=== PATIENT | female | born 1945 | race Caucasian/White ===

== ENCOUNTER 2017-10-31 16:47 | Inpatient (IN) | payer OTHER, MEDICAID ==
--- NOTE | 2017-10-31 17:09 | ED Physician Chart ---
ED Chief Complaint/HPI - Patient Information Date Seen:: 10/31/17 Time Seen:: 16:50 Chief Complaint:: abdominal pain, vomiting and diarrhea History of Present Illness:: Patient developed abdominal pain 1 week ago. Patient's daughter the patient had constipation and gave her a laxative. Since then the patient's had many times vomiting and many times watery diarrhea. She's had right upper quadrant and epigastric pain. She complained of abdominal pain to her daughter a few minutes ago but denies abdominal pain at present. Patient has fecal incontinence. Allergies:: Allergies Allergy/AdvReac Type Severity Reaction Status Date / Time No Known Allergies Allergy Verified 10/31/17 16:57 Historian:: Patient, Family Member Review:: Nurse's Note Reviewed ED Review of Systems - Review of Systems General/Constitutional: No fever, No chills Skin: No skin lesions Head: No headache Eyes: No loss of vision ENT: No earache Neck: No neck pain Cardio Vascular: No chest pain, No palpitations Pulmonary: No SOB GI: Nausea, Vomiting, Diarrhea G/U: No dysuria, No frequency, No nacturia Musculoskeletal: No bone or joint pain, No back pain, No muscle pain Endocrine: No polyuria, No polydipsia Psychiatric: No prior psych history Hematopoietic: No bruising Allergic/Immuno: No urticaria Neurological: No syncope, Focal symptoms ED Past Medical History - Past Medical History Past Medical History: No significant medical hx, CVA/TIA, Other (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) Family History: Heart disease, Other (cerebrovascular accident) Social History: Non Smoker, No Alcohol Surgical History: Hysterectomy Psychiatricy History: None, Other (daughter states patient has confusion) Medication: Reviewed Family Medical History - Family Member Mother History Unknown: Yes Ethnicity: Non- Living Status: ED Physical Exam - Physical Examination General/Constitutional: Well-developed, well-nourished, Alert Head: Atraumatic Eyes: Lids, conjuctiva normal, PERRL Skin: Nl inspection, No rash, No skin lesions, No ecchymosis, Well hydrated, No lymphadenopathy ENMT: External ears, nose nl, Lips, teeth, gums nl, Oropharynx nl Neck: No nuchal rigidity Respiratory: Nl effort/Exclusion Cardio Vascular: RRR, No murmur, gallop, rubs GI: No organomegaly, No hernia, Normal BS's, No mass/bruits, No McBurney tenderness Other GI comments:: Epigastric and right upper quadrant tenderness : No CVA tenderness Extremities: Normal digits & nails Other Neuro/Psych comments:: Slight decrease in right hand grasp and right leg strength Misc: Normal back ED Labs/Radiology/EKG Results - Lab Results Results: Laboratory Results - last 24 hr 10/31/17 17:52 WBC 6.4 RBC 4.20 Hgb 12.6 Hct 38.7 L MCV 92.2 MCH 30.1 MCHC Differential 32.6 RDW 13.7 Plt Count 207 MPV 9.5 Neutrophils % 71.5 Lymphocytes % 20.0 Monocytes % 7.6 Eosinophils % 0.7 Basophils % 0.2 - Radiology Results Results: CT abdomen and pelvis showed massive distention of bowel loops including a cecum up to 10 cm. Laboratory Results - last 24 hr 10/31/17 10/31/17 10/31/17 17:52 17:52 17:52 WBC 6.4 RBC 4.20 Hgb 12.6 Hct 38.7 L MCV 92.2 MCH 30.1 MCHC Differential 32.6 RDW 13.7 Plt Count 207 MPV 9.5 Neutrophils % 71.5 Lymphocytes % 20.0 Monocytes % 7.6 Eosinophils % 0.7 Basophils % 0.2 Sodium 131 L Potassium 4.0 Chloride 101 Carbon Dioxide 23.3 Anion Gap 10.7 BUN 25 Creatinine 0.8 Est GFR ( Amer) TNP Est GFR (Non-Af Amer) TNP BUN/Creatinine Ratio 31.3 Glucose 86 Calcium 10.4 H Total Bilirubin 0.7 Direct Bilirubin 0.21 H AST 16 ALT 13 Alkaline Phosphatase 72 Total Protein 8.0 Albumin 4.2 Globulin 3.8 Albumin/Globulin Ratio 1.1 Lipase 26 ED Septic Shock - . Is Septic Shock (SBP<90, OR Lactate>4 mmol\L) present?: No ED Reassessment (Disposition) - Reassessment Reassessment Condition:: Unchanged - Diagnosis Diagnosis:: Bowel obstruction; gallstones - Patient Disposition Admitted to:: Med/Surg Spoke to:: Kaushik Anaya Admitting Medical Physician:: Kaushik Anaya Condition at Disposition:: Stable
[2017-10-31 17:58] LABS: % BASOPHILS 0.2 % (0.0-2.0); % EOSINOPHILS 0.7 % (0.0-5.0); % MONOCYTES 7.6 % (2.0-10.0); % NEUTROPHILS 71.5 % (40.0-80.0); HEMATOCRIT 38.7 % (41.0-60); HEMOGLOBIN 12.6 gm/dL (12-16); LYMPHOCYTE ABSOLUTE 1.3 Th/cmm (1.5-3.0); MEAN CELL VOLUME 92.2 fl (81-100); MEAN CORPUSCULAR HEMOGLOBIN 30.1 pg (27.0-31.0); MEAN CORPUSCULAR HGB CONC 32.6 pg (28.0-36.0); MEAN PLATELET VOLUME 9.5 fl; MONOCYTE ABSOLUTE 0.5 Th/cmm (0.3-1.0); NEUTROPHILE ABSOLUTE 4.6 Th/cmm (1.8-8.0); PLATELET COUNT 207 Th/cmm (150-400); RED CELL DISTRIBUTION WIDTH 13.7 % (11.5-20.0); WHITE BLOOD COUNT 6.4 Th/cmm (4.8-10.8)
[2017-10-31 18:13] LABS: ANION GAP 10.7 (7.0-16.0); BUN - UREA NITROGEN 25 mg/dL (7-25); CALCIUM SERUM 10.4 mg/dL (8.6-10.3); CARBON DIOXIDE 23.3 mEq/L (21.0-31.0); CHLORIDE 101 mEq/L (98-107); CREATININE - SERUM 0.8 mg/dL (0.6-1.2); GLUCOSE 86 mg/dL (70-105); LIPASE 26 U/L (11-82); SODIUM SERUM 131 mEq/L (136-145)
[2017-10-31 18:28] LABS: ALB/GLOB RATIO 1.1 (1.0-1.8); ALBUMIN 4.2 gm/dL (3.7-5.3); BILIRUBIN,DIRECT 0.21 mg/dL (0.0-0.2); BILIRUBIN,TOTAL 0.7 mg/dL (0.3-1.0)
[2017-10-31] MEDS ORDERED: Morphine Sulfate 2 mg/mL 1mL Syr IVP PRN (19:26)
[2017-10-31] MEDS ORDERED: D5-0.45NS 1,000 ML IV ONE (19:29)
[2017-11-01 00:19] VITALS: BP 108/66
--- NOTE | 2017-11-01 08:17 | Diagnostic Imaging Report ---
Exam: CT examination the abdomen pelvis. HISTORY: Abdominal pain. Total DLP equals 417 CTDI equals 8.0 Findings: Multiple contiguous thin section of the abdomen pelvis obtained from lower thorax to pubic symphysis without administration of oral intravenous contrast material, no prior studies available comparison. The study demonstrates left pleural thickening. Of the study changes in the bases appreciated. The study demonstrates normal appearance of liver parenchyma and spleen. Vascular calcifications are noted The adrenal glands intact. The kidneys demonstrate no evidence of obstructive uropathy or nephrolithiasis. The visualized pancreas is normal. The gallbladder is not seen. There is evidence for significant mass effect distention of bowel loops including the cecum up to 10 cm consistent with megacolon. Air-fluid levels are noted the small slightly represent the lateral lytic ileus. Distention small bowel loops are noted. There is no evidence for free fluid collection. There is no evidence of diverticulitis. The urinary bladder is intact. Bony structures demonstrate no evidence for lytic or blastic lesions. IMPRESSION: 1. Basilar atelectasis pleural thickening right side 2. Massively distended colon with the cecal dilatation up to 10 cm consistent with megacolon. Residual contrast is noted in the tip of the cecum. This most likely represent prior examination sequela. 3. Distended small bowel loops with fluid consistent with ileus. Clinical correlation repeat examination with intravenous and oral contrast might be helpful. 4. Small lymph nodes are noted in the retroperitoneal area.
--- NOTE | 2017-11-01 10:19 | General Progress Note ---
Subjective - Review of Systems Service Date: 11/01/17 Events since last encounter: history of constipation almost had surgery for same problem [address] scan dilated colon and SB, discussed with daughter Holland to consult Objective - Results Result Diagrams: 10/31/17 17:52 10/31/17 17:52 Recent Labs: Laboratory Last Values WBC 6.4 Th/cmm (4.8-10.8) 10/31/17 17:52 RBC 4.20 Mil/cmm (3.80-5.20) 10/31/17 17:52 Hgb 12.6 gm/dL (12-16) 10/31/17 17:52 Hct 38.7 % (41.0-60) L 10/31/17 17:52 MCV 92.2 fl (81-100) 10/31/17 17:52 MCH 30.1 pg (27.0-31.0) 10/31/17 17:52 MCHC Differential 32.6 pg (28.0-36.0) 10/31/17 17:52 RDW 13.7 % (11.5-20.0) 10/31/17 17:52 Plt Count 207 Th/cmm (150-400) 10/31/17 17:52 MPV 9.5 fl 10/31/17 17:52 Neutrophils % 71.5 % (40.0-80.0) 10/31/17 17:52 Lymphocytes % 20.0 % (20.0-50.0) 10/31/17 17:52 Monocytes % 7.6 % (2.0-10.0) 10/31/17 17:52 Eosinophils % 0.7 % (0.0-5.0) 10/31/17 17:52 Basophils % 0.2 % (0.0-2.0) 10/31/17 17:52 Sodium 131 mEq/L (136-145) L 10/31/17 17:52 Potassium 4.0 mEq/L (3.5-5.1) 10/31/17 17:52 Chloride 101 mEq/L (98-107) 10/31/17 17:52 Carbon Dioxide 23.3 mEq/L (21.0-31.0) 10/31/17 17:52 Anion Gap 10.7 (7.0-16.0) 10/31/17 17:52 BUN 25 mg/dL (7-25) 10/31/17 17:52 Creatinine 0.8 mg/dL (0.6-1.2) 10/31/17 17:52 Est GFR ( Amer) TNP 10/31/17 17:52 Est GFR (Non-Af Amer) TNP 10/31/17 17:52 BUN/Creatinine Ratio 31.3 10/31/17 17:52 Glucose 86 mg/dL (70-105) 10/31/17 17:52 Calcium 10.4 mg/dL (8.6-10.3) H 10/31/17 17:52 Total Bilirubin 0.7 mg/dL (0.3-1.0) 10/31/17 17:52 Direct Bilirubin 0.21 mg/dL (0.0-0.2) H 10/31/17 17:52 AST 16 U/L (13-39) 10/31/17 17:52 ALT 13 U/L (7-52) 10/31/17 17:52 Alkaline Phosphatase 72 U/L (34-104) 10/31/17 17:52 Total Protein 8.0 gm/dL (6.0-8.3) 10/31/17 17:52 Albumin 4.2 gm/dL (3.7-5.3) 10/31/17 17:52 Globulin 3.8 gm/dL 10/31/17 17:52 Albumin/Globulin Ratio 1.1 (1.0-1.8) 10/31/17 17:52 Lipase 26 U/L (11-82) 10/31/17 17:52 - Physical Exam Vitals and I&O: Vital Signs Temp 97.7 F 11/01/17 07:58 Pulse 82 11/01/17 07:58 Resp 17 11/01/17 07:58 BP 104/64 11/01/17 07:58 Pulse Ox 95 11/01/17 07:58 Intake & Output 10/31/17 11/01/17 11/01/17 18:59 06:59 18:59 Intake Total 0 Balance 0 Weight (lbs) 54.431 kg Intake: Oral 0 Active Medications: Current Medications Enalaprilat (Vasotec) 2.5 mg IVP Q6H PRN PRN Reason: BP MAINTENANCE (PER PROTOCOL) Stop: 12/30/17 21:17 Morphine Sulfate (Morphine) 2 mg IVP Q4HR PRN PRN Reason: Pain (Severe) Stop: 12/30/17 19:25 Ondansetron HCl (Zofran) 4 mg IV Q6HR PRN PRN Reason: Nausea / Vomiting Stop: 12/30/17 19:27 Assessment/Plan - Problem List Patient Problems: All Active Problems ABDOMINAL PAIN WITH N/V/D (Acute)
[2017-11-01] MEDS ORDERED: Fleet Enema 135 mL RC ONE (10:21)
[2017-11-01] MEDS ORDERED: Diatrizoate Meglumine/Diatri 30 mL Sol PO ONE (10:54)
[2017-11-01] MEDS ORDERED: VTE Chemical Prophylaxis Screen/Admission MC PRN (16:24)
[2017-11-01] MEDS ORDERED: Haloperidol Lactate 5 mg/mL 1mL Vial IM PRN (22:11)
--- NOTE | 2017-11-02 01:33 | History & Physical ---
ADMIT DATE: 10/31/2017 CHIEF COMPLAINT: Abdominal pain. HISTORY OF PRESENT ILLNESS: This is a 72-year-old female, who was brought to Emergency Room by family for evaluation of the abdominal pain that started for 1-week duration. The patient was evaluated in the Emergency Room and also noted to have associated vomiting and diarrhea. The patient had a CT abdomen and pelvis with history of possible bowel obstructions. The patient admitted to the hospital for further treatment. During my evaluation this morning, the patient's was awake, but appears confused. She was refusing to drink contrast material for small bowel series. PAST MEDICAL HISTORY: Hypertension, hypothyroidism, GERD, hyperlipidemia, mental health disorders. PAST SURGICAL HISTORY: No significant past surgeries reported. SOCIAL HISTORY: Lives at home. No reported alcohol, tobacco or street drug use. CURRENT MEDICATIONS: Per medication list reviewed. ALLERGIES: No known drug allergies. REVIEW OF SYSTEMS: The patient appears to be very confused. Review of system was difficult to obtain and unreliable. PHYSICAL EXAMINATION: VITAL SIGNS: Temperature 97.1, pulse 70, respirations 18, blood pressure 108/66, oxygen saturation 95% on room air. GENERAL APPEARANCE: The patient does not seem in acute distress. CARDIOVASCULAR: S1, S2 normal. LUNGS: Clear to auscultation. ABDOMEN: Soft, nontender. Hypoactive bowel sounds noted. No distention, no guarding, no rigidity. NEUROLOGIC: Awake, but confused. Moves all extremities. Grossly nonfocal exam. EXTREMITIES: No edema noted. AVAILABLE LABORATORY DATA: WBC 6.4, hemoglobin 12.6, hematocrit 38.7, platelet count 207. Sodium 131, potassium 4.0, BUN 25, creatinine 0.8, AST 16, ALT 13, lipase 26. CT abdomen and pelvis: Massively distended colon with cecal dilatation up to 10 cm consistent with megacolon, residual contraction noted distal small bowel loops with fluid consistent with ileus. ASSESSMENT: 1. Ileus. 2. Constipation. 3. Hypertension. 4. Hypothyroid. 5. Hyperlipidemia. 6. Confusions. 7. Mental disorder. PLAN: The patient was admitted to med/surg floor. The patient was kept n.p.o., IV fluid was started. IV morphine and Zofran were ordered. General Surgery and GI was consulted. General Surgery evaluated the patient. No surgical intervention was recommended. Small bowel series was ordered. We will follow up on GI's recommendations. Supportive care will be given. Psych was also consulted for underlying mental disorders. The patient's condition and plan of care discussed with the nursing staff. JOB# [id number]
--- NOTE | 2017-11-02 01:36 | Consultation ---
DATE OF CONSULTATION: 11/01/2017 INPATIENT GI CONSULTATION CONSULTING PHYSICIAN: Dr. Anaya. REASON FOR CONSULTATION: Dilated colon, constipation, nausea, vomiting. HISTORY OF PRESENT ILLNESS: The patient is a 72-year-old female with past medical history significant for previous strokes x 2, hypertension, dementia and constipation, who was admitted to the hospital with increasing amounts of abdominal pain and nausea and vomiting. The patient is accompanied by her daughter, who gives most of the history as the patient is not able to participate meaningfully in the interview today. According to the daughter, the patient has been having increasing amounts of abdominal pain over the past week. She suffers from chronic constipation issues and usually does require daily laxatives; however, she has not had a bowel movement in several days and also has been reporting nausea over the past several days as well. At the current time, the patient is asking for food and is not reporting any pain or nausea. ER evaluation did reveal a CT scan that shows very dilated colon with cecum up to 10 cm as well as dilated loops of bowel. PAST MEDICAL HISTORY: Previous strokes, hypertension, dementia. PAST SURGICAL HISTORY: Hysterectomy in the past. FAMILY HISTORY: Noncontributory. SOCIAL HISTORY: The patient lives with her daughter. There is no history of alcoholism or cigarette or illicit drug use. REVIEW OF SYSTEMS: Not possible given the patient is unable to participate in the interview. CURRENT MEDICATIONS: Include Vasotec, morphine as needed, Zofran as needed, GoLYTELY, Fleet enema. PHYSICAL EXAMINATION: VITAL SIGNS: Blood pressure is 104/64, temperature 97.7, pulse 82 beats per minute, oxygenation 95%, respiratory rate of 17. GENERAL: The patient is lying flat in bed. She is alert and oriented x 1. She is in mild amount of distress. HEAD, EARS, EYES, NOSE AND THROAT: Normocephalic, atraumatic appearing head. Pupils are equal and reactive to light. Extraocular muscles are intact with moist mucous membranes. NECK: Supple. No JVD, thyromegaly, or lymphadenopathy. CHEST: Clear to auscultation. CARDIOVASCULAR: S1 and S2 are present. Regular rate and rhythm. ABDOMEN: Distended, soft. There is some tenderness, although no guarding, no rebound. There is tympanic percussion. EXTREMITIES: There is +1 pitting edema bilaterally. Pulses not present. SKIN: No obvious jaundice or cyanosis. LABORATORY DATA AND DIAGNOSTIC STUDIES: White blood cell count 6.4, hemoglobin 12.6, platelet count 207. Sodium 131, BUN 25, creatinine 0.8. Total bilirubin 0.7, AST 16, ALT 13, alkaline phosphatase 72, lipase 26. CT abdomen and pelvis was performed, this is without contrast and shows bibasilar atelectasis, pleural thickening on the right side, ____ coiling with cecal dilation up to 10 cm consistent with megacolon, ____ contrast from the cecum, distended small bowel loops with fluid consistent with ileus. IMPRESSION: This is a 72-year-old female with history of constipation, dementia and previous stroke, who is admitted to the hospital with increasing amounts of abdominal pain, nausea and vomiting, and found to have dilated colon on CT imaging. 1. Constipation. 2. Dilated colon on CT. 3. Nausea and vomiting. DISCUSSION: It is likely that the patient's constipation has worsened and is responsible for the dilated colon as seen on CT scan. She likely has a dilated colon at baseline, although this appears to be worse than normal given her symptoms have progressed to nausea and vomiting and abdominal pain. The daughter reports she has not been having bowel movements, which is concerning; thus, we can try to help with stool evacuation via enemas as well as the oral route as tolerated by the patient. RECOMMENDATIONS: 1. We will start a very slow bowel preparation over the next 24 hours to try to evacuate some stool with GoLYTELY by mouth. 2. We will give her Fleet enema now and then tap water enemas 500 mL every 6 hours to help with stool evacuations ____. 3. There does not appear any sign of a perforation or ischemic bowel at this time given that ____. The patient is overall clinically stable; however, if this does develop, the patient will likely need surgery in order to remove the dilated colon and ____ has been consulted for this purpose. We will continue to follow this patient. Thank you for allowing us to participate in her care. Please call with any further questions. JOB# [id number]
[2017-11-02] MEDS ORDERED: Magnesium Citrate 1.75 GM/300 mL Bottle PO ONE (08:48)
--- NOTE | 2017-11-02 08:48 | GI Progress Note ---
Subjective - Review of Systems Service Date: 11/02/17 Subjective: GI NOTE Events noted. Remains confused. Drank some of her Golytely. Objective - Results Result Diagrams: 10/31/17 17:52 10/31/17 17:52 Recent Labs: Laboratory Last Values WBC 6.4 Th/cmm (4.8-10.8) 10/31/17 17:52 RBC 4.20 Mil/cmm (3.80-5.20) 10/31/17 17:52 Hgb 12.6 gm/dL (12-16) 10/31/17 17:52 Hct 38.7 % (41.0-60) L 10/31/17 17:52 MCV 92.2 fl (81-100) 10/31/17 17:52 MCH 30.1 pg (27.0-31.0) 10/31/17 17:52 MCHC Differential 32.6 pg (28.0-36.0) 10/31/17 17:52 RDW 13.7 % (11.5-20.0) 10/31/17 17:52 Plt Count 207 Th/cmm (150-400) 10/31/17 17:52 MPV 9.5 fl 10/31/17 17:52 Neutrophils % 71.5 % (40.0-80.0) 10/31/17 17:52 Lymphocytes % 20.0 % (20.0-50.0) 10/31/17 17:52 Monocytes % 7.6 % (2.0-10.0) 10/31/17 17:52 Eosinophils % 0.7 % (0.0-5.0) 10/31/17 17:52 Basophils % 0.2 % (0.0-2.0) 10/31/17 17:52 Sodium 131 mEq/L (136-145) L 10/31/17 17:52 Potassium 4.0 mEq/L (3.5-5.1) 10/31/17 17:52 Chloride 101 mEq/L (98-107) 10/31/17 17:52 Carbon Dioxide 23.3 mEq/L (21.0-31.0) 10/31/17 17:52 Anion Gap 10.7 (7.0-16.0) 10/31/17 17:52 BUN 25 mg/dL (7-25) 10/31/17 17:52 Creatinine 0.8 mg/dL (0.6-1.2) 10/31/17 17:52 Est GFR ( Amer) TNP 10/31/17 17:52 Est GFR (Non-Af Amer) TNP 10/31/17 17:52 BUN/Creatinine Ratio 31.3 10/31/17 17:52 Glucose 86 mg/dL (70-105) 10/31/17 17:52 Calcium 10.4 mg/dL (8.6-10.3) H 10/31/17 17:52 Total Bilirubin 0.7 mg/dL (0.3-1.0) 10/31/17 17:52 Direct Bilirubin 0.21 mg/dL (0.0-0.2) H 10/31/17 17:52 AST 16 U/L (13-39) 10/31/17 17:52 ALT 13 U/L (7-52) 10/31/17 17:52 Alkaline Phosphatase 72 U/L (34-104) 10/31/17 17:52 Total Protein 8.0 gm/dL (6.0-8.3) 10/31/17 17:52 Albumin 4.2 gm/dL (3.7-5.3) 10/31/17 17:52 Globulin 3.8 gm/dL 10/31/17 17:52 Albumin/Globulin Ratio 1.1 (1.0-1.8) 10/31/17 17:52 Lipase 26 U/L (11-82) 10/31/17 17:52 - Physical Exam Vitals and I&O: Vital Signs Temp 98.2 F 11/02/17 00:00 Pulse 101 11/02/17 00:00 Resp 20 11/02/17 00:00 BP 130/80 11/02/17 00:00 Pulse Ox 96 11/02/17 00:00 Intake & Output 11/01/17 11/02/17 11/02/17 18:59 06:59 18:59 Intake Total 50 Balance 50 Weight (lbs) 54.431 kg 54.431 kg Intake: Oral 50 Tube Feeding 0 Other: # Voids 3 2 # Bowel Movements 2 0 Weight Source Estimated Bedscale Active Medications: Current Medications Enalaprilat (Vasotec) 2.5 mg IVP Q6H PRN PRN Reason: BP MAINTENANCE (PER PROTOCOL) Stop: 12/30/17 21:17 Haloperidol Lactate (Haldol) 5 mg IM Q6HR PRN PRN Reason: Agitation Stop: 12/31/17 22:10 Last Admin: 11/02/17 00:37 Dose: 5 mg Heparin Sodium (Porcine) (Heparin) 5,000 units SUBQ Q12H KVNG Stop: 12/31/17 20:59 Last Admin: 11/01/17 22:48 Dose: Not Given Miscellaneous (Vte Chemical Prophylaxis Screen/ Admission) 1 ea [facility] PRN PRN PRN Reason: PROTOCOL Stop: 12/31/17 16:23 Morphine Sulfate (Morphine) 2 mg IVP Q4HR PRN PRN Reason: Pain (Severe) Stop: 12/30/17 19:25 Ondansetron HCl (Zofran) 4 mg IV Q6HR PRN PRN Reason: Nausea / Vomiting Stop: 12/30/17 19:27 General: No acute distress, Other (confused) Neck: Supple Cardiovascular: Regular rate Lungs: Clear to auscultation Abdomen: Bowel sounds, Soft, Distended (mild), no Tender Assessment/Plan - Problem List Patient Problems: All Active Problems ABDOMINAL PAIN WITH N/V/D (Acute) - Assessment Assessment: IMPRESSION: 1. Abdominal distension with possible cecal volvulus - markedly dilated cecum per CT; dilated SB loops per SB series. 2. Chronic constipation. 3. Dementia. RECS: 1. Continue bowel prep. 2. May need ex lap with volvulus repair. 3. Serial KUB checks. 4. Clear liquid diet. 5. Monitor labs.
--- NOTE | 2017-11-02 09:01 | General Progress Note ---
Subjective - Review of Systems Service Date: 11/02/17 Events since last encounter: SBO series noted - no contrast right abdomen, question of volvulus or obstruction discussed with Dr. Reyes, discussed with daughter will recommend surgery Objective - Results Result Diagrams: 10/31/17 17:52 10/31/17 17:52 Recent Labs: Laboratory Last Values WBC 6.4 Th/cmm (4.8-10.8) 10/31/17 17:52 RBC 4.20 Mil/cmm (3.80-5.20) 10/31/17 17:52 Hgb 12.6 gm/dL (12-16) 10/31/17 17:52 Hct 38.7 % (41.0-60) L 10/31/17 17:52 MCV 92.2 fl (81-100) 10/31/17 17:52 MCH 30.1 pg (27.0-31.0) 10/31/17 17:52 MCHC Differential 32.6 pg (28.0-36.0) 10/31/17 17:52 RDW 13.7 % (11.5-20.0) 10/31/17 17:52 Plt Count 207 Th/cmm (150-400) 10/31/17 17:52 MPV 9.5 fl 10/31/17 17:52 Neutrophils % 71.5 % (40.0-80.0) 10/31/17 17:52 Lymphocytes % 20.0 % (20.0-50.0) 10/31/17 17:52 Monocytes % 7.6 % (2.0-10.0) 10/31/17 17:52 Eosinophils % 0.7 % (0.0-5.0) 10/31/17 17:52 Basophils % 0.2 % (0.0-2.0) 10/31/17 17:52 Sodium 131 mEq/L (136-145) L 10/31/17 17:52 Potassium 4.0 mEq/L (3.5-5.1) 10/31/17 17:52 Chloride 101 mEq/L (98-107) 10/31/17 17:52 Carbon Dioxide 23.3 mEq/L (21.0-31.0) 10/31/17 17:52 Anion Gap 10.7 (7.0-16.0) 10/31/17 17:52 BUN 25 mg/dL (7-25) 10/31/17 17:52 Creatinine 0.8 mg/dL (0.6-1.2) 10/31/17 17:52 Est GFR ( Amer) TNP 10/31/17 17:52 Est GFR (Non-Af Amer) TNP 10/31/17 17:52 BUN/Creatinine Ratio 31.3 10/31/17 17:52 Glucose 86 mg/dL (70-105) 10/31/17 17:52 Calcium 10.4 mg/dL (8.6-10.3) H 10/31/17 17:52 Total Bilirubin 0.7 mg/dL (0.3-1.0) 10/31/17 17:52 Direct Bilirubin 0.21 mg/dL (0.0-0.2) H 10/31/17 17:52 AST 16 U/L (13-39) 10/31/17 17:52 ALT 13 U/L (7-52) 10/31/17 17:52 Alkaline Phosphatase 72 U/L (34-104) 10/31/17 17:52 Total Protein 8.0 gm/dL (6.0-8.3) 10/31/17 17:52 Albumin 4.2 gm/dL (3.7-5.3) 10/31/17 17:52 Globulin 3.8 gm/dL 10/31/17 17:52 Albumin/Globulin Ratio 1.1 (1.0-1.8) 10/31/17 17:52 Lipase 26 U/L (11-82) 10/31/17 17:52 - Physical Exam Vitals and I&O: Vital Signs Temp 97.6 F 11/02/17 08:57 Pulse 100 11/02/17 08:57 Resp 18 11/02/17 08:57 BP 144/75 11/02/17 08:57 Pulse Ox 96 11/02/17 00:00 Intake & Output 11/01/17 11/02/17 11/02/17 18:59 06:59 18:59 Intake Total 50 Balance 50 Weight (lbs) 54.431 kg 54.431 kg Intake: Oral 50 Tube Feeding 0 Other: # Voids 3 2 # Bowel Movements 2 0 Weight Source Estimated Bedscale Active Medications: Current Medications Enalaprilat (Vasotec) 2.5 mg IVP Q6H PRN PRN Reason: BP MAINTENANCE (PER PROTOCOL) Stop: 12/30/17 21:17 Haloperidol Lactate (Haldol) 5 mg IM Q6HR PRN PRN Reason: Agitation Stop: 12/31/17 22:10 Last Admin: 11/02/17 00:37 Dose: 5 mg Heparin Sodium (Porcine) (Heparin) 5,000 units SUBQ Q12H KVNG Stop: 12/31/17 20:59 Last Admin: 11/01/17 22:48 Dose: Not Given Miscellaneous (Vte Chemical Prophylaxis Screen/ Admission) 1 ea [facility] PRN PRN PRN Reason: PROTOCOL Stop: 12/31/17 16:23 Morphine Sulfate (Morphine) 2 mg IVP Q4HR PRN PRN Reason: Pain (Severe) Stop: 12/30/17 19:25 Ondansetron HCl (Zofran) 4 mg IV Q6HR PRN PRN Reason: Nausea / Vomiting Stop: 12/30/17 19:27 General: No acute distress, Other (confused) Neck: Supple Cardiovascular: Regular rate Lungs: Clear to auscultation Abdomen: Bowel sounds, Soft, Distended (mild), no Tender Assessment/Plan - Problem List Patient Problems: All Active Problems ABDOMINAL PAIN WITH N/V/D (Acute)
--- NOTE | 2017-11-02 09:42 | Diagnostic Imaging Report ---
Time: KUB of the abdomen HISTORY: Constipation. Findings: Frontal examination of the abdomen was reviewed the study compared to prior 1 of the early demonstrates residual contrast material throughout the colon. There is a discrete distention of small and large bowel loops with air consistent with ileus. Bony structures are unremarkable for degenerative osteopenia. There is no evidence of obstruction. IMPRESSION distention of the colon small bowel loops was air. This most likely corresponds to ileus. Distention of large bowel loops with residual contrast material, no evidence of obstruction.
--- NOTE | 2017-11-02 09:44 | Diagnostic Imaging Report ---
Exam: Small bowel follow-through. HISTORY: No bowel obstruction. Findings: The KUB of the abdomen reviewed. The study demonstrates slight distention of the large bowel loops with air with distention small bowel loops the lower abdomen consistent with ileus. Degenerative changes lumbar spine appreciated. There is no evidence for abnormal masses or calcifications. The study demonstrates normal progression of contrast material through the small bowel loops into the colon. There is no evidence of obstruction. Distention of the small and large bowel loops with air consistent with ileus. IMPRESSION: no evidence for small bowel obstruction, most likely paralytic ileus distended air-containing small bowel large bowel loops
[2017-11-02 09:51] LABS: ALBUMIN 3.5 gm/dL (3.7-5.3); ALKALINE PHOSPHATASE 58 U/L (34-104); ANION GAP 10.6 (7.0-16.0); BILIRUBIN,TOTAL 0.6 mg/dL (0.3-1.0); BUN - UREA NITROGEN 10 mg/dL (7-25); CALCIUM SERUM 9.1 mg/dL (8.6-10.3); CARBON DIOXIDE 24.2 mEq/L (21.0-31.0); CHLORIDE 108 mEq/L (98-107); CREATININE - SERUM 0.5 mg/dL (0.6-1.2); GLUCOSE 92 mg/dL (70-105); POTASSIUM SERUM 3.8 mEq/L (3.5-5.1); SGOT 15 U/L (13-39); SGPT/ALT 10 U/L (7-52); SODIUM SERUM 139 mEq/L (136-145)
[2017-11-02 10:04] LABS: % BASOPHILS 0.1 % (0.0-2.0); % LYMPHOCYTES 12.8 % (20.0-50.0); EOSINOPHILE ABSOLUTE 0.1 Th/cmm (0.1-0.4); HEMOGLOBIN 11.2 gm/dL (12-16); LYMPHOCYTE ABSOLUTE 0.8 Th/cmm (1.5-3.0); MONOCYTE ABSOLUTE 0.5 Th/cmm (0.3-1.0); NEUTROPHILE ABSOLUTE 5.2 Th/cmm (1.8-8.0); WHITE BLOOD COUNT 6.6 Th/cmm (4.8-10.8)
[2017-11-02 10:07] LABS: % EOSINOPHILS 0.8 % (0.0-5.0); % MONOCYTES 6.9 % (2.0-10.0); % NEUTROPHILS 79.4 % (40.0-80.0); MEAN CELL VOLUME 91.8 fl (81-100); MEAN CORPUSCULAR HEMOGLOBIN 30.2 pg (27.0-31.0); MEAN CORPUSCULAR HGB CONC 32.9 pg (28.0-36.0); MEAN PLATELET VOLUME 10.1 fl; PLATELET COUNT 207 Th/cmm (150-400); RED CELL DISTRIBUTION WIDTH 13.4 % (11.5-20.0)
[2017-11-02 11:13] LABS: INR 1.06 (0.5-1.4)
[2017-11-02] MEDS ORDERED: Propofol **SURGERY USE ONLY** 20 ML IV ONE (11:54)
[2017-11-02] MEDS ORDERED: metroNIDAZOLE 500 mg/100 mL Premix Bag IV SCH (12:37)
[2017-11-02] MEDS ORDERED: Neostigmine 10mg/10mL Vial ONE (13:03)
[2017-11-02] MEDS ORDERED: HYDROmorphone 2 mg/mL 1mL Vial ONE (13:03)
[2017-11-02 15:02] LABS: HEMATOCRIT 29.4 % (41.0-60); HEMOGLOBIN 9.8 gm/dL (12-16)
--- NOTE | 2017-11-02 15:26 | Progress Notes ---
DATE: 11/02/2017 SUBJECTIVE: The patient seen and examined on behalf of Dr. Anaya. The patient is admitted on 10/31/2017 for abdominal pain. Diagnosis of ileus and constipation was made. The patient is seen by roughing mill operator as well as the surgeon as well. The patient did have a small bowel series, which did reveal the patient had a noncontrast in the right abdomen consistent with a volvulus or obstruction and the patient in need for surgery. OBJECTIVE: VITAL SIGNS: Temperature 97.6, pulse is 100, respiratory rate 18, blood pressure 144/75. HEENT: No facial asymmetry. Poor dentition. NECK: Supple, no JVD, no lymphadenopathy. HEART: Regular. No murmur. CHEST: Lungs equal in expansion, no wheezing, no crackles. ABDOMEN: Distended with tympanic on percussion. Bowel sounds are sluggishly present. EXTREMITIES: +1 pedal edema noted. NEUROLOGIC: Alert only. AVAILABLE DIAGNOSTIC DATA: White count of 6.6, hemoglobin 11.2, platelet count of 207. BUN and creatinine is 10 and 0.5, albumin was 3.5. CLINICAL IMPRESSION: 1. Bowel obstruction versus volvulus. 2. Dementia. 3. Degenerative joint disease. 4. Hypertension. 5. Hypothyroidism. 6. Hyperlipidemia. PLAN: 1. The patient will remain n.p.o. for now. 2. Continue IV antibiotic. 3. Synthroid 50 mcg IV for now. Monitor blood pressure and use nitro paste for the hypertension. Continue proton pump inhibitor with IV form. Hold her statins. Follow up on lab and will follow gift consultant recommendations. Care plan has been reviewed and discussed with staff. JOB# [id number]
--- NOTE | 2017-11-02 17:03 | Operative Report ---
DATE OF SURGERY: 11/02/2017 PREOPERATIVE DIAGNOSES: 1. Small-bowel obstruction. 2. Question of colon volvulus. 3. Status post hysterectomy. 4. Previous cerebrovascular accident. 5. Hyperlipidemia. 6. Mental disorder. POSTOPERATIVE DIAGNOSES: 1. Small-bowel obstruction. 2. Question of colon volvulus. 3. Status post hysterectomy. 4. Previous cerebrovascular accident. 5. Hyperlipidemia. 6. Mental disorder. OPERATION DONE: Exploratory laparotomy with: 1. Subtotal colectomy with a [id number] anastomosis (ileocolic sigmoid). 2. Mobilization of the hepatic flexure. 3. Mobilization of the splenic flexure. 4. Abdominal washout with antibiotic solution. ESTIMATED BLOOD LOSS: 50 mL. OPERATIVE FINDINGS: Markedly dilated bowel with a mass in the distal sigmoid with no serosal sign of any involvement. The left side of the colon was stuck to the pelvic wall, this had to be freed. SURGEON: Dr. Butts. VOLCANOLOGIST: Dr. Guy. ANESTHESIA: General. ANESTHESIOLOGIST: Dr. Collado. DESCRIPTION OF PROCEDURE: The patient was given general anesthesia. The abdomen was prepped with ChloraPrep and draped in appropriate manner. A midline abdominal incision was made below the xiphoid to the suprapubic area to allow for exposure of the markedly dilated bowel. The abdominal cavity was explored and the whole large bowel was markedly dilated particularly the ascending colon. There was a mass in the distal sigmoid just at the level of the pelvic brim, which did not appear to be malignant on feel with no serosal involvement. The colon was then freed from its lateral attachments and the mesentery was serially transected utilizing the LigaSure. The hepatic flexure was freed and then the splenic flexure. This dissection was carried all the way down to the distal sigmoid and at the pelvic brim, the colon was transected below the mass. Cultures were taken of the colon and small bowel following its opening and a bmua-au-deri anastomosis was performed utilizing GI instrument. The staple line was reinforced with running suture of 0 silk, also suturing the serosa over this to further prevent leak. The open end of the anastomosis was closed with a stapler device as well and the whole staple line was closed with running suture of 3-0 silk as reinforcement. Irrigation and antibiotic solution was carried out. Check for hemostasis was done and this was satisfactory. A Stanislaw drain was placed in the abdominal cavity. The abdominal incision was closed with running suture of #1 PDS. Subcutaneous tissue closed with 3-0 Vicryl and the skin with subcuticular suture of 4-0 Vicryl. The patient tolerated the procedure well. [facility]# [id number] MTDD
--- NOTE | 2017-11-02 17:09 | Consultation ---
DATE OF CONSULTATION: 11/01/2017 SURGICAL CONSULTATION REFERRING PHYSICIAN: Dr. Anaya. REASON FOR CONSULTATION: Abdominal pain and vomiting. Thank you for referring this patient to me. HISTORY OF PRESENT ILLNESS: This is a 72-year-old female with 1 week duration of abdominal pain associated with nausea and vomiting. Additional information from the daughter is that she has had frequent episodes of constipation. About 5 years ago, she almost underwent surgery for this. She has had a couple of strokes, for which she is taking Plavix, which was stopped 2 days ago. Other comorbidities include hypertension, hypothyroidism, GERD, hyperlipidemia, and mental health disorder. On admission, the patient underwent CT scan of the abdomen, which showed markedly dilated colon. There is also distention of small bowel. The patient has been seen also by GI sustainable design consultant and small bowel series has been ordered, which showed findings consistent with loss of nonpassage of contrast into the large bowel with the possibility of volvulus. The patient underwent KUB on day of surgery and marked distention of the large and small bowel was again noted. Informed consent was discussed with the patient's family regarding the possible ischemia that can result from a volvulus and/or perforation in view of the longstanding lack of bowel movement. The labs are within normal limits, however. GI sustainable design consultant also agrees the patient needs exploration. Possible complication of the operation in view of unprepared bowel was discussed and family has agreed to proceed with the surgery. They do not want colostomy or ileostomy as much as possible. [facility]# [id number]
[2017-11-02] MEDS: metroNIDAZOLE 500mg/NS 100mL 500 MG in Premix Fluid 1 BAG IV SCH ×2 (17:14→22:23)
[2017-11-02] MEDS: NITROGLYCERIN OINT 2% 1 INCH PACKET TP SCH (18:54)
[2017-11-02] MEDS ORDERED: Norepinephrine 4 mg/4mL Vial IV ONE (19:31)
[2017-11-02 21:03] LABS: HEMATOCRIT 37.5 % (41.0-60); HEMOGLOBIN 12.3 gm/dL (12-16)
[2017-11-03] MEDS: NITROGLYCERIN OINT 2% 1 INCH PACKET TP SCH ×5 (00:12→18:33)
[2017-11-03 04:50] LABS: HEMOGLOBIN 10.5 gm/dL (12-16); LYMPHOCYTE ABSOLUTE 0.4 Th/cmm (1.5-3.0); MEAN CELL VOLUME 93.2 fl (81-100); MEAN CORPUSCULAR HEMOGLOBIN 30.3 pg (27.0-31.0); MEAN CORPUSCULAR HGB CONC 32.5 pg (28.0-36.0); MEAN PLATELET VOLUME 9.7 fl; MONOCYTE ABSOLUTE 0.4 Th/cmm (0.3-1.0); NEUTROPHILE ABSOLUTE 10.7 Th/cmm (1.8-8.0); PLATELET COUNT 166 Th/cmm (150-400); RED BLOOD COUNT 3.48 Mil/cmm (3.80-5.20)
[2017-11-03 04:56] LABS: % LYMPHOCYTES 3.3 % (20.0-50.0); % MONOCYTES 3.2 % (2.0-10.0); % NEUTROPHILS 93.3 % (40.0-80.0); HEMATOCRIT 32.4 % (41.0-60); WHITE BLOOD COUNT 11.5 Th/cmm (4.8-10.8)
[2017-11-03 04:57] LABS: % EOSINOPHILS 0.2 % (0.0-5.0)
[2017-11-03 04:59] LABS: ALB/GLOB RATIO 1.1 (1.0-1.8); ALBUMIN 2.6 gm/dL (3.7-5.3); ALKALINE PHOSPHATASE 37 U/L (34-104); ANION GAP 9.4 (7.0-16.0); BILIRUBIN,TOTAL 0.7 mg/dL (0.3-1.0); BUN - UREA NITROGEN 7 mg/dL (7-25); CALCIUM SERUM 7.1 mg/dL (8.6-10.3); CARBON DIOXIDE 20.7 mEq/L (21.0-31.0); CHLORIDE 113 mEq/L (98-107); CREATININE - SERUM 0.5 mg/dL (0.6-1.2); POTASSIUM SERUM 3.1 mEq/L (3.5-5.1); SGOT 12 U/L (13-39); SGPT/ALT 8 U/L (7-52); SODIUM SERUM 140 mEq/L (136-145)
[2017-11-03 05:10] LABS: GLUCOSE 171 mg/dL (70-105)
[2017-11-03] MEDS: D5-0.9%NS 1,000 ML IV SCH ×2 (06:01→18:31)
[2017-11-03] MEDS: metroNIDAZOLE 500mg/NS 100mL 500 MG in Premix Fluid 1 BAG IV SCH ×3 (06:02→22:41)
--- NOTE | 2017-11-03 08:13 | GI Progress Note ---
Subjective - Review of Systems Service Date: 11/03/17 Subjective: GI NOTE Events noted. Seen in ICU. Objective - Results Result Diagrams: 11/03/17 04:00 11/03/17 04:00 Recent Labs: Laboratory Last Values WBC 11.5 Th/cmm (4.8-10.8) H D 11/03/17 04:00 RBC 3.48 Mil/cmm (3.80-5.20) L 11/03/17 04:00 Hgb 10.5 gm/dL (12-16) L 11/03/17 04:00 Hct 32.4 % (41.0-60) L D 11/03/17 04:00 MCV 93.2 fl (81-100) 11/03/17 04:00 MCH 30.3 pg (27.0-31.0) 11/03/17 04:00 MCHC Differential 32.5 pg (28.0-36.0) 11/03/17 04:00 RDW 14.0 % (11.5-20.0) 11/03/17 04:00 Plt Count 166 Th/cmm (150-400) 11/03/17 04:00 MPV 9.7 fl 11/03/17 04:00 Neutrophils % 93.3 % (40.0-80.0) H 11/03/17 04:00 Lymphocytes % 3.3 % (20.0-50.0) L 11/03/17 04:00 Monocytes % 3.2 % (2.0-10.0) 11/03/17 04:00 Eosinophils % 0.2 % (0.0-5.0) 11/03/17 04:00 Basophils % 0.0 % (0.0-2.0) 11/03/17 04:00 PT 11.0 SECONDS (9.5-11.5) 11/02/17 11:03 INR 1.06 (0.5-1.4) 11/02/17 11:03 Sodium 140 mEq/L (136-145) 11/03/17 04:00 Potassium 3.1 mEq/L (3.5-5.1) L 11/03/17 04:00 Chloride 113 mEq/L (98-107) H 11/03/17 04:00 Carbon Dioxide 20.7 mEq/L (21.0-31.0) L 11/03/17 04:00 Anion Gap 9.4 (7.0-16.0) 11/03/17 04:00 BUN 7 mg/dL (7-25) 11/03/17 04:00 Creatinine 0.5 mg/dL (0.6-1.2) L 11/03/17 04:00 Est GFR ( Amer) TNP 11/03/17 04:00 Est GFR (Non-Af Amer) TNP 11/03/17 04:00 BUN/Creatinine Ratio 14.0 11/03/17 04:00 Glucose 171 mg/dL (70-105) H D 11/03/17 04:00 Calcium 7.1 mg/dL (8.6-10.3) L 11/03/17 04:00 Total Bilirubin 0.7 mg/dL (0.3-1.0) 11/03/17 04:00 Direct Bilirubin 0.21 mg/dL (0.0-0.2) H 10/31/17 17:52 AST 12 U/L (13-39) L 11/03/17 04:00 ALT 8 U/L (7-52) 11/03/17 04:00 Alkaline Phosphatase 37 U/L (34-104) 11/03/17 04:00 Total Protein 5.0 gm/dL (6.0-8.3) L 11/03/17 04:00 Albumin 2.6 gm/dL (3.7-5.3) L 11/03/17 04:00 Globulin 2.4 gm/dL 11/03/17 04:00 Albumin/Globulin Ratio 1.1 (1.0-1.8) 11/03/17 04:00 Lipase 26 U/L (11-82) 10/31/17 17:52 Blood Type O POSITIVE 11/02/17 12:36 Antibody Screen NEGATIVE 11/02/17 12:36 Crossmatch See Detail 11/02/17 12:36 - Physical Exam Vitals and I&O: Vital Signs Temp 98.8 F 11/03/17 06:00 Pulse 94 11/03/17 06:00 Resp 19 11/03/17 06:00 BP 133/70 11/03/17 06:00 Pulse Ox 98 11/03/17 06:00 Intake & Output 11/02/17 11/03/17 11/03/17 18:59 06:59 18:59 Intake Total 150 150 100 Output Total 300 665 Balance -150 -515 100 Weight (lbs) 54.431 kg 54.613 kg Intake: Intake, IV Amount 150 150 100 Piperacillin Sodium/ 50 50 Tazobact 3.375 gm In Dextrose 5% 50 ml @ 100 mls/hr IV Q8H [facility] Rx#: [id number] metroNIDAZOLE 500mg/NS 100 100 100 100mL 500 mg In Premix Fluid 1 bag @ 100 mls/hr IV Q8H [facility] Rx#:[id number] Oral 0 Output: Drainage 190 Abdomen 190 Urine 250 475 Stool 0 Other 50 Other: # Bowel Movements 0 Weight Source Bedscale Bedscale Active Medications: Current Medications Enalaprilat (Vasotec) 2.5 mg IVP Q6H PRN PRN Reason: BP MAINTENANCE (PER PROTOCOL) Stop: 12/30/17 21:17 Haloperidol Lactate (Haldol) 5 mg IM Q6HR PRN PRN Reason: Agitation Stop: 12/31/17 22:10 Last Admin: 11/02/17 00:37 Dose: 5 mg Heparin Sodium (Porcine) (Heparin) 5,000 units SUBQ Q12H [facility] Stop: 12/31/17 20:59 Last Admin: 11/02/17 21:22 Dose: Not Given Piperacillin Sod/Tazobactam (Sod 3.375 gm/ Dextrose) 50 mls @ 100 mls/hr IV Q8H [facility] Stop: 01/01/18 14:44 Last Admin: 11/03/17 07:12 Dose: 100 mls/hr Metronidazole 500 mg/ (Miscellaneous) 100 mls @ 100 mls/hr IV Q8H [facility] Stop: 01/01/18 14:44 Last Infusion: 11/03/17 07:31 Dose: Infused Dextrose/Sodium Chloride (D5-0.9%Ns) 1,000 mls @ 100 mls/hr IV .Q10H [facility] Stop: 01/01/18 16:59 Last Admin: 11/03/17 06:01 Dose: 100 mls/hr Norepinephrine Bitartrate 4 mg (/ Dextrose) 254 mls @ 19.05 mls/hr IV TITR PRN ; Protocol; 5 MCG/MIN PRN Reason: BP MAINTENANCE (PER PROTOCOL) Stop: 01/01/18 19:27 Levothyroxine Sodium (Synthroid) 0.05 mg IVP DAILY [facility] Stop: 01/02/18 08:59 Miscellaneous (Vte Chemical Prophylaxis Screen/ Admission) 1 ea MC PRN PRN PRN Reason: PROTOCOL Stop: 12/31/17 16:23 Morphine Sulfate (Morphine) 2 mg IVP Q4HR PRN PRN Reason: Pain (Severe) Stop: 12/30/17 19:25 Morphine Sulfate (Morphine) 2 mg IVP Q4HR PRN PRN Reason: Abdominal Pain Stop: 01/01/18 14:39 Nitroglycerin (Nitro-Bid) 1 inch TP Q6HR [facility] Stop: 01/01/18 17:59 Last Admin: 11/03/17 05:58 Dose: Not Given Ondansetron HCl (Zofran) 4 mg IV Q6HR PRN PRN Reason: Nausea / Vomiting Stop: 12/30/17 19:27 Pantoprazole Sodium (Protonix) 40 mg IVP DAILY [facility] Stop: 01/02/18 08:59 General: No acute distress, Other (lethargic) Neck: Supple Cardiovascular: Regular rate Lungs: Clear to auscultation Abdomen: Soft, Drain (RLQ), Other (mildline dressing), no Bowel sounds, no Tender, no Distended Assessment/Plan - Problem List Patient Problems: All Active Problems ABDOMINAL PAIN WITH N/V/D (Acute) - Assessment Assessment: IMPRESSION: 1. 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 s/p ex lap 11/02 with sigmoid mass noted, s/p subtotal colectomy with primary anastomosis. 2. Chronic constipation. 3. Dementia. RECS: 1. Post op care. 2. Follow-up path results. 3. May need peripheral nutrition. 4. Monitor labs.
[2017-11-03] MEDS ORDERED: KCL 20mEq/100mL Premix 20 MEQ/100 ML PIGGYBACK IV ONE (09:11)
--- NOTE | 2017-11-03 09:41 | General Progress Note ---
Subjective - Review of Systems Service Date: 11/03/17 Events since last encounter: labs ok VS ok minimal sero-sanguinous drainage urine output good out of ICU Objective - Results Result Diagrams: 11/03/17 04:00 11/03/17 04:00 Recent Labs: Laboratory Last Values WBC 11.5 Th/cmm (4.8-10.8) H D 11/03/17 04:00 RBC 3.48 Mil/cmm (3.80-5.20) L 11/03/17 04:00 Hgb 10.5 gm/dL (12-16) L 11/03/17 04:00 Hct 32.4 % (41.0-60) L D 11/03/17 04:00 MCV 93.2 fl (81-100) 11/03/17 04:00 MCH 30.3 pg (27.0-31.0) 11/03/17 04:00 MCHC Differential 32.5 pg (28.0-36.0) 11/03/17 04:00 RDW 14.0 % (11.5-20.0) 11/03/17 04:00 Plt Count 166 Th/cmm (150-400) 11/03/17 04:00 MPV 9.7 fl 11/03/17 04:00 Neutrophils % 93.3 % (40.0-80.0) H 11/03/17 04:00 Lymphocytes % 3.3 % (20.0-50.0) L 11/03/17 04:00 Monocytes % 3.2 % (2.0-10.0) 11/03/17 04:00 Eosinophils % 0.2 % (0.0-5.0) 11/03/17 04:00 Basophils % 0.0 % (0.0-2.0) 11/03/17 04:00 PT 11.0 SECONDS (9.5-11.5) 11/02/17 11:03 INR 1.06 (0.5-1.4) 11/02/17 11:03 Sodium 140 mEq/L (136-145) 11/03/17 04:00 Potassium 3.1 mEq/L (3.5-5.1) L 11/03/17 04:00 Chloride 113 mEq/L (98-107) H 11/03/17 04:00 Carbon Dioxide 20.7 mEq/L (21.0-31.0) L 11/03/17 04:00 Anion Gap 9.4 (7.0-16.0) 11/03/17 04:00 BUN 7 mg/dL (7-25) 11/03/17 04:00 Creatinine 0.5 mg/dL (0.6-1.2) L 11/03/17 04:00 Est GFR ( Amer) TNP 11/03/17 04:00 Est GFR (Non-Af Amer) TNP 11/03/17 04:00 BUN/Creatinine Ratio 14.0 11/03/17 04:00 Glucose 171 mg/dL (70-105) H D 11/03/17 04:00 Calcium 7.1 mg/dL (8.6-10.3) L 11/03/17 04:00 Total Bilirubin 0.7 mg/dL (0.3-1.0) 11/03/17 04:00 Direct Bilirubin 0.21 mg/dL (0.0-0.2) H 10/31/17 17:52 AST 12 U/L (13-39) L 11/03/17 04:00 ALT 8 U/L (7-52) 11/03/17 04:00 Alkaline Phosphatase 37 U/L (34-104) 11/03/17 04:00 Total Protein 5.0 gm/dL (6.0-8.3) L 11/03/17 04:00 Albumin 2.6 gm/dL (3.7-5.3) L 11/03/17 04:00 Globulin 2.4 gm/dL 11/03/17 04:00 Albumin/Globulin Ratio 1.1 (1.0-1.8) 11/03/17 04:00 Lipase 26 U/L (11-82) 10/31/17 17:52 Blood Type O POSITIVE 11/02/17 12:36 Antibody Screen NEGATIVE 11/02/17 12:36 Crossmatch See Detail 11/02/17 12:36 - Physical Exam Vitals and I&O: Vital Signs Temp 97 F 11/03/17 08:00 Pulse 91 11/03/17 08:00 Resp 22 11/03/17 08:00 BP 127/67 11/03/17 08:00 Pulse Ox 96 11/03/17 08:00 Intake & Output 11/02/17 11/03/17 11/03/17 18:59 06:59 18:59 Intake Total 150 150 150 Output Total 300 665 Balance -150 -515 150 Weight (lbs) 54.431 kg 54.613 kg Intake: Intake, IV Amount 150 150 150 Piperacillin Sodium/ 50 50 50 Tazobact 3.375 gm In Dextrose 5% 50 ml @ 100 mls/hr IV Q8H [facility] Rx#: [id number] metroNIDAZOLE 500mg/NS 100 100 100 100mL 500 mg In Premix Fluid 1 bag @ 100 mls/hr IV Q8H [facility] Rx#:[id number] Oral 0 Output: Drainage 190 Abdomen 190 Urine 250 475 Stool 0 Other 50 Other: # Bowel Movements 0 Weight Source Bedscale Bedscale Active Medications: Current Medications Enalaprilat (Vasotec) 2.5 mg IVP Q6H PRN PRN Reason: BP MAINTENANCE (PER PROTOCOL) Stop: 12/30/17 21:17 Haloperidol Lactate (Haldol) 5 mg IM Q6HR PRN PRN Reason: Agitation Stop: 12/31/17 22:10 Last Admin: 11/02/17 00:37 Dose: 5 mg Heparin Sodium (Porcine) (Heparin) 5,000 units SUBQ Q12H [facility] Stop: 12/31/17 20:59 Last Admin: 11/02/17 21:22 Dose: Not Given Piperacillin Sod/Tazobactam (Sod 3.375 gm/ Dextrose) 50 mls @ 100 mls/hr IV Q8H [facility] Stop: 01/01/18 14:44 Last Infusion: 11/03/17 07:45 Dose: Infused Metronidazole 500 mg/ (Miscellaneous) 100 mls @ 100 mls/hr IV Q8H [facility] Stop: 01/01/18 14:44 Last Infusion: 11/03/17 07:31 Dose: Infused Dextrose/Sodium Chloride (D5-0.9%Ns) 1,000 mls @ 100 mls/hr IV .Q10H [facility] Stop: 01/01/18 16:59 Last Admin: 11/03/17 06:01 Dose: 100 mls/hr Norepinephrine Bitartrate 4 mg (/ Dextrose) 254 mls @ 19.05 mls/hr IV TITR PRN ; Protocol; 5 MCG/MIN PRN Reason: BP MAINTENANCE (PER PROTOCOL) Stop: 01/01/18 19:27 Potassium Chloride (Potassium Chloride) 20 meq in 100 mls @ 50 mls/hr IV X1 ONE Stop: 11/03/17 11:10 Levothyroxine Sodium (Synthroid) 0.05 mg IVP DAILY [facility] Stop: 01/02/18 08:59 Last Admin: 11/03/17 09:33 Dose: 0.05 mg Miscellaneous (Vte Chemical Prophylaxis Screen/ Admission) 1 ea MC PRN PRN PRN Reason: PROTOCOL Stop: 12/31/17 16:23 Morphine Sulfate (Morphine) 2 mg IVP Q4HR PRN PRN Reason: Pain (Severe) Stop: 12/30/17 19:25 Morphine Sulfate (Morphine) 2 mg IVP Q4HR PRN PRN Reason: Abdominal Pain Stop: 01/01/18 14:39 Nitroglycerin (Nitro-Bid) 1 inch TP Q6HR [facility] Stop: 01/01/18 17:59 Last Admin: 11/03/17 05:58 Dose: Not Given Ondansetron HCl (Zofran) 4 mg IV Q6HR PRN PRN Reason: Nausea / Vomiting Stop: 12/30/17 19:27 Pantoprazole Sodium (Protonix) 40 mg IVP DAILY [facility] Stop: 01/02/18 08:59 Last Admin: 11/03/17 09:33 Dose: 40 mg General: No acute distress, Other (lethargic) Neck: Supple Cardiovascular: Regular rate Lungs: Clear to auscultation Abdomen: Soft, Drain (RLQ), Other (mildline dressing), no Bowel sounds, no Tender, no Distended Assessment/Plan - Problem List Patient Problems: All Active Problems ABDOMINAL PAIN WITH N/V/D (Acute)
[2017-11-03 10:24] LABS: URINE MICROSCOPIC INDICATED? YES; URINE SOURCE MIDSTREAM
[2017-11-03 10:27] LABS: URINE BILIRUBIN NEGATIVE (NEGATIVE); URINE BLOOD TRACE (NEGATIVE); URINE GLUCOSE (UA) NEGATIVE (NEGATIVE); URINE KETONE NEGATIVE (NEGATIVE); URINE LEUKOCYTE ESTERASE NEGATIVE (NEGATIVE); URINE NITRATE NEGATIVE (NEGATIVE); URINE PH 5.5 (4.6 - 8.0); URINE PROTEIN TRACE mg/dL (NEGATIVE); URINE UROBILINOGEN 0.2 E.U./dL (0.2 - 1.0)
[2017-11-03 10:30] LABS: URINE CLARITY HAZY (CLEAR); URINE COLOR YELLOW
[2017-11-03 10:35] LABS: URINE BACTERIA 1+ /hpf (NONE SEEN); URINE COARSE GRANULAR CAST 0-2 /lpf (NONE SEEN); URINE EPITHELIAL CELLS MODERATE /lpf (FEW)
--- NOTE | 2017-11-03 13:38 | Progress Notes ---
DATE: PATIENT'S IDENTIFICATION: A 72-year-old female patient seen and examined on behalf of Dr. Anaya on 11/03/2017. The patient is in ICU. The patient was transferred to ICU due to low blood pressure, but the patient's blood pressure remained stable at this time. The patient did have exploratory laparotomy with subtotal colectomy with right [id number] anastomosis with mobilization of the hepatic and splenic flexure. The patient currently feels better. The patient remained hemodynamically stable. The patient's family at bedside. The patient is thirsty. Denies any chest pain, shortness of breath, or palpitation. PHYSICAL EXAMINATION: VITAL SIGNS: Temperature 97.6, pulse is 97, respiratory rate is 18, and blood pressure 131/61. HEENT: No facial asymmetry. NECK: Supple, no JVD. HEART: Regular. CHEST: Lung equal in expansion. Decreased breath sounds noted. ABDOMEN: Soft. Intact dressing noted. Bowel sounds are absent. EXTREMITIES: No edema. AVAILABLE DIAGNOSTIC DATA: Sodium 140, potassium 3.1, chloride 113, CO2 20.7, BUN and creatinine are 7 and 0.5. White count of 11.5, hemoglobin 10.5, and platelet count of 166. Albumin 2.6. CLINICAL IMPRESSION: 1. Acute small bowel obstruction, status post exploratory laparotomy with subtotal colectomy with [id number]-ha-aepv anastomosis. 2. Postop ileus. 3. Hypotension postop, resolved. 4. Hypertension. 5. Hyperlipidemia. 6. Hypothyroidism. 7. DJD. 8. Decline in self-care mobility. PLAN: 1. Transfer this patient to telemetry unit. 2. Monitor blood pressure. 3. IV fluid. 4. Symptoms management. 5. Deep venous thrombosis prophylaxis. 6. IV Synthroid. 7. IV antibiotic. 8. Followup lab. 9. Postop followup as per Dr. Butts. 10. Dr. Anaya to follow this patient tomorrow. JOB# [id number]
[2017-11-03] MEDS: Enoxaparin 40 mg/0.4 mL 0.4mL Syr SUBQ SCH (21:53)
[2017-11-04] MEDS: NITROGLYCERIN OINT 2% 1 INCH PACKET TP SCH ×4 (00:20→18:53)
[2017-11-04 05:43] LABS: % BASOPHILS 0.2 % (0.0-2.0); % EOSINOPHILS 0.2 % (0.0-5.0); % LYMPHOCYTES 6.4 % (20.0-50.0); % MONOCYTES 3.3 % (2.0-10.0); % NEUTROPHILS 89.9 % (40.0-80.0); HEMATOCRIT 26.3 % (41.0-60); HEMOGLOBIN 8.8 gm/dL (12-16); LYMPHOCYTE ABSOLUTE 0.8 Th/cmm (1.5-3.0); MEAN CELL VOLUME 92.8 fl (81-100); MEAN CORPUSCULAR HGB CONC 33.4 pg (28.0-36.0); MEAN PLATELET VOLUME 10.2 fl; MONOCYTE ABSOLUTE 0.4 Th/cmm (0.3-1.0); NEUTROPHILE ABSOLUTE 10.9 Th/cmm (1.8-8.0); PLATELET COUNT 153 Th/cmm (150-400); RED BLOOD COUNT 2.84 Mil/cmm (3.80-5.20); RED CELL DISTRIBUTION WIDTH 13.7 % (11.5-20.0)
[2017-11-04 05:48] LABS: ALB/GLOB RATIO 0.9 (1.0-1.8); ALBUMIN 2.4 gm/dL (3.7-5.3); ALKALINE PHOSPHATASE 44 U/L (34-104); ANION GAP 6.7 (7.0-16.0); BILIRUBIN,TOTAL 0.5 mg/dL (0.3-1.0); BUN - UREA NITROGEN 6 mg/dL (7-25); CALCIUM SERUM 7.7 mg/dL (8.6-10.3); CARBON DIOXIDE 22.8 mEq/L (21.0-31.0); CHLORIDE 113 mEq/L (98-107); CREATININE - SERUM 0.5 mg/dL (0.6-1.2); GLUCOSE 126 mg/dL (70-105); SGOT 11 U/L (13-39); SGPT/ALT 7 U/L (7-52); SODIUM SERUM 140 mEq/L (136-145)
[2017-11-04] MEDS: metroNIDAZOLE 500mg/NS 100mL 500 MG in Premix Fluid 1 BAG IV SCH ×3 (05:52→23:58)
[2017-11-04 06:00] LABS: WHITE BLOOD COUNT 12.1 Th/cmm (4.8-10.8)
[2017-11-04] MEDS: Morphine Sulfate 4 mg/mL 1mL Syr IVP PRN ×3 (06:00→15:17)
[2017-11-04 06:01] LABS: POTASSIUM SERUM 2.5 mEq/L (3.5-5.1)
--- NOTE | 2017-11-04 07:32 | General Progress Note ---
Subjective - Review of Systems Events since last encounter: 11/04/17 labs low K, K rider added may have limited liquids po dressings changed, incision clean Objective - Results Result Diagrams: 11/04/17 05:00 11/04/17 05:00 Recent Labs: Laboratory Last Values WBC 12.1 Th/cmm (4.8-10.8) H 11/04/17 05:00 RBC 2.84 Mil/cmm (3.80-5.20) L 11/04/17 05:00 Hgb 8.8 gm/dL (12-16) L 11/04/17 05:00 Hct 26.3 % (41.0-60) L 11/04/17 05:00 MCV 92.8 fl (81-100) 11/04/17 05:00 MCH 31.0 pg (27.0-31.0) 11/04/17 05:00 MCHC Differential 33.4 pg (28.0-36.0) 11/04/17 05:00 RDW 13.7 % (11.5-20.0) 11/04/17 05:00 Plt Count 153 Th/cmm (150-400) 11/04/17 05:00 MPV 10.2 fl 11/04/17 05:00 Neutrophils % 89.9 % (40.0-80.0) H 11/04/17 05:00 Lymphocytes % 6.4 % (20.0-50.0) L 11/04/17 05:00 Monocytes % 3.3 % (2.0-10.0) 11/04/17 05:00 Eosinophils % 0.2 % (0.0-5.0) 11/04/17 05:00 Basophils % 0.2 % (0.0-2.0) 11/04/17 05:00 PT 11.0 SECONDS (9.5-11.5) 11/02/17 11:03 INR 1.06 (0.5-1.4) 11/02/17 11:03 Sodium 140 mEq/L (136-145) 11/04/17 05:00 Potassium 2.5 mEq/L (3.5-5.1) L* 11/04/17 05:00 Chloride 113 mEq/L (98-107) H 11/04/17 05:00 Carbon Dioxide 22.8 mEq/L (21.0-31.0) 11/04/17 05:00 Anion Gap 6.7 (7.0-16.0) L 11/04/17 05:00 BUN 6 mg/dL (7-25) L 11/04/17 05:00 Creatinine 0.5 mg/dL (0.6-1.2) L 11/04/17 05:00 Est GFR ( Amer) TNP 11/04/17 05:00 Est GFR (Non-Af Amer) TNP 11/04/17 05:00 BUN/Creatinine Ratio 12.0 11/04/17 05:00 Glucose 126 mg/dL (70-105) H 11/04/17 05:00 Calcium 7.7 mg/dL (8.6-10.3) L 11/04/17 05:00 Total Bilirubin 0.5 mg/dL (0.3-1.0) 11/04/17 05:00 Direct Bilirubin 0.21 mg/dL (0.0-0.2) H 10/31/17 17:52 AST 11 U/L (13-39) L 11/04/17 05:00 ALT 7 U/L (7-52) 11/04/17 05:00 Alkaline Phosphatase 44 U/L (34-104) 11/04/17 05:00 Total Protein 5.0 gm/dL (6.0-8.3) L 11/04/17 05:00 Albumin 2.4 gm/dL (3.7-5.3) L 11/04/17 05:00 Globulin 2.6 gm/dL 11/04/17 05:00 Albumin/Globulin Ratio 0.9 (1.0-1.8) L 11/04/17 05:00 Lipase 26 U/L (11-82) 10/31/17 17:52 Urine Source MIDSTREAM 10/31/17 10:10 Urine Color YELLOW 10/31/17 10:10 Urine Clarity HAZY (CLEAR) 10/31/17 10:10 Urine pH 5.5 (4.6 - 8.0) 10/31/17 10:10 Ur Specific [place] 1.025 (1.005-1.030) 10/31/17 10:10 Urine Protein TRACE mg/dL (NEGATIVE) 10/31/17 10:10 Urine Glucose (UA) NEGATIVE mg/dL (NEGATIVE) 10/31/17 10:10 Urine Ketones NEGATIVE mg/dL (NEGATIVE) 10/31/17 10:10 Urine Blood TRACE (NEGATIVE) 10/31/17 10:10 Urine Nitrate NEGATIVE (NEGATIVE) 10/31/17 10:10 Urine Bilirubin NEGATIVE (NEGATIVE) 10/31/17 10:10 Urine Urobilinogen 0.2 E.U./dL (0.2 - 1.0) 10/31/17 10:10 Ur Leukocyte Esterase NEGATIVE (NEGATIVE) 10/31/17 10:10 Urine RBC 5-10 /hpf (0-5) H 10/31/17 10:10 Urine WBC 2-5 /hpf (0-5) 10/31/17 10:10 Ur Epithelial Cells MODERATE /lpf (FEW) 10/31/17 10:10 Urine Bacteria 1+ /hpf (NONE SEEN) H 10/31/17 10:10 Coarse Granular Casts 0-2 /lpf (NONE SEEN) H 10/31/17 10:10 Urine Mucus FEW /lpf (FEW) 10/31/17 10:10 Blood Type O POSITIVE 11/02/17 12:36 Antibody Screen NEGATIVE 11/02/17 12:36 Crossmatch See Detail 11/02/17 12:36 - Physical Exam Vitals and I&O: Vital Signs Temp 97.9 F 11/04/17 00:00 Pulse 94 11/04/17 05:48 Resp 18 11/04/17 00:00 BP 119/79 11/04/17 05:48 Pulse Ox 95 11/04/17 00:00 Intake & Output 11/03/17 11/04/17 11/04/17 18:59 06:59 18:59 Intake Total 1150 573.333 Output Total 900 Balance 250 573.333 Weight (lbs) 54.431 kg Intake: Intake, IV Amount 1150 573.333 D5-0.9%Ns 1,000 ml @ 100 1000 173.333 mls/hr IV .Q10H [facility] Rx#: [id number] Piperacillin Sodium/ 50 100 Tazobact 3.375 gm In Dextrose 5% 50 ml @ 100 mls/hr IV Q8H [facility] Rx#: [id number] metroNIDAZOLE 500mg/NS 100 300 100mL 500 mg In Premix Fluid 1 bag @ 100 mls/hr IV Q8H [facility] Rx#:[id number] Output: Drainage 200 Abdomen 200 Urine 700 Other: Weight Source Bedscale Active Medications: Current Medications Enalaprilat (Vasotec) 2.5 mg IVP Q6H PRN PRN Reason: BP MAINTENANCE (PER PROTOCOL) Stop: 12/30/17 21:17 Enoxaparin Sodium (Lovenox) 40 mg SUBQ Q12HR [facility] Stop: 01/02/18 20:59 Last Admin: 11/03/17 21:53 Dose: 40 mg Haloperidol Lactate (Haldol) 5 mg IM Q6HR PRN PRN Reason: Agitation Stop: 12/31/17 22:10 Last Admin: 11/02/17 00:37 Dose: 5 mg Piperacillin Sod/Tazobactam (Sod 3.375 gm/ Dextrose) 50 mls @ 100 mls/hr IV Q8H [facility] Stop: 01/01/18 14:44 Last Admin: 11/04/17 07:07 Dose: 100 mls/hr Metronidazole 500 mg/ (Miscellaneous) 100 mls @ 100 mls/hr IV Q8H [facility] Stop: 01/01/18 14:44 Last Infusion: 11/04/17 06:52 Dose: Infused Dextrose/Sodium Chloride (D5-0.9%Ns) 1,000 mls @ 100 mls/hr IV .Q10H [facility] Stop: 01/01/18 16:59 Last Infusion: 11/03/17 20:15 Dose: 100 mls/hr Norepinephrine Bitartrate 4 mg (/ Dextrose) 254 mls @ 19.05 mls/hr IV TITR PRN ; Protocol; 5 MCG/MIN PRN Reason: BP MAINTENANCE (PER PROTOCOL) Stop: 01/01/18 19:27 Levothyroxine Sodium (Synthroid) 0.05 mg IVP DAILY [facility] Stop: 01/02/18 08:59 Last Admin: 11/03/17 09:33 Dose: 0.05 mg Miscellaneous (Vte Chemical Prophylaxis Screen/ Admission) 1 ea [facility] PRN PRN PRN Reason: PROTOCOL Stop: 12/31/17 16:23 Morphine Sulfate (Morphine) 2 mg IVP Q4HR PRN PRN Reason: Pain (Severe) Stop: 12/30/17 19:25 Morphine Sulfate (Morphine) 2 mg IVP Q4HR PRN PRN Reason: Abdominal Pain Stop: 01/01/18 14:39 Last Admin: 11/04/17 06:00 Dose: 2 mg Nitroglycerin (Nitro-Bid) 1 inch TP Q6HR [facility] Stop: 01/01/18 17:59 Last Admin: 11/04/17 05:48 Dose: Not Given Ondansetron HCl (Zofran) 4 mg IV Q6HR PRN PRN Reason: Nausea / Vomiting Stop: 12/30/17 19:27 Pantoprazole Sodium (Protonix) 40 mg IVP DAILY [facility] Stop: 01/02/18 08:59 Last Admin: 11/03/17 09:33 Dose: 40 mg General: No acute distress, Other (lethargic) Neck: Supple Cardiovascular: Regular rate Lungs: Clear to auscultation Abdomen: Soft, Drain (RLQ), Other (mildline dressing), no Bowel sounds, no Tender, no Distended - Procedures Procedures: Procedures Procedure Code Date MOBILIZATION OF COLON 81048 10/31/17 PARTIAL REMOVAL OF COLON 62973 10/31/17 RESECTION OF SIGMOID COLON, OPEN APPROACH [id number] 10/31/17 Assessment/Plan - Problem List Patient Problems: All Active Problems ABDOMINAL PAIN WITH N/V/D (Acute)
[2017-11-04] MEDS: D5-0.9%NS 1,000 ML IV SCH ×2 (08:12→22:09)
--- NOTE | 2017-11-04 09:06 | GI Progress Note ---
Subjective - Review of Systems Service Date: 11/04/17 Subjective: Recovering post op, started clears today Objective - Results Result Diagrams: 11/04/17 05:00 11/04/17 05:00 Recent Labs: Laboratory Last Values WBC 12.1 Th/cmm (4.8-10.8) H 11/04/17 05:00 RBC 2.84 Mil/cmm (3.80-5.20) L 11/04/17 05:00 Hgb 8.8 gm/dL (12-16) L 11/04/17 05:00 Hct 26.3 % (41.0-60) L 11/04/17 05:00 MCV 92.8 fl (81-100) 11/04/17 05:00 MCH 31.0 pg (27.0-31.0) 11/04/17 05:00 MCHC Differential 33.4 pg (28.0-36.0) 11/04/17 05:00 RDW 13.7 % (11.5-20.0) 11/04/17 05:00 Plt Count 153 Th/cmm (150-400) 11/04/17 05:00 MPV 10.2 fl 11/04/17 05:00 Neutrophils % 89.9 % (40.0-80.0) H 11/04/17 05:00 Lymphocytes % 6.4 % (20.0-50.0) L 11/04/17 05:00 Monocytes % 3.3 % (2.0-10.0) 11/04/17 05:00 Eosinophils % 0.2 % (0.0-5.0) 11/04/17 05:00 Basophils % 0.2 % (0.0-2.0) 11/04/17 05:00 PT 11.0 SECONDS (9.5-11.5) 11/02/17 11:03 INR 1.06 (0.5-1.4) 11/02/17 11:03 Sodium 140 mEq/L (136-145) 11/04/17 05:00 Potassium 2.5 mEq/L (3.5-5.1) L* 11/04/17 05:00 Chloride 113 mEq/L (98-107) H 11/04/17 05:00 Carbon Dioxide 22.8 mEq/L (21.0-31.0) 11/04/17 05:00 Anion Gap 6.7 (7.0-16.0) L 11/04/17 05:00 BUN 6 mg/dL (7-25) L 11/04/17 05:00 Creatinine 0.5 mg/dL (0.6-1.2) L 11/04/17 05:00 Est GFR ( Amer) TNP 11/04/17 05:00 Est GFR (Non-Af Amer) TNP 11/04/17 05:00 BUN/Creatinine Ratio 12.0 11/04/17 05:00 Glucose 126 mg/dL (70-105) H 11/04/17 05:00 Calcium 7.7 mg/dL (8.6-10.3) L 11/04/17 05:00 Magnesium 1.5 mg/dL (1.9-2.7) L 11/04/17 05:00 Total Bilirubin 0.5 mg/dL (0.3-1.0) 11/04/17 05:00 Direct Bilirubin 0.21 mg/dL (0.0-0.2) H 10/31/17 17:52 AST 11 U/L (13-39) L 11/04/17 05:00 ALT 7 U/L (7-52) 11/04/17 05:00 Alkaline Phosphatase 44 U/L (34-104) 11/04/17 05:00 Total Protein 5.0 gm/dL (6.0-8.3) L 11/04/17 05:00 Albumin 2.4 gm/dL (3.7-5.3) L 11/04/17 05:00 Globulin 2.6 gm/dL 11/04/17 05:00 Albumin/Globulin Ratio 0.9 (1.0-1.8) L 11/04/17 05:00 Lipase 26 U/L (11-82) 10/31/17 17:52 Urine Source MIDSTREAM 10/31/17 10:10 Urine Color YELLOW 10/31/17 10:10 Urine Clarity HAZY (CLEAR) 10/31/17 10:10 Urine pH 5.5 (4.6 - 8.0) 10/31/17 10:10 Ur Specific [place] 1.025 (1.005-1.030) 10/31/17 10:10 Urine Protein TRACE mg/dL (NEGATIVE) 10/31/17 10:10 Urine Glucose (UA) NEGATIVE mg/dL (NEGATIVE) 10/31/17 10:10 Urine Ketones NEGATIVE mg/dL (NEGATIVE) 10/31/17 10:10 Urine Blood TRACE (NEGATIVE) 10/31/17 10:10 Urine Nitrate NEGATIVE (NEGATIVE) 10/31/17 10:10 Urine Bilirubin NEGATIVE (NEGATIVE) 10/31/17 10:10 Urine Urobilinogen 0.2 E.U./dL (0.2 - 1.0) 10/31/17 10:10 Ur Leukocyte Esterase NEGATIVE (NEGATIVE) 10/31/17 10:10 Urine RBC 5-10 /hpf (0-5) H 10/31/17 10:10 Urine WBC 2-5 /hpf (0-5) 10/31/17 10:10 Ur Epithelial Cells MODERATE /lpf (FEW) 10/31/17 10:10 Urine Bacteria 1+ /hpf (NONE SEEN) H 10/31/17 10:10 Coarse Granular Casts 0-2 /lpf (NONE SEEN) H 10/31/17 10:10 Urine Mucus FEW /lpf (FEW) 10/31/17 10:10 Blood Type O POSITIVE 11/02/17 12:36 Antibody Screen NEGATIVE 11/02/17 12:36 Crossmatch See Detail 11/02/17 12:36 - Physical Exam Vitals and I&O: Vital Signs Temp 97.5 F 11/04/17 07:55 Pulse 101 11/04/17 07:55 Resp 18 11/04/17 07:55 BP 112/73 11/04/17 07:55 Pulse Ox 94 11/04/17 07:55 Intake & Output 11/03/17 11/04/17 11/04/17 18:59 06:59 18:59 Intake Total 1150 1400.000 Output Total 900 Balance 250 1400.000 Weight (lbs) 54.431 kg Intake: Intake, IV Amount 1150 1400.000 D5-0.9%Ns 1,000 ml @ 100 1000 1000.000 mls/hr IV .Q10H [facility] Rx#: [id number] Piperacillin Sodium/ 50 100 Tazobact 3.375 gm In Dextrose 5% 50 ml @ 100 mls/hr IV Q8H [facility] Rx#: [id number] metroNIDAZOLE 500mg/NS 100 300 100mL 500 mg In Premix Fluid 1 bag @ 100 mls/hr IV Q8H [facility] Rx#:[id number] Output: Drainage 200 Abdomen 200 Urine 700 Other: Weight Source Bedscale Active Medications: Current Medications Enalaprilat (Vasotec) 2.5 mg IVP Q6H PRN PRN Reason: BP MAINTENANCE (PER PROTOCOL) Stop: 12/30/17 21:17 Enoxaparin Sodium (Lovenox) 40 mg SUBQ Q12HR [facility] Stop: 01/02/18 20:59 Last Admin: 11/03/17 21:53 Dose: 40 mg Haloperidol Lactate (Haldol) 5 mg IM Q6HR PRN PRN Reason: Agitation Stop: 12/31/17 22:10 Last Admin: 11/02/17 00:37 Dose: 5 mg Piperacillin Sod/Tazobactam (Sod 3.375 gm/ Dextrose) 50 mls @ 100 mls/hr IV Q8H [facility] Stop: 01/01/18 14:44 Last Admin: 11/04/17 07:07 Dose: 100 mls/hr Metronidazole 500 mg/ (Miscellaneous) 100 mls @ 100 mls/hr IV Q8H [facility] Stop: 01/01/18 14:44 Last Infusion: 11/04/17 06:52 Dose: Infused Dextrose/Sodium Chloride (D5-0.9%Ns) 1,000 mls @ 100 mls/hr IV .Q10H [facility] Stop: 01/01/18 16:59 Last Admin: 11/04/17 08:12 Dose: 100 mls/hr Norepinephrine Bitartrate 4 mg (/ Dextrose) 254 mls @ 19.05 mls/hr IV TITR PRN ; Protocol; 5 MCG/MIN PRN Reason: BP MAINTENANCE (PER PROTOCOL) Stop: 01/01/18 19:27 Potassium Chloride (Potassium Chloride) 20 meq in 100 mls @ 50 mls/hr IV Q2H [facility] Stop: 11/04/17 11:29 Levothyroxine Sodium (Synthroid) 0.05 mg IVP DAILY [facility] Stop: 01/02/18 08:59 Last Admin: 11/04/17 08:26 Dose: 0.05 mg Miscellaneous (Vte Chemical Prophylaxis Screen/ Admission) 1 ea [facility] PRN PRN PRN Reason: PROTOCOL Stop: 12/31/17 16:23 Morphine Sulfate (Morphine) 2 mg IVP Q4HR PRN PRN Reason: Pain (Severe) Stop: 12/30/17 19:25 Morphine Sulfate (Morphine) 2 mg IVP Q4HR PRN PRN Reason: Abdominal Pain Stop: 01/01/18 14:39 Last Admin: 11/04/17 06:00 Dose: 2 mg Nitroglycerin (Nitro-Bid) 1 inch TP Q6HR [facility] Stop: 01/01/18 17:59 Last Admin: 11/04/17 05:48 Dose: Not Given Ondansetron HCl (Zofran) 4 mg IV Q6HR PRN PRN Reason: Nausea / Vomiting Stop: 12/30/17 19:27 Pantoprazole Sodium (Protonix) 40 mg IVP DAILY [facility] Stop: 01/02/18 08:59 Last Admin: 11/04/17 08:26 Dose: 40 mg General: Alert, No acute distress, Other (lethargic) HEENT: Atraumatic Neck: Supple Cardiovascular: Regular rate Abdomen: Soft, Drain (RLQ), Other (mildline dressing), no Bowel sounds, no Tender, no Distended - Procedures Procedures: Procedures Procedure Code Date MOBILIZATION OF COLON 40456 10/31/17 PARTIAL REMOVAL OF COLON 97567 10/31/17 RESECTION OF SIGMOID COLON, OPEN APPROACH [id number] 10/31/17 Assessment/Plan - Problem List Patient Problems: All Active Problems ABDOMINAL PAIN WITH N/V/D (Acute) - Plan Plan: 1. 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 s/p ex lap 11/02 with sigmoid mass noted, s/p subtotal colectomy with primary anastomosis. 2. Chronic constipation. 3. Dementia. RECS: 1. Post op care as per surgeon 2. Follow-up path results. 3. May need peripheral nutrition if she does not tolerate clears 4. Monitor labs.
[2017-11-04] MEDS: KCL 20mEq/100mL Premix 20 MEQ/100 ML PIGGYBACK IV SCH ×2 (09:31→10:46)
[2017-11-04] MEDS ORDERED: Potassium Chloride 20 mEq ER Tab PO ONE (11:30)
[2017-11-04] MEDS: Enoxaparin 40 mg/0.4 mL 0.4mL Syr SUBQ SCH ×2 (11:59→22:10)
--- NOTE | 2017-11-04 22:04 | General Progress Note ---
Subjective - Review of Systems Service Date: 11/04/17 Subjective: Patient seen and examined chart reviewed patient was resting comfortably no fever or vomiting or any other complaints reported Patient was started on clear liquids this am by surgeon Objective - Results Result Diagrams: 11/04/17 05:00 11/04/17 05:00 Recent Labs: Laboratory Last Values WBC 12.1 Th/cmm (4.8-10.8) H 11/04/17 05:00 RBC 2.84 Mil/cmm (3.80-5.20) L 11/04/17 05:00 Hgb 8.8 gm/dL (12-16) L 11/04/17 05:00 Hct 26.3 % (41.0-60) L 11/04/17 05:00 MCV 92.8 fl (81-100) 11/04/17 05:00 MCH 31.0 pg (27.0-31.0) 11/04/17 05:00 MCHC Differential 33.4 pg (28.0-36.0) 11/04/17 05:00 RDW 13.7 % (11.5-20.0) 11/04/17 05:00 Plt Count 153 Th/cmm (150-400) 11/04/17 05:00 MPV 10.2 fl 11/04/17 05:00 Neutrophils % 89.9 % (40.0-80.0) H 11/04/17 05:00 Lymphocytes % 6.4 % (20.0-50.0) L 11/04/17 05:00 Monocytes % 3.3 % (2.0-10.0) 11/04/17 05:00 Eosinophils % 0.2 % (0.0-5.0) 11/04/17 05:00 Basophils % 0.2 % (0.0-2.0) 11/04/17 05:00 PT 11.0 SECONDS (9.5-11.5) 11/02/17 11:03 INR 1.06 (0.5-1.4) 11/02/17 11:03 Sodium 140 mEq/L (136-145) 11/04/17 05:00 Potassium 2.5 mEq/L (3.5-5.1) L* 11/04/17 05:00 Chloride 113 mEq/L (98-107) H 11/04/17 05:00 Carbon Dioxide 22.8 mEq/L (21.0-31.0) 11/04/17 05:00 Anion Gap 6.7 (7.0-16.0) L 11/04/17 05:00 BUN 6 mg/dL (7-25) L 11/04/17 05:00 Creatinine 0.5 mg/dL (0.6-1.2) L 11/04/17 05:00 Est GFR ( Amer) TNP 11/04/17 05:00 Est GFR (Non-Af Amer) TNP 11/04/17 05:00 BUN/Creatinine Ratio 12.0 11/04/17 05:00 Glucose 126 mg/dL (70-105) H 11/04/17 05:00 Calcium 7.7 mg/dL (8.6-10.3) L 11/04/17 05:00 Magnesium 1.5 mg/dL (1.9-2.7) L 11/04/17 05:00 Total Bilirubin 0.5 mg/dL (0.3-1.0) 11/04/17 05:00 Direct Bilirubin 0.21 mg/dL (0.0-0.2) H 10/31/17 17:52 AST 11 U/L (13-39) L 11/04/17 05:00 ALT 7 U/L (7-52) 11/04/17 05:00 Alkaline Phosphatase 44 U/L (34-104) 11/04/17 05:00 Total Protein 5.0 gm/dL (6.0-8.3) L 11/04/17 05:00 Albumin 2.4 gm/dL (3.7-5.3) L 11/04/17 05:00 Globulin 2.6 gm/dL 11/04/17 05:00 Albumin/Globulin Ratio 0.9 (1.0-1.8) L 11/04/17 05:00 Lipase 26 U/L (11-82) 10/31/17 17:52 Urine Source MIDSTREAM 10/31/17 10:10 Urine Color YELLOW 10/31/17 10:10 Urine Clarity HAZY (CLEAR) 10/31/17 10:10 Urine pH 5.5 (4.6 - 8.0) 10/31/17 10:10 Ur Specific [place] 1.025 (1.005-1.030) 10/31/17 10:10 Urine Protein TRACE mg/dL (NEGATIVE) 10/31/17 10:10 Urine Glucose (UA) NEGATIVE mg/dL (NEGATIVE) 10/31/17 10:10 Urine Ketones NEGATIVE mg/dL (NEGATIVE) 10/31/17 10:10 Urine Blood TRACE (NEGATIVE) 10/31/17 10:10 Urine Nitrate NEGATIVE (NEGATIVE) 10/31/17 10:10 Urine Bilirubin NEGATIVE (NEGATIVE) 10/31/17 10:10 Urine Urobilinogen 0.2 E.U./dL (0.2 - 1.0) 10/31/17 10:10 Ur Leukocyte Esterase NEGATIVE (NEGATIVE) 10/31/17 10:10 Urine RBC 5-10 /hpf (0-5) H 10/31/17 10:10 Urine WBC 2-5 /hpf (0-5) 10/31/17 10:10 Ur Epithelial Cells MODERATE /lpf (FEW) 10/31/17 10:10 Urine Bacteria 1+ /hpf (NONE SEEN) H 10/31/17 10:10 Coarse Granular Casts 0-2 /lpf (NONE SEEN) H 10/31/17 10:10 Urine Mucus FEW /lpf (FEW) 10/31/17 10:10 Blood Type O POSITIVE 11/02/17 12:36 Antibody Screen NEGATIVE 11/02/17 12:36 Crossmatch See Detail 11/02/17 12:36 - Physical Exam Vitals and I&O: Vital Signs Temp 98.2 F 11/04/17 20:00 Pulse 102 11/04/17 20:00 Resp 18 11/04/17 20:00 BP 147/88 11/04/17 20:00 Pulse Ox 96 11/04/17 20:00 Intake & Output 11/04/17 11/04/17 11/05/17 06:59 18:59 06:59 Intake Total 1400.000 262.5 Balance 1400.000 262.5 Intake: Intake, IV Amount 1400.000 262.5 D5-0.9%Ns 1,000 ml @ 100 1000.000 mls/hr IV .Q10H [facility] Rx#: [id number] KCL 20mEq/100mL Premix 20 62.5 meq In 100 ml @ 50 mls/ hr IV Q2H [facility] Rx#: [id number] Piperacillin Sodium/ 100 100 Tazobact 3.375 gm In Dextrose 5% 50 ml @ 100 mls/hr IV Q8H [facility] Rx#: [id number] metroNIDAZOLE 500mg/NS 300 100 100mL 500 mg In Premix Fluid 1 bag @ 100 mls/hr IV Q8H [facility] Rx#:[id number] Active Medications: Current Medications Enalaprilat (Vasotec) 2.5 mg IVP Q6H PRN PRN Reason: BP MAINTENANCE (PER PROTOCOL) Stop: 12/30/17 21:17 Enoxaparin Sodium (Lovenox) 40 mg SUBQ Q12HR [facility] Stop: 01/02/18 20:59 Last Admin: 11/04/17 11:59 Dose: 40 mg Haloperidol Lactate (Haldol) 5 mg IM Q6HR PRN PRN Reason: Agitation Stop: 12/31/17 22:10 Last Admin: 11/02/17 00:37 Dose: 5 mg Piperacillin Sod/Tazobactam (Sod 3.375 gm/ Dextrose) 50 mls @ 100 mls/hr IV Q8H [facility] Stop: 01/01/18 14:44 Last Infusion: 11/04/17 17:09 Dose: Infused Metronidazole 500 mg/ (Miscellaneous) 100 mls @ 100 mls/hr IV Q8H [facility] Stop: 01/01/18 14:44 Last Infusion: 11/04/17 17:08 Dose: Infused Dextrose/Sodium Chloride (D5-0.9%Ns) 1,000 mls @ 100 mls/hr IV .Q10H [facility] Stop: 01/01/18 16:59 Last Admin: 11/04/17 08:12 Dose: 100 mls/hr Norepinephrine Bitartrate 4 mg (/ Dextrose) 254 mls @ 19.05 mls/hr IV TITR PRN ; Protocol; 5 MCG/MIN PRN Reason: BP MAINTENANCE (PER PROTOCOL) Stop: 01/01/18 19:27 Levothyroxine Sodium (Synthroid) 0.05 mg IVP DAILY [facility] Stop: 01/02/18 08:59 Last Admin: 11/04/17 08:26 Dose: 0.05 mg Miscellaneous (Vte Chemical Prophylaxis Screen/ Admission) 1 ea [facility] PRN PRN PRN Reason: PROTOCOL Stop: 12/31/17 16:23 Morphine Sulfate (Morphine) 2 mg IVP Q4HR PRN PRN Reason: Pain (Severe) Stop: 12/30/17 19:25 Morphine Sulfate (Morphine) 2 mg IVP Q4HR PRN PRN Reason: Abdominal Pain Stop: 01/01/18 14:39 Last Admin: 11/04/17 15:17 Dose: 2 mg Nitroglycerin (Nitro-Bid) 1 inch TP Q6HR [facility] Stop: 01/01/18 17:59 Last Admin: 11/04/17 18:53 Dose: 1 inch Ondansetron HCl (Zofran) 4 mg IV Q6HR PRN PRN Reason: Nausea / Vomiting Stop: 12/30/17 19:27 Pantoprazole Sodium (Protonix) 40 mg IVP DAILY [facility] Stop: 01/02/18 08:59 Last Admin: 11/04/17 08:26 Dose: 40 mg General: No acute distress Cardiovascular: Regular rate Lungs: Clear to auscultation Abdomen: Bowel sounds, Soft, Drain (RLQ), no Tender, no Distended - Procedures Procedures: Procedures Procedure Code Date MOBILIZATION OF COLON 09273 10/31/17 PARTIAL REMOVAL OF COLON 50265 10/31/17 RESECTION OF SIGMOID COLON, OPEN APPROACH [id number] 10/31/17 Assessment/Plan - Problem List Patient Problems: All Active Problems ABDOMINAL PAIN WITH N/V/D (Acute) - Assessment Assessment: Sepsis Bowel obstruction s/p exp lap HTN Hypokalemia Mental health disorder Dementia - Plan Plan: Zosyn and flagyl ID consulted due to rising WBC Clear liquids K replacement DVT prophylaxis Monitor drain Plan of care discussed with nursing staff
--- NOTE | 2017-11-04 23:44 | Consultation ---
Consult Note - Consult Note Service Date: 11/04/17 Referring Physician: Kaushik Anaya Consult Note: PHYSICIAN Consultation Note: Date of Admission: 10/31/17 Purpose of Consultation: Chief Complaint: Patient ANUPAMA URIOSTEGUI [facility] with ACUTE BOWEL OBSTRUCTION. History of Present Illness: Patient is 72-year-old female with a past medical history of hypertension, hypothyroidism, GERD, hyperlipidemia was brought in by family to the ER for abdominal pain on February 11. It was associated with the nausea, vomiting and diarrhea. On initial evaluation, her temperature 98.2F and WBC count 6400. CT scan of the abdomen pelvis suggested bowel obstruction., [place]. Initially, patient was admitted to ICU and stabilized. With the time, her WBC count increased to 12,100. ID consult was called for antibiotic management. As in the hospital stay, patient was receiving Zosyn. So far, she remains afebrile. Past Medical History: hypertension, hypothyroidism, GERD, hyperlipidemia, CVA. Diagnoses HYPOTHYROIDISM, UNSPECIFIED (10/31/17) HYPERLIPIDEMIA, UNSPECIFIED (10/31/17) UNSPECIFIED DEMENTIA WITHOUT BEHAVIORAL DISTURBANCE (10/31/17) ESSENTIAL (PRIMARY) HYPERTENSION (10/31/17) HEMIPLGA FOLLOWING CEREBRAL INFRC AFF RIGHT DOMINANT SIDE (10/31/17) GASTRO-ESOPHAGEAL REFLUX DISEASE WITHOUT ESOPHAGITIS (10/31/17) VOLVULUS (10/31/17) UNSP INTESTNL OBST, UNSP TO PARTIAL VERSUS COMPLETE OBST (10/31/17) ILEUS, UNSPECIFIED (10/31/17) CONSTIPATION, UNSPECIFIED (10/31/17) UNSPECIFIED OSTEOARTHRITIS, UNSPECIFIED SITE (10/31/17) UNSPECIFIED ABDOMINAL PAIN (10/31/17) Allergies Allergy/AdvReac Type Severity Reaction Status Date / Time No Known Allergies Allergy Verified 10/31/17 16:57 Vital Signs Temp 98.2 F 11/04/17 20:00 Pulse 102 11/04/17 20:00 Resp 18 11/04/17 20:00 BP 147/88 11/04/17 20:00 Pulse Ox 96 11/04/17 20:00 Intake & Output 11/04/17 11/04/17 11/05/17 06:59 18:59 06:59 Intake Total 2314.903 3594.5 Balance 7767.206 7600.5 Intake: Intake, IV Amount 3720.525 9324.5 D5-0.9%Ns 1,000 ml @ 100 3955.367 0579 mls/hr IV .Q10H [facility] Rx#: [id number] KCL 20mEq/100mL Premix 20 62.5 meq In 100 ml @ 50 mls/ hr IV Q2H [facility] Rx#: [id number] Piperacillin Sodium/ 100 100 Tazobact 3.375 gm In Dextrose 5% 50 ml @ 100 mls/hr IV Q8H [facility] Rx#: [id number] metroNIDAZOLE 500mg/NS 300 100 100mL 500 mg In Premix Fluid 1 bag @ 100 mls/hr IV Q8H [facility] Rx#:[id number] Laboratory Results - last 24 hr 11/04/17 11/04/17 11/04/17 05:00 05:00 05:00 WBC 12.1 H RBC 2.84 L Hgb 8.8 L Hct 26.3 L MCV 92.8 MCH 31.0 MCHC Differential 33.4 RDW 13.7 Plt Count 153 MPV 10.2 Neutrophils % 89.9 H Lymphocytes % 6.4 L Monocytes % 3.3 Eosinophils % 0.2 Basophils % 0.2 Sodium 140 Potassium 2.5 L* Chloride 113 H Carbon Dioxide 22.8 Anion Gap 6.7 L BUN 6 L Creatinine 0.5 L Est GFR ( Amer) TNP Est GFR (Non-Af Amer) TNP BUN/Creatinine Ratio 12.0 Glucose 126 H Calcium 7.7 L Magnesium 1.5 L Total Bilirubin 0.5 AST 11 L ALT 7 Alkaline Phosphatase 44 Total Protein 5.0 L Albumin 2.4 L Globulin 2.6 Albumin/Globulin Ratio 0.9 L Home Medication Medication Instructions Recorded Type Amlodipine Besylate 5 mg PO DAILY 10/31/17 History Clopidogrel [Plavix] 75 mg PO DAILY 10/31/17 History Escitalopram Oxalate [Lexapro] 10 mg PO DAILY 10/31/17 History Levothyroxine [Synthroid] 0.075 mg PO QDAC 10/31/17 History Lisinopril 5 mg PO DAILY 10/31/17 History Pantoprazole [Protonix] 40 mg PO DAILY 10/31/17 History Pravastatin Sodium [Pravachol] 20 mg PO HS 10/31/17 History Current Medications Generic Name Dose Route Start Last Admin Trade Name Freq PRN Reason Stop Dose Admin Enalaprilat 2.5 mg 10/31/17 21:18 Vasotec IVP 12/30/17 21:17 Q6H PRN BP MAINTENANCE (PER PROTOCOL) Enoxaparin Sodium 40 mg 11/03/17 21:00 11/04/17 22:10 Lovenox SUBQ 01/02/18 20:59 40 mg Q12HR [facility] Administration Haloperidol Lactate 5 mg 11/01/17 22:11 11/02/17 00:37 Haldol IM 12/31/17 22:10 5 mg Q6HR PRN Administration Agitation Piperacillin Sod/Tazobactam 50 mls @ 100 mls/hr 11/02/17 14:45 11/04/17 22:09 Sod 3.375 gm/ Dextrose IV 01/01/18 14:44 100 mls/hr Q8H [facility] Administration Metronidazole 500 mg/ 100 mls @ 100 mls/hr 11/02/17 14:45 11/04/17 17:08 Miscellaneous IV 01/01/18 14:44 Infused Q8H [facility] Infusion Dextrose/Sodium Chloride 1,000 mls @ 100 mls/hr 11/02/17 17:00 11/04/17 22:09 D5-0.9%Ns IV 01/01/18 16:59 100 mls/hr .Q10H [facility] Administration Norepinephrine Bitartrate 4 mg 254 mls @ 19.05 mls/hr 11/02/17 19:28 / Dextrose IV 01/01/18 19:27 TITR PRN BP MAINTENANCE (PER PROTOCOL) Protocol 5 MCG/MIN Levothyroxine Sodium 0.05 mg 11/03/17 09:00 11/04/17 08:26 Synthroid IVP 01/02/18 08:59 0.05 mg DAILY [facility] Administration Miscellaneous 1 ea 11/01/17 16:24 Vte Chemical Prophylaxis Screen/ Admission 12/31/17 16:23 PRN PRN PROTOCOL Morphine Sulfate 2 mg 10/31/17 19:26 Morphine IVP 12/30/17 19:25 Q4HR PRN Pain (Severe) Morphine Sulfate 2 mg 11/02/17 14:40 11/04/17 15:17 Morphine IVP 01/01/18 14:39 2 mg Q4HR PRN Administration Abdominal Pain Nitroglycerin 1 inch 11/02/17 18:00 11/04/17 18:53 Nitro-Bid TP 01/01/18 17:59 1 inch Q6HR [facility] Administration Ondansetron HCl 4 mg 10/31/17 19:28 Zofran IV 12/30/17 19:27 Q6HR PRN Nausea / Vomiting Pantoprazole Sodium 40 mg 11/03/17 09:00 11/04/17 08:26 Protonix IVP 01/02/18 08:59 40 mg DAILY [facility] Administration Review of Systems: A 12 point ROS was reviewed with the pertinent positive and negatives noted in the HPI. Social History Lives at home with family Smoking Status Never smoker Family Medical History Family Medical History Start: 10/31/17 20: 02 Freq: ONCE Status: Active Document 11/01/17 00:24 DONNA (Rec: 11/01/17 00:24 [facility]) Family Medical History Mother History Unknown Yes Ethnicity Non- Living Status Physical Exam: General: Comfortable, not in acute distress. HEENT: Head: Normocephalic, atraumatic. Oral cavity: Moist, pink tongue. Eyes : Pallor is present icterus. Neck: Supple, no JVD, no use of accessory neck muscles. Cardio: S1 and S2 within normal limits regular rhythm no murmur no gallop. Respiratory: Vesicular breath sound, no crackles, no wheezing. Abdominal: Soft, nontender, nondistended bowel sounds present. Genital/Urinary: Deferred Extremities: No cyanosis no clubbing no edema. Pulses are palpable in all 4 limbs. Neurological: Arousable. Hemiplegia left side Assessment: 1. Leukocytosis. Reactive. 2. Ileus and the bowel obstruction. Improving. 3. Hypertension. 4. Hypothyroidism. 5. History of CVA with the right-sided infarct. 6. GERD. Plan: Continue Zosyn. Monitor CBC. Thank you, Dr. Anaya for involving me in taking care of this patient. Rose, Tico Rowley M.D. [id number]
[2017-11-05] MEDS: NITROGLYCERIN OINT 2% 1 INCH PACKET TP SCH ×4 (00:10→18:19)
[2017-11-05 05:31] LABS: EOSINOPHILE ABSOLUTE 0.1 Th/cmm (0.1-0.4); HEMATOCRIT 25.3 % (41.0-60); HEMOGLOBIN 8.7 gm/dL (12-16); LYMPHOCYTE ABSOLUTE 0.8 Th/cmm (1.5-3.0); MEAN CELL VOLUME 92.7 fl (81-100); MEAN CORPUSCULAR HEMOGLOBIN 31.7 pg (27.0-31.0); MEAN CORPUSCULAR HGB CONC 34.2 pg (28.0-36.0); MONOCYTE ABSOLUTE 0.2 Th/cmm (0.3-1.0); NEUTROPHILE ABSOLUTE 10.5 Th/cmm (1.8-8.0); PLATELET COUNT 156 Th/cmm (150-400); RED BLOOD COUNT 2.73 Mil/cmm (3.80-5.20); RED CELL DISTRIBUTION WIDTH 13.9 % (11.5-20.0); WHITE BLOOD COUNT 11.6 Th/cmm (4.8-10.8)
[2017-11-05 06:01] LABS: % LYMPHOCYTES 7.3 % (20.0-50.0)
[2017-11-05 06:02] LABS: % BASOPHILS 0.2 % (0.0-2.0); % EOSINOPHILS 1.1 % (0.0-5.0); % MONOCYTES 1.4 % (2.0-10.0)
[2017-11-05 06:04] LABS: ALB/GLOB RATIO 0.9 (1.0-1.8); ALBUMIN 2.3 gm/dL (3.7-5.3); ALKALINE PHOSPHATASE 45 U/L (34-104); ANION GAP 7.2 (7.0-16.0); BILIRUBIN,TOTAL 0.4 mg/dL (0.3-1.0); BUN - UREA NITROGEN 5 mg/dL (7-25); CALCIUM SERUM 7.8 mg/dL (8.6-10.3); CARBON DIOXIDE 23.6 mEq/L (21.0-31.0); CHLORIDE 113 mEq/L (98-107); CREATININE - SERUM 0.5 mg/dL (0.6-1.2); GLUCOSE 111 mg/dL (70-105); SGOT 11 U/L (13-39); SGPT/ALT 6 U/L (7-52); SODIUM SERUM 141 mEq/L (136-145); TOTAL PROTEIN,SERUM 4.8 gm/dL (6.0-8.3)
[2017-11-05 06:09] LABS: POTASSIUM SERUM 2.8 mEq/L (3.5-5.1)
[2017-11-05] MEDS: metroNIDAZOLE 500mg/NS 100mL 500 MG in Premix Fluid 1 BAG IV SCH ×3 (06:40→22:47)
[2017-11-05] MEDS: Enoxaparin 40 mg/0.4 mL 0.4mL Syr SUBQ SCH ×2 (08:40→21:34)
--- NOTE | 2017-11-05 09:35 | General Progress Note ---
Subjective - Review of Systems Service Date: 11/05/17 Events since last encounter: labs noted minimal JP_ drainage no BM await path report on mass in distal sigmoid Objective - Results Result Diagrams: 11/05/17 04:55 11/05/17 04:55 Recent Labs: Laboratory Last Values WBC 11.6 Th/cmm (4.8-10.8) H 11/05/17 04:55 RBC 2.73 Mil/cmm (3.80-5.20) L 11/05/17 04:55 Hgb 8.7 gm/dL (12-16) L 11/05/17 04:55 Hct 25.3 % (41.0-60) L 11/05/17 04:55 MCV 92.7 fl (81-100) 11/05/17 04:55 MCH 31.7 pg (27.0-31.0) H 11/05/17 04:55 MCHC Differential 34.2 pg (28.0-36.0) 11/05/17 04:55 RDW 13.9 % (11.5-20.0) 11/05/17 04:55 Plt Count 156 Th/cmm (150-400) 11/05/17 04:55 MPV 10.0 fl 11/05/17 04:55 Neutrophils % 90.0 % (40.0-80.0) H 11/05/17 04:55 Lymphocytes % 7.3 % (20.0-50.0) L 11/05/17 04:55 Monocytes % 1.4 % (2.0-10.0) L 11/05/17 04:55 Eosinophils % 1.1 % (0.0-5.0) 11/05/17 04:55 Basophils % 0.2 % (0.0-2.0) 11/05/17 04:55 PT 11.0 SECONDS (9.5-11.5) 11/02/17 11:03 INR 1.06 (0.5-1.4) 11/02/17 11:03 Sodium 141 mEq/L (136-145) 11/05/17 04:55 Potassium 2.8 mEq/L (3.5-5.1) L* 11/05/17 04:55 Chloride 113 mEq/L (98-107) H 11/05/17 04:55 Carbon Dioxide 23.6 mEq/L (21.0-31.0) 11/05/17 04:55 Anion Gap 7.2 (7.0-16.0) 11/05/17 04:55 BUN 5 mg/dL (7-25) L 11/05/17 04:55 Creatinine 0.5 mg/dL (0.6-1.2) L 11/05/17 04:55 Est GFR ( Amer) TNP 11/05/17 04:55 Est GFR (Non-Af Amer) TNP 11/05/17 04:55 BUN/Creatinine Ratio 10.0 11/05/17 04:55 Glucose 111 mg/dL (70-105) H 11/05/17 04:55 Calcium 7.8 mg/dL (8.6-10.3) L 11/05/17 04:55 Magnesium 1.5 mg/dL (1.9-2.7) L 11/04/17 05:00 Total Bilirubin 0.4 mg/dL (0.3-1.0) 11/05/17 04:55 Direct Bilirubin 0.21 mg/dL (0.0-0.2) H 10/31/17 17:52 AST 11 U/L (13-39) L 11/05/17 04:55 ALT 6 U/L (7-52) L 11/05/17 04:55 Alkaline Phosphatase 45 U/L (34-104) 11/05/17 04:55 Total Protein 4.8 gm/dL (6.0-8.3) L 11/05/17 04:55 Albumin 2.3 gm/dL (3.7-5.3) L 11/05/17 04:55 Globulin 2.5 gm/dL 11/05/17 04:55 Albumin/Globulin Ratio 0.9 (1.0-1.8) L 11/05/17 04:55 Lipase 26 U/L (11-82) 10/31/17 17:52 Urine Source MIDSTREAM 10/31/17 10:10 Urine Color YELLOW 10/31/17 10:10 Urine Clarity HAZY (CLEAR) 10/31/17 10:10 Urine pH 5.5 (4.6 - 8.0) 10/31/17 10:10 Ur Specific [place] 1.025 (1.005-1.030) 10/31/17 10:10 Urine Protein TRACE mg/dL (NEGATIVE) 10/31/17 10:10 Urine Glucose (UA) NEGATIVE mg/dL (NEGATIVE) 10/31/17 10:10 Urine Ketones NEGATIVE mg/dL (NEGATIVE) 10/31/17 10:10 Urine Blood TRACE (NEGATIVE) 10/31/17 10:10 Urine Nitrate NEGATIVE (NEGATIVE) 10/31/17 10:10 Urine Bilirubin NEGATIVE (NEGATIVE) 10/31/17 10:10 Urine Urobilinogen 0.2 E.U./dL (0.2 - 1.0) 10/31/17 10:10 Ur Leukocyte Esterase NEGATIVE (NEGATIVE) 10/31/17 10:10 Urine RBC 5-10 /hpf (0-5) H 10/31/17 10:10 Urine WBC 2-5 /hpf (0-5) 10/31/17 10:10 Ur Epithelial Cells MODERATE /lpf (FEW) 10/31/17 10:10 Urine Bacteria 1+ /hpf (NONE SEEN) H 10/31/17 10:10 Coarse Granular Casts 0-2 /lpf (NONE SEEN) H 10/31/17 10:10 Urine Mucus FEW /lpf (FEW) 10/31/17 10:10 Blood Type O POSITIVE 11/02/17 12:36 Antibody Screen NEGATIVE 11/02/17 12:36 Crossmatch See Detail 11/02/17 12:36 - Physical Exam Vitals and I&O: Vital Signs Temp 98.3 F 11/05/17 07:47 Pulse 95 11/05/17 07:47 Resp 18 11/05/17 07:47 BP 147/77 11/05/17 07:47 Pulse Ox 97 11/05/17 07:47 Intake & Output 11/04/17 11/05/17 11/05/17 18:59 06:59 18:59 Intake Total 1262.5 160 Output Total 605 Balance 1262.5 -445 Weight (lbs) 54.431 kg Intake: Intake, IV Amount 1262.5 150 D5-0.9%Ns 1,000 ml @ 100 1000 mls/hr IV .Q10H [facility] Rx#: [id number] KCL 20mEq/100mL Premix 20 62.5 meq In 100 ml @ 50 mls/ hr IV Q2H [facility] Rx#: [id number] Piperacillin Sodium/ 100 50 Tazobact 3.375 gm In Dextrose 5% 50 ml @ 100 mls/hr IV Q8H [facility] Rx#: [id number] metroNIDAZOLE 500mg/NS 100 100 100mL 500 mg In Premix Fluid 1 bag @ 100 mls/hr IV Q8H [facility] Rx#:[id number] Oral 10 Output: Drainage 155 Abdomen 155 Urine 450 Other: Weight Source Bedscale Active Medications: Current Medications Enalaprilat (Vasotec) 2.5 mg IVP Q6H PRN PRN Reason: BP MAINTENANCE (PER PROTOCOL) Stop: 12/30/17 21:17 Enoxaparin Sodium (Lovenox) 40 mg SUBQ Q12HR [facility] Stop: 01/02/18 20:59 Last Admin: 11/05/17 08:40 Dose: 40 mg Haloperidol Lactate (Haldol) 5 mg IM Q6HR PRN PRN Reason: Agitation Stop: 12/31/17 22:10 Last Admin: 11/02/17 00:37 Dose: 5 mg Piperacillin Sod/Tazobactam (Sod 3.375 gm/ Dextrose) 50 mls @ 100 mls/hr IV Q8H [facility] Stop: 01/01/18 14:44 Last Admin: 11/05/17 05:46 Dose: 100 mls/hr Metronidazole 500 mg/ (Miscellaneous) 100 mls @ 100 mls/hr IV Q8H [facility] Stop: 01/01/18 14:44 Last Admin: 11/05/17 06:40 Dose: 100 mls/hr Dextrose/Sodium Chloride (D5-0.9%Ns) 1,000 mls @ 100 mls/hr IV .Q10H [facility] Stop: 01/01/18 16:59 Last Admin: 11/04/17 22:09 Dose: 100 mls/hr Norepinephrine Bitartrate 4 mg (/ Dextrose) 254 mls @ 19.05 mls/hr IV TITR PRN ; Protocol; 5 MCG/MIN PRN Reason: BP MAINTENANCE (PER PROTOCOL) Stop: 01/01/18 19:27 Levothyroxine Sodium (Synthroid) 0.05 mg IVP DAILY [facility] Stop: 01/02/18 08:59 Last Admin: 11/05/17 09:16 Dose: 0.05 mg Miscellaneous (Vte Chemical Prophylaxis Screen/ Admission) 1 ea [facility] PRN PRN PRN Reason: PROTOCOL Stop: 12/31/17 16:23 Morphine Sulfate (Morphine) 2 mg IVP Q4HR PRN PRN Reason: Pain (Severe) Stop: 12/30/17 19:25 Morphine Sulfate (Morphine) 2 mg IVP Q4HR PRN PRN Reason: Abdominal Pain Stop: 01/01/18 14:39 Last Admin: 11/04/17 15:17 Dose: 2 mg Nitroglycerin (Nitro-Bid) 1 inch TP Q6HR [facility] Stop: 01/01/18 17:59 Last Admin: 11/05/17 05:48 Dose: 1 inch Ondansetron HCl (Zofran) 4 mg IV Q6HR PRN PRN Reason: Nausea / Vomiting Stop: 12/30/17 19:27 Pantoprazole Sodium (Protonix) 40 mg IVP DAILY [facility] Stop: 01/02/18 08:59 Last Admin: 11/05/17 08:40 Dose: 40 mg General: No acute distress HEENT: Atraumatic Neck: Supple Cardiovascular: Regular rate Lungs: Clear to auscultation Abdomen: Bowel sounds, Soft, Drain (RLQ), no Tender, no Distended - Procedures Procedures: Procedures Procedure Code Date MOBILIZATION OF COLON 45584 10/31/17 PARTIAL REMOVAL OF COLON 96140 10/31/17 RESECTION OF SIGMOID COLON, OPEN APPROACH [id number] 10/31/17 Assessment/Plan - Problem List Patient Problems: All Active Problems ABDOMINAL PAIN WITH N/V/D (Acute)
--- NOTE | 2017-11-05 09:43 | General Progress Note ---
Subjective - Review of Systems Service Date: 11/05/17 Events since last encounter: having loose stools will start Lomotil Objective - Results Result Diagrams: 11/05/17 04:55 11/05/17 04:55 Recent Labs: Laboratory Last Values WBC 11.6 Th/cmm (4.8-10.8) H 11/05/17 04:55 RBC 2.73 Mil/cmm (3.80-5.20) L 11/05/17 04:55 Hgb 8.7 gm/dL (12-16) L 11/05/17 04:55 Hct 25.3 % (41.0-60) L 11/05/17 04:55 MCV 92.7 fl (81-100) 11/05/17 04:55 MCH 31.7 pg (27.0-31.0) H 11/05/17 04:55 MCHC Differential 34.2 pg (28.0-36.0) 11/05/17 04:55 RDW 13.9 % (11.5-20.0) 11/05/17 04:55 Plt Count 156 Th/cmm (150-400) 11/05/17 04:55 MPV 10.0 fl 11/05/17 04:55 Neutrophils % 90.0 % (40.0-80.0) H 11/05/17 04:55 Lymphocytes % 7.3 % (20.0-50.0) L 11/05/17 04:55 Monocytes % 1.4 % (2.0-10.0) L 11/05/17 04:55 Eosinophils % 1.1 % (0.0-5.0) 11/05/17 04:55 Basophils % 0.2 % (0.0-2.0) 11/05/17 04:55 PT 11.0 SECONDS (9.5-11.5) 11/02/17 11:03 INR 1.06 (0.5-1.4) 11/02/17 11:03 Sodium 141 mEq/L (136-145) 11/05/17 04:55 Potassium 2.8 mEq/L (3.5-5.1) L* 11/05/17 04:55 Chloride 113 mEq/L (98-107) H 11/05/17 04:55 Carbon Dioxide 23.6 mEq/L (21.0-31.0) 11/05/17 04:55 Anion Gap 7.2 (7.0-16.0) 11/05/17 04:55 BUN 5 mg/dL (7-25) L 11/05/17 04:55 Creatinine 0.5 mg/dL (0.6-1.2) L 11/05/17 04:55 Est GFR ( Amer) TNP 11/05/17 04:55 Est GFR (Non-Af Amer) TNP 11/05/17 04:55 BUN/Creatinine Ratio 10.0 11/05/17 04:55 Glucose 111 mg/dL (70-105) H 11/05/17 04:55 Calcium 7.8 mg/dL (8.6-10.3) L 11/05/17 04:55 Magnesium 1.5 mg/dL (1.9-2.7) L 11/04/17 05:00 Total Bilirubin 0.4 mg/dL (0.3-1.0) 11/05/17 04:55 Direct Bilirubin 0.21 mg/dL (0.0-0.2) H 10/31/17 17:52 AST 11 U/L (13-39) L 11/05/17 04:55 ALT 6 U/L (7-52) L 11/05/17 04:55 Alkaline Phosphatase 45 U/L (34-104) 11/05/17 04:55 Total Protein 4.8 gm/dL (6.0-8.3) L 11/05/17 04:55 Albumin 2.3 gm/dL (3.7-5.3) L 11/05/17 04:55 Globulin 2.5 gm/dL 11/05/17 04:55 Albumin/Globulin Ratio 0.9 (1.0-1.8) L 11/05/17 04:55 Lipase 26 U/L (11-82) 10/31/17 17:52 Urine Source MIDSTREAM 10/31/17 10:10 Urine Color YELLOW 10/31/17 10:10 Urine Clarity HAZY (CLEAR) 10/31/17 10:10 Urine pH 5.5 (4.6 - 8.0) 10/31/17 10:10 Ur Specific [place] 1.025 (1.005-1.030) 10/31/17 10:10 Urine Protein TRACE mg/dL (NEGATIVE) 10/31/17 10:10 Urine Glucose (UA) NEGATIVE mg/dL (NEGATIVE) 10/31/17 10:10 Urine Ketones NEGATIVE mg/dL (NEGATIVE) 10/31/17 10:10 Urine Blood TRACE (NEGATIVE) 10/31/17 10:10 Urine Nitrate NEGATIVE (NEGATIVE) 10/31/17 10:10 Urine Bilirubin NEGATIVE (NEGATIVE) 10/31/17 10:10 Urine Urobilinogen 0.2 E.U./dL (0.2 - 1.0) 10/31/17 10:10 Ur Leukocyte Esterase NEGATIVE (NEGATIVE) 10/31/17 10:10 Urine RBC 5-10 /hpf (0-5) H 10/31/17 10:10 Urine WBC 2-5 /hpf (0-5) 10/31/17 10:10 Ur Epithelial Cells MODERATE /lpf (FEW) 10/31/17 10:10 Urine Bacteria 1+ /hpf (NONE SEEN) H 10/31/17 10:10 Coarse Granular Casts 0-2 /lpf (NONE SEEN) H 10/31/17 10:10 Urine Mucus FEW /lpf (FEW) 10/31/17 10:10 Blood Type O POSITIVE 11/02/17 12:36 Antibody Screen NEGATIVE 11/02/17 12:36 Crossmatch See Detail 11/02/17 12:36 - Physical Exam Vitals and I&O: Vital Signs Temp 98.3 F 11/05/17 07:47 Pulse 95 11/05/17 07:47 Resp 18 11/05/17 07:47 BP 147/77 11/05/17 07:47 Pulse Ox 97 11/05/17 07:47 Intake & Output 11/04/17 11/05/17 11/05/17 18:59 06:59 18:59 Intake Total 1262.5 160 Output Total 605 Balance 1262.5 -445 Weight (lbs) 54.431 kg Intake: Intake, IV Amount 1262.5 150 D5-0.9%Ns 1,000 ml @ 100 1000 mls/hr IV .Q10H [facility] Rx#: [id number] KCL 20mEq/100mL Premix 20 62.5 meq In 100 ml @ 50 mls/ hr IV Q2H [facility] Rx#: [id number] Piperacillin Sodium/ 100 50 Tazobact 3.375 gm In Dextrose 5% 50 ml @ 100 mls/hr IV Q8H [facility] Rx#: [id number] metroNIDAZOLE 500mg/NS 100 100 100mL 500 mg In Premix Fluid 1 bag @ 100 mls/hr IV Q8H [facility] Rx#:[id number] Oral 10 Output: Drainage 155 Abdomen 155 Urine 450 Other: Weight Source Bedscale Active Medications: Current Medications Enalaprilat (Vasotec) 2.5 mg IVP Q6H PRN PRN Reason: BP MAINTENANCE (PER PROTOCOL) Stop: 12/30/17 21:17 Enoxaparin Sodium (Lovenox) 40 mg SUBQ Q12HR [facility] Stop: 01/02/18 20:59 Last Admin: 11/05/17 08:40 Dose: 40 mg Haloperidol Lactate (Haldol) 5 mg IM Q6HR PRN PRN Reason: Agitation Stop: 12/31/17 22:10 Last Admin: 11/02/17 00:37 Dose: 5 mg Piperacillin Sod/Tazobactam (Sod 3.375 gm/ Dextrose) 50 mls @ 100 mls/hr IV Q8H [facility] Stop: 01/01/18 14:44 Last Admin: 11/05/17 05:46 Dose: 100 mls/hr Metronidazole 500 mg/ (Miscellaneous) 100 mls @ 100 mls/hr IV Q8H [facility] Stop: 01/01/18 14:44 Last Admin: 11/05/17 06:40 Dose: 100 mls/hr Dextrose/Sodium Chloride (D5-0.9%Ns) 1,000 mls @ 100 mls/hr IV .Q10H [facility] Stop: 01/01/18 16:59 Last Admin: 11/04/17 22:09 Dose: 100 mls/hr Norepinephrine Bitartrate 4 mg (/ Dextrose) 254 mls @ 19.05 mls/hr IV TITR PRN ; Protocol; 5 MCG/MIN PRN Reason: BP MAINTENANCE (PER PROTOCOL) Stop: 01/01/18 19:27 Levothyroxine Sodium (Synthroid) 0.05 mg IVP DAILY [facility] Stop: 01/02/18 08:59 Last Admin: 11/05/17 09:16 Dose: 0.05 mg Miscellaneous (Vte Chemical Prophylaxis Screen/ Admission) 1 ea [facility] PRN PRN PRN Reason: PROTOCOL Stop: 12/31/17 16:23 Morphine Sulfate (Morphine) 2 mg IVP Q4HR PRN PRN Reason: Pain (Severe) Stop: 12/30/17 19:25 Morphine Sulfate (Morphine) 2 mg IVP Q4HR PRN PRN Reason: Abdominal Pain Stop: 01/01/18 14:39 Last Admin: 11/04/17 15:17 Dose: 2 mg Nitroglycerin (Nitro-Bid) 1 inch TP Q6HR [facility] Stop: 01/01/18 17:59 Last Admin: 11/05/17 05:48 Dose: 1 inch Ondansetron HCl (Zofran) 4 mg IV Q6HR PRN PRN Reason: Nausea / Vomiting Stop: 12/30/17 19:27 Pantoprazole Sodium (Protonix) 40 mg IVP DAILY [facility] Stop: 01/02/18 08:59 Last Admin: 11/05/17 08:40 Dose: 40 mg General: No acute distress HEENT: Atraumatic Neck: Supple Cardiovascular: Regular rate Lungs: Clear to auscultation Abdomen: Bowel sounds, Soft, Drain (RLQ), no Tender, no Distended - Procedures Procedures: Procedures Procedure Code Date MOBILIZATION OF COLON 64694 10/31/17 PARTIAL REMOVAL OF COLON 51215 10/31/17 RESECTION OF SIGMOID COLON, OPEN APPROACH [id number] 10/31/17 Assessment/Plan - Problem List Patient Problems: All Active Problems ABDOMINAL PAIN WITH N/V/D (Acute)
--- NOTE | 2017-11-05 09:50 | GI Progress Note ---
Subjective - Review of Systems Service Date: 11/05/17 Subjective: Having loose stool, tolerating clears Objective - Results Result Diagrams: 11/05/17 04:55 11/05/17 04:55 Recent Labs: Laboratory Last Values WBC 11.6 Th/cmm (4.8-10.8) H 11/05/17 04:55 RBC 2.73 Mil/cmm (3.80-5.20) L 11/05/17 04:55 Hgb 8.7 gm/dL (12-16) L 11/05/17 04:55 Hct 25.3 % (41.0-60) L 11/05/17 04:55 MCV 92.7 fl (81-100) 11/05/17 04:55 MCH 31.7 pg (27.0-31.0) H 11/05/17 04:55 MCHC Differential 34.2 pg (28.0-36.0) 11/05/17 04:55 RDW 13.9 % (11.5-20.0) 11/05/17 04:55 Plt Count 156 Th/cmm (150-400) 11/05/17 04:55 MPV 10.0 fl 11/05/17 04:55 Neutrophils % 90.0 % (40.0-80.0) H 11/05/17 04:55 Lymphocytes % 7.3 % (20.0-50.0) L 11/05/17 04:55 Monocytes % 1.4 % (2.0-10.0) L 11/05/17 04:55 Eosinophils % 1.1 % (0.0-5.0) 11/05/17 04:55 Basophils % 0.2 % (0.0-2.0) 11/05/17 04:55 PT 11.0 SECONDS (9.5-11.5) 11/02/17 11:03 INR 1.06 (0.5-1.4) 11/02/17 11:03 Sodium 141 mEq/L (136-145) 11/05/17 04:55 Potassium 2.8 mEq/L (3.5-5.1) L* 11/05/17 04:55 Chloride 113 mEq/L (98-107) H 11/05/17 04:55 Carbon Dioxide 23.6 mEq/L (21.0-31.0) 11/05/17 04:55 Anion Gap 7.2 (7.0-16.0) 11/05/17 04:55 BUN 5 mg/dL (7-25) L 11/05/17 04:55 Creatinine 0.5 mg/dL (0.6-1.2) L 11/05/17 04:55 Est GFR ( Amer) TNP 11/05/17 04:55 Est GFR (Non-Af Amer) TNP 11/05/17 04:55 BUN/Creatinine Ratio 10.0 11/05/17 04:55 Glucose 111 mg/dL (70-105) H 11/05/17 04:55 Calcium 7.8 mg/dL (8.6-10.3) L 11/05/17 04:55 Magnesium 1.5 mg/dL (1.9-2.7) L 11/04/17 05:00 Total Bilirubin 0.4 mg/dL (0.3-1.0) 11/05/17 04:55 Direct Bilirubin 0.21 mg/dL (0.0-0.2) H 10/31/17 17:52 AST 11 U/L (13-39) L 11/05/17 04:55 ALT 6 U/L (7-52) L 11/05/17 04:55 Alkaline Phosphatase 45 U/L (34-104) 11/05/17 04:55 Total Protein 4.8 gm/dL (6.0-8.3) L 11/05/17 04:55 Albumin 2.3 gm/dL (3.7-5.3) L 11/05/17 04:55 Globulin 2.5 gm/dL 11/05/17 04:55 Albumin/Globulin Ratio 0.9 (1.0-1.8) L 11/05/17 04:55 Lipase 26 U/L (11-82) 10/31/17 17:52 Urine Source MIDSTREAM 10/31/17 10:10 Urine Color YELLOW 10/31/17 10:10 Urine Clarity HAZY (CLEAR) 10/31/17 10:10 Urine pH 5.5 (4.6 - 8.0) 10/31/17 10:10 Ur Specific [place] 1.025 (1.005-1.030) 10/31/17 10:10 Urine Protein TRACE mg/dL (NEGATIVE) 10/31/17 10:10 Urine Glucose (UA) NEGATIVE mg/dL (NEGATIVE) 10/31/17 10:10 Urine Ketones NEGATIVE mg/dL (NEGATIVE) 10/31/17 10:10 Urine Blood TRACE (NEGATIVE) 10/31/17 10:10 Urine Nitrate NEGATIVE (NEGATIVE) 10/31/17 10:10 Urine Bilirubin NEGATIVE (NEGATIVE) 10/31/17 10:10 Urine Urobilinogen 0.2 E.U./dL (0.2 - 1.0) 10/31/17 10:10 Ur Leukocyte Esterase NEGATIVE (NEGATIVE) 10/31/17 10:10 Urine RBC 5-10 /hpf (0-5) H 10/31/17 10:10 Urine WBC 2-5 /hpf (0-5) 10/31/17 10:10 Ur Epithelial Cells MODERATE /lpf (FEW) 10/31/17 10:10 Urine Bacteria 1+ /hpf (NONE SEEN) H 10/31/17 10:10 Coarse Granular Casts 0-2 /lpf (NONE SEEN) H 10/31/17 10:10 Urine Mucus FEW /lpf (FEW) 10/31/17 10:10 Blood Type O POSITIVE 11/02/17 12:36 Antibody Screen NEGATIVE 11/02/17 12:36 Crossmatch See Detail 11/02/17 12:36 - Physical Exam Vitals and I&O: Vital Signs Temp 98.3 F 11/05/17 07:47 Pulse 95 11/05/17 07:47 Resp 18 11/05/17 07:47 BP 147/77 11/05/17 07:47 Pulse Ox 97 11/05/17 07:47 Intake & Output 11/04/17 11/05/17 11/05/17 18:59 06:59 18:59 Intake Total 1262.5 160 Output Total 605 Balance 1262.5 -445 Weight (lbs) 54.431 kg Intake: Intake, IV Amount 1262.5 150 D5-0.9%Ns 1,000 ml @ 100 1000 mls/hr IV .Q10H [facility] Rx#: [id number] KCL 20mEq/100mL Premix 20 62.5 meq In 100 ml @ 50 mls/ hr IV Q2H [facility] Rx#: [id number] Piperacillin Sodium/ 100 50 Tazobact 3.375 gm In Dextrose 5% 50 ml @ 100 mls/hr IV Q8H COUNTS INCLUDE 234 BEDS AT THE [facility] Rx#: [id number] metroNIDAZOLE 500mg/NS 100 100 100mL 500 mg In Premix Fluid 1 bag @ 100 mls/hr IV Q8H COUNTS INCLUDE 234 BEDS AT THE [facility] Rx#:[id number] Oral 10 Output: Drainage 155 Abdomen 155 Urine 450 Other: Weight Source Bedscale Active Medications: Current Medications Diphenoxylate HCl/Atropine (Lomotil) 1 tab PO BID PRN PRN Reason: Diarrhea Stop: 01/04/18 09:42 Enalaprilat (Vasotec) 2.5 mg IVP Q6H PRN PRN Reason: BP MAINTENANCE (PER PROTOCOL) Stop: 12/30/17 21:17 Enoxaparin Sodium (Lovenox) 40 mg SUBQ Q12HR COUNTS INCLUDE 234 BEDS AT THE [facility] Stop: 01/02/18 20:59 Last Admin: 11/05/17 08:40 Dose: 40 mg Haloperidol Lactate (Haldol) 5 mg IM Q6HR PRN PRN Reason: Agitation Stop: 12/31/17 22:10 Last Admin: 11/02/17 00:37 Dose: 5 mg Piperacillin Sod/Tazobactam (Sod 3.375 gm/ Dextrose) 50 mls @ 100 mls/hr IV Q8H COUNTS INCLUDE 234 BEDS AT THE [facility] Stop: 01/01/18 14:44 Last Admin: 11/05/17 05:46 Dose: 100 mls/hr Metronidazole 500 mg/ (Miscellaneous) 100 mls @ 100 mls/hr IV Q8H COUNTS INCLUDE 234 BEDS AT THE [facility] Stop: 01/01/18 14:44 Last Admin: 11/05/17 06:40 Dose: 100 mls/hr Dextrose/Sodium Chloride (D5-0.9%Ns) 1,000 mls @ 100 mls/hr IV .Q10H COUNTS INCLUDE 234 BEDS AT THE [facility] Stop: 01/01/18 16:59 Last Admin: 11/04/17 22:09 Dose: 100 mls/hr Norepinephrine Bitartrate 4 mg (/ Dextrose) 254 mls @ 19.05 mls/hr IV TITR PRN ; Protocol; 5 MCG/MIN PRN Reason: BP MAINTENANCE (PER PROTOCOL) Stop: 01/01/18 19:27 Levothyroxine Sodium (Synthroid) 0.05 mg IVP DAILY COUNTS INCLUDE 234 BEDS AT THE [facility] Stop: 01/02/18 08:59 Last Admin: 11/05/17 09:16 Dose: 0.05 mg Miscellaneous (Vte Chemical Prophylaxis Screen/ Admission) 1 ea [facility] PRN PRN PRN Reason: PROTOCOL Stop: 12/31/17 16:23 Morphine Sulfate (Morphine) 2 mg IVP Q4HR PRN PRN Reason: Pain (Severe) Stop: 12/30/17 19:25 Morphine Sulfate (Morphine) 2 mg IVP Q4HR PRN PRN Reason: Abdominal Pain Stop: 01/01/18 14:39 Last Admin: 11/04/17 15:17 Dose: 2 mg Nitroglycerin (Nitro-Bid) 1 inch TP Q6HR [facility] Stop: 01/01/18 17:59 Last Admin: 11/05/17 05:48 Dose: 1 inch Ondansetron HCl (Zofran) 4 mg IV Q6HR PRN PRN Reason: Nausea / Vomiting Stop: 12/30/17 19:27 Pantoprazole Sodium (Protonix) 40 mg IVP DAILY [facility] Stop: 01/02/18 08:59 Last Admin: 11/05/17 08:40 Dose: 40 mg General: No acute distress HEENT: Atraumatic Neck: Supple Cardiovascular: Regular rate Lungs: Clear to auscultation Abdomen: Bowel sounds, Soft, Drain (RLQ), Other (bandage c/d/i), no Tender, no Distended - Procedures Procedures: Procedures Procedure Code Date MOBILIZATION OF COLON 21789 10/31/17 PARTIAL REMOVAL OF COLON 75995 10/31/17 RESECTION OF SIGMOID COLON, OPEN APPROACH [id number] 10/31/17 Assessment/Plan - Problem List Patient Problems: All Active Problems ABDOMINAL PAIN WITH N/V/D (Acute) - Plan Plan: 1. 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 s/p ex lap 11/02 with sigmoid mass noted, s/p subtotal colectomy with primary anastomosis. 2. Chronic constipation. 3. Dementia. Having loose stools, likely as she has no colonic absorption. Can also send CDiff. Will need to follow sigmoid mass path, there was no serosal involvement at time of surgery RECS: 1. Post op care as per surgeon 2. Follow-up path results. 3. CDiff test 4. Monitor labs.
[2017-11-05] MEDS: Diphenoxylate/Atropine 2.5mg Tab PO PRN ×2 (12:30→21:34)
[2017-11-05] MEDS: D5-0.9%NS 1,000 ML IV SCH ×2 (12:32→18:21)
[2017-11-05] MEDS ORDERED: Potassium Chloride 40 MEQ, Lidocaine 1% 20mL Vial 25 MG in Sodium Chloride 0.9% 250 ML IV ONE (14:00)
--- NOTE | 2017-11-05 21:10 | General Progress Note ---
Subjective - Review of Systems Service Date: 11/05/17 Subjective: Patient seen and examined nurse reported patient has loose stool since am No vomiting or fever or abd pain reported Objective - Results Result Diagrams: 11/05/17 04:55 11/05/17 04:55 Recent Labs: Laboratory Last Values WBC 11.6 Th/cmm (4.8-10.8) H 11/05/17 04:55 RBC 2.73 Mil/cmm (3.80-5.20) L 11/05/17 04:55 Hgb 8.7 gm/dL (12-16) L 11/05/17 04:55 Hct 25.3 % (41.0-60) L 11/05/17 04:55 MCV 92.7 fl (81-100) 11/05/17 04:55 MCH 31.7 pg (27.0-31.0) H 11/05/17 04:55 MCHC Differential 34.2 pg (28.0-36.0) 11/05/17 04:55 RDW 13.9 % (11.5-20.0) 11/05/17 04:55 Plt Count 156 Th/cmm (150-400) 11/05/17 04:55 MPV 10.0 fl 11/05/17 04:55 Neutrophils % 90.0 % (40.0-80.0) H 11/05/17 04:55 Lymphocytes % 7.3 % (20.0-50.0) L 11/05/17 04:55 Monocytes % 1.4 % (2.0-10.0) L 11/05/17 04:55 Eosinophils % 1.1 % (0.0-5.0) 11/05/17 04:55 Basophils % 0.2 % (0.0-2.0) 11/05/17 04:55 PT 11.0 SECONDS (9.5-11.5) 11/02/17 11:03 INR 1.06 (0.5-1.4) 11/02/17 11:03 Sodium 141 mEq/L (136-145) 11/05/17 04:55 Potassium 2.8 mEq/L (3.5-5.1) L* 11/05/17 04:55 Chloride 113 mEq/L (98-107) H 11/05/17 04:55 Carbon Dioxide 23.6 mEq/L (21.0-31.0) 11/05/17 04:55 Anion Gap 7.2 (7.0-16.0) 11/05/17 04:55 BUN 5 mg/dL (7-25) L 11/05/17 04:55 Creatinine 0.5 mg/dL (0.6-1.2) L 11/05/17 04:55 Est GFR ( Amer) TNP 11/05/17 04:55 Est GFR (Non-Af Amer) TNP 11/05/17 04:55 BUN/Creatinine Ratio 10.0 11/05/17 04:55 Glucose 111 mg/dL (70-105) H 11/05/17 04:55 Calcium 7.8 mg/dL (8.6-10.3) L 11/05/17 04:55 Magnesium 1.5 mg/dL (1.9-2.7) L 11/04/17 05:00 Total Bilirubin 0.4 mg/dL (0.3-1.0) 11/05/17 04:55 Direct Bilirubin 0.21 mg/dL (0.0-0.2) H 10/31/17 17:52 AST 11 U/L (13-39) L 11/05/17 04:55 ALT 6 U/L (7-52) L 11/05/17 04:55 Alkaline Phosphatase 45 U/L (34-104) 11/05/17 04:55 Total Protein 4.8 gm/dL (6.0-8.3) L 11/05/17 04:55 Albumin 2.3 gm/dL (3.7-5.3) L 11/05/17 04:55 Globulin 2.5 gm/dL 11/05/17 04:55 Albumin/Globulin Ratio 0.9 (1.0-1.8) L 11/05/17 04:55 Lipase 26 U/L (11-82) 10/31/17 17:52 Urine Source MIDSTREAM 10/31/17 10:10 Urine Color YELLOW 10/31/17 10:10 Urine Clarity HAZY (CLEAR) 10/31/17 10:10 Urine pH 5.5 (4.6 - 8.0) 10/31/17 10:10 Ur Specific [place] 1.025 (1.005-1.030) 10/31/17 10:10 Urine Protein TRACE mg/dL (NEGATIVE) 10/31/17 10:10 Urine Glucose (UA) NEGATIVE mg/dL (NEGATIVE) 10/31/17 10:10 Urine Ketones NEGATIVE mg/dL (NEGATIVE) 10/31/17 10:10 Urine Blood TRACE (NEGATIVE) 10/31/17 10:10 Urine Nitrate NEGATIVE (NEGATIVE) 10/31/17 10:10 Urine Bilirubin NEGATIVE (NEGATIVE) 10/31/17 10:10 Urine Urobilinogen 0.2 E.U./dL (0.2 - 1.0) 10/31/17 10:10 Ur Leukocyte Esterase NEGATIVE (NEGATIVE) 10/31/17 10:10 Urine RBC 5-10 /hpf (0-5) H 10/31/17 10:10 Urine WBC 2-5 /hpf (0-5) 10/31/17 10:10 Ur Epithelial Cells MODERATE /lpf (FEW) 10/31/17 10:10 Urine Bacteria 1+ /hpf (NONE SEEN) H 10/31/17 10:10 Coarse Granular Casts 0-2 /lpf (NONE SEEN) H 10/31/17 10:10 Urine Mucus FEW /lpf (FEW) 10/31/17 10:10 Blood Type O POSITIVE 11/02/17 12:36 Antibody Screen NEGATIVE 11/02/17 12:36 Crossmatch See Detail 11/02/17 12:36 - Physical Exam Vitals and I&O: Vital Signs Temp 98 F 11/05/17 16:00 Pulse 81 11/05/17 18:19 Resp 18 11/05/17 16:00 BP 118/70 11/05/17 18:19 Pulse Ox 99 11/05/17 16:00 Intake & Output 11/05/17 11/05/17 11/06/17 06:59 18:59 06:59 Intake Total 210 1700 Output Total 605 675 Balance -395 1025 Weight (lbs) 54.431 kg 54.431 kg Intake: Intake, IV Amount 200 1250 D5-0.9%Ns 1,000 ml @ 100 1000 mls/hr IV .Q10H [facility] Rx#: [id number] Piperacillin Sodium/ 100 50 Tazobact 3.375 gm In Dextrose 5% 50 ml @ 100 mls/hr IV Q8H [facility] Rx#: [id number] metroNIDAZOLE 500mg/NS 100 200 100mL 500 mg In Premix Fluid 1 bag @ 100 mls/hr IV Q8H [facility] Rx#:[id number] Oral 10 450 Output: Drainage 155 175 Abdomen 155 175 Urine 450 500 Other: # Bowel Movements 5 Stool Characteristics Liquid Green Weight Source Bedscale Bedscale Active Medications: Current Medications Diphenoxylate HCl/Atropine (Lomotil) 1 tab PO BID PRN PRN Reason: Diarrhea Stop: 01/04/18 09:42 Last Admin: 11/05/17 12:30 Dose: 1 tab Enalaprilat (Vasotec) 2.5 mg IVP Q6H PRN PRN Reason: BP MAINTENANCE (PER PROTOCOL) Stop: 12/30/17 21:17 Enoxaparin Sodium (Lovenox) 40 mg SUBQ Q12HR [facility] Stop: 01/02/18 20:59 Last Admin: 11/05/17 08:40 Dose: 40 mg Haloperidol Lactate (Haldol) 5 mg IM Q6HR PRN PRN Reason: Agitation Stop: 12/31/17 22:10 Last Admin: 11/02/17 00:37 Dose: 5 mg Piperacillin Sod/Tazobactam (Sod 3.375 gm/ Dextrose) 50 mls @ 100 mls/hr IV Q8H [facility] Stop: 01/01/18 14:44 Last Infusion: 11/05/17 15:30 Dose: Infused Metronidazole 500 mg/ (Miscellaneous) 100 mls @ 100 mls/hr IV Q8H [facility] Stop: 01/01/18 14:44 Last Infusion: 11/05/17 15:30 Dose: Infused Dextrose/Sodium Chloride (D5-0.9%Ns) 1,000 mls @ 70 mls/hr IV .[id number] [facility] Stop: 01/04/18 17:29 Last Admin: 11/05/17 18:21 Dose: 70 mls/hr Levothyroxine Sodium (Synthroid) 0.05 mg IVP DAILY [facility] Stop: 01/02/18 08:59 Last Admin: 11/05/17 09:16 Dose: 0.05 mg Miscellaneous (Vte Chemical Prophylaxis Screen/ Admission) 1 ea [facility] PRN PRN PRN Reason: PROTOCOL Stop: 12/31/17 16:23 Morphine Sulfate (Morphine) 2 mg IVP Q4HR PRN PRN Reason: Pain (Severe) Stop: 12/30/17 19:25 Morphine Sulfate (Morphine) 2 mg IVP Q4HR PRN PRN Reason: Abdominal Pain Stop: 01/01/18 14:39 Last Admin: 11/04/17 15:17 Dose: 2 mg Nitroglycerin (Nitro-Bid) 1 inch TP Q6HR [facility] Stop: 01/01/18 17:59 Last Admin: 11/05/17 18:19 Dose: 1 inch Ondansetron HCl (Zofran) 4 mg IV Q6HR PRN PRN Reason: Nausea / Vomiting Stop: 12/30/17 19:27 Pantoprazole Sodium (Protonix) 40 mg IVP DAILY [facility] Stop: 01/02/18 08:59 Last Admin: 11/05/17 08:40 Dose: 40 mg General: No acute distress Cardiovascular: Regular rate Lungs: Clear to auscultation Abdomen: Bowel sounds (normal), Soft, Drain (RLQ), Other (bandage c/d/i), no Tender, no Distended - Procedures Procedures: Procedures Procedure Code Date MOBILIZATION OF COLON 75983 10/31/17 PARTIAL REMOVAL OF COLON 01930 10/31/17 RESECTION OF SIGMOID COLON, OPEN APPROACH [id number] 10/31/17 Assessment/Plan - Problem List Patient Problems: All Active Problems ABDOMINAL PAIN WITH N/V/D (Acute) - Assessment Assessment: Sepsis Bowel obstruction s/p exp lap HTN Hypokalemia Mental health disorder Dementia - Plan Plan: Zosyn and flagyl ID on board WBC better Stool C Diff negative Clear liquids K replacement DVT prophylaxis Monitor drain Plan of care discussed with nursing staff Nutritional Asmnt/Malnutr-PDOC - Dietary Evaluation Malnutrition Findings (Please click <Entered> for more info): Nutritional Asmnt/Malnutrition Start: 11/05/17 16: 29 Text: Status: Complete Freq: Document 11/05/17 16:29 MARJAN (Rec: 11/05/17 16:41 MARJAN [email or web address]) Nutritional Asmnt/Malnutrition Patient General Information Nutritional Screening Moderate Risk Diagnosis acute bowel obstruction Pertinent Medical Hx/Surgical Hx HTN, hypothyroidism, GERD, hyperlipidemia, mental health disorder Subjective Information Pt seen lying in bed at time of visit, awake and alert. Pt had subtotaol colectomy on noted, s/p surgery day 3. Pt stated she tolerated clear liquid and feel hungry at this time and she had BM x 3 today . No food preference given. K level continue low noted. Per EMR, PO intake 75-100% on clear liquid. Current Diet Order/ Nutrition Support clear liquid Pertinent Medications synthroid, protonix, piperacillin, kcl Pertinent Labs 11/05 Na 141, K 2.8, Cl 113, BUN 5, Cr 0.5, glucose 111, Ca 7.8 Nutritional Hx/Data Height 1.55 m Height (Calculated Centimeters) 154.9 Current Weight (lbs) 54.431 kg Weight (Calculated Kilograms) 54.4 Weight (Calculated Grams) 69961.1 [place] Body Weight 105 Body Mass Index (BMI) 22.6 Weight Status Approriate GI Symptoms GI Symptoms None Last BM 11/05 Difficult in: None Skin Integrity/Comment: abdominal incision bruise to left arm pressure area to sacrum Estimated Nutritional Goals BEE in Kcals: Using Current wt Calories/Kcals/Kg 25-30 Kcals Calculated 0017-5016 Protein: Using Current wt Protein g/k-1.2 Protein Calculated 55-66 Fluid: ml 1375-1650ml (1ml/kcal) Nutritional Problem 1. Problem Problem altered GI function Etiology acute small bowel obstruction Signs/Symptoms: s/p colectomy and pt now on clear liquid Intervention/Recommendation Comments 1. Continue with clear liquid diet as ordered. Recommend Boost Breeze TID to supplement nutrition intake for clear liquid diet. 2. Monitor PO intake, GI function, wt, labs and skin integrity 3. F/U as moderate risk in 3-5 days, 11/08-11/10 Expected Outcomes/Goals Expected Outcomes/Goals 1. PO intake to meet at least 75% of nutritional needs. 2. Wt stability, skin to remain intact, labs to approach WNL.
[2017-11-06] MEDS: NITROGLYCERIN OINT 2% 1 INCH PACKET TP SCH ×4 (05:37→18:37)
[2017-11-06] MEDS: metroNIDAZOLE 500mg/NS 100mL 500 MG in Premix Fluid 1 BAG IV SCH ×3 (06:21→22:53)
[2017-11-06 06:58] LABS: ANION GAP 7.2 (7.0-16.0); BUN - UREA NITROGEN 3 mg/dL (7-25); CALCIUM SERUM 7.5 mg/dL (8.6-10.3); CARBON DIOXIDE 25.5 mEq/L (21.0-31.0); CHLORIDE 109 mEq/L (98-107); CREATININE - SERUM 0.4 mg/dL (0.6-1.2); GLUCOSE 106 mg/dL (70-105); POTASSIUM SERUM 2.7 mEq/L (3.5-5.1)
[2017-11-06 07:20] LABS: SODIUM SERUM 139 mEq/L (136-145)
[2017-11-06 07:28] LABS: HEMATOCRIT 24.4 % (41.0-60); HEMOGLOBIN 8.1 gm/dL (12-16); RED BLOOD COUNT 2.64 Mil/cmm (3.80-5.20)
[2017-11-06 07:29] LABS: % BASOPHILS 0.7 % (0.0-2.0); % EOSINOPHILS 2.5 % (0.0-5.0); % LYMPHOCYTES 8.9 % (20.0-50.0); % MONOCYTES 3.2 % (2.0-10.0); % NEUTROPHILS 84.3 % (40.0-80.0); BASOPHILE ABSOLUTE 0.1 Th/cumm (0-0.2); EOSINOPHILE ABSOLUTE 0.2 Th/cmm (0.1-0.4); LYMPHOCYTE ABSOLUTE 0.7 Th/cmm (1.5-3.0); MEAN CELL VOLUME 92.7 fl (81-100); MEAN CORPUSCULAR HEMOGLOBIN 30.7 pg (27.0-31.0); MEAN CORPUSCULAR HGB CONC 33.2 pg (28.0-36.0); MEAN PLATELET VOLUME 9.1 fl; MONOCYTE ABSOLUTE 0.3 Th/cmm (0.3-1.0); NEUTROPHILE ABSOLUTE 6.7 Th/cmm (1.8-8.0); PLATELET COUNT 183 Th/cmm (150-400); RED CELL DISTRIBUTION WIDTH 13.9 % (11.5-20.0)
[2017-11-06] MEDS: D5-0.9%NS 1,000 ML IV SCH (09:34)
[2017-11-06] MEDS: Enoxaparin 40 mg/0.4 mL 0.4mL Syr SUBQ SCH ×2 (09:42→20:33)
[2017-11-06] MEDS ORDERED: POTASSIUM CHLORIDE IV SCH (11:00)
[2017-11-06] MEDS: KCL 20mEq/100mL Premix 20 MEQ/100 ML PIGGYBACK IV SCH ×2 (11:17→13:06)
[2017-11-06] MEDS ORDERED: Potassium Chloride 40 MEQ, Lidocaine 1% 20mL Vial 25 MG in Sodium Chloride 0.9% 250 ML IV ONE (12:00)
[2017-11-06] MEDS ORDERED: Potassium Chloride 20 mEq ER Tab PO ONE (12:00)
--- NOTE | 2017-11-06 12:09 | GI Progress Note ---
Subjective - Review of Systems Service Date: 11/06/17 Subjective: Less loose stool today, on clear liquids Objective - Results Result Diagrams: 11/06/17 06:30 11/06/17 06:30 Recent Labs: Laboratory Last Values WBC 8.0 Th/cmm (4.8-10.8) 11/06/17 06:30 RBC 2.64 Mil/cmm (3.80-5.20) L 11/06/17 06:30 Hgb 8.1 gm/dL (12-16) L 11/06/17 06:30 Hct 24.4 % (41.0-60) L 11/06/17 06:30 MCV 92.7 fl (81-100) 11/06/17 06:30 MCH 30.7 pg (27.0-31.0) 11/06/17 06:30 MCHC Differential 33.2 pg (28.0-36.0) 11/06/17 06:30 RDW 13.9 % (11.5-20.0) 11/06/17 06:30 Plt Count 183 Th/cmm (150-400) 11/06/17 06:30 MPV 9.1 fl 11/06/17 06:30 Neutrophils % 84.3 % (40.0-80.0) H 11/06/17 06:30 Lymphocytes % 8.9 % (20.0-50.0) L 11/06/17 06:30 Monocytes % 3.2 % (2.0-10.0) 11/06/17 06:30 Eosinophils % 2.5 % (0.0-5.0) 11/06/17 06:30 Basophils % 0.7 % (0.0-2.0) 11/06/17 06:30 PT 11.0 SECONDS (9.5-11.5) 11/02/17 11:03 INR 1.06 (0.5-1.4) 11/02/17 11:03 Sodium 139 mEq/L (136-145) 11/06/17 06:30 Potassium 2.7 mEq/L (3.5-5.1) L* 11/06/17 06:30 Chloride 109 mEq/L (98-107) H 11/06/17 06:30 Carbon Dioxide 25.5 mEq/L (21.0-31.0) 11/06/17 06:30 Anion Gap 7.2 (7.0-16.0) 11/06/17 06:30 BUN 3 mg/dL (7-25) L 11/06/17 06:30 Creatinine 0.4 mg/dL (0.6-1.2) L 11/06/17 06:30 Est GFR ( Amer) TNP 11/06/17 06:30 Est GFR (Non-Af Amer) TNP 11/06/17 06:30 BUN/Creatinine Ratio 7.5 11/06/17 06:30 Glucose 106 mg/dL (70-105) H 11/06/17 06:30 Calcium 7.5 mg/dL (8.6-10.3) L 11/06/17 06:30 Magnesium 1.5 mg/dL (1.9-2.7) L 11/04/17 05:00 Total Bilirubin 0.4 mg/dL (0.3-1.0) 11/05/17 04:55 Direct Bilirubin 0.21 mg/dL (0.0-0.2) H 10/31/17 17:52 AST 11 U/L (13-39) L 11/05/17 04:55 ALT 6 U/L (7-52) L 11/05/17 04:55 Alkaline Phosphatase 45 U/L (34-104) 11/05/17 04:55 Total Protein 4.8 gm/dL (6.0-8.3) L 11/05/17 04:55 Albumin 2.3 gm/dL (3.7-5.3) L 11/05/17 04:55 Globulin 2.5 gm/dL 11/05/17 04:55 Albumin/Globulin Ratio 0.9 (1.0-1.8) L 11/05/17 04:55 Lipase 26 U/L (11-82) 10/31/17 17:52 Urine Source MIDSTREAM 10/31/17 10:10 Urine Color YELLOW 10/31/17 10:10 Urine Clarity HAZY (CLEAR) 10/31/17 10:10 Urine pH 5.5 (4.6 - 8.0) 10/31/17 10:10 Ur Specific [place] 1.025 (1.005-1.030) 10/31/17 10:10 Urine Protein TRACE mg/dL (NEGATIVE) 10/31/17 10:10 Urine Glucose (UA) NEGATIVE mg/dL (NEGATIVE) 10/31/17 10:10 Urine Ketones NEGATIVE mg/dL (NEGATIVE) 10/31/17 10:10 Urine Blood TRACE (NEGATIVE) 10/31/17 10:10 Urine Nitrate NEGATIVE (NEGATIVE) 10/31/17 10:10 Urine Bilirubin NEGATIVE (NEGATIVE) 10/31/17 10:10 Urine Urobilinogen 0.2 E.U./dL (0.2 - 1.0) 10/31/17 10:10 Ur Leukocyte Esterase NEGATIVE (NEGATIVE) 10/31/17 10:10 Urine RBC 5-10 /hpf (0-5) H 10/31/17 10:10 Urine WBC 2-5 /hpf (0-5) 10/31/17 10:10 Ur Epithelial Cells MODERATE /lpf (FEW) 10/31/17 10:10 Urine Bacteria 1+ /hpf (NONE SEEN) H 10/31/17 10:10 Coarse Granular Casts 0-2 /lpf (NONE SEEN) H 10/31/17 10:10 Urine Mucus FEW /lpf (FEW) 10/31/17 10:10 Blood Type O POSITIVE 11/02/17 12:36 Antibody Screen NEGATIVE 11/02/17 12:36 Crossmatch See Detail 11/02/17 12:36 - Physical Exam Vitals and I&O: Vital Signs Temp 97.3 F 11/06/17 10:05 Pulse 91 11/06/17 11:25 Resp 17 11/06/17 10:05 BP 123/70 11/06/17 11:25 Pulse Ox 95 11/06/17 10:05 Intake & Output 11/05/17 11/06/17 11/06/17 18:59 06:59 18:59 Intake Total 3610 105 1697 Output Total 675 880 Balance 1025 -430 1100 Weight (lbs) 54.431 kg 54.431 kg Intake: Intake, IV Amount 3625 876 5166 D5-0.9%Ns 1,000 ml @ 100 1000 mls/hr IV .Q10H [facility] Rx#: [id number] D5-0.9%Ns 1,000 ml @ 70 1000 mls/hr IV .[id number] [facility] Rx #:[id number] Piperacillin Sodium/ 50 50 Tazobact 3.375 gm In Dextrose 5% 50 ml @ 100 mls/hr IV Q8H [facility] Rx#: [id number] metroNIDAZOLE 500mg/NS 200 100 100 100mL 500 mg In Premix Fluid 1 bag @ 100 mls/hr IV Q8H [facility] Rx#:[id number] Oral 450 300 Output: Drainage 175 180 Abdomen 175 180 Urine 500 700 Stool 0 Other: # Bowel Movements 5 0 Stool Characteristics Liquid Liquid Green Green Weight Source Bedscale Bedscale Active Medications: Current Medications Diphenoxylate HCl/Atropine (Lomotil) 1 tab PO BID PRN PRN Reason: Diarrhea Stop: 01/04/18 09:42 Last Admin: 11/05/17 21:34 Dose: 1 tab Enalaprilat (Vasotec) 2.5 mg IVP Q6H PRN PRN Reason: BP MAINTENANCE (PER PROTOCOL) Stop: 12/30/17 21:17 Enoxaparin Sodium (Lovenox) 40 mg SUBQ Q12HR [facility] Stop: 01/02/18 20:59 Last Admin: 11/06/17 09:42 Dose: 40 mg Haloperidol Lactate (Haldol) 5 mg IM Q6HR PRN PRN Reason: Agitation Stop: 12/31/17 22:10 Last Admin: 11/02/17 00:37 Dose: 5 mg Piperacillin Sod/Tazobactam (Sod 3.375 gm/ Dextrose) 50 mls @ 100 mls/hr IV Q8H [facility] Stop: 01/01/18 14:44 Last Admin: 11/06/17 05:47 Dose: 100 mls/hr Metronidazole 500 mg/ (Miscellaneous) 100 mls @ 100 mls/hr IV Q8H [facility] Stop: 01/01/18 14:44 Last Infusion: 11/06/17 07:21 Dose: Infused Dextrose/Sodium Chloride (D5-0.9%Ns) 1,000 mls @ 70 mls/hr IV .[id number] [facility] Stop: 01/04/18 17:29 Last Admin: 11/06/17 09:34 Dose: 70 mls/hr Potassium Chloride (Potassium Chloride) 20 meq in 100 mls @ 50 mls/hr IV Q2H [facility] Stop: 11/06/17 14:59 Last Admin: 11/06/17 11:17 Dose: 50 mls/hr Levothyroxine Sodium (Synthroid) 0.05 mg IVP DAILY [facility] Stop: 01/02/18 08:59 Last Admin: 11/06/17 09:44 Dose: 0.05 mg Miscellaneous (Vte Chemical Prophylaxis Screen/ Admission) 1 ea [facility] PRN PRN PRN Reason: PROTOCOL Stop: 12/31/17 16:23 Morphine Sulfate (Morphine) 2 mg IVP Q4HR PRN PRN Reason: Pain (Severe) Stop: 12/30/17 19:25 Morphine Sulfate (Morphine) 2 mg IVP Q4HR PRN PRN Reason: Abdominal Pain Stop: 01/01/18 14:39 Last Admin: 11/04/17 15:17 Dose: 2 mg Nitroglycerin (Nitro-Bid) 1 inch TP Q6HR [facility] Stop: 01/01/18 17:59 Last Admin: 11/06/17 11:25 Dose: 1 inch Ondansetron HCl (Zofran) 4 mg IV Q6HR PRN PRN Reason: Nausea / Vomiting Stop: 12/30/17 19:27 Pantoprazole Sodium (Protonix) 40 mg IVP DAILY [facility] Stop: 01/02/18 08:59 Last Admin: 11/06/17 09:33 Dose: 40 mg General: No acute distress HEENT: Atraumatic Neck: Supple Cardiovascular: Regular rate Lungs: Clear to auscultation Abdomen: Bowel sounds (normal), Soft, Drain (RLQ), Other (bandage c/d/i), no Tender, no Distended - Procedures Procedures: Procedures Procedure Code Date MOBILIZATION OF COLON 58467 10/31/17 PARTIAL REMOVAL OF COLON 43016 10/31/17 RESECTION OF SIGMOID COLON, OPEN APPROACH [id number] 10/31/17 Assessment/Plan - Problem List Patient Problems: All Active Problems ABDOMINAL PAIN WITH N/V/D (Acute) - Plan Plan: 1. 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 s/p ex lap 11/02 with sigmoid mass noted, s/p subtotal colectomy with primary anastomosis. 2. Chronic constipation. 3. Dementia. Having loose stools, likely as she has no colonic absorption. Can also send CDiff, pending. Will need to follow sigmoid mass path, there was no serosal involvement at time of surgery RECS: 1. Post op care as per surgeon. Pt on lamotil 2. Follow-up path results from sigmoid lesion 3. CDiff test, pending 4. Monitor labs. 5. Advance diet as per Dr Butts post op
--- NOTE | 2017-11-06 12:21 | Pathology Report ---
[id number] Collection date: 11/02/2017 Surgeon: Dr. Celeste Butts Specimen Description: Subtotal colectomy Gross Description: Received in formalin is a subtotal colon resection specimen measuring 92 cm in length with a markedly dilated cecum and ascending colon measuring up to 14 cm in diameter. The proximal end of the specimen consists of a 4 cm segment of ileum attached to the ileocecal valve. There is marked distention and flattening of the muscular wall and mucosa, consistent with megacolon No mass lesions are identified and there is no evidence for perforation. The remainder of the specimen shows a more normal folded mucosal pattern, however there are fibrous adhesions and twisting noted in the distal end of the sigmoid colon where the muscular wall is thickened to greater than 1.1 cm. Sectioning shows no mass lesions. Stage Builder sections are submitted in 8 cassettes labeled A1 to A8. Cassette A1 shows the ileum and ileocecal valve, cassette A2 and A3 shows the distended cecum and ascending colon, cassette A4 shows the adhesions, cassette A5 and A6 show the sigmoid colon, cassette A7 and A8 show the sigmoid colon. Microscopic Description: The histologic sections show a colon resection specimen with marked thinning and a stretched appearance of the mucosa muscular wall in the cecum and ascending colon. Fibrous adhesions are noted on the outer surface of the specimen. Sigmoid colon shows thickening of the muscular wall with no mass lesions identified. Diagnosis: 1. Subtotal colectomy showing a markedly dilated cecum and ascending colon, consistent with megacolon. 2. Sigmoid colon shows a twisted appearance with fibrous adhesions and volvulus. Comment: There is no evidence for malignancy. [facility]# [id number] [facility]
[2017-11-06] MEDS ORDERED: Diphenoxylate/Atropine 2.5mg Tab PO PRN (16:48)
--- NOTE | 2017-11-06 16:51 | General Progress Note ---
Subjective - Review of Systems Service Date: 11/06/17 Events since last encounter: Lomotil increased to tid start PT labs noted, still low K Path report no mass in sigmoid Objective - Results Result Diagrams: 11/06/17 06:30 11/06/17 06:30 Recent Labs: Laboratory Last Values WBC 8.0 Th/cmm (4.8-10.8) 11/06/17 06:30 RBC 2.64 Mil/cmm (3.80-5.20) L 11/06/17 06:30 Hgb 8.1 gm/dL (12-16) L 11/06/17 06:30 Hct 24.4 % (41.0-60) L 11/06/17 06:30 MCV 92.7 fl (81-100) 11/06/17 06:30 MCH 30.7 pg (27.0-31.0) 11/06/17 06:30 MCHC Differential 33.2 pg (28.0-36.0) 11/06/17 06:30 RDW 13.9 % (11.5-20.0) 11/06/17 06:30 Plt Count 183 Th/cmm (150-400) 11/06/17 06:30 MPV 9.1 fl 11/06/17 06:30 Neutrophils % 84.3 % (40.0-80.0) H 11/06/17 06:30 Lymphocytes % 8.9 % (20.0-50.0) L 11/06/17 06:30 Monocytes % 3.2 % (2.0-10.0) 11/06/17 06:30 Eosinophils % 2.5 % (0.0-5.0) 11/06/17 06:30 Basophils % 0.7 % (0.0-2.0) 11/06/17 06:30 PT 11.0 SECONDS (9.5-11.5) 11/02/17 11:03 INR 1.06 (0.5-1.4) 11/02/17 11:03 Sodium 139 mEq/L (136-145) 11/06/17 06:30 Potassium 2.7 mEq/L (3.5-5.1) L* 11/06/17 06:30 Chloride 109 mEq/L (98-107) H 11/06/17 06:30 Carbon Dioxide 25.5 mEq/L (21.0-31.0) 11/06/17 06:30 Anion Gap 7.2 (7.0-16.0) 11/06/17 06:30 BUN 3 mg/dL (7-25) L 11/06/17 06:30 Creatinine 0.4 mg/dL (0.6-1.2) L 11/06/17 06:30 Est GFR ( Amer) TNP 11/06/17 06:30 Est GFR (Non-Af Amer) TNP 11/06/17 06:30 BUN/Creatinine Ratio 7.5 11/06/17 06:30 Glucose 106 mg/dL (70-105) H 11/06/17 06:30 Calcium 7.5 mg/dL (8.6-10.3) L 11/06/17 06:30 Magnesium 1.5 mg/dL (1.9-2.7) L 11/04/17 05:00 Total Bilirubin 0.4 mg/dL (0.3-1.0) 11/05/17 04:55 Direct Bilirubin 0.21 mg/dL (0.0-0.2) H 10/31/17 17:52 AST 11 U/L (13-39) L 11/05/17 04:55 ALT 6 U/L (7-52) L 11/05/17 04:55 Alkaline Phosphatase 45 U/L (34-104) 11/05/17 04:55 Total Protein 4.8 gm/dL (6.0-8.3) L 11/05/17 04:55 Albumin 2.3 gm/dL (3.7-5.3) L 11/05/17 04:55 Globulin 2.5 gm/dL 11/05/17 04:55 Albumin/Globulin Ratio 0.9 (1.0-1.8) L 11/05/17 04:55 Lipase 26 U/L (11-82) 10/31/17 17:52 Urine Source MIDSTREAM 10/31/17 10:10 Urine Color YELLOW 10/31/17 10:10 Urine Clarity HAZY (CLEAR) 10/31/17 10:10 Urine pH 5.5 (4.6 - 8.0) 10/31/17 10:10 Ur Specific [place] 1.025 (1.005-1.030) 10/31/17 10:10 Urine Protein TRACE mg/dL (NEGATIVE) 10/31/17 10:10 Urine Glucose (UA) NEGATIVE mg/dL (NEGATIVE) 10/31/17 10:10 Urine Ketones NEGATIVE mg/dL (NEGATIVE) 10/31/17 10:10 Urine Blood TRACE (NEGATIVE) 10/31/17 10:10 Urine Nitrate NEGATIVE (NEGATIVE) 10/31/17 10:10 Urine Bilirubin NEGATIVE (NEGATIVE) 10/31/17 10:10 Urine Urobilinogen 0.2 E.U./dL (0.2 - 1.0) 10/31/17 10:10 Ur Leukocyte Esterase NEGATIVE (NEGATIVE) 10/31/17 10:10 Urine RBC 5-10 /hpf (0-5) H 10/31/17 10:10 Urine WBC 2-5 /hpf (0-5) 10/31/17 10:10 Ur Epithelial Cells MODERATE /lpf (FEW) 10/31/17 10:10 Urine Bacteria 1+ /hpf (NONE SEEN) H 10/31/17 10:10 Coarse Granular Casts 0-2 /lpf (NONE SEEN) H 10/31/17 10:10 Urine Mucus FEW /lpf (FEW) 10/31/17 10:10 Blood Type O POSITIVE 11/02/17 12:36 Antibody Screen NEGATIVE 11/02/17 12:36 Crossmatch See Detail 11/02/17 12:36 - Physical Exam Vitals and I&O: Vital Signs Temp 98.0 F 11/06/17 16:00 Pulse 86 11/06/17 16:00 Resp 18 11/06/17 16:00 BP 127/67 11/06/17 16:00 Pulse Ox 96 11/06/17 16:00 Intake & Output 11/05/17 11/06/17 11/06/17 18:59 06:59 18:59 Intake Total 2868 887 5860.833 Output Total 675 880 Balance 1025 -380 1190.833 Weight (lbs) 54.431 kg 54.431 kg Intake: Intake, IV Amount 0453 168 2157.833 D5-0.9%Ns 1,000 ml @ 100 1000 mls/hr IV .Q10H [facility] Rx#: [id number] D5-0.9%Ns 1,000 ml @ 70 1000 mls/hr IV .[id number] [facility] Rx #:[id number] KCL 20mEq/100mL Premix 20 90.833 meq In 100 ml @ 50 mls/ hr IV Q2H [facility] Rx#: [id number] Piperacillin Sodium/ 50 100 Tazobact 3.375 gm In Dextrose 5% 50 ml @ 100 mls/hr IV Q8H [facility] Rx#: [id number] metroNIDAZOLE 500mg/NS 200 100 100 100mL 500 mg In Premix Fluid 1 bag @ 100 mls/hr IV Q8H [facility] Rx#:[id number] Oral 450 300 Output: Drainage 175 180 Abdomen 175 180 Urine 500 700 Stool 0 Other: # Bowel Movements 5 0 Stool Characteristics Liquid Liquid Green Green Weight Source Bedscale Bedscale Active Medications: Current Medications Diphenoxylate HCl/Atropine (Lomotil) 1 tab PO BID PRN PRN Reason: Diarrhea Stop: 01/04/18 09:42 Last Admin: 11/05/17 21:34 Dose: 1 tab Diphenoxylate HCl/Atropine (Lomotil) 1 tab PO TID PRN PRN Reason: Diarrhea Stop: 01/05/18 16:47 Enalaprilat (Vasotec) 2.5 mg IVP Q6H PRN PRN Reason: BP MAINTENANCE (PER PROTOCOL) Stop: 12/30/17 21:17 Enoxaparin Sodium (Lovenox) 40 mg SUBQ Q12HR [facility] Stop: 01/02/18 20:59 Last Admin: 11/06/17 09:42 Dose: 40 mg Haloperidol Lactate (Haldol) 5 mg IM Q6HR PRN PRN Reason: Agitation Stop: 12/31/17 22:10 Last Admin: 11/02/17 00:37 Dose: 5 mg Piperacillin Sod/Tazobactam (Sod 3.375 gm/ Dextrose) 50 mls @ 100 mls/hr IV Q8H [facility] Stop: 01/01/18 14:44 Last Admin: 11/06/17 14:26 Dose: 100 mls/hr Metronidazole 500 mg/ (Miscellaneous) 100 mls @ 100 mls/hr IV Q8H [facility] Stop: 01/01/18 14:44 Last Admin: 11/06/17 14:18 Dose: 100 mls/hr Dextrose/Sodium Chloride (D5-0.9%Ns) 1,000 mls @ 70 mls/hr IV .[id number] [facility] Stop: 01/04/18 17:29 Last Admin: 11/06/17 09:34 Dose: 70 mls/hr Levothyroxine Sodium (Synthroid) 0.05 mg IVP DAILY [facility] Stop: 01/02/18 08:59 Last Admin: 11/06/17 09:44 Dose: 0.05 mg Miscellaneous (Vte Chemical Prophylaxis Screen/ Admission) 1 ea [facility] PRN PRN PRN Reason: PROTOCOL Stop: 12/31/17 16:23 Morphine Sulfate (Morphine) 2 mg IVP Q4HR PRN PRN Reason: Pain (Severe) Stop: 12/30/17 19:25 Morphine Sulfate (Morphine) 2 mg IVP Q4HR PRN PRN Reason: Abdominal Pain Stop: 01/01/18 14:39 Last Admin: 11/04/17 15:17 Dose: 2 mg Nitroglycerin (Nitro-Bid) 1 inch TP Q6HR [facility] Stop: 01/01/18 17:59 Last Admin: 11/06/17 11:25 Dose: 1 inch Ondansetron HCl (Zofran) 4 mg IV Q6HR PRN PRN Reason: Nausea / Vomiting Stop: 12/30/17 19:27 Pantoprazole Sodium (Protonix) 40 mg IVP DAILY [facility] Stop: 01/02/18 08:59 Last Admin: 11/06/17 09:33 Dose: 40 mg General: No acute distress HEENT: Atraumatic Neck: Supple Cardiovascular: Regular rate Lungs: Clear to auscultation Abdomen: Bowel sounds (normal), Soft, Drain (RLQ), Other (bandage c/d/i), no Tender, no Distended - Procedures Procedures: Procedures Procedure Code Date MOBILIZATION OF COLON 91021 10/31/17 PARTIAL REMOVAL OF COLON 57713 10/31/17 RESECTION OF SIGMOID COLON, OPEN APPROACH [id number] 10/31/17 Assessment/Plan - Problem List Patient Problems: All Active Problems ABDOMINAL PAIN WITH N/V/D (Acute) Nutritional Asmnt/Malnutr-PDOC - Dietary Evaluation Malnutrition Findings (Please click <Entered> for more info): Nutritional Asmnt/Malnutrition Start: 11/05/17 16: 29 Text: Status: Complete Freq: Document 11/05/17 16:29 [email or web address] (Rec: 11/05/17 16:41 [email or web address]) Nutritional Asmnt/Malnutrition Patient General Information Nutritional Screening Moderate Risk Diagnosis acute bowel obstruction Pertinent Medical Hx/Surgical Hx HTN, hypothyroidism, GERD, hyperlipidemia, mental health disorder Subjective Information Pt seen lying in bed at time of visit, awake and alert. Pt had subtotaol colectomy on noted, s/p surgery day 3. Pt stated she tolerated clear liquid and feel hungry at this time and she had BM x 3 today . No food preference given. K level continue low noted. Per EMR, PO intake 75-100% on clear liquid. Current Diet Order/ Nutrition Support clear liquid Pertinent Medications synthroid, protonix, piperacillin, kcl Pertinent Labs 11/05 Na 141, K 2.8, Cl 113, BUN 5, Cr 0.5, glucose 111, Ca 7.8 Nutritional Hx/Data Height 1.55 m Height (Calculated Centimeters) 154.9 Current Weight (lbs) 54.431 kg Weight (Calculated Kilograms) 54.4 Weight (Calculated Grams) 61219.1 [place] Body Weight 105 Body Mass Index (BMI) 22.6 Weight Status Approriate GI Symptoms GI Symptoms None Last BM 11/05 Difficult in: None Skin Integrity/Comment: abdominal incision bruise to left arm pressure area to sacrum Estimated Nutritional Goals BEE in Kcals: Using Current wt Calories/Kcals/Kg 25-30 Kcals Calculated 9338-9964 Protein: Using Current wt Protein g/k-1.2 Protein Calculated 55-66 Fluid: ml 1375-1650ml (1ml/kcal) Nutritional Problem 1. Problem Problem altered GI function Etiology acute small bowel obstruction Signs/Symptoms: s/p colectomy and pt now on clear liquid Intervention/Recommendation Comments 1. Continue with clear liquid diet as ordered. Recommend Boost Breeze TID to supplement nutrition intake for clear liquid diet. 2. Monitor PO intake, GI function, wt, labs and skin integrity 3. F/U as moderate risk in 3-5 days, 11/08-11/10 Expected Outcomes/Goals Expected Outcomes/Goals 1. PO intake to meet at least 75% of nutritional needs. 2. Wt stability, skin to remain intact, labs to approach WNL.
--- NOTE | 2017-11-06 16:56 | General Progress Note ---
Subjective - Review of Systems Service Date: 11/06/17 Events since last encounter: informed daughter re no mass in sigmoid per Pathologist Objective - Results Result Diagrams: 11/06/17 06:30 11/06/17 06:30 Recent Labs: Laboratory Last Values WBC 8.0 Th/cmm (4.8-10.8) 11/06/17 06:30 RBC 2.64 Mil/cmm (3.80-5.20) L 11/06/17 06:30 Hgb 8.1 gm/dL (12-16) L 11/06/17 06:30 Hct 24.4 % (41.0-60) L 11/06/17 06:30 MCV 92.7 fl (81-100) 11/06/17 06:30 MCH 30.7 pg (27.0-31.0) 11/06/17 06:30 MCHC Differential 33.2 pg (28.0-36.0) 11/06/17 06:30 RDW 13.9 % (11.5-20.0) 11/06/17 06:30 Plt Count 183 Th/cmm (150-400) 11/06/17 06:30 MPV 9.1 fl 11/06/17 06:30 Neutrophils % 84.3 % (40.0-80.0) H 11/06/17 06:30 Lymphocytes % 8.9 % (20.0-50.0) L 11/06/17 06:30 Monocytes % 3.2 % (2.0-10.0) 11/06/17 06:30 Eosinophils % 2.5 % (0.0-5.0) 11/06/17 06:30 Basophils % 0.7 % (0.0-2.0) 11/06/17 06:30 PT 11.0 SECONDS (9.5-11.5) 11/02/17 11:03 INR 1.06 (0.5-1.4) 11/02/17 11:03 Sodium 139 mEq/L (136-145) 11/06/17 06:30 Potassium 2.7 mEq/L (3.5-5.1) L* 11/06/17 06:30 Chloride 109 mEq/L (98-107) H 11/06/17 06:30 Carbon Dioxide 25.5 mEq/L (21.0-31.0) 11/06/17 06:30 Anion Gap 7.2 (7.0-16.0) 11/06/17 06:30 BUN 3 mg/dL (7-25) L 11/06/17 06:30 Creatinine 0.4 mg/dL (0.6-1.2) L 11/06/17 06:30 Est GFR ( Amer) TNP 11/06/17 06:30 Est GFR (Non-Af Amer) TNP 11/06/17 06:30 BUN/Creatinine Ratio 7.5 11/06/17 06:30 Glucose 106 mg/dL (70-105) H 11/06/17 06:30 Calcium 7.5 mg/dL (8.6-10.3) L 11/06/17 06:30 Magnesium 1.5 mg/dL (1.9-2.7) L 11/04/17 05:00 Total Bilirubin 0.4 mg/dL (0.3-1.0) 11/05/17 04:55 Direct Bilirubin 0.21 mg/dL (0.0-0.2) H 10/31/17 17:52 AST 11 U/L (13-39) L 11/05/17 04:55 ALT 6 U/L (7-52) L 11/05/17 04:55 Alkaline Phosphatase 45 U/L (34-104) 11/05/17 04:55 Total Protein 4.8 gm/dL (6.0-8.3) L 11/05/17 04:55 Albumin 2.3 gm/dL (3.7-5.3) L 11/05/17 04:55 Globulin 2.5 gm/dL 11/05/17 04:55 Albumin/Globulin Ratio 0.9 (1.0-1.8) L 11/05/17 04:55 Lipase 26 U/L (11-82) 10/31/17 17:52 Urine Source MIDSTREAM 10/31/17 10:10 Urine Color YELLOW 10/31/17 10:10 Urine Clarity HAZY (CLEAR) 10/31/17 10:10 Urine pH 5.5 (4.6 - 8.0) 10/31/17 10:10 Ur Specific [place] 1.025 (1.005-1.030) 10/31/17 10:10 Urine Protein TRACE mg/dL (NEGATIVE) 10/31/17 10:10 Urine Glucose (UA) NEGATIVE mg/dL (NEGATIVE) 10/31/17 10:10 Urine Ketones NEGATIVE mg/dL (NEGATIVE) 10/31/17 10:10 Urine Blood TRACE (NEGATIVE) 10/31/17 10:10 Urine Nitrate NEGATIVE (NEGATIVE) 10/31/17 10:10 Urine Bilirubin NEGATIVE (NEGATIVE) 10/31/17 10:10 Urine Urobilinogen 0.2 E.U./dL (0.2 - 1.0) 10/31/17 10:10 Ur Leukocyte Esterase NEGATIVE (NEGATIVE) 10/31/17 10:10 Urine RBC 5-10 /hpf (0-5) H 10/31/17 10:10 Urine WBC 2-5 /hpf (0-5) 10/31/17 10:10 Ur Epithelial Cells MODERATE /lpf (FEW) 10/31/17 10:10 Urine Bacteria 1+ /hpf (NONE SEEN) H 10/31/17 10:10 Coarse Granular Casts 0-2 /lpf (NONE SEEN) H 10/31/17 10:10 Urine Mucus FEW /lpf (FEW) 10/31/17 10:10 Blood Type O POSITIVE 11/02/17 12:36 Antibody Screen NEGATIVE 11/02/17 12:36 Crossmatch See Detail 11/02/17 12:36 - Physical Exam Vitals and I&O: Vital Signs Temp 98.0 F 11/06/17 16:00 Pulse 86 11/06/17 16:00 Resp 18 11/06/17 16:00 BP 127/67 11/06/17 16:00 Pulse Ox 96 11/06/17 16:00 Intake & Output 11/05/17 11/06/17 11/06/17 18:59 06:59 18:59 Intake Total 9247 727 7405.833 Output Total 675 880 Balance 1025 -380 1190.833 Weight (lbs) 54.431 kg 54.431 kg Intake: Intake, IV Amount 8740 568 8007.833 D5-0.9%Ns 1,000 ml @ 100 1000 mls/hr IV .Q10H [facility] Rx#: [id number] D5-0.9%Ns 1,000 ml @ 70 1000 mls/hr IV .[id number] [facility] Rx #:[id number] KCL 20mEq/100mL Premix 20 90.833 meq In 100 ml @ 50 mls/ hr IV Q2H [facility] Rx#: [id number] Piperacillin Sodium/ 50 100 Tazobact 3.375 gm In Dextrose 5% 50 ml @ 100 mls/hr IV Q8H [facility] Rx#: [id number] metroNIDAZOLE 500mg/NS 200 100 100 100mL 500 mg In Premix Fluid 1 bag @ 100 mls/hr IV Q8H [facility] Rx#:[id number] Oral 450 300 Output: Drainage 175 180 Abdomen 175 180 Urine 500 700 Stool 0 Other: # Bowel Movements 5 0 Stool Characteristics Liquid Liquid Green [place] Weight Source Bedscale Bedscale Active Medications: Current Medications Diphenoxylate HCl/Atropine (Lomotil) 1 tab PO BID PRN PRN Reason: Diarrhea Stop: 01/04/18 09:42 Last Admin: 11/05/17 21:34 Dose: 1 tab Diphenoxylate HCl/Atropine (Lomotil) 1 tab PO TID PRN PRN Reason: Diarrhea Stop: 01/05/18 16:47 Enalaprilat (Vasotec) 2.5 mg IVP Q6H PRN PRN Reason: BP MAINTENANCE (PER PROTOCOL) Stop: 12/30/17 21:17 Enoxaparin Sodium (Lovenox) 40 mg SUBQ Q12HR [facility] Stop: 01/02/18 20:59 Last Admin: 11/06/17 09:42 Dose: 40 mg Haloperidol Lactate (Haldol) 5 mg IM Q6HR PRN PRN Reason: Agitation Stop: 12/31/17 22:10 Last Admin: 11/02/17 00:37 Dose: 5 mg Piperacillin Sod/Tazobactam (Sod 3.375 gm/ Dextrose) 50 mls @ 100 mls/hr IV Q8H [facility] Stop: 01/01/18 14:44 Last Admin: 11/06/17 14:26 Dose: 100 mls/hr Metronidazole 500 mg/ (Miscellaneous) 100 mls @ 100 mls/hr IV Q8H [facility] Stop: 01/01/18 14:44 Last Admin: 11/06/17 14:18 Dose: 100 mls/hr Dextrose/Sodium Chloride (D5-0.9%Ns) 1,000 mls @ 70 mls/hr IV .[id number] [facility] Stop: 01/04/18 17:29 Last Admin: 11/06/17 09:34 Dose: 70 mls/hr Levothyroxine Sodium (Synthroid) 0.05 mg IVP DAILY [facility] Stop: 01/02/18 08:59 Last Admin: 11/06/17 09:44 Dose: 0.05 mg Miscellaneous (Vte Chemical Prophylaxis Screen/ Admission) 1 ea MC PRN PRN PRN Reason: PROTOCOL Stop: 12/31/17 16:23 Morphine Sulfate (Morphine) 2 mg IVP Q4HR PRN PRN Reason: Pain (Severe) Stop: 12/30/17 19:25 Morphine Sulfate (Morphine) 2 mg IVP Q4HR PRN PRN Reason: Abdominal Pain Stop: 01/01/18 14:39 Last Admin: 11/04/17 15:17 Dose: 2 mg Nitroglycerin (Nitro-Bid) 1 inch TP Q6HR [facility] Stop: 01/01/18 17:59 Last Admin: 11/06/17 11:25 Dose: 1 inch Ondansetron HCl (Zofran) 4 mg IV Q6HR PRN PRN Reason: Nausea / Vomiting Stop: 12/30/17 19:27 Pantoprazole Sodium (Protonix) 40 mg IVP DAILY [facility] Stop: 01/02/18 08:59 Last Admin: 11/06/17 09:33 Dose: 40 mg General: No acute distress HEENT: Atraumatic Neck: Supple Cardiovascular: Regular rate Lungs: Clear to auscultation Abdomen: Bowel sounds (normal), Soft, Drain (RLQ), Other (bandage c/d/i), no Tender, no Distended - Procedures Procedures: Procedures Procedure Code Date MOBILIZATION OF COLON 26125 10/31/17 PARTIAL REMOVAL OF COLON 74531 10/31/17 RESECTION OF SIGMOID COLON, OPEN APPROACH [id number] 10/31/17 Assessment/Plan - Problem List Patient Problems: All Active Problems ABDOMINAL PAIN WITH N/V/D (Acute) Nutritional Asmnt/Malnutr-PDOC - Dietary Evaluation Malnutrition Findings (Please click <Entered> for more info): Nutritional Asmnt/Malnutrition Start: 11/05/17 16: 29 Text: Status: Complete Freq: Document 11/05/17 16:29 LCHENG (Rec: 11/05/17 16:41 [email or web address] [email or web address]) Nutritional Asmnt/Malnutrition Patient General Information Nutritional Screening Moderate Risk Diagnosis acute bowel obstruction Pertinent Medical Hx/Surgical Hx HTN, hypothyroidism, GERD, hyperlipidemia, mental health disorder Subjective Information Pt seen lying in bed at time of visit, awake and alert. Pt had subtotaol colectomy on noted, s/p surgery day 3. Pt stated she tolerated clear liquid and feel hungry at this time and she had BM x 3 today . No food preference given. K level continue low noted. Per EMR, PO intake 75-100% on clear liquid. Current Diet Order/ Nutrition Support clear liquid Pertinent Medications synthroid, protonix, piperacillin, kcl Pertinent Labs 11/05 Na 141, K 2.8, Cl 113, BUN 5, Cr 0.5, glucose 111, Ca 7.8 Nutritional Hx/Data Height 1.55 m Height (Calculated Centimeters) 154.9 Current Weight (lbs) 54.431 kg Weight (Calculated Kilograms) 54.4 Weight (Calculated Grams) 57483.1 [place] Body Weight 105 Body Mass Index (BMI) 22.6 Weight Status Approriate GI Symptoms GI Symptoms None Last BM 11/05 Difficult in: None Skin Integrity/Comment: abdominal incision bruise to left arm pressure area to sacrum Estimated Nutritional Goals BEE in Kcals: Using Current wt Calories/Kcals/Kg 25-30 Kcals Calculated 0935-5145 Protein: Using Current wt Protein g/k-1.2 Protein Calculated 55-66 Fluid: ml 1375-1650ml (1ml/kcal) Nutritional Problem 1. Problem Problem altered GI function Etiology acute small bowel obstruction Signs/Symptoms: s/p colectomy and pt now on clear liquid Intervention/Recommendation Comments 1. Continue with clear liquid diet as ordered. Recommend Boost Breeze TID to supplement nutrition intake for clear liquid diet. 2. Monitor PO intake, GI function, wt, labs and skin integrity 3. F/U as moderate risk in 3-5 days, 11/08-11/10 Expected Outcomes/Goals Expected Outcomes/Goals 1. PO intake to meet at least 75% of nutritional needs. 2. Wt stability, skin to remain intact, labs to approach WNL.
--- NOTE | 2017-11-06 20:12 | Consultation ---
DATE OF CONSULTATION: 11/06/2017 THE PATIENT'S AGE: 72. SEX: Female. PHYSICIAN: Dr. Anaya. BUSINESS INFO CONSULTANT: Dr. Love. TYPE OF THE REPORT: Psychiatric consult. REASON FOR THE CONSULT: Confusion. HISTORY OF PRESENT ILLNESS: The patient is a 72-year-old female, who was admitted to the hospital by her family because of abdominal pain of 1-week duration prior to her admission. The patient also has been confused and Dr. Anaya asking me to evaluate the patient. The patient has been confused. She also has been anxious and has been restless at times. She also has been having difficulty with her mood. She has history of hypothyroidism as well as hypertension. She also has episodes of agitation, irritability and the patient is given Haldol on a p.r.n. basis. PAST PSYCHIATRIC HISTORY: The patient has a history of confusion and agitation. PAST MEDICAL HISTORY: The patient has history of hypothyroidism as well as hypertension. She was admitted because of abdominal pain. SOCIAL HISTORY: The patient lives with her family. No known alcohol or drug use. MENTAL STATUS EXAM: The patient appears slightly older than her stated age. Currently, seems to be calm, but sedated. The patient did not answer question regarding hallucinations or delusions, but seems to be preoccupied. She denied any thoughts of suicide or homicide. The patient is alert and oriented to the situation, but not to time or place. Impaired immediate, recent memory, but intact remote memory. Poor insight and judgment. ASSESSMENT: PRIMARY DIAGNOSIS: Unspecified psychosis. SECONDARY DIAGNOSIS: Rule out dementia. MEDICAL DIAGNOSES: 1. Hypothyroidism 2. Hypertension. 3. Abdominal pain. TREATMENT PLAN: Monitor the patient's behavior closely. Continue Haldol on a p.r.n. basis. We will reevaluate. Thanks Dr. Anaya and we will follow with you. JOB# [id number]
--- NOTE | 2017-11-06 21:11 | General Progress Note ---
Subjective - Review of Systems Service Date: 11/06/17 Subjective: Patient seen and examined patient more awake alert denied any complaints Objective - Results Result Diagrams: 11/06/17 06:30 11/06/17 06:30 Recent Labs: Laboratory Last Values WBC 8.0 Th/cmm (4.8-10.8) 11/06/17 06:30 RBC 2.64 Mil/cmm (3.80-5.20) L 11/06/17 06:30 Hgb 8.1 gm/dL (12-16) L 11/06/17 06:30 Hct 24.4 % (41.0-60) L 11/06/17 06:30 MCV 92.7 fl (81-100) 11/06/17 06:30 MCH 30.7 pg (27.0-31.0) 11/06/17 06:30 MCHC Differential 33.2 pg (28.0-36.0) 11/06/17 06:30 RDW 13.9 % (11.5-20.0) 11/06/17 06:30 Plt Count 183 Th/cmm (150-400) 11/06/17 06:30 MPV 9.1 fl 11/06/17 06:30 Neutrophils % 84.3 % (40.0-80.0) H 11/06/17 06:30 Lymphocytes % 8.9 % (20.0-50.0) L 11/06/17 06:30 Monocytes % 3.2 % (2.0-10.0) 11/06/17 06:30 Eosinophils % 2.5 % (0.0-5.0) 11/06/17 06:30 Basophils % 0.7 % (0.0-2.0) 11/06/17 06:30 PT 11.0 SECONDS (9.5-11.5) 11/02/17 11:03 INR 1.06 (0.5-1.4) 11/02/17 11:03 Sodium 139 mEq/L (136-145) 11/06/17 06:30 Potassium 2.7 mEq/L (3.5-5.1) L* 11/06/17 06:30 Chloride 109 mEq/L (98-107) H 11/06/17 06:30 Carbon Dioxide 25.5 mEq/L (21.0-31.0) 11/06/17 06:30 Anion Gap 7.2 (7.0-16.0) 11/06/17 06:30 BUN 3 mg/dL (7-25) L 11/06/17 06:30 Creatinine 0.4 mg/dL (0.6-1.2) L 11/06/17 06:30 Est GFR ( Amer) TNP 11/06/17 06:30 Est GFR (Non-Af Amer) TNP 11/06/17 06:30 BUN/Creatinine Ratio 7.5 11/06/17 06:30 Glucose 106 mg/dL (70-105) H 11/06/17 06:30 Calcium 7.5 mg/dL (8.6-10.3) L 11/06/17 06:30 Magnesium 1.5 mg/dL (1.9-2.7) L 11/04/17 05:00 Total Bilirubin 0.4 mg/dL (0.3-1.0) 11/05/17 04:55 Direct Bilirubin 0.21 mg/dL (0.0-0.2) H 10/31/17 17:52 AST 11 U/L (13-39) L 11/05/17 04:55 ALT 6 U/L (7-52) L 11/05/17 04:55 Alkaline Phosphatase 45 U/L (34-104) 11/05/17 04:55 Total Protein 4.8 gm/dL (6.0-8.3) L 11/05/17 04:55 Albumin 2.3 gm/dL (3.7-5.3) L 11/05/17 04:55 Globulin 2.5 gm/dL 11/05/17 04:55 Albumin/Globulin Ratio 0.9 (1.0-1.8) L 11/05/17 04:55 Lipase 26 U/L (11-82) 10/31/17 17:52 Urine Source MIDSTREAM 10/31/17 10:10 Urine Color YELLOW 10/31/17 10:10 Urine Clarity HAZY (CLEAR) 10/31/17 10:10 Urine pH 5.5 (4.6 - 8.0) 10/31/17 10:10 Ur Specific [place] 1.025 (1.005-1.030) 10/31/17 10:10 Urine Protein TRACE mg/dL (NEGATIVE) 10/31/17 10:10 Urine Glucose (UA) NEGATIVE mg/dL (NEGATIVE) 10/31/17 10:10 Urine Ketones NEGATIVE mg/dL (NEGATIVE) 10/31/17 10:10 Urine Blood TRACE (NEGATIVE) 10/31/17 10:10 Urine Nitrate NEGATIVE (NEGATIVE) 10/31/17 10:10 Urine Bilirubin NEGATIVE (NEGATIVE) 10/31/17 10:10 Urine Urobilinogen 0.2 E.U./dL (0.2 - 1.0) 10/31/17 10:10 Ur Leukocyte Esterase NEGATIVE (NEGATIVE) 10/31/17 10:10 Urine RBC 5-10 /hpf (0-5) H 10/31/17 10:10 Urine WBC 2-5 /hpf (0-5) 10/31/17 10:10 Ur Epithelial Cells MODERATE /lpf (FEW) 10/31/17 10:10 Urine Bacteria 1+ /hpf (NONE SEEN) H 10/31/17 10:10 Coarse Granular Casts 0-2 /lpf (NONE SEEN) H 10/31/17 10:10 Urine Mucus FEW /lpf (FEW) 10/31/17 10:10 Blood Type O POSITIVE 11/02/17 12:36 Antibody Screen NEGATIVE 11/02/17 12:36 Crossmatch See Detail 11/02/17 12:36 - Physical Exam Vitals and I&O: Vital Signs Temp 98.0 F 11/06/17 16:00 Pulse 87 11/06/17 19:05 Resp 18 11/06/17 19:05 BP 127/67 11/06/17 18:37 Pulse Ox 96 11/06/17 19:05 Intake & Output 11/06/17 11/06/17 11/07/17 06:59 18:59 06:59 Intake Total 500 1340.833 Output Total 880 Balance -380 1340.833 Weight (lbs) 54.431 kg Intake: Intake, IV Amount 200 1340.833 D5-0.9%Ns 1,000 ml @ 70 1000 mls/hr IV .[id number] Rx #:[id number] KCL 20mEq/100mL Premix 20 90.833 meq In 100 ml @ 50 mls/ hr IV Q2H [facility] Rx#: [id number] Piperacillin Sodium/ 100 50 Tazobact 3.375 gm In Dextrose 5% 50 ml @ 100 mls/hr IV Q8H [facility] Rx#: [id number] metroNIDAZOLE 500mg/NS 100 200 100mL 500 mg In Premix Fluid 1 bag @ 100 mls/hr IV Q8H [facility] Rx#:[id number] Oral 300 Output: Drainage 180 Abdomen 180 Urine 700 Stool 0 Other: # Bowel Movements 0 Stool Characteristics Liquid Green Weight Source Bedscale Active Medications: Current Medications Diphenoxylate HCl/Atropine (Lomotil) 1 tab PO BID PRN PRN Reason: Diarrhea Stop: 01/04/18 09:42 Last Admin: 11/05/17 21:34 Dose: 1 tab Diphenoxylate HCl/Atropine (Lomotil) 1 tab PO TID PRN PRN Reason: Diarrhea Stop: 01/05/18 16:47 Enalaprilat (Vasotec) 2.5 mg IVP Q6H PRN PRN Reason: BP MAINTENANCE (PER PROTOCOL) Stop: 12/30/17 21:17 Enoxaparin Sodium (Lovenox) 40 mg SUBQ Q12HR [facility] Stop: 01/02/18 20:59 Last Admin: 11/06/17 20:33 Dose: Not Given Haloperidol Lactate (Haldol) 5 mg IM Q6HR PRN PRN Reason: Agitation Stop: 12/31/17 22:10 Last Admin: 11/02/17 00:37 Dose: 5 mg Piperacillin Sod/Tazobactam (Sod 3.375 gm/ Dextrose) 50 mls @ 100 mls/hr IV Q8H [facility] Stop: 01/01/18 14:44 Last Infusion: 11/06/17 15:56 Dose: Infused Metronidazole 500 mg/ (Miscellaneous) 100 mls @ 100 mls/hr IV Q8H [facility] Stop: 01/01/18 14:44 Last Infusion: 11/06/17 15:18 Dose: Infused Dextrose/Sodium Chloride (D5-0.9%Ns) 1,000 mls @ 70 mls/hr IV .[id number] [facility] Stop: 01/04/18 17:29 Last Admin: 11/06/17 09:34 Dose: 70 mls/hr Levothyroxine Sodium (Synthroid) 0.05 mg IVP DAILY [facility] Stop: 01/02/18 08:59 Last Admin: 11/06/17 09:44 Dose: 0.05 mg Miscellaneous (Vte Chemical Prophylaxis Screen/ Admission) 1 ea [facility] PRN PRN PRN Reason: PROTOCOL Stop: 12/31/17 16:23 Morphine Sulfate (Morphine) 2 mg IVP Q4HR PRN PRN Reason: Pain (Severe) Stop: 12/30/17 19:25 Morphine Sulfate (Morphine) 2 mg IVP Q4HR PRN PRN Reason: Abdominal Pain Stop: 01/01/18 14:39 Last Admin: 11/04/17 15:17 Dose: 2 mg Nitroglycerin (Nitro-Bid) 1 inch TP Q6HR [facility] Stop: 01/01/18 17:59 Last Admin: 11/06/17 18:37 Dose: 1 inch Ondansetron HCl (Zofran) 4 mg IV Q6HR PRN PRN Reason: Nausea / Vomiting Stop: 12/30/17 19:27 Pantoprazole Sodium (Protonix) 40 mg IVP DAILY [facility] Stop: 01/02/18 08:59 Last Admin: 11/06/17 09:33 Dose: 40 mg General: No acute distress Cardiovascular: Regular rate Lungs: Clear to auscultation Abdomen: Soft, Other (bandage c/d/i), no Tender, no Distended - Procedures Procedures: Procedures Procedure Code Date MOBILIZATION OF COLON 01982 10/31/17 PARTIAL REMOVAL OF COLON 35694 10/31/17 RESECTION OF SIGMOID COLON, OPEN APPROACH [id number] 10/31/17 Assessment/Plan - Problem List Patient Problems: All Active Problems ABDOMINAL PAIN WITH N/V/D (Acute) - Assessment Assessment: Sepsis Bowel obstruction s/p exp lap HTN Hypokalemia Mental health disorder Dementia - Plan Plan: Zosyn and flagyl ID on board WBC better Stool C Diff negative Clear liquids K replacement DVT prophylaxis Monitor drain Plan of care discussed with nursing staff LTAC eval Nutritional Asmnt/Malnutr-PDOC - Dietary Evaluation Malnutrition Findings (Please click <Entered> for more info): Nutritional Asmnt/Malnutrition Start: 11/05/17 16: 29 Text: Status: Complete Freq: Document 11/05/17 16:29 MARJAN (Rec: 11/05/17 16:41 LCHENG [email or web address]) Nutritional Asmnt/Malnutrition Patient General Information Nutritional Screening Moderate Risk Diagnosis acute bowel obstruction Pertinent Medical Hx/Surgical Hx HTN, hypothyroidism, GERD, hyperlipidemia, mental health disorder Subjective Information Pt seen lying in bed at time of visit, awake and alert. Pt had subtotaol colectomy on noted, s/p surgery day 3. Pt stated she tolerated clear liquid and feel hungry at this time and she had BM x 3 today . No food preference given. K level continue low noted. Per EMR, PO intake 75-100% on clear liquid. Current Diet Order/ Nutrition Support clear liquid Pertinent Medications synthroid, protonix, piperacillin, kcl Pertinent Labs 11/05 Na 141, K 2.8, Cl 113, BUN 5, Cr 0.5, glucose 111, Ca 7.8 Nutritional Hx/Data Height 1.55 m Height (Calculated Centimeters) 154.9 Current Weight (lbs) 54.431 kg Weight (Calculated Kilograms) 54.4 Weight (Calculated Grams) 94926.1 [place] Body Weight 105 Body Mass Index (BMI) 22.6 Weight Status Approriate GI Symptoms GI Symptoms None Last BM 11/05 Difficult in: None Skin Integrity/Comment: abdominal incision bruise to left arm pressure area to sacrum Estimated Nutritional Goals BEE in Kcals: Using Current wt Calories/Kcals/Kg 25-30 Kcals Calculated 8981-7228 Protein: Using Current wt Protein g/k-1.2 Protein Calculated 55-66 Fluid: ml 1375-1650ml (1ml/kcal) Nutritional Problem 1. Problem Problem altered GI function Etiology acute small bowel obstruction Signs/Symptoms: s/p colectomy and pt now on clear liquid Intervention/Recommendation Comments 1. Continue with clear liquid diet as ordered. Recommend Boost Breeze TID to supplement nutrition intake for clear liquid diet. 2. Monitor PO intake, GI function, wt, labs and skin integrity 3. F/U as moderate risk in 3-5 days, 11/08-11/10 Expected Outcomes/Goals Expected Outcomes/Goals 1. PO intake to meet at least 75% of nutritional needs. 2. Wt stability, skin to remain intact, labs to approach WNL.
[2017-11-07] MEDS: NITROGLYCERIN OINT 2% 1 INCH PACKET TP SCH ×4 (00:02→17:40)
[2017-11-07] MEDS: D5-0.9%NS 1,000 ML IV SCH ×2 (02:26→15:04)
[2017-11-07] MEDS: metroNIDAZOLE 500mg/NS 100mL 500 MG in Premix Fluid 1 BAG IV SCH ×3 (06:23→23:45)
[2017-11-07 08:43] LABS: % BASOPHILS 0.8 % (0.0-2.0); % EOSINOPHILS 3.4 % (0.0-5.0); % MONOCYTES 6.4 % (2.0-10.0); % NEUTROPHILS 80.4 % (40.0-80.0); BASOPHILE ABSOLUTE 0.1 Th/cumm (0-0.2); EOSINOPHILE ABSOLUTE 0.2 Th/cmm (0.1-0.4); HEMATOCRIT 23.8 % (41.0-60); HEMOGLOBIN 8.2 gm/dL (12-16); LYMPHOCYTE ABSOLUTE 0.6 Th/cmm (1.5-3.0); MEAN CELL VOLUME 90.8 fl (81-100); MEAN CORPUSCULAR HEMOGLOBIN 31.2 pg (27.0-31.0); MEAN CORPUSCULAR HGB CONC 34.4 pg (28.0-36.0); MEAN PLATELET VOLUME 8.3 fl; MONOCYTE ABSOLUTE 0.4 Th/cmm (0.3-1.0); NEUTROPHILE ABSOLUTE 5.7 Th/cmm (1.8-8.0); PLATELET COUNT 206 Th/cmm (150-400); RED BLOOD COUNT 2.62 Mil/cmm (3.80-5.20); RED CELL DISTRIBUTION WIDTH 13.8 % (11.5-20.0)
[2017-11-07 08:47] LABS: ANION GAP 7.3 (7.0-16.0); BUN - UREA NITROGEN 3 mg/dL (7-25); CALCIUM SERUM 7.6 mg/dL (8.6-10.3); CARBON DIOXIDE 25.5 mEq/L (21.0-31.0); CHLORIDE 107 mEq/L (98-107); CREATININE - SERUM 0.4 mg/dL (0.6-1.2); GLUCOSE 107 mg/dL (70-105); SODIUM SERUM 137 mEq/L (136-145)
[2017-11-07 09:07] LABS: POTASSIUM SERUM 2.8 mEq/L (3.5-5.1)
[2017-11-07] MEDS: Enoxaparin 40 mg/0.4 mL 0.4mL Syr SUBQ SCH (09:40)
[2017-11-07] MEDS ORDERED: Potassium Chloride 40 MEQ, Lidocaine 1% 20mL Vial 25 MG in Sodium Chloride 0.9% 250 ML IV ONE (10:15)
--- NOTE | 2017-11-07 10:48 | Progress Notes ---
DATE: SUBJECTIVE: Chart reviewed and the patient interviewed. Also, discussed the patient's condition with the staff and reviewed records and labs. The patient is still anxious and is still withdrawn and guarded. The patient is also complaining of anxiety. She also is complaining of inability to sleep good at night. Otherwise, the patient is cooperative and compliant with her treatment. The patient has a nice fields next to her and when asked about who brought that for her, she said "my caregiver." She seems to be interacting slightly more today. ASSESSMENT: The patient still seems to be slightly depressed, about cooperative. TREATMENT PLAN: Continue to monitor her behavior closely. Also, we will give Ambien on a p.r.n. basis and we will continue to follow up. [facility]# [id number]
--- NOTE | 2017-11-07 11:43 | GI Progress Note ---
Subjective - Review of Systems Service Date: 11/07/17 Subjective: Bm x 1 overnight, loose Objective - Results Result Diagrams: 11/07/17 08:30 11/07/17 08:30 Recent Labs: Laboratory Last Values WBC 7.0 Th/cmm (4.8-10.8) 11/07/17 08:30 RBC 2.62 Mil/cmm (3.80-5.20) L 11/07/17 08:30 Hgb 8.2 gm/dL (12-16) L 11/07/17 08:30 Hct 23.8 % (41.0-60) L 11/07/17 08:30 MCV 90.8 fl (81-100) 11/07/17 08:30 MCH 31.2 pg (27.0-31.0) H 11/07/17 08:30 MCHC Differential 34.4 pg (28.0-36.0) 11/07/17 08:30 RDW 13.8 % (11.5-20.0) 11/07/17 08:30 Plt Count 206 Th/cmm (150-400) 11/07/17 08:30 MPV 8.3 fl 11/07/17 08:30 Neutrophils % 80.4 % (40.0-80.0) H 11/07/17 08:30 Lymphocytes % 9.0 % (20.0-50.0) L 11/07/17 08:30 Monocytes % 6.4 % (2.0-10.0) 11/07/17 08:30 Eosinophils % 3.4 % (0.0-5.0) 11/07/17 08:30 Basophils % 0.8 % (0.0-2.0) 11/07/17 08:30 PT 11.0 SECONDS (9.5-11.5) 11/02/17 11:03 INR 1.06 (0.5-1.4) 11/02/17 11:03 Sodium 137 mEq/L (136-145) 11/07/17 08:30 Potassium 2.8 mEq/L (3.5-5.1) L* 11/07/17 08:30 Chloride 107 mEq/L (98-107) 11/07/17 08:30 Carbon Dioxide 25.5 mEq/L (21.0-31.0) 11/07/17 08:30 Anion Gap 7.3 (7.0-16.0) 11/07/17 08:30 BUN 3 mg/dL (7-25) L 11/07/17 08:30 Creatinine 0.4 mg/dL (0.6-1.2) L 11/07/17 08:30 Est GFR ( Amer) TNP 11/07/17 08:30 Est GFR (Non-Af Amer) TNP 11/07/17 08:30 BUN/Creatinine Ratio 7.5 11/07/17 08:30 Glucose 107 mg/dL (70-105) H 11/07/17 08:30 Calcium 7.6 mg/dL (8.6-10.3) L 11/07/17 08:30 Magnesium 1.5 mg/dL (1.9-2.7) L 11/04/17 05:00 Total Bilirubin 0.4 mg/dL (0.3-1.0) 11/05/17 04:55 Direct Bilirubin 0.21 mg/dL (0.0-0.2) H 10/31/17 17:52 AST 11 U/L (13-39) L 11/05/17 04:55 ALT 6 U/L (7-52) L 11/05/17 04:55 Alkaline Phosphatase 45 U/L (34-104) 11/05/17 04:55 Total Protein 4.8 gm/dL (6.0-8.3) L 11/05/17 04:55 Albumin 2.3 gm/dL (3.7-5.3) L 11/05/17 04:55 Globulin 2.5 gm/dL 11/05/17 04:55 Albumin/Globulin Ratio 0.9 (1.0-1.8) L 11/05/17 04:55 Lipase 26 U/L (11-82) 10/31/17 17:52 Urine Source MIDSTREAM 10/31/17 10:10 Urine Color YELLOW 10/31/17 10:10 Urine Clarity HAZY (CLEAR) 10/31/17 10:10 Urine pH 5.5 (4.6 - 8.0) 10/31/17 10:10 Ur Specific [place] 1.025 (1.005-1.030) 10/31/17 10:10 Urine Protein TRACE mg/dL (NEGATIVE) 10/31/17 10:10 Urine Glucose (UA) NEGATIVE mg/dL (NEGATIVE) 10/31/17 10:10 Urine Ketones NEGATIVE mg/dL (NEGATIVE) 10/31/17 10:10 Urine Blood TRACE (NEGATIVE) 10/31/17 10:10 Urine Nitrate NEGATIVE (NEGATIVE) 10/31/17 10:10 Urine Bilirubin NEGATIVE (NEGATIVE) 10/31/17 10:10 Urine Urobilinogen 0.2 E.U./dL (0.2 - 1.0) 10/31/17 10:10 Ur Leukocyte Esterase NEGATIVE (NEGATIVE) 10/31/17 10:10 Urine RBC 5-10 /hpf (0-5) H 10/31/17 10:10 Urine WBC 2-5 /hpf (0-5) 10/31/17 10:10 Ur Epithelial Cells MODERATE /lpf (FEW) 10/31/17 10:10 Urine Bacteria 1+ /hpf (NONE SEEN) H 10/31/17 10:10 Coarse Granular Casts 0-2 /lpf (NONE SEEN) H 10/31/17 10:10 Urine Mucus FEW /lpf (FEW) 10/31/17 10:10 Blood Type O POSITIVE 11/02/17 12:36 Antibody Screen NEGATIVE 11/02/17 12:36 Crossmatch See Detail 11/02/17 12:36 - Physical Exam Vitals and I&O: Vital Signs Temp 97.9 F 11/07/17 10:39 Pulse 84 11/07/17 10:39 Resp 17 11/07/17 10:39 BP 126/71 11/07/17 10:39 Pulse Ox 93 11/07/17 10:39 Intake & Output 11/06/17 11/07/17 11/07/17 18:59 06:59 18:59 Intake Total 0495.979 8284 Output Total 300 Balance 1726.560 8628 Weight (lbs) 62.324 kg Intake: Intake, IV Amount 8754.225 4228 D5-0.9%Ns 1,000 ml @ 70 1000 1000 mls/hr IV .[id number] [id number] Rx #:[id number] KCL 20mEq/100mL Premix 20 90.833 meq In 100 ml @ 50 mls/ hr IV Q2H [facility] Rx#: [id number] Piperacillin Sodium/ 50 100 Tazobact 3.375 gm In Dextrose 5% 50 ml @ 100 mls/hr IV Q8H [facility] Rx#: [id number] metroNIDAZOLE 500mg/NS 200 100 100mL 500 mg In Premix Fluid 1 bag @ 100 mls/hr IV Q8H [facility] Rx#:[id number] Oral 240 Output: Urine 300 Other: Weight Source Bedscale Active Medications: Current Medications Diphenoxylate HCl/Atropine (Lomotil) 1 tab PO BID PRN PRN Reason: Diarrhea Stop: 01/04/18 09:42 Last Admin: 11/05/17 21:34 Dose: 1 tab Diphenoxylate HCl/Atropine (Lomotil) 1 tab PO TID PRN PRN Reason: Diarrhea Stop: 01/05/18 16:47 Enalaprilat (Vasotec) 2.5 mg IVP Q6H PRN PRN Reason: BP MAINTENANCE (PER PROTOCOL) Stop: 12/30/17 21:17 Enoxaparin Sodium (Lovenox) 40 mg SUBQ Q12HR [facility] Stop: 01/02/18 20:59 Last Admin: 11/06/17 20:33 Dose: Not Given Haloperidol Lactate (Haldol) 5 mg IM Q6HR PRN PRN Reason: Agitation Stop: 12/31/17 22:10 Last Admin: 11/02/17 00:37 Dose: 5 mg Piperacillin Sod/Tazobactam (Sod 3.375 gm/ Dextrose) 50 mls @ 100 mls/hr IV Q8H [facility] Stop: 01/01/18 14:44 Last Infusion: 11/07/17 06:16 Dose: Infused Metronidazole 500 mg/ (Miscellaneous) 100 mls @ 100 mls/hr IV Q8H [facility] Stop: 01/01/18 14:44 Last Admin: 11/07/17 06:23 Dose: 100 mls/hr Dextrose/Sodium Chloride (D5-0.9%Ns) 1,000 mls @ 70 mls/hr IV .[id number] [facility] Stop: 01/04/18 17:29 Last Admin: 11/07/17 02:26 Dose: 70 mls/hr Potassium Chloride 40 meq/Lidocaine HCl 25 mg/ Sodium Chloride 272.5 mls @ 68 mls/hr IV X1 ONE Stop: 11/07/17 14:15 Levothyroxine Sodium (Synthroid) 0.05 mg IVP DAILY [facility] Stop: 01/02/18 08:59 Last Admin: 11/06/17 09:44 Dose: 0.05 mg Miscellaneous (Vte Chemical Prophylaxis Screen/ Admission) 1 ea [facility] PRN PRN PRN Reason: PROTOCOL Stop: 12/31/17 16:23 Morphine Sulfate (Morphine) 2 mg IVP Q4HR PRN PRN Reason: Pain (Severe) Stop: 12/30/17 19:25 Morphine Sulfate (Morphine) 2 mg IVP Q4HR PRN PRN Reason: Abdominal Pain Stop: 01/01/18 14:39 Last Admin: 11/04/17 15:17 Dose: 2 mg Nitroglycerin (Nitro-Bid) 1 inch TP Q6HR [facility] Stop: 01/01/18 17:59 Last Admin: 11/07/17 06:23 Dose: 1 inch Ondansetron HCl (Zofran) 4 mg IV Q6HR PRN PRN Reason: Nausea / Vomiting Stop: 12/30/17 19:27 Pantoprazole Sodium (Protonix) 40 mg IVP DAILY [facility] Stop: 01/02/18 08:59 Last Admin: 11/06/17 09:33 Dose: 40 mg Zolpidem Tartrate (Ambien) 5 mg PO HS PRN PRN Reason: Insomnia Stop: 01/06/18 07:57 General: Alert, No acute distress HEENT: Atraumatic Neck: Supple Cardiovascular: Regular rate Lungs: Clear to auscultation Abdomen: Soft, Other (bandage c/d/i), no Tender, no Distended Skin: no Rash - Procedures Procedures: Procedures Procedure Code Date MOBILIZATION OF COLON 53287 10/31/17 PARTIAL REMOVAL OF COLON 25190 10/31/17 RESECTION OF SIGMOID COLON, OPEN APPROACH [id number] 10/31/17 Assessment/Plan - Problem List Patient Problems: All Active Problems ABDOMINAL PAIN WITH N/V/D (Acute) - Plan Plan: 1. 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 s/p ex lap 11/02 with sigmoid mass noted, s/p subtotal colectomy with primary anastomosis. 2. Chronic constipation. 3. Dementia. Having loose stools, likely as she has no colonic absorption. Will need to follow sigmoid mass path, there was no serosal involvement at time of surgery RECS: 1. Post op care as per surgeon. Pt on lamotil 2. Follow-up path results from sigmoid lesion 3. CDiff test, pending 4. Monitor labs. 5. Advance diet as per Dr Butts post op GI to see as needed, please call us with any questions
--- NOTE | 2017-11-07 12:04 | General Progress Note ---
Subjective - Review of Systems Service Date: 11/07/17 Events since last encounter: diet as tolerated 1 loose stool Objective - Results Result Diagrams: 11/07/17 08:30 11/07/17 08:30 Recent Labs: Laboratory Last Values WBC 7.0 Th/cmm (4.8-10.8) 11/07/17 08:30 RBC 2.62 Mil/cmm (3.80-5.20) L 11/07/17 08:30 Hgb 8.2 gm/dL (12-16) L 11/07/17 08:30 Hct 23.8 % (41.0-60) L 11/07/17 08:30 MCV 90.8 fl (81-100) 11/07/17 08:30 MCH 31.2 pg (27.0-31.0) H 11/07/17 08:30 MCHC Differential 34.4 pg (28.0-36.0) 11/07/17 08:30 RDW 13.8 % (11.5-20.0) 11/07/17 08:30 Plt Count 206 Th/cmm (150-400) 11/07/17 08:30 MPV 8.3 fl 11/07/17 08:30 Neutrophils % 80.4 % (40.0-80.0) H 11/07/17 08:30 Lymphocytes % 9.0 % (20.0-50.0) L 11/07/17 08:30 Monocytes % 6.4 % (2.0-10.0) 11/07/17 08:30 Eosinophils % 3.4 % (0.0-5.0) 11/07/17 08:30 Basophils % 0.8 % (0.0-2.0) 11/07/17 08:30 PT 11.0 SECONDS (9.5-11.5) 11/02/17 11:03 INR 1.06 (0.5-1.4) 11/02/17 11:03 Sodium 137 mEq/L (136-145) 11/07/17 08:30 Potassium 2.8 mEq/L (3.5-5.1) L* 11/07/17 08:30 Chloride 107 mEq/L (98-107) 11/07/17 08:30 Carbon Dioxide 25.5 mEq/L (21.0-31.0) 11/07/17 08:30 Anion Gap 7.3 (7.0-16.0) 11/07/17 08:30 BUN 3 mg/dL (7-25) L 11/07/17 08:30 Creatinine 0.4 mg/dL (0.6-1.2) L 11/07/17 08:30 Est GFR ( Amer) TNP 11/07/17 08:30 Est GFR (Non-Af Amer) TNP 11/07/17 08:30 BUN/Creatinine Ratio 7.5 11/07/17 08:30 Glucose 107 mg/dL (70-105) H 11/07/17 08:30 Calcium 7.6 mg/dL (8.6-10.3) L 11/07/17 08:30 Magnesium 1.5 mg/dL (1.9-2.7) L 11/04/17 05:00 Total Bilirubin 0.4 mg/dL (0.3-1.0) 11/05/17 04:55 Direct Bilirubin 0.21 mg/dL (0.0-0.2) H 10/31/17 17:52 AST 11 U/L (13-39) L 11/05/17 04:55 ALT 6 U/L (7-52) L 11/05/17 04:55 Alkaline Phosphatase 45 U/L (34-104) 11/05/17 04:55 Total Protein 4.8 gm/dL (6.0-8.3) L 11/05/17 04:55 Albumin 2.3 gm/dL (3.7-5.3) L 11/05/17 04:55 Globulin 2.5 gm/dL 11/05/17 04:55 Albumin/Globulin Ratio 0.9 (1.0-1.8) L 11/05/17 04:55 Lipase 26 U/L (11-82) 10/31/17 17:52 Urine Source MIDSTREAM 10/31/17 10:10 Urine Color YELLOW 10/31/17 10:10 Urine Clarity HAZY (CLEAR) 10/31/17 10:10 Urine pH 5.5 (4.6 - 8.0) 10/31/17 10:10 Ur Specific [place] 1.025 (1.005-1.030) 10/31/17 10:10 Urine Protein TRACE mg/dL (NEGATIVE) 10/31/17 10:10 Urine Glucose (UA) NEGATIVE mg/dL (NEGATIVE) 10/31/17 10:10 Urine Ketones NEGATIVE mg/dL (NEGATIVE) 10/31/17 10:10 Urine Blood TRACE (NEGATIVE) 10/31/17 10:10 Urine Nitrate NEGATIVE (NEGATIVE) 10/31/17 10:10 Urine Bilirubin NEGATIVE (NEGATIVE) 10/31/17 10:10 Urine Urobilinogen 0.2 E.U./dL (0.2 - 1.0) 10/31/17 10:10 Ur Leukocyte Esterase NEGATIVE (NEGATIVE) 10/31/17 10:10 Urine RBC 5-10 /hpf (0-5) H 10/31/17 10:10 Urine WBC 2-5 /hpf (0-5) 10/31/17 10:10 Ur Epithelial Cells MODERATE /lpf (FEW) 10/31/17 10:10 Urine Bacteria 1+ /hpf (NONE SEEN) H 10/31/17 10:10 Coarse Granular Casts 0-2 /lpf (NONE SEEN) H 10/31/17 10:10 Urine Mucus FEW /lpf (FEW) 10/31/17 10:10 Blood Type O POSITIVE 11/02/17 12:36 Antibody Screen NEGATIVE 11/02/17 12:36 Crossmatch See Detail 11/02/17 12:36 - Physical Exam Vitals and I&O: Vital Signs Temp 97.9 F 11/07/17 10:39 Pulse 84 11/07/17 10:39 Resp 17 11/07/17 10:39 BP 126/71 11/07/17 10:39 Pulse Ox 93 11/07/17 10:39 Intake & Output 11/06/17 11/07/17 11/07/17 18:59 06:59 18:59 Intake Total 6864.853 2718 Output Total 300 Balance 4261.235 1291 Weight (lbs) 62.324 kg Intake: Intake, IV Amount 4282.924 7800 D5-0.9%Ns 1,000 ml @ 70 1000 1000 mls/hr IV .[id number] [facility] Rx #:[id number] KCL 20mEq/100mL Premix 20 90.833 meq In 100 ml @ 50 mls/ hr IV Q2H [facility] Rx#: [id number] Piperacillin Sodium/ 50 100 Tazobact 3.375 gm In Dextrose 5% 50 ml @ 100 mls/hr IV Q8H [facility] Rx#: [id number] metroNIDAZOLE 500mg/NS 200 100 100mL 500 mg In Premix Fluid 1 bag @ 100 mls/hr IV Q8H [facility] Rx#:[id number] Oral 240 Output: Urine 300 Other: Stool Characteristics Soft Liquid Weight Source Bedscale Active Medications: Current Medications Diphenoxylate HCl/Atropine (Lomotil) 1 tab PO BID PRN PRN Reason: Diarrhea Stop: 01/04/18 09:42 Last Admin: 11/05/17 21:34 Dose: 1 tab Diphenoxylate HCl/Atropine (Lomotil) 1 tab PO TID PRN PRN Reason: Diarrhea Stop: 01/05/18 16:47 Enalaprilat (Vasotec) 2.5 mg IVP Q6H PRN PRN Reason: BP MAINTENANCE (PER PROTOCOL) Stop: 12/30/17 21:17 Enoxaparin Sodium (Lovenox) 40 mg SUBQ Q12HR [facility] Stop: 01/02/18 20:59 Last Admin: 11/07/17 09:40 Dose: 40 mg Haloperidol Lactate (Haldol) 5 mg IM Q6HR PRN PRN Reason: Agitation Stop: 12/31/17 22:10 Last Admin: 11/02/17 00:37 Dose: 5 mg Piperacillin Sod/Tazobactam (Sod 3.375 gm/ Dextrose) 50 mls @ 100 mls/hr IV Q8H [facility] Stop: 01/01/18 14:44 Last Infusion: 11/07/17 06:16 Dose: Infused Metronidazole 500 mg/ (Miscellaneous) 100 mls @ 100 mls/hr IV Q8H [facility] Stop: 01/01/18 14:44 Last Admin: 11/07/17 06:23 Dose: 100 mls/hr Dextrose/Sodium Chloride (D5-0.9%Ns) 1,000 mls @ 70 mls/hr IV .[id number] [facility] Stop: 01/04/18 17:29 Last Admin: 11/07/17 02:26 Dose: 70 mls/hr Potassium Chloride 40 meq/Lidocaine HCl 25 mg/ Sodium Chloride 272.5 mls @ 68 mls/hr IV X1 ONE Stop: 11/07/17 14:15 Levothyroxine Sodium (Synthroid) 0.05 mg IVP DAILY [facility] Stop: 01/02/18 08:59 Last Admin: 11/07/17 09:40 Dose: 0.05 mg Miscellaneous (Vte Chemical Prophylaxis Screen/ Admission) 1 ea MC PRN PRN PRN Reason: PROTOCOL Stop: 12/31/17 16:23 Morphine Sulfate (Morphine) 2 mg IVP Q4HR PRN PRN Reason: Pain (Severe) Stop: 12/30/17 19:25 Morphine Sulfate (Morphine) 2 mg IVP Q4HR PRN PRN Reason: Abdominal Pain Stop: 01/01/18 14:39 Last Admin: 11/04/17 15:17 Dose: 2 mg Nitroglycerin (Nitro-Bid) 1 inch TP Q6HR [facility] Stop: 01/01/18 17:59 Last Admin: 11/07/17 06:23 Dose: 1 inch Ondansetron HCl (Zofran) 4 mg IV Q6HR PRN PRN Reason: Nausea / Vomiting Stop: 12/30/17 19:27 Pantoprazole Sodium (Protonix) 40 mg IVP DAILY [facility] Stop: 01/02/18 08:59 Last Admin: 11/07/17 09:40 Dose: 40 mg Zolpidem Tartrate (Ambien) 5 mg PO HS PRN PRN Reason: Insomnia Stop: 01/06/18 07:57 General: Alert, No acute distress HEENT: Atraumatic Neck: Supple Cardiovascular: Regular rate Lungs: Clear to auscultation Abdomen: Soft, Other (bandage c/d/i), no Tender, no Distended Skin: no Rash - Procedures Procedures: Procedures Procedure Code Date MOBILIZATION OF COLON 11658 10/31/17 PARTIAL REMOVAL OF COLON 81053 10/31/17 RESECTION OF SIGMOID COLON, OPEN APPROACH [id number] 10/31/17 Assessment/Plan - Problem List Patient Problems: All Active Problems ABDOMINAL PAIN WITH N/V/D (Acute) Nutritional Asmnt/Malnutr-PDOC - Dietary Evaluation Malnutrition Findings (Please click <Entered> for more info): Nutritional Asmnt/Malnutrition Start: 11/05/17 16: 29 Text: Status: Complete Freq: Document 11/05/17 16:29 LCHENG (Rec: 11/05/17 16:41 [email or web address] [email or web address]) Nutritional Asmnt/Malnutrition Patient General Information Nutritional Screening Moderate Risk Diagnosis acute bowel obstruction Pertinent Medical Hx/Surgical Hx HTN, hypothyroidism, GERD, hyperlipidemia, mental health disorder Subjective Information Pt seen lying in bed at time of visit, awake and alert. Pt had subtotaol colectomy on noted, s/p surgery day 3. Pt stated she tolerated clear liquid and feel hungry at this time and she had BM x 3 today . No food preference given. K level continue low noted. Per EMR, PO intake 75-100% on clear liquid. Current Diet Order/ Nutrition Support clear liquid Pertinent Medications synthroid, protonix, piperacillin, kcl Pertinent Labs 11/05 Na 141, K 2.8, Cl 113, BUN 5, Cr 0.5, glucose 111, Ca 7.8 Nutritional Hx/Data Height 1.55 m Height (Calculated Centimeters) 154.9 Current Weight (lbs) 54.431 kg Weight (Calculated Kilograms) 54.4 Weight (Calculated Grams) 85681.1 [place] Body Weight 105 Body Mass Index (BMI) 22.6 Weight Status Approriate GI Symptoms GI Symptoms None Last BM 11/05 Difficult in: None Skin Integrity/Comment: abdominal incision bruise to left arm pressure area to sacrum Estimated Nutritional Goals BEE in Kcals: Using Current wt Calories/Kcals/Kg 25-30 Kcals Calculated 1530-1778 Protein: Using Current wt Protein g/k-1.2 Protein Calculated 55-66 Fluid: ml 1375-1650ml (1ml/kcal) Nutritional Problem 1. Problem Problem altered GI function Etiology acute small bowel obstruction Signs/Symptoms: s/p colectomy and pt now on clear liquid Intervention/Recommendation Comments 1. Continue with clear liquid diet as ordered. Recommend Boost Breeze TID to supplement nutrition intake for clear liquid diet. 2. Monitor PO intake, GI function, wt, labs and skin integrity 3. F/U as moderate risk in 3-5 days, 11/08-11/10 Expected Outcomes/Goals Expected Outcomes/Goals 1. PO intake to meet at least 75% of nutritional needs. 2. Wt stability, skin to remain intact, labs to approach WNL.
--- NOTE | 2017-11-07 13:54 | Infectious Disease Prog Note ---
Infectious Disease Subjective - Review of Systems Service Date: 11/07/17 Subjective: No new change, no fever. Infectious Disease Objective - Results Result Diagrams: 11/07/17 08:30 11/07/17 08:30 Recent Labs: Laboratory Last Values WBC 7.0 Th/cmm (4.8-10.8) 11/07/17 08:30 RBC 2.62 Mil/cmm (3.80-5.20) L 11/07/17 08:30 Hgb 8.2 gm/dL (12-16) L 11/07/17 08:30 Hct 23.8 % (41.0-60) L 11/07/17 08:30 MCV 90.8 fl (81-100) 11/07/17 08:30 MCH 31.2 pg (27.0-31.0) H 11/07/17 08:30 MCHC Differential 34.4 pg (28.0-36.0) 11/07/17 08:30 RDW 13.8 % (11.5-20.0) 11/07/17 08:30 Plt Count 206 Th/cmm (150-400) 11/07/17 08:30 MPV 8.3 fl 11/07/17 08:30 Neutrophils % 80.4 % (40.0-80.0) H 11/07/17 08:30 Lymphocytes % 9.0 % (20.0-50.0) L 11/07/17 08:30 Monocytes % 6.4 % (2.0-10.0) 11/07/17 08:30 Eosinophils % 3.4 % (0.0-5.0) 11/07/17 08:30 Basophils % 0.8 % (0.0-2.0) 11/07/17 08:30 PT 11.0 SECONDS (9.5-11.5) 11/02/17 11:03 INR 1.06 (0.5-1.4) 11/02/17 11:03 Sodium 137 mEq/L (136-145) 11/07/17 08:30 Potassium 2.8 mEq/L (3.5-5.1) L* 11/07/17 08:30 Chloride 107 mEq/L (98-107) 11/07/17 08:30 Carbon Dioxide 25.5 mEq/L (21.0-31.0) 11/07/17 08:30 Anion Gap 7.3 (7.0-16.0) 11/07/17 08:30 BUN 3 mg/dL (7-25) L 11/07/17 08:30 Creatinine 0.4 mg/dL (0.6-1.2) L 11/07/17 08:30 Est GFR ( Amer) TNP 11/07/17 08:30 Est GFR (Non-Af Amer) TNP 11/07/17 08:30 BUN/Creatinine Ratio 7.5 11/07/17 08:30 Glucose 107 mg/dL (70-105) H 11/07/17 08:30 Calcium 7.6 mg/dL (8.6-10.3) L 11/07/17 08:30 Magnesium 1.5 mg/dL (1.9-2.7) L 11/04/17 05:00 Total Bilirubin 0.4 mg/dL (0.3-1.0) 11/05/17 04:55 Direct Bilirubin 0.21 mg/dL (0.0-0.2) H 10/31/17 17:52 AST 11 U/L (13-39) L 11/05/17 04:55 ALT 6 U/L (7-52) L 11/05/17 04:55 Alkaline Phosphatase 45 U/L (34-104) 11/05/17 04:55 Total Protein 4.8 gm/dL (6.0-8.3) L 11/05/17 04:55 Albumin 2.3 gm/dL (3.7-5.3) L 11/05/17 04:55 Globulin 2.5 gm/dL 11/05/17 04:55 Albumin/Globulin Ratio 0.9 (1.0-1.8) L 11/05/17 04:55 Lipase 26 U/L (11-82) 10/31/17 17:52 Urine Source MIDSTREAM 10/31/17 10:10 Urine Color YELLOW 10/31/17 10:10 Urine Clarity HAZY (CLEAR) 10/31/17 10:10 Urine pH 5.5 (4.6 - 8.0) 10/31/17 10:10 Ur Specific [place] 1.025 (1.005-1.030) 10/31/17 10:10 Urine Protein TRACE mg/dL (NEGATIVE) 10/31/17 10:10 Urine Glucose (UA) NEGATIVE mg/dL (NEGATIVE) 10/31/17 10:10 Urine Ketones NEGATIVE mg/dL (NEGATIVE) 10/31/17 10:10 Urine Blood TRACE (NEGATIVE) 10/31/17 10:10 Urine Nitrate NEGATIVE (NEGATIVE) 10/31/17 10:10 Urine Bilirubin NEGATIVE (NEGATIVE) 10/31/17 10:10 Urine Urobilinogen 0.2 E.U./dL (0.2 - 1.0) 10/31/17 10:10 Ur Leukocyte Esterase NEGATIVE (NEGATIVE) 10/31/17 10:10 Urine RBC 5-10 /hpf (0-5) H 10/31/17 10:10 Urine WBC 2-5 /hpf (0-5) 10/31/17 10:10 Ur Epithelial Cells MODERATE /lpf (FEW) 10/31/17 10:10 Urine Bacteria 1+ /hpf (NONE SEEN) H 10/31/17 10:10 Coarse Granular Casts 0-2 /lpf (NONE SEEN) H 10/31/17 10:10 Urine Mucus FEW /lpf (FEW) 10/31/17 10:10 Blood Type O POSITIVE 11/02/17 12:36 Antibody Screen NEGATIVE 11/02/17 12:36 Crossmatch See Detail 11/02/17 12:36 - Physical Exam Vitals and I&O: Vital Signs Temp 98.4 F 11/07/17 12:04 Pulse 76 11/07/17 12:04 Resp 18 11/07/17 12:04 BP 130/75 11/07/17 12:04 Pulse Ox 94 11/07/17 12:04 Intake & Output 11/06/17 11/07/17 11/07/17 18:59 06:59 18:59 Intake Total 9106.045 3063 100 Output Total 300 Balance 9225.956 5284 100 Weight (lbs) 62.324 kg Intake: Intake, IV Amount 2065.463 1455 100 D5-0.9%Ns 1,000 ml @ 70 1000 1000 mls/hr IV .[id number] [facility] Rx #:[id number] KCL 20mEq/100mL Premix 20 90.833 meq In 100 ml @ 50 mls/ hr IV Q2H [facility] Rx#: [id number] Piperacillin Sodium/ 50 100 Tazobact 3.375 gm In Dextrose 5% 50 ml @ 100 mls/hr IV Q8H [facility] Rx#: [id number] metroNIDAZOLE 500mg/NS 200 100 100 100mL 500 mg In Premix Fluid 1 bag @ 100 mls/hr IV Q8H [facility] Rx#:[id number] Oral 240 Output: Urine 300 Other: Stool Characteristics Soft Liquid Weight Source Bedscale Active Medications: Current Medications Diphenoxylate HCl/Atropine (Lomotil) 1 tab PO BID PRN PRN Reason: Diarrhea Stop: 01/04/18 09:42 Last Admin: 11/05/17 21:34 Dose: 1 tab Diphenoxylate HCl/Atropine (Lomotil) 1 tab PO TID PRN PRN Reason: Diarrhea Stop: 01/05/18 16:47 Enalaprilat (Vasotec) 2.5 mg IVP Q6H PRN PRN Reason: BP MAINTENANCE (PER PROTOCOL) Stop: 12/30/17 21:17 Enoxaparin Sodium (Lovenox) 40 mg SUBQ Q12HR [facility] Stop: 01/02/18 20:59 Last Admin: 11/07/17 09:40 Dose: 40 mg Haloperidol Lactate (Haldol) 5 mg IM Q6HR PRN PRN Reason: Agitation Stop: 12/31/17 22:10 Last Admin: 11/02/17 00:37 Dose: 5 mg Piperacillin Sod/Tazobactam (Sod 3.375 gm/ Dextrose) 50 mls @ 100 mls/hr IV Q8H [facility] Stop: 01/01/18 14:44 Last Infusion: 11/07/17 06:16 Dose: Infused Metronidazole 500 mg/ (Miscellaneous) 100 mls @ 100 mls/hr IV Q8H [facility] Stop: 01/01/18 14:44 Last Infusion: 11/07/17 07:25 Dose: Infused Dextrose/Sodium Chloride (D5-0.9%Ns) 1,000 mls @ 70 mls/hr IV .[id number] [facility] Stop: 01/04/18 17:29 Last Admin: 11/07/17 02:26 Dose: 70 mls/hr Potassium Chloride 40 meq/Lidocaine HCl 25 mg/ Sodium Chloride 272.5 mls @ 68 mls/hr IV X1 ONE Stop: 11/07/17 14:15 Last Admin: 11/07/17 12:14 Dose: 68 mls/hr Levothyroxine Sodium (Synthroid) 0.05 mg IVP DAILY [facility] Stop: 01/02/18 08:59 Last Admin: 11/07/17 09:40 Dose: 0.05 mg Miscellaneous (Vte Chemical Prophylaxis Screen/ Admission) 1 ea MC PRN PRN PRN Reason: PROTOCOL Stop: 12/31/17 16:23 Morphine Sulfate (Morphine) 2 mg IVP Q4HR PRN PRN Reason: Pain (Severe) Stop: 12/30/17 19:25 Morphine Sulfate (Morphine) 2 mg IVP Q4HR PRN PRN Reason: Abdominal Pain Stop: 01/01/18 14:39 Last Admin: 11/04/17 15:17 Dose: 2 mg Nitroglycerin (Nitro-Bid) 1 inch TP Q6HR [facility] Stop: 01/01/18 17:59 Last Admin: 11/07/17 06:23 Dose: 1 inch Ondansetron HCl (Zofran) 4 mg IV Q6HR PRN PRN Reason: Nausea / Vomiting Stop: 12/30/17 19:27 Pantoprazole Sodium (Protonix) 40 mg IVP DAILY [facility] Stop: 01/02/18 08:59 Last Admin: 11/07/17 09:40 Dose: 40 mg Zolpidem Tartrate (Ambien) 5 mg PO HS PRN PRN Reason: Insomnia Stop: 01/06/18 07:57 General: no acute distress, well developed, well nourished HEENT: atraumatic, normocephalic, PERRLA Neck: supple, no thyromegaly Cardiovascular: S1S2, regular Lungs: clear to auscultation bilaterally, clear to percussion Abdomen: soft, other (surgical wound ok.), no tender, no distended Extremities: no cyanosis, no clubbing, no edema Neurological: awake, alert - Procedures Procedures: Procedures Procedure Code Date MOBILIZATION OF COLON 07057 10/31/17 PARTIAL REMOVAL OF COLON 91704 10/31/17 RESECTION OF SIGMOID COLON, OPEN APPROACH [id number] 10/31/17 Infectious Disease Assmt/Plan - Problem List Patient Problems: All Active Problems ABDOMINAL PAIN WITH N/V/D (Acute) - Assessment Assessment: 1. Leukocytosis. Improved. Reactive. peritonitis. 2. Ileus and the bowel obstruction. Improving. 3. peritonitis. 4. Hypothyroidism. 5. History of CVA with the right-sided infarct. 6. GERD. 7. S/p bowel resection on 11/02/2017. 8. Hypertension. - Plan Plan: Change zosyn to rocephin and flagyl for 5 days from now. Supplement magnesium and potassium. Nutritional Asmnt/Malnutr-PDOC - Dietary Evaluation Malnutrition Findings (Please click <Entered> for more info): Nutritional Asmnt/Malnutrition Start: 11/05/17 16: 29 Text: Status: Complete Freq: Document 11/05/17 16:29 LCHENG (Rec: 11/05/17 16:41 [email or web address]) Nutritional Asmnt/Malnutrition Patient General Information Nutritional Screening Moderate Risk Diagnosis acute bowel obstruction Pertinent Medical Hx/Surgical Hx HTN, hypothyroidism, GERD, hyperlipidemia, mental health disorder Subjective Information Pt seen lying in bed at time of visit, awake and alert. Pt had subtotaol colectomy on noted, s/p surgery day 3. Pt stated she tolerated clear liquid and feel hungry at this time and she had BM x 3 today . No food preference given. K level continue low noted. Per EMR, PO intake 75-100% on clear liquid. Current Diet Order/ Nutrition Support clear liquid Pertinent Medications synthroid, protonix, piperacillin, kcl Pertinent Labs 11/05 Na 141, K 2.8, Cl 113, BUN 5, Cr 0.5, glucose 111, Ca 7.8 Nutritional Hx/Data Height 1.55 m Height (Calculated Centimeters) 154.9 Current Weight (lbs) 54.431 kg Weight (Calculated Kilograms) 54.4 Weight (Calculated Grams) 01128.1 [place] Body Weight 105 Body Mass Index (BMI) 22.6 Weight Status Approriate GI Symptoms GI Symptoms None Last BM 11/05 Difficult in: None Skin Integrity/Comment: abdominal incision bruise to left arm pressure area to sacrum Estimated Nutritional Goals BEE in Kcals: Using Current wt Calories/Kcals/Kg 25-30 Kcals Calculated 5012-4034 Protein: Using Current wt Protein g/k-1.2 Protein Calculated 55-66 Fluid: ml 1375-1650ml (1ml/kcal) Nutritional Problem 1. Problem Problem altered GI function Etiology acute small bowel obstruction Signs/Symptoms: s/p colectomy and pt now on clear liquid Intervention/Recommendation Comments 1. Continue with clear liquid diet as ordered. Recommend Boost Breeze TID to supplement nutrition intake for clear liquid diet. 2. Monitor PO intake, GI function, wt, labs and skin integrity 3. F/U as moderate risk in 3-5 days, 11/08-11/10 Expected Outcomes/Goals Expected Outcomes/Goals 1. PO intake to meet at least 75% of nutritional needs. 2. Wt stability, skin to remain intact, labs to approach WNL.
--- NOTE | 2017-11-07 21:46 | General Progress Note ---
Subjective - Review of Systems Service Date: 11/07/17 Subjective: Patient seen and examined patient more awake alert started on diet as tolerated Objective - Results Result Diagrams: 11/07/17 08:30 11/07/17 08:30 Recent Labs: Laboratory Last Values WBC 7.0 Th/cmm (4.8-10.8) 11/07/17 08:30 RBC 2.62 Mil/cmm (3.80-5.20) L 11/07/17 08:30 Hgb 8.2 gm/dL (12-16) L 11/07/17 08:30 Hct 23.8 % (41.0-60) L 11/07/17 08:30 MCV 90.8 fl (81-100) 11/07/17 08:30 MCH 31.2 pg (27.0-31.0) H 11/07/17 08:30 MCHC Differential 34.4 pg (28.0-36.0) 11/07/17 08:30 RDW 13.8 % (11.5-20.0) 11/07/17 08:30 Plt Count 206 Th/cmm (150-400) 11/07/17 08:30 MPV 8.3 fl 11/07/17 08:30 Neutrophils % 80.4 % (40.0-80.0) H 11/07/17 08:30 Lymphocytes % 9.0 % (20.0-50.0) L 11/07/17 08:30 Monocytes % 6.4 % (2.0-10.0) 11/07/17 08:30 Eosinophils % 3.4 % (0.0-5.0) 11/07/17 08:30 Basophils % 0.8 % (0.0-2.0) 11/07/17 08:30 PT 11.0 SECONDS (9.5-11.5) 11/02/17 11:03 INR 1.06 (0.5-1.4) 11/02/17 11:03 Sodium 137 mEq/L (136-145) 11/07/17 08:30 Potassium 2.8 mEq/L (3.5-5.1) L* 11/07/17 08:30 Chloride 107 mEq/L (98-107) 11/07/17 08:30 Carbon Dioxide 25.5 mEq/L (21.0-31.0) 11/07/17 08:30 Anion Gap 7.3 (7.0-16.0) 11/07/17 08:30 BUN 3 mg/dL (7-25) L 11/07/17 08:30 Creatinine 0.4 mg/dL (0.6-1.2) L 11/07/17 08:30 Est GFR ( Amer) TNP 11/07/17 08:30 Est GFR (Non-Af Amer) TNP 11/07/17 08:30 BUN/Creatinine Ratio 7.5 11/07/17 08:30 Glucose 107 mg/dL (70-105) H 11/07/17 08:30 Calcium 7.6 mg/dL (8.6-10.3) L 11/07/17 08:30 Magnesium 1.5 mg/dL (1.9-2.7) L 11/07/17 08:30 Total Bilirubin 0.4 mg/dL (0.3-1.0) 11/05/17 04:55 Direct Bilirubin 0.21 mg/dL (0.0-0.2) H 10/31/17 17:52 AST 11 U/L (13-39) L 11/05/17 04:55 ALT 6 U/L (7-52) L 11/05/17 04:55 Alkaline Phosphatase 45 U/L (34-104) 11/05/17 04:55 Total Protein 4.8 gm/dL (6.0-8.3) L 11/05/17 04:55 Albumin 2.3 gm/dL (3.7-5.3) L 11/05/17 04:55 Globulin 2.5 gm/dL 11/05/17 04:55 Albumin/Globulin Ratio 0.9 (1.0-1.8) L 11/05/17 04:55 Lipase 26 U/L (11-82) 10/31/17 17:52 Urine Source MIDSTREAM 10/31/17 10:10 Urine Color YELLOW 10/31/17 10:10 Urine Clarity HAZY (CLEAR) 10/31/17 10:10 Urine pH 5.5 (4.6 - 8.0) 10/31/17 10:10 Ur Specific [place] 1.025 (1.005-1.030) 10/31/17 10:10 Urine Protein TRACE mg/dL (NEGATIVE) 10/31/17 10:10 Urine Glucose (UA) NEGATIVE mg/dL (NEGATIVE) 10/31/17 10:10 Urine Ketones NEGATIVE mg/dL (NEGATIVE) 10/31/17 10:10 Urine Blood TRACE (NEGATIVE) 10/31/17 10:10 Urine Nitrate NEGATIVE (NEGATIVE) 10/31/17 10:10 Urine Bilirubin NEGATIVE (NEGATIVE) 10/31/17 10:10 Urine Urobilinogen 0.2 E.U./dL (0.2 - 1.0) 10/31/17 10:10 Ur Leukocyte Esterase NEGATIVE (NEGATIVE) 10/31/17 10:10 Urine RBC 5-10 /hpf (0-5) H 10/31/17 10:10 Urine WBC 2-5 /hpf (0-5) 10/31/17 10:10 Ur Epithelial Cells MODERATE /lpf (FEW) 10/31/17 10:10 Urine Bacteria 1+ /hpf (NONE SEEN) H 10/31/17 10:10 Coarse Granular Casts 0-2 /lpf (NONE SEEN) H 10/31/17 10:10 Urine Mucus FEW /lpf (FEW) 10/31/17 10:10 Blood Type O POSITIVE 11/02/17 12:36 Antibody Screen NEGATIVE 11/02/17 12:36 Crossmatch See Detail 11/02/17 12:36 - Physical Exam Vitals and I&O: Vital Signs Temp 97.8 F 11/07/17 20:00 Pulse 92 11/07/17 20:00 Resp 18 11/07/17 20:00 BP 121/80 11/07/17 20:00 Pulse Ox 95 11/07/17 20:00 Intake & Output 11/07/17 11/07/17 11/08/17 06:59 18:59 06:59 Intake Total 1440 1884.333 Output Total 300 1110 Balance 1140 774.333 Weight (lbs) 62.324 kg 62.624 kg Intake: Intake, IV Amount 1200 1134.333 D5-0.9%Ns 1,000 ml @ 70 1000 884.333 mls/hr IV .[id number] [facility] Rx #:[id number] Piperacillin Sodium/ 100 50 Tazobact 3.375 gm In Dextrose 5% 50 ml @ 100 mls/hr IV Q8H [facility] Rx#: [id number] metroNIDAZOLE 500mg/NS 100 200 100mL 500 mg In Premix Fluid 1 bag @ 100 mls/hr IV Q8H [facility] Rx#:[id number] Oral 240 750 Output: Drainage 110 Abdomen 110 Urine 300 1000 Other: # Bowel Movements 1 Stool Characteristics Soft Liquid Weight Source Bedscale Bedscale Active Medications: Current Medications Diphenoxylate HCl/Atropine (Lomotil) 1 tab PO BID PRN PRN Reason: Diarrhea Stop: 01/04/18 09:42 Last Admin: 11/05/17 21:34 Dose: 1 tab Diphenoxylate HCl/Atropine (Lomotil) 1 tab PO TID PRN PRN Reason: Diarrhea Stop: 01/05/18 16:47 Enalaprilat (Vasotec) 2.5 mg IVP Q6H PRN PRN Reason: BP MAINTENANCE (PER PROTOCOL) Stop: 12/30/17 21:17 Haloperidol Lactate (Haldol) 5 mg IM Q6HR PRN PRN Reason: Agitation Stop: 12/31/17 22:10 Last Admin: 11/02/17 00:37 Dose: 5 mg Metronidazole 500 mg/ (Miscellaneous) 100 mls @ 100 mls/hr IV Q8H [facility] Stop: 01/01/18 14:44 Last Infusion: 11/07/17 16:30 Dose: Infused Ceftriaxone Sodium 1 gm/ (Dextrose) 50 mls @ 100 mls/hr IV Q24H [facility] Stop: 01/06/18 16:44 Last Admin: 11/07/17 20:13 Dose: 100 mls/hr Metronidazole (Flagyl) 500 mg in 100 mls @ 100 mls/hr IV Q8HR [facility] Stop: 01/06/18 20:59 Levothyroxine Sodium (Synthroid) 0.05 mg IVP DAILY [facility] Stop: 01/02/18 08:59 Last Admin: 11/07/17 09:40 Dose: 0.05 mg Magnesium Oxide (Mag-Oxide) 400 mg PO BID [facility] Stop: 11/09/17 16:59 Last Admin: 11/07/17 20:20 Dose: 400 mg Miscellaneous (Vte Chemical Prophylaxis Screen/ Admission) 1 ea [facility] PRN PRN PRN Reason: PROTOCOL Stop: 12/31/17 16:23 Morphine Sulfate (Morphine) 2 mg IVP Q4HR PRN PRN Reason: Pain (Severe) Stop: 12/30/17 19:25 Morphine Sulfate (Morphine) 2 mg IVP Q4HR PRN PRN Reason: Abdominal Pain Stop: 01/01/18 14:39 Last Admin: 11/04/17 15:17 Dose: 2 mg Nitroglycerin (Nitro-Bid) 1 inch TP Q6HR [facility] Stop: 01/01/18 17:59 Last Admin: 11/07/17 17:40 Dose: 1 inch Ondansetron HCl (Zofran) 4 mg IV Q6HR PRN PRN Reason: Nausea / Vomiting Stop: 12/30/17 19:27 Pantoprazole Sodium (Protonix) 40 mg IVP DAILY [facility] Stop: 01/02/18 08:59 Last Admin: 11/07/17 09:40 Dose: 40 mg Zolpidem Tartrate (Ambien) 5 mg PO HS PRN PRN Reason: Insomnia Stop: 01/06/18 07:57 General: Alert Cardiovascular: Regular rate Lungs: Clear to auscultation Abdomen: Soft, Other (bandage c/d/i), no Tender, no Distended Skin: no Rash - Procedures Procedures: Procedures Procedure Code Date MOBILIZATION OF COLON 91147 10/31/17 PARTIAL REMOVAL OF COLON 91612 10/31/17 RESECTION OF SIGMOID COLON, OPEN APPROACH [id number] 10/31/17 Assessment/Plan - Problem List Patient Problems: All Active Problems ABDOMINAL PAIN WITH N/V/D (Acute) - Assessment Assessment: Sepsis improving Bowel obstruction s/p exp lap HTN Hypokalemia Mental health disorder Dementia - Plan Plan: Rocephine and flagyl Diet as tolerated K replacement DVT prophylaxis Monitor drain Plan of care discussed with nursing staff Nutritional Asmnt/Malnutr-PDOC - Dietary Evaluation Malnutrition Findings (Please click <Entered> for more info): Nutritional Asmnt/Malnutrition Start: 11/05/17 16: 29 Text: Status: Complete Freq: Document 11/05/17 16:29 MARJAN (Rec: 11/05/17 16:41 JACLYN [email or web address]) Nutritional Asmnt/Malnutrition Patient General Information Nutritional Screening Moderate Risk Diagnosis acute bowel obstruction Pertinent Medical Hx/Surgical Hx HTN, hypothyroidism, GERD, hyperlipidemia, mental health disorder Subjective Information Pt seen lying in bed at time of visit, awake and alert. Pt had subtotaol colectomy on noted, s/p surgery day 3. Pt stated she tolerated clear liquid and feel hungry at this time and she had BM x 3 today . No food preference given. K level continue low noted. Per EMR, PO intake 75-100% on clear liquid. Current Diet Order/ Nutrition Support clear liquid Pertinent Medications synthroid, protonix, piperacillin, kcl Pertinent Labs 11/05 Na 141, K 2.8, Cl 113, BUN 5, Cr 0.5, glucose 111, Ca 7.8 Nutritional Hx/Data Height 1.55 m Height (Calculated Centimeters) 154.9 Current Weight (lbs) 54.431 kg Weight (Calculated Kilograms) 54.4 Weight (Calculated Grams) 02228.1 [place] Body Weight 105 Body Mass Index (BMI) 22.6 Weight Status Approriate GI Symptoms GI Symptoms None Last BM 11/05 Difficult in: None Skin Integrity/Comment: abdominal incision bruise to left arm pressure area to sacrum Estimated Nutritional Goals BEE in Kcals: Using Current wt Calories/Kcals/Kg 25-30 Kcals Calculated 5006-0800 Protein: Using Current wt Protein g/k-1.2 Protein Calculated 55-66 Fluid: ml 1375-1650ml (1ml/kcal) Nutritional Problem 1. Problem Problem altered GI function Etiology acute small bowel obstruction Signs/Symptoms: s/p colectomy and pt now on clear liquid Intervention/Recommendation Comments 1. Continue with clear liquid diet as ordered. Recommend Boost Breeze TID to supplement nutrition intake for clear liquid diet. 2. Monitor PO intake, GI function, wt, labs and skin integrity 3. F/U as moderate risk in 3-5 days, 11/08-11/10 Expected Outcomes/Goals Expected Outcomes/Goals 1. PO intake to meet at least 75% of nutritional needs. 2. Wt stability, skin to remain intact, labs to approach WNL.
[2017-11-07] MEDS ORDERED: Mag Sulfate 2gm/50mL Premix 2 GM/50 ML BAG IV ONE (21:58)
[2017-11-08] MEDS: NITROGLYCERIN OINT 2% 1 INCH PACKET TP SCH ×4 (00:53→17:36)
[2017-11-08 06:21] LABS: % BASOPHILS 0.1 % (0.0-2.0); % EOSINOPHILS 3.3 % (0.0-5.0); % LYMPHOCYTES 10.8 % (20.0-50.0); % MONOCYTES 7.6 % (2.0-10.0); % NEUTROPHILS 78.2 % (40.0-80.0); EOSINOPHILE ABSOLUTE 0.2 Th/cmm (0.1-0.4); HEMATOCRIT 26.4 % (41.0-60); HEMOGLOBIN 8.7 gm/dL (12-16); LYMPHOCYTE ABSOLUTE 0.7 Th/cmm (1.5-3.0); MEAN CELL VOLUME 93.2 fl (81-100); MEAN CORPUSCULAR HEMOGLOBIN 30.7 pg (27.0-31.0); MEAN CORPUSCULAR HGB CONC 32.9 pg (28.0-36.0); MONOCYTE ABSOLUTE 0.5 Th/cmm (0.3-1.0); NEUTROPHILE ABSOLUTE 5.3 Th/cmm (1.8-8.0); PLATELET COUNT 238 Th/cmm (150-400); RED BLOOD COUNT 2.83 Mil/cmm (3.80-5.20); RED CELL DISTRIBUTION WIDTH 13.7 % (11.5-20.0); WHITE BLOOD COUNT 6.7 Th/cmm (4.8-10.8)
[2017-11-08] MEDS: metroNIDAZOLE 500mg/NS 100mL 500 MG in Premix Fluid 1 BAG IV SCH (06:42)
[2017-11-08 06:50] LABS: ANION GAP 9.3 (7.0-16.0); BUN - UREA NITROGEN 4 mg/dL (7-25); CALCIUM SERUM 7.6 mg/dL (8.6-10.3); CARBON DIOXIDE 24.7 mEq/L (21.0-31.0); CHLORIDE 107 mEq/L (98-107); CREATININE - SERUM 0.4 mg/dL (0.6-1.2); GLUCOSE 93 mg/dL (70-105); MAGNESIUM 2.4 mg/dL (1.9-2.7); SODIUM SERUM 138 mEq/L (136-145)
[2017-11-08] MEDS: Enoxaparin 40 mg/0.4 mL 0.4mL Syr SUBQ SCH (08:50)
--- NOTE | 2017-11-08 12:39 | General Progress Note ---
Subjective - Review of Systems Service Date: 11/08/17 Events since last encounter: labs ok regular diet, not eating much 2 loose stools Objective - Results Result Diagrams: 11/08/17 05:30 11/08/17 05:30 Recent Labs: Laboratory Last Values WBC 6.7 Th/cmm (4.8-10.8) 11/08/17 05:30 RBC 2.83 Mil/cmm (3.80-5.20) L 11/08/17 05:30 Hgb 8.7 gm/dL (12-16) L 11/08/17 05:30 Hct 26.4 % (41.0-60) L 11/08/17 05:30 MCV 93.2 fl (81-100) 11/08/17 05:30 MCH 30.7 pg (27.0-31.0) 11/08/17 05:30 MCHC Differential 32.9 pg (28.0-36.0) 11/08/17 05:30 RDW 13.7 % (11.5-20.0) 11/08/17 05:30 Plt Count 238 Th/cmm (150-400) 11/08/17 05:30 MPV 9.0 fl 11/08/17 05:30 Neutrophils % 78.2 % (40.0-80.0) 11/08/17 05:30 Lymphocytes % 10.8 % (20.0-50.0) L 11/08/17 05:30 Monocytes % 7.6 % (2.0-10.0) 11/08/17 05:30 Eosinophils % 3.3 % (0.0-5.0) 11/08/17 05:30 Basophils % 0.1 % (0.0-2.0) 11/08/17 05:30 PT 11.0 SECONDS (9.5-11.5) 11/02/17 11:03 INR 1.06 (0.5-1.4) 11/02/17 11:03 Sodium 138 mEq/L (136-145) 11/08/17 05:30 Potassium 3.0 mEq/L (3.5-5.1) L 11/08/17 05:30 Chloride 107 mEq/L (98-107) 11/08/17 05:30 Carbon Dioxide 24.7 mEq/L (21.0-31.0) 11/08/17 05:30 Anion Gap 9.3 (7.0-16.0) 11/08/17 05:30 BUN 4 mg/dL (7-25) L 11/08/17 05:30 Creatinine 0.4 mg/dL (0.6-1.2) L 11/08/17 05:30 Est GFR ( Amer) TNP 11/08/17 05:30 Est GFR (Non-Af Amer) TNP 11/08/17 05:30 BUN/Creatinine Ratio 10.0 11/08/17 05:30 Glucose 93 mg/dL (70-105) 11/08/17 05:30 Calcium 7.6 mg/dL (8.6-10.3) L 11/08/17 05:30 Magnesium 2.4 mg/dL (1.9-2.7) 11/08/17 05:30 Total Bilirubin 0.4 mg/dL (0.3-1.0) 11/05/17 04:55 Direct Bilirubin 0.21 mg/dL (0.0-0.2) H 10/31/17 17:52 AST 11 U/L (13-39) L 11/05/17 04:55 ALT 6 U/L (7-52) L 11/05/17 04:55 Alkaline Phosphatase 45 U/L (34-104) 11/05/17 04:55 Total Protein 4.8 gm/dL (6.0-8.3) L 11/05/17 04:55 Albumin 2.3 gm/dL (3.7-5.3) L 11/05/17 04:55 Globulin 2.5 gm/dL 11/05/17 04:55 Albumin/Globulin Ratio 0.9 (1.0-1.8) L 11/05/17 04:55 Lipase 26 U/L (11-82) 10/31/17 17:52 Urine Source MIDSTREAM 10/31/17 10:10 Urine Color YELLOW 10/31/17 10:10 Urine Clarity HAZY (CLEAR) 10/31/17 10:10 Urine pH 5.5 (4.6 - 8.0) 10/31/17 10:10 Ur Specific [place] 1.025 (1.005-1.030) 10/31/17 10:10 Urine Protein TRACE mg/dL (NEGATIVE) 10/31/17 10:10 Urine Glucose (UA) NEGATIVE mg/dL (NEGATIVE) 10/31/17 10:10 Urine Ketones NEGATIVE mg/dL (NEGATIVE) 10/31/17 10:10 Urine Blood TRACE (NEGATIVE) 10/31/17 10:10 Urine Nitrate NEGATIVE (NEGATIVE) 10/31/17 10:10 Urine Bilirubin NEGATIVE (NEGATIVE) 10/31/17 10:10 Urine Urobilinogen 0.2 E.U./dL (0.2 - 1.0) 10/31/17 10:10 Ur Leukocyte Esterase NEGATIVE (NEGATIVE) 10/31/17 10:10 Urine RBC 5-10 /hpf (0-5) H 10/31/17 10:10 Urine WBC 2-5 /hpf (0-5) 10/31/17 10:10 Ur Epithelial Cells MODERATE /lpf (FEW) 10/31/17 10:10 Urine Bacteria 1+ /hpf (NONE SEEN) H 10/31/17 10:10 Coarse Granular Casts 0-2 /lpf (NONE SEEN) H 10/31/17 10:10 Urine Mucus FEW /lpf (FEW) 10/31/17 10:10 Blood Type O POSITIVE 11/02/17 12:36 Antibody Screen NEGATIVE 11/02/17 12:36 Crossmatch See Detail 11/02/17 12:36 - Physical Exam Vitals and I&O: Vital Signs Temp 97.8 F 11/08/17 08:00 Pulse 85 11/08/17 08:00 Resp 18 11/08/17 08:00 BP 121/74 11/08/17 08:00 Pulse Ox 94 11/08/17 08:00 Intake & Output 11/07/17 11/08/17 11/08/17 18:59 06:59 18:59 Intake Total 1884.333 350 Output Total 1110 1400 Balance 774.333 -1050 Weight (lbs) 62.624 kg 60.781 kg 60.781 kg Intake: Intake, IV Amount 1134.333 150 D5-0.9%Ns 1,000 ml @ 70 884.333 mls/hr IV .[id number] [facility] Rx #:[id number] Piperacillin Sodium/ 50 Tazobact 3.375 gm In Dextrose 5% 50 ml @ 100 mls/hr IV Q8H [facility] Rx#: [id number] cefTRIAXone 1 gm In 50 Dextrose 5% 50 ml @ 100 mls/hr IV Q24H [facility] Rx#: [id number] metroNIDAZOLE 500mg/NS 200 100 100mL 500 mg In Premix Fluid 1 bag @ 100 mls/hr IV Q8H [facility] Rx#:[id number] Oral 750 200 Output: Drainage 110 50 Abdomen 110 50 Urine 1000 1350 Other: # Bowel Movements 1 2 Stool Characteristics Soft Liquid Weight Source Bedscale Bedscale Bedscale Active Medications: Current Medications Diphenoxylate HCl/Atropine (Lomotil) 1 tab PO BID PRN PRN Reason: Diarrhea Stop: 01/04/18 09:42 Last Admin: 11/05/17 21:34 Dose: 1 tab Diphenoxylate HCl/Atropine (Lomotil) 1 tab PO TID PRN PRN Reason: Diarrhea Stop: 01/05/18 16:47 Enalaprilat (Vasotec) 2.5 mg IVP Q6H PRN PRN Reason: BP MAINTENANCE (PER PROTOCOL) Stop: 12/30/17 21:17 Enoxaparin Sodium (Lovenox) 40 mg SUBQ DAILY [facility] Stop: 01/07/18 08:59 Last Admin: 11/08/17 08:50 Dose: 40 mg Haloperidol Lactate (Haldol) 5 mg IM Q6HR PRN PRN Reason: Agitation Stop: 12/31/17 22:10 Last Admin: 11/02/17 00:37 Dose: 5 mg Ceftriaxone Sodium 1 gm/ (Dextrose) 50 mls @ 100 mls/hr IV Q24H [facility] Stop: 01/06/18 16:44 Last Infusion: 11/07/17 20:43 Dose: Infused Metronidazole (Flagyl) 500 mg in 100 mls @ 100 mls/hr IV Q8HR [facility] Stop: 01/06/18 20:59 Levothyroxine Sodium (Synthroid) 0.05 mg IVP DAILY [facility] Stop: 01/02/18 08:59 Last Admin: 11/08/17 08:50 Dose: 0.05 mg Magnesium Oxide (Mag-Oxide) 400 mg PO BID [facility] Stop: 11/09/17 16:59 Last Admin: 11/08/17 08:50 Dose: 400 mg Miscellaneous (Vte Chemical Prophylaxis Screen/ Admission) 1 ea [facility] PRN PRN PRN Reason: PROTOCOL Stop: 12/31/17 16:23 Morphine Sulfate (Morphine) 2 mg IVP Q4HR PRN PRN Reason: Pain (Severe) Stop: 12/30/17 19:25 Morphine Sulfate (Morphine) 2 mg IVP Q4HR PRN PRN Reason: Abdominal Pain Stop: 01/01/18 14:39 Last Admin: 11/04/17 15:17 Dose: 2 mg Nitroglycerin (Nitro-Bid) 1 inch TP Q6HR [facility] Stop: 01/01/18 17:59 Last Admin: 11/08/17 06:42 Dose: 1 inch Ondansetron HCl (Zofran) 4 mg IV Q6HR PRN PRN Reason: Nausea / Vomiting Stop: 12/30/17 19:27 Pantoprazole Sodium (Protonix) 40 mg IVP DAILY [facility] Stop: 01/02/18 08:59 Last Admin: 11/08/17 08:49 Dose: 40 mg Zolpidem Tartrate (Ambien) 5 mg PO HS PRN PRN Reason: Insomnia Stop: 01/06/18 07:57 General: Alert HEENT: Atraumatic Neck: Supple Cardiovascular: Regular rate Lungs: Clear to auscultation Abdomen: Soft, Other (bandage c/d/i), no Tender, no Distended Skin: no Rash - Procedures Procedures: Procedures Procedure Code Date MOBILIZATION OF COLON 33906 10/31/17 PARTIAL REMOVAL OF COLON 20265 10/31/17 RESECTION OF SIGMOID COLON, OPEN APPROACH [id number] 10/31/17 Assessment/Plan - Problem List Patient Problems: All Active Problems ABDOMINAL PAIN WITH N/V/D (Acute) Nutritional Asmnt/Malnutr-PDOC - Dietary Evaluation Malnutrition Findings (Please click <Entered> for more info): Nutritional Asmnt/Malnutrition Start: 11/05/17 16: 29 Text: Status: Complete Freq: Document 11/05/17 16:29 MARJAN (Rec: 11/05/17 16:41 MARJAN [email or web address]) Nutritional Asmnt/Malnutrition Patient General Information Nutritional Screening Moderate Risk Diagnosis acute bowel obstruction Pertinent Medical Hx/Surgical Hx HTN, hypothyroidism, GERD, hyperlipidemia, mental health disorder Subjective Information Pt seen lying in bed at time of visit, awake and alert. Pt had subtotaol colectomy on noted, s/p surgery day 3. Pt stated she tolerated clear liquid and feel hungry at this time and she had BM x 3 today . No food preference given. K level continue low noted. Per EMR, PO intake 75-100% on clear liquid. Current Diet Order/ Nutrition Support clear liquid Pertinent Medications synthroid, protonix, piperacillin, kcl Pertinent Labs 11/05 Na 141, K 2.8, Cl 113, BUN 5, Cr 0.5, glucose 111, Ca 7.8 Nutritional Hx/Data Height 1.55 m Height (Calculated Centimeters) 154.9 Current Weight (lbs) 54.431 kg Weight (Calculated Kilograms) 54.4 Weight (Calculated Grams) 89717.1 [place] Body Weight 105 Body Mass Index (BMI) 22.6 Weight Status Approriate GI Symptoms GI Symptoms None Last BM 11/05 Difficult in: None Skin Integrity/Comment: abdominal incision bruise to left arm pressure area to sacrum Estimated Nutritional Goals BEE in Kcals: Using Current wt Calories/Kcals/Kg 25-30 Kcals Calculated 6980-4147 Protein: Using Current wt Protein g/k-1.2 Protein Calculated 55-66 Fluid: ml 1375-1650ml (1ml/kcal) Nutritional Problem 1. Problem Problem altered GI function Etiology acute small bowel obstruction Signs/Symptoms: s/p colectomy and pt now on clear liquid Intervention/Recommendation Comments 1. Continue with clear liquid diet as ordered. Recommend Boost Breeze TID to supplement nutrition intake for clear liquid diet. 2. Monitor PO intake, GI function, wt, labs and skin integrity 3. F/U as moderate risk in 3-5 days, 11/08-11/10 Expected Outcomes/Goals Expected Outcomes/Goals 1. PO intake to meet at least 75% of nutritional needs. 2. Wt stability, skin to remain intact, labs to approach WNL.
[2017-11-08] MEDS: metroNIDAZOLE 500mg/NS 100mL 500 MG/100 ML BAG IV SCH ×2 (13:34→21:15)
--- NOTE | 2017-11-08 14:19 | Infectious Disease Prog Note ---
Infectious Disease Subjective - Review of Systems Service Date: 11/08/17 Subjective: No new change, no fever. Infectious Disease Objective - Results Result Diagrams: 11/08/17 05:30 11/08/17 05:30 Recent Labs: Laboratory Last Values WBC 6.7 Th/cmm (4.8-10.8) 11/08/17 05:30 RBC 2.83 Mil/cmm (3.80-5.20) L 11/08/17 05:30 Hgb 8.7 gm/dL (12-16) L 11/08/17 05:30 Hct 26.4 % (41.0-60) L 11/08/17 05:30 MCV 93.2 fl (81-100) 11/08/17 05:30 MCH 30.7 pg (27.0-31.0) 11/08/17 05:30 MCHC Differential 32.9 pg (28.0-36.0) 11/08/17 05:30 RDW 13.7 % (11.5-20.0) 11/08/17 05:30 Plt Count 238 Th/cmm (150-400) 11/08/17 05:30 MPV 9.0 fl 11/08/17 05:30 Neutrophils % 78.2 % (40.0-80.0) 11/08/17 05:30 Lymphocytes % 10.8 % (20.0-50.0) L 11/08/17 05:30 Monocytes % 7.6 % (2.0-10.0) 11/08/17 05:30 Eosinophils % 3.3 % (0.0-5.0) 11/08/17 05:30 Basophils % 0.1 % (0.0-2.0) 11/08/17 05:30 PT 11.0 SECONDS (9.5-11.5) 11/02/17 11:03 INR 1.06 (0.5-1.4) 11/02/17 11:03 Sodium 138 mEq/L (136-145) 11/08/17 05:30 Potassium 3.0 mEq/L (3.5-5.1) L 11/08/17 05:30 Chloride 107 mEq/L (98-107) 11/08/17 05:30 Carbon Dioxide 24.7 mEq/L (21.0-31.0) 11/08/17 05:30 Anion Gap 9.3 (7.0-16.0) 11/08/17 05:30 BUN 4 mg/dL (7-25) L 11/08/17 05:30 Creatinine 0.4 mg/dL (0.6-1.2) L 11/08/17 05:30 Est GFR ( Amer) TNP 11/08/17 05:30 Est GFR (Non-Af Amer) TNP 11/08/17 05:30 BUN/Creatinine Ratio 10.0 11/08/17 05:30 Glucose 93 mg/dL (70-105) 11/08/17 05:30 Calcium 7.6 mg/dL (8.6-10.3) L 11/08/17 05:30 Magnesium 2.4 mg/dL (1.9-2.7) 11/08/17 05:30 Total Bilirubin 0.4 mg/dL (0.3-1.0) 11/05/17 04:55 Direct Bilirubin 0.21 mg/dL (0.0-0.2) H 10/31/17 17:52 AST 11 U/L (13-39) L 11/05/17 04:55 ALT 6 U/L (7-52) L 11/05/17 04:55 Alkaline Phosphatase 45 U/L (34-104) 11/05/17 04:55 Total Protein 4.8 gm/dL (6.0-8.3) L 11/05/17 04:55 Albumin 2.3 gm/dL (3.7-5.3) L 11/05/17 04:55 Globulin 2.5 gm/dL 11/05/17 04:55 Albumin/Globulin Ratio 0.9 (1.0-1.8) L 11/05/17 04:55 Lipase 26 U/L (11-82) 10/31/17 17:52 Urine Source MIDSTREAM 10/31/17 10:10 Urine Color YELLOW 10/31/17 10:10 Urine Clarity HAZY (CLEAR) 10/31/17 10:10 Urine pH 5.5 (4.6 - 8.0) 10/31/17 10:10 Ur Specific [place] 1.025 (1.005-1.030) 10/31/17 10:10 Urine Protein TRACE mg/dL (NEGATIVE) 10/31/17 10:10 Urine Glucose (UA) NEGATIVE mg/dL (NEGATIVE) 10/31/17 10:10 Urine Ketones NEGATIVE mg/dL (NEGATIVE) 10/31/17 10:10 Urine Blood TRACE (NEGATIVE) 10/31/17 10:10 Urine Nitrate NEGATIVE (NEGATIVE) 10/31/17 10:10 Urine Bilirubin NEGATIVE (NEGATIVE) 10/31/17 10:10 Urine Urobilinogen 0.2 E.U./dL (0.2 - 1.0) 10/31/17 10:10 Ur Leukocyte Esterase NEGATIVE (NEGATIVE) 10/31/17 10:10 Urine RBC 5-10 /hpf (0-5) H 10/31/17 10:10 Urine WBC 2-5 /hpf (0-5) 10/31/17 10:10 Ur Epithelial Cells MODERATE /lpf (FEW) 10/31/17 10:10 Urine Bacteria 1+ /hpf (NONE SEEN) H 10/31/17 10:10 Coarse Granular Casts 0-2 /lpf (NONE SEEN) H 10/31/17 10:10 Urine Mucus FEW /lpf (FEW) 10/31/17 10:10 Blood Type O POSITIVE 11/02/17 12:36 Antibody Screen NEGATIVE 11/02/17 12:36 Crossmatch See Detail 11/02/17 12:36 - Physical Exam Vitals and I&O: Vital Signs Temp 97.8 F 11/08/17 08:00 Pulse 80 11/08/17 13:34 Resp 18 11/08/17 08:00 BP 113/71 11/08/17 13:34 Pulse Ox 94 11/08/17 08:00 Intake & Output 11/07/17 11/08/17 11/08/17 18:59 06:59 18:59 Intake Total 1884.333 350 Output Total 1110 1400 Balance 774.333 -1050 Weight (lbs) 62.624 kg 60.781 kg 60.781 kg Intake: Intake, IV Amount 1134.333 150 D5-0.9%Ns 1,000 ml @ 70 884.333 mls/hr IV [id number] [facility] Rx #:[id number] Piperacillin Sodium/ 50 Tazobact 3.375 gm In Dextrose 5% 50 ml @ 100 mls/hr IV Q8H [facility] Rx#: [id number] cefTRIAXone 1 gm In 50 Dextrose 5% 50 ml @ 100 mls/hr IV Q24H [facility] Rx#: [id number] metroNIDAZOLE 500mg/NS 200 100 100mL 500 mg In Premix Fluid 1 bag @ 100 mls/hr IV Q8H [facility] Rx#:[id number] Oral 750 200 Output: Drainage 110 50 Abdomen 110 50 Urine 1000 1350 Other: # Bowel Movements 1 2 Stool Characteristics Soft Liquid Weight Source Bedscale Bedscale Bedscale Active Medications: Current Medications Diphenoxylate HCl/Atropine (Lomotil) 1 tab PO BID PRN PRN Reason: Diarrhea Stop: 01/04/18 09:42 Last Admin: 11/05/17 21:34 Dose: 1 tab Diphenoxylate HCl/Atropine (Lomotil) 1 tab PO TID PRN PRN Reason: Diarrhea Stop: 01/05/18 16:47 Enalaprilat (Vasotec) 2.5 mg IVP Q6H PRN PRN Reason: BP MAINTENANCE (PER PROTOCOL) Stop: 12/30/17 21:17 Enoxaparin Sodium (Lovenox) 40 mg SUBQ DAILY [facility] Stop: 01/07/18 08:59 Last Admin: 11/08/17 08:50 Dose: 40 mg Haloperidol Lactate (Haldol) 5 mg IM Q6HR PRN PRN Reason: Agitation Stop: 12/31/17 22:10 Last Admin: 11/02/17 00:37 Dose: 5 mg Ceftriaxone Sodium 1 gm/ (Dextrose) 50 mls @ 100 mls/hr IV Q24H [facility] Stop: 01/06/18 16:44 Last Infusion: 11/07/17 20:43 Dose: Infused Metronidazole (Flagyl) 500 mg in 100 mls @ 100 mls/hr IV Q8HR [facility] Stop: 01/06/18 20:59 Last Admin: 11/08/17 13:34 Dose: 100 mls/hr Levothyroxine Sodium (Synthroid) 0.05 mg IVP DAILY [facility] Stop: 01/02/18 08:59 Last Admin: 11/08/17 08:50 Dose: 0.05 mg Magnesium Oxide (Mag-Oxide) 400 mg PO BID [facility] Stop: 11/09/17 16:59 Last Admin: 11/08/17 08:50 Dose: 400 mg Miscellaneous (Vte Chemical Prophylaxis Screen/ Admission) 1 ea [facility] PRN PRN PRN Reason: PROTOCOL Stop: 12/31/17 16:23 Morphine Sulfate (Morphine) 2 mg IVP Q4HR PRN PRN Reason: Pain (Severe) Stop: 12/30/17 19:25 Morphine Sulfate (Morphine) 2 mg IVP Q4HR PRN PRN Reason: Abdominal Pain Stop: 01/01/18 14:39 Last Admin: 11/04/17 15:17 Dose: 2 mg Nitroglycerin (Nitro-Bid) 1 inch TP Q6HR [facility] Stop: 01/01/18 17:59 Last Admin: 11/08/17 13:34 Dose: 1 inch Ondansetron HCl (Zofran) 4 mg IV Q6HR PRN PRN Reason: Nausea / Vomiting Stop: 12/30/17 19:27 Pantoprazole Sodium (Protonix) 40 mg IVP DAILY [facility] Stop: 01/02/18 08:59 Last Admin: 11/08/17 08:49 Dose: 40 mg Zolpidem Tartrate (Ambien) 5 mg PO HS PRN PRN Reason: Insomnia Stop: 01/06/18 07:57 General: no acute distress, well developed, well nourished HEENT: atraumatic, normocephalic, PERRLA, EOMI Neck: supple, no thyromegaly, no lymphadenopathy Cardiovascular: S1S2, regular Lungs: clear to auscultation bilaterally, clear to percussion Abdomen: soft, no tender, no distended, no rebound Extremities: no cyanosis, no clubbing, no edema Neurological: awake, alert Skin: intact - Procedures Procedures: Procedures Procedure Code Date MOBILIZATION OF COLON 68944 10/31/17 PARTIAL REMOVAL OF COLON 09282 10/31/17 RESECTION OF SIGMOID COLON, OPEN APPROACH [id number] 10/31/17 Infectious Disease Assmt/Plan - Problem List Patient Problems: All Active Problems ABDOMINAL PAIN WITH N/V/D (Acute) - Assessment Assessment: 1. Leukocytosis. Improved. Reactive. peritonitis. 2. Ileus and the bowel obstruction. Improving. 3. peritonitis. 4. Hypothyroidism. 5. History of CVA with the right-sided infarct. 6. GERD. 7. S/p bowel resection on 11/02/2017. 8. Hypertension. 9. Hypokalemia. 10. Hypomagnesemia, improved. - Plan Plan: Change zosyn to rocephin and flagyl for 4 days from now. Supplement potassium. Nutritional Asmnt/Malnutr-PDOC - Dietary Evaluation Malnutrition Findings (Please click <Entered> for more info): Nutritional Asmnt/Malnutrition Start: 11/05/17 16: 29 Text: Status: Complete Freq: Document 11/05/17 16:29 [id number] (Rec: 11/05/17 16:41 [email or web address]) Nutritional Asmnt/Malnutrition Patient General Information Nutritional Screening Moderate Risk Diagnosis acute bowel obstruction Pertinent Medical Hx/Surgical Hx HTN, hypothyroidism, GERD, hyperlipidemia, mental health disorder Subjective Information Pt seen lying in bed at time of visit, awake and alert. Pt had subtotaol colectomy on noted, s/p surgery day 3. Pt stated she tolerated clear liquid and feel hungry at this time and she had BM x 3 today . No food preference given. K level continue low noted. Per EMR, PO intake 75-100% on clear liquid. Current Diet Order/ Nutrition Support clear liquid Pertinent Medications synthroid, protonix, piperacillin, kcl Pertinent Labs 11/05 Na 141, K 2.8, Cl 113, BUN 5, Cr 0.5, glucose 111, Ca 7.8 Nutritional Hx/Data Height 1.55 m Height (Calculated Centimeters) 154.9 Current Weight (lbs) 54.431 kg Weight (Calculated Kilograms) 54.4 Weight (Calculated Grams) 23882.1 [place] Body Weight 105 Body Mass Index (BMI) 22.6 Weight Status Approriate GI Symptoms GI Symptoms None Last BM 11/05 Difficult in: None Skin Integrity/Comment: abdominal incision bruise to left arm pressure area to sacrum Estimated Nutritional Goals BEE in Kcals: Using Current wt Calories/Kcals/Kg 25-30 Kcals Calculated 5869-5805 Protein: Using Current wt Protein g/k-1.2 Protein Calculated 55-66 Fluid: ml 1375-1650ml (1ml/kcal) Nutritional Problem 1. Problem Problem altered GI function Etiology acute small bowel obstruction Signs/Symptoms: s/p colectomy and pt now on clear liquid Intervention/Recommendation Comments 1. Continue with clear liquid diet as ordered. Recommend Boost Breeze TID to supplement nutrition intake for clear liquid diet. 2. Monitor PO intake, GI function, wt, labs and skin integrity 3. F/U as moderate risk in 3-5 days, 11/08-11/10 Expected Outcomes/Goals Expected Outcomes/Goals 1. PO intake to meet at least 75% of nutritional needs. 2. Wt stability, skin to remain intact, labs to approach WNL.
[2017-11-08] MEDS ORDERED: Potassium Chloride 20 mEq ER Tab PO ONE (16:55)
--- NOTE | 2017-11-08 21:29 | General Progress Note ---
Subjective - Review of Systems Service Date: 11/08/17 Subjective: Patient seen and examined patient more awake alert started on diet as tolerated Objective - Results Result Diagrams: 11/08/17 05:30 11/08/17 05:30 Recent Labs: Laboratory Last Values WBC 6.7 Th/cmm (4.8-10.8) 11/08/17 05:30 RBC 2.83 Mil/cmm (3.80-5.20) L 11/08/17 05:30 Hgb 8.7 gm/dL (12-16) L 11/08/17 05:30 Hct 26.4 % (41.0-60) L 11/08/17 05:30 MCV 93.2 fl (81-100) 11/08/17 05:30 MCH 30.7 pg (27.0-31.0) 11/08/17 05:30 MCHC Differential 32.9 pg (28.0-36.0) 11/08/17 05:30 RDW 13.7 % (11.5-20.0) 11/08/17 05:30 Plt Count 238 Th/cmm (150-400) 11/08/17 05:30 MPV 9.0 fl 11/08/17 05:30 Neutrophils % 78.2 % (40.0-80.0) 11/08/17 05:30 Lymphocytes % 10.8 % (20.0-50.0) L 11/08/17 05:30 Monocytes % 7.6 % (2.0-10.0) 11/08/17 05:30 Eosinophils % 3.3 % (0.0-5.0) 11/08/17 05:30 Basophils % 0.1 % (0.0-2.0) 11/08/17 05:30 PT 11.0 SECONDS (9.5-11.5) 11/02/17 11:03 INR 1.06 (0.5-1.4) 11/02/17 11:03 Sodium 138 mEq/L (136-145) 11/08/17 05:30 Potassium 3.0 mEq/L (3.5-5.1) L 11/08/17 05:30 Chloride 107 mEq/L (98-107) 11/08/17 05:30 Carbon Dioxide 24.7 mEq/L (21.0-31.0) 11/08/17 05:30 Anion Gap 9.3 (7.0-16.0) 11/08/17 05:30 BUN 4 mg/dL (7-25) L 11/08/17 05:30 Creatinine 0.4 mg/dL (0.6-1.2) L 11/08/17 05:30 Est GFR ( Amer) TNP 11/08/17 05:30 Est GFR (Non-Af Amer) TNP 11/08/17 05:30 BUN/Creatinine Ratio 10.0 11/08/17 05:30 Glucose 93 mg/dL (70-105) 11/08/17 05:30 Calcium 7.6 mg/dL (8.6-10.3) L 11/08/17 05:30 Magnesium 2.4 mg/dL (1.9-2.7) 11/08/17 05:30 Total Bilirubin 0.4 mg/dL (0.3-1.0) 11/05/17 04:55 Direct Bilirubin 0.21 mg/dL (0.0-0.2) H 10/31/17 17:52 AST 11 U/L (13-39) L 11/05/17 04:55 ALT 6 U/L (7-52) L 11/05/17 04:55 Alkaline Phosphatase 45 U/L (34-104) 11/05/17 04:55 Total Protein 4.8 gm/dL (6.0-8.3) L 11/05/17 04:55 Albumin 2.3 gm/dL (3.7-5.3) L 11/05/17 04:55 Globulin 2.5 gm/dL 11/05/17 04:55 Albumin/Globulin Ratio 0.9 (1.0-1.8) L 11/05/17 04:55 Lipase 26 U/L (11-82) 10/31/17 17:52 Urine Source MIDSTREAM 10/31/17 10:10 Urine Color YELLOW 10/31/17 10:10 Urine Clarity HAZY (CLEAR) 10/31/17 10:10 Urine pH 5.5 (4.6 - 8.0) 10/31/17 10:10 Ur Specific [place] 1.025 (1.005-1.030) 10/31/17 10:10 Urine Protein TRACE mg/dL (NEGATIVE) 10/31/17 10:10 Urine Glucose (UA) NEGATIVE mg/dL (NEGATIVE) 10/31/17 10:10 Urine Ketones NEGATIVE mg/dL (NEGATIVE) 10/31/17 10:10 Urine Blood TRACE (NEGATIVE) 10/31/17 10:10 Urine Nitrate NEGATIVE (NEGATIVE) 10/31/17 10:10 Urine Bilirubin NEGATIVE (NEGATIVE) 10/31/17 10:10 Urine Urobilinogen 0.2 E.U./dL (0.2 - 1.0) 10/31/17 10:10 Ur Leukocyte Esterase NEGATIVE (NEGATIVE) 10/31/17 10:10 Urine RBC 5-10 /hpf (0-5) H 10/31/17 10:10 Urine WBC 2-5 /hpf (0-5) 10/31/17 10:10 Ur Epithelial Cells MODERATE /lpf (FEW) 10/31/17 10:10 Urine Bacteria 1+ /hpf (NONE SEEN) H 10/31/17 10:10 Coarse Granular Casts 0-2 /lpf (NONE SEEN) H 10/31/17 10:10 Urine Mucus FEW /lpf (FEW) 10/31/17 10:10 Blood Type O POSITIVE 11/02/17 12:36 Antibody Screen NEGATIVE 11/02/17 12:36 Crossmatch See Detail 11/02/17 12:36 - Physical Exam Vitals and I&O: Vital Signs Temp 97.8 F 11/08/17 08:00 Pulse 80 11/08/17 17:36 Resp 18 11/08/17 19:16 BP 113/71 11/08/17 17:36 Pulse Ox 94 11/08/17 08:00 Intake & Output 11/08/17 11/08/17 11/09/17 06:59 18:59 06:59 Intake Total 350 Output Total 1400 Balance -1050 Weight (lbs) 60.781 kg 60.781 kg Intake: Intake, IV Amount 150 cefTRIAXone 1 gm In 50 Dextrose 5% 50 ml @ 100 mls/hr IV Q24H [facility] Rx#: [id number] metroNIDAZOLE 500mg/NS 100 100mL 500 mg In Premix Fluid 1 bag @ 100 mls/hr IV Q8H [facility] Rx#:[id number] Oral 200 Output: Drainage 50 Abdomen 50 Urine 1350 Other: # Bowel Movements 2 Weight Source Bedscale Bedscale Active Medications: Current Medications Diphenoxylate HCl/Atropine (Lomotil) 1 tab PO TID PRN PRN Reason: Diarrhea Stop: 01/05/18 16:47 Enalaprilat (Vasotec) 2.5 mg IVP Q6H PRN PRN Reason: BP MAINTENANCE (PER PROTOCOL) Stop: 12/30/17 21:17 Enoxaparin Sodium (Lovenox) 40 mg SUBQ DAILY [facility] Stop: 01/07/18 08:59 Last Admin: 11/08/17 08:50 Dose: 40 mg Haloperidol Lactate (Haldol) 5 mg IM Q6HR PRN PRN Reason: Agitation Stop: 12/31/17 22:10 Last Admin: 11/02/17 00:37 Dose: 5 mg Ceftriaxone Sodium 1 gm/ (Dextrose) 50 mls @ 100 mls/hr IV Q24H [facility] Stop: 01/06/18 16:44 Last Admin: 11/08/17 17:38 Dose: 100 mls/hr Metronidazole (Flagyl) 500 mg in 100 mls @ 100 mls/hr IV Q8HR [facility] Stop: 01/06/18 20:59 Last Admin: 11/08/17 21:15 Dose: 100 mls/hr Levothyroxine Sodium (Synthroid) 0.05 mg IVP DAILY [facility] Stop: 01/02/18 08:59 Last Admin: 11/08/17 08:50 Dose: 0.05 mg Magnesium Oxide (Mag-Oxide) 400 mg PO BID [facility] Stop: 11/09/17 16:59 Last Admin: 11/08/17 17:38 Dose: 400 mg Miscellaneous (Vte Chemical Prophylaxis Screen/ Admission) 1 ea [facility] PRN PRN PRN Reason: PROTOCOL Stop: 12/31/17 16:23 Morphine Sulfate (Morphine) 2 mg IVP Q4HR PRN PRN Reason: Abdominal Pain Stop: 01/01/18 14:39 Last Admin: 11/04/17 15:17 Dose: 2 mg Nitroglycerin (Nitro-Bid) 1 inch TP Q6HR [facility] Stop: 01/01/18 17:59 Last Admin: 11/08/17 17:36 Dose: 1 inch Ondansetron HCl (Zofran) 4 mg IV Q6HR PRN PRN Reason: Nausea / Vomiting Stop: 12/30/17 19:27 Pantoprazole Sodium (Protonix) 40 mg IVP DAILY [facility] Stop: 01/02/18 08:59 Last Admin: 11/08/17 08:49 Dose: 40 mg Zolpidem Tartrate (Ambien) 5 mg PO HS PRN PRN Reason: Insomnia Stop: 01/06/18 07:57 Cardiovascular: Regular rate Lungs: Clear to auscultation Abdomen: Soft, no Tender, no Distended Skin: Rash - Procedures Procedures: Procedures Procedure Code Date MOBILIZATION OF COLON 37783 10/31/17 PARTIAL REMOVAL OF COLON 18125 10/31/17 RESECTION OF SIGMOID COLON, OPEN APPROACH [id number] 10/31/17 Assessment/Plan - Problem List Patient Problems: All Active Problems ABDOMINAL PAIN WITH N/V/D (Acute) - Assessment Assessment: Bowel obstruction s/p exp lap HTN Hypokalemia Mental health disorder Dementia - Plan Plan: Rocephine and flagyl Diet as tolerated K replacement DVT prophylaxis Monitor drain Plan of care discussed with nursing staff ALEJA CARUSO planing Nutritional Asmnt/Malnutr-PDOC - Dietary Evaluation Malnutrition Findings (Please click <Entered> for more info): Nutritional Asmnt/Malnutrition Start: 11/05/17 16: 29 Text: Status: Complete Freq: Document 11/05/17 16:29 LCHENG (Rec: 11/05/17 16:41 LCHENG [email or web address]) Nutritional Asmnt/Malnutrition Patient General Information Nutritional Screening Moderate Risk Diagnosis acute bowel obstruction Pertinent Medical Hx/Surgical Hx HTN, hypothyroidism, GERD, hyperlipidemia, mental health disorder Subjective Information Pt seen lying in bed at time of visit, awake and alert. Pt had subtotaol colectomy on noted, s/p surgery day 3. Pt stated she tolerated clear liquid and feel hungry at this time and she had BM x 3 today . No food preference given. K level continue low noted. Per EMR, PO intake 75-100% on clear liquid. Current Diet Order/ Nutrition Support clear liquid Pertinent Medications synthroid, protonix, piperacillin, kcl Pertinent Labs 11/05 Na 141, K 2.8, Cl 113, BUN 5, Cr 0.5, glucose 111, Ca 7.8 Nutritional Hx/Data Height 1.55 m Height (Calculated Centimeters) 154.9 Current Weight (lbs) 54.431 kg Weight (Calculated Kilograms) 54.4 Weight (Calculated Grams) 53151.1 [place] Body Weight 105 Body Mass Index (BMI) 22.6 Weight Status Approriate GI Symptoms GI Symptoms None Last BM 11/05 Difficult in: None Skin Integrity/Comment: abdominal incision bruise to left arm pressure area to sacrum Estimated Nutritional Goals BEE in Kcals: Using Current wt Calories/Kcals/Kg 25-30 Kcals Calculated 0930-2761 Protein: Using Current wt Protein g/k-1.2 Protein Calculated 55-66 Fluid: ml 1375-1650ml (1ml/kcal) Nutritional Problem 1. Problem Problem altered GI function Etiology acute small bowel obstruction Signs/Symptoms: s/p colectomy and pt now on clear liquid Intervention/Recommendation Comments 1. Continue with clear liquid diet as ordered. Recommend Boost Breeze TID to supplement nutrition intake for clear liquid diet. 2. Monitor PO intake, GI function, wt, labs and skin integrity 3. F/U as moderate risk in 3-5 days, 11/08-11/10 Expected Outcomes/Goals Expected Outcomes/Goals 1. PO intake to meet at least 75% of nutritional needs. 2. Wt stability, skin to remain intact, labs to approach WNL.
[2017-11-09] MEDS: NITROGLYCERIN OINT 2% 1 INCH PACKET TP SCH ×4 (01:20→17:48)
[2017-11-09] MEDS: metroNIDAZOLE 500mg/NS 100mL 500 MG/100 ML BAG IV SCH ×3 (05:55→22:22)
[2017-11-09] MEDS: Enoxaparin 40 mg/0.4 mL 0.4mL Syr SUBQ SCH (09:18)
--- NOTE | 2017-11-09 09:58 | General Progress Note ---
Subjective - Review of Systems Service Date: 11/09/17 Events since last encounter: eats 25% of foot loose stools, on Lomotil Objective - Results Result Diagrams: 11/08/17 05:30 11/08/17 05:30 Recent Labs: Laboratory Last Values WBC 6.7 Th/cmm (4.8-10.8) 11/08/17 05:30 RBC 2.83 Mil/cmm (3.80-5.20) L 11/08/17 05:30 Hgb 8.7 gm/dL (12-16) L 11/08/17 05:30 Hct 26.4 % (41.0-60) L 11/08/17 05:30 MCV 93.2 fl (81-100) 11/08/17 05:30 MCH 30.7 pg (27.0-31.0) 11/08/17 05:30 MCHC Differential 32.9 pg (28.0-36.0) 11/08/17 05:30 RDW 13.7 % (11.5-20.0) 11/08/17 05:30 Plt Count 238 Th/cmm (150-400) 11/08/17 05:30 MPV 9.0 fl 11/08/17 05:30 Neutrophils % 78.2 % (40.0-80.0) 11/08/17 05:30 Lymphocytes % 10.8 % (20.0-50.0) L 11/08/17 05:30 Monocytes % 7.6 % (2.0-10.0) 11/08/17 05:30 Eosinophils % 3.3 % (0.0-5.0) 11/08/17 05:30 Basophils % 0.1 % (0.0-2.0) 11/08/17 05:30 PT 11.0 SECONDS (9.5-11.5) 11/02/17 11:03 INR 1.06 (0.5-1.4) 11/02/17 11:03 Sodium 138 mEq/L (136-145) 11/08/17 05:30 Potassium 3.0 mEq/L (3.5-5.1) L 11/08/17 05:30 Chloride 107 mEq/L (98-107) 11/08/17 05:30 Carbon Dioxide 24.7 mEq/L (21.0-31.0) 11/08/17 05:30 Anion Gap 9.3 (7.0-16.0) 11/08/17 05:30 BUN 4 mg/dL (7-25) L 11/08/17 05:30 Creatinine 0.4 mg/dL (0.6-1.2) L 11/08/17 05:30 Est GFR ( Amer) TNP 11/08/17 05:30 Est GFR (Non-Af Amer) TNP 11/08/17 05:30 BUN/Creatinine Ratio 10.0 11/08/17 05:30 Glucose 93 mg/dL (70-105) 11/08/17 05:30 Calcium 7.6 mg/dL (8.6-10.3) L 11/08/17 05:30 Magnesium 2.4 mg/dL (1.9-2.7) 11/08/17 05:30 Total Bilirubin 0.4 mg/dL (0.3-1.0) 11/05/17 04:55 Direct Bilirubin 0.21 mg/dL (0.0-0.2) H 10/31/17 17:52 AST 11 U/L (13-39) L 11/05/17 04:55 ALT 6 U/L (7-52) L 11/05/17 04:55 Alkaline Phosphatase 45 U/L (34-104) 11/05/17 04:55 Total Protein 4.8 gm/dL (6.0-8.3) L 11/05/17 04:55 Albumin 2.3 gm/dL (3.7-5.3) L 11/05/17 04:55 Globulin 2.5 gm/dL 11/05/17 04:55 Albumin/Globulin Ratio 0.9 (1.0-1.8) L 11/05/17 04:55 Lipase 26 U/L (11-82) 10/31/17 17:52 Urine Source MIDSTREAM 10/31/17 10:10 Urine Color YELLOW 10/31/17 10:10 Urine Clarity HAZY (CLEAR) 10/31/17 10:10 Urine pH 5.5 (4.6 - 8.0) 10/31/17 10:10 Ur Specific [place] 1.025 (1.005-1.030) 10/31/17 10:10 Urine Protein TRACE mg/dL (NEGATIVE) 10/31/17 10:10 Urine Glucose (UA) NEGATIVE mg/dL (NEGATIVE) 10/31/17 10:10 Urine Ketones NEGATIVE mg/dL (NEGATIVE) 10/31/17 10:10 Urine Blood TRACE (NEGATIVE) 10/31/17 10:10 Urine Nitrate NEGATIVE (NEGATIVE) 10/31/17 10:10 Urine Bilirubin NEGATIVE (NEGATIVE) 10/31/17 10:10 Urine Urobilinogen 0.2 E.U./dL (0.2 - 1.0) 10/31/17 10:10 Ur Leukocyte Esterase NEGATIVE (NEGATIVE) 10/31/17 10:10 Urine RBC 5-10 /hpf (0-5) H 10/31/17 10:10 Urine WBC 2-5 /hpf (0-5) 10/31/17 10:10 Ur Epithelial Cells MODERATE /lpf (FEW) 10/31/17 10:10 Urine Bacteria 1+ /hpf (NONE SEEN) H 10/31/17 10:10 Coarse Granular Casts 0-2 /lpf (NONE SEEN) H 10/31/17 10:10 Urine Mucus FEW /lpf (FEW) 10/31/17 10:10 Blood Type O POSITIVE 11/02/17 12:36 Antibody Screen NEGATIVE 11/02/17 12:36 Crossmatch See Detail 11/02/17 12:36 - Physical Exam Vitals and I&O: Vital Signs Temp 97.7 F 11/09/17 07:43 Pulse 77 11/09/17 07:43 Resp 18 11/09/17 07:43 BP 121/76 11/09/17 07:43 Pulse Ox 96 11/09/17 07:43 Intake & Output 11/08/17 11/09/17 11/09/17 18:59 06:59 18:59 Intake Total 350 Output Total 775 Balance -425 Weight (lbs) 60.781 kg 60.838 kg Intake: Intake, IV Amount 100 metroNIDAZOLE 500mg/NS 100 100mL 500 mg In 100 ml @ 100 mls/hr IV Q8HR [facility] Rx #:[id number] Oral 250 Output: Drainage 25 Abdomen 25 Urine 750 Other: # Bowel Movements 0 Weight Source Bedscale Bedscale Active Medications: Current Medications Diphenoxylate HCl/Atropine (Lomotil) 1 tab PO TID PRN PRN Reason: Diarrhea Stop: 01/05/18 16:47 Enalaprilat (Vasotec) 2.5 mg IVP Q6H PRN PRN Reason: BP MAINTENANCE (PER PROTOCOL) Stop: 12/30/17 21:17 Enoxaparin Sodium (Lovenox) 40 mg SUBQ DAILY [facility] Stop: 01/07/18 08:59 Last Admin: 11/09/17 09:18 Dose: 40 mg Haloperidol Lactate (Haldol) 5 mg IM Q6HR PRN PRN Reason: Agitation Stop: 12/31/17 22:10 Last Admin: 11/02/17 00:37 Dose: 5 mg Ceftriaxone Sodium 1 gm/ (Dextrose) 50 mls @ 100 mls/hr IV Q24H [facility] Stop: 01/06/18 16:44 Last Admin: 11/08/17 17:38 Dose: 100 mls/hr Metronidazole (Flagyl) 500 mg in 100 mls @ 100 mls/hr IV Q8HR [facility] Stop: 01/06/18 20:59 Last Admin: 11/09/17 05:55 Dose: 100 mls/hr Levothyroxine Sodium (Synthroid) 0.05 mg IVP DAILY [facility] Stop: 01/02/18 08:59 Last Admin: 11/09/17 09:17 Dose: 0.05 mg Magnesium Oxide (Mag-Oxide) 400 mg PO BID [facility] Stop: 11/09/17 16:59 Last Admin: 11/09/17 09:17 Dose: 400 mg Miscellaneous (Vte Chemical Prophylaxis Screen/ Admission) 1 ea MC PRN PRN PRN Reason: PROTOCOL Stop: 12/31/17 16:23 Morphine Sulfate (Morphine) 2 mg IVP Q4HR PRN PRN Reason: Abdominal Pain Stop: 01/01/18 14:39 Last Admin: 11/04/17 15:17 Dose: 2 mg Nitroglycerin (Nitro-Bid) 1 inch TP Q6HR [facility] Stop: 01/01/18 17:59 Last Admin: 11/09/17 07:31 Dose: 1 inch Ondansetron HCl (Zofran) 4 mg IV Q6HR PRN PRN Reason: Nausea / Vomiting Stop: 12/30/17 19:27 Pantoprazole Sodium (Protonix) 40 mg IVP DAILY [facility] Stop: 01/02/18 08:59 Last Admin: 11/09/17 09:18 Dose: 40 mg Zolpidem Tartrate (Ambien) 5 mg PO HS PRN PRN Reason: Insomnia Stop: 01/06/18 07:57 General: Alert HEENT: Atraumatic Neck: Supple Cardiovascular: Regular rate Lungs: Clear to auscultation Abdomen: Soft, no Tender, no Distended Skin: Rash - Procedures Procedures: Procedures Procedure Code Date MOBILIZATION OF COLON 89890 10/31/17 PARTIAL REMOVAL OF COLON 16958 10/31/17 RESECTION OF SIGMOID COLON, OPEN APPROACH [id number] 10/31/17 Assessment/Plan - Problem List Patient Problems: All Active Problems ABDOMINAL PAIN WITH N/V/D (Acute) Nutritional Asmnt/Malnutr-PDOC - Dietary Evaluation Malnutrition Findings (Please click <Entered> for more info): Nutritional Asmnt/Malnutrition Start: 11/05/17 16: 29 Text: Status: Complete Freq: Document 11/05/17 16:29 SAVANNAH (Rec: 11/05/17 16:41 SAVANNAH [email or web address]) Nutritional Asmnt/Malnutrition Patient General Information Nutritional Screening Moderate Risk Diagnosis acute bowel obstruction Pertinent Medical Hx/Surgical Hx HTN, hypothyroidism, GERD, hyperlipidemia, mental health disorder Subjective Information Pt seen lying in bed at time of visit, awake and alert. Pt had subtotaol colectomy on noted, s/p surgery day 3. Pt stated she tolerated clear liquid and feel hungry at this time and she had BM x 3 today . No food preference given. K level continue low noted. Per EMR, PO intake 75-100% on clear liquid. Current Diet Order/ Nutrition Support clear liquid Pertinent Medications synthroid, protonix, piperacillin, kcl Pertinent Labs 11/05 Na 141, K 2.8, Cl 113, BUN 5, Cr 0.5, glucose 111, Ca 7.8 Nutritional Hx/Data Height 1.55 m Height (Calculated Centimeters) 154.9 Current Weight (lbs) 54.431 kg Weight (Calculated Kilograms) 54.4 Weight (Calculated Grams) 37663.1 [place] Body Weight 105 Body Mass Index (BMI) 22.6 Weight Status Approriate GI Symptoms GI Symptoms None Last BM 11/05 Difficult in: None Skin Integrity/Comment: abdominal incision bruise to left arm pressure area to sacrum Estimated Nutritional Goals BEE in Kcals: Using Current wt Calories/Kcals/Kg 25-30 Kcals Calculated 0470-7176 Protein: Using Current wt Protein g/k-1.2 Protein Calculated 55-66 Fluid: ml 1375-1650ml (1ml/kcal) Nutritional Problem 1. Problem Problem altered GI function Etiology acute small bowel obstruction Signs/Symptoms: s/p colectomy and pt now on clear liquid Intervention/Recommendation Comments 1. Continue with clear liquid diet as ordered. Recommend Boost Breeze TID to supplement nutrition intake for clear liquid diet. 2. Monitor PO intake, GI function, wt, labs and skin integrity 3. F/U as moderate risk in 3-5 days, 11/08-11/10 Expected Outcomes/Goals Expected Outcomes/Goals 1. PO intake to meet at least 75% of nutritional needs. 2. Wt stability, skin to remain intact, labs to approach WNL.
--- NOTE | 2017-11-09 16:52 | General Progress Note ---
Subjective - Review of Systems Service Date: 11/09/17 Subjective: Patient seen and examined patient more awake alert not much oral intake Objective - Results Result Diagrams: 11/08/17 05:30 11/08/17 05:30 Recent Labs: Laboratory Last Values WBC 6.7 Th/cmm (4.8-10.8) 11/08/17 05:30 RBC 2.83 Mil/cmm (3.80-5.20) L 11/08/17 05:30 Hgb 8.7 gm/dL (12-16) L 11/08/17 05:30 Hct 26.4 % (41.0-60) L 11/08/17 05:30 MCV 93.2 fl (81-100) 11/08/17 05:30 MCH 30.7 pg (27.0-31.0) 11/08/17 05:30 MCHC Differential 32.9 pg (28.0-36.0) 11/08/17 05:30 RDW 13.7 % (11.5-20.0) 11/08/17 05:30 Plt Count 238 Th/cmm (150-400) 11/08/17 05:30 MPV 9.0 fl 11/08/17 05:30 Neutrophils % 78.2 % (40.0-80.0) 11/08/17 05:30 Lymphocytes % 10.8 % (20.0-50.0) L 11/08/17 05:30 Monocytes % 7.6 % (2.0-10.0) 11/08/17 05:30 Eosinophils % 3.3 % (0.0-5.0) 11/08/17 05:30 Basophils % 0.1 % (0.0-2.0) 11/08/17 05:30 PT 11.0 SECONDS (9.5-11.5) 11/02/17 11:03 INR 1.06 (0.5-1.4) 11/02/17 11:03 Sodium 138 mEq/L (136-145) 11/08/17 05:30 Potassium 3.0 mEq/L (3.5-5.1) L 11/08/17 05:30 Chloride 107 mEq/L (98-107) 11/08/17 05:30 Carbon Dioxide 24.7 mEq/L (21.0-31.0) 11/08/17 05:30 Anion Gap 9.3 (7.0-16.0) 11/08/17 05:30 BUN 4 mg/dL (7-25) L 11/08/17 05:30 Creatinine 0.4 mg/dL (0.6-1.2) L 11/08/17 05:30 Est GFR ( Amer) TNP 11/08/17 05:30 Est GFR (Non-Af Amer) TNP 11/08/17 05:30 BUN/Creatinine Ratio 10.0 11/08/17 05:30 Glucose 93 mg/dL (70-105) 11/08/17 05:30 Calcium 7.6 mg/dL (8.6-10.3) L 11/08/17 05:30 Magnesium 2.4 mg/dL (1.9-2.7) 11/08/17 05:30 Total Bilirubin 0.4 mg/dL (0.3-1.0) 11/05/17 04:55 Direct Bilirubin 0.21 mg/dL (0.0-0.2) H 10/31/17 17:52 AST 11 U/L (13-39) L 11/05/17 04:55 ALT 6 U/L (7-52) L 11/05/17 04:55 Alkaline Phosphatase 45 U/L (34-104) 11/05/17 04:55 Total Protein 4.8 gm/dL (6.0-8.3) L 11/05/17 04:55 Albumin 2.3 gm/dL (3.7-5.3) L 11/05/17 04:55 Globulin 2.5 gm/dL 11/05/17 04:55 Albumin/Globulin Ratio 0.9 (1.0-1.8) L 11/05/17 04:55 Lipase 26 U/L (11-82) 10/31/17 17:52 Urine Source MIDSTREAM 10/31/17 10:10 Urine Color YELLOW 10/31/17 10:10 Urine Clarity HAZY (CLEAR) 10/31/17 10:10 Urine pH 5.5 (4.6 - 8.0) 10/31/17 10:10 Ur Specific [place] 1.025 (1.005-1.030) 10/31/17 10:10 Urine Protein TRACE mg/dL (NEGATIVE) 10/31/17 10:10 Urine Glucose (UA) NEGATIVE mg/dL (NEGATIVE) 10/31/17 10:10 Urine Ketones NEGATIVE mg/dL (NEGATIVE) 10/31/17 10:10 Urine Blood TRACE (NEGATIVE) 10/31/17 10:10 Urine Nitrate NEGATIVE (NEGATIVE) 10/31/17 10:10 Urine Bilirubin NEGATIVE (NEGATIVE) 10/31/17 10:10 Urine Urobilinogen 0.2 E.U./dL (0.2 - 1.0) 10/31/17 10:10 Ur Leukocyte Esterase NEGATIVE (NEGATIVE) 10/31/17 10:10 Urine RBC 5-10 /hpf (0-5) H 10/31/17 10:10 Urine WBC 2-5 /hpf (0-5) 10/31/17 10:10 Ur Epithelial Cells MODERATE /lpf (FEW) 10/31/17 10:10 Urine Bacteria 1+ /hpf (NONE SEEN) H 10/31/17 10:10 Coarse Granular Casts 0-2 /lpf (NONE SEEN) H 10/31/17 10:10 Urine Mucus FEW /lpf (FEW) 10/31/17 10:10 Blood Type O POSITIVE 11/02/17 12:36 Antibody Screen NEGATIVE 11/02/17 12:36 Crossmatch See Detail 11/02/17 12:36 - Physical Exam Vitals and I&O: Vital Signs Temp 97.7 F 11/09/17 12:04 Pulse 85 11/09/17 16:05 Resp 18 11/09/17 12:04 BP 109/73 11/09/17 16:05 Pulse Ox 95 11/09/17 12:04 Intake & Output 11/08/17 11/09/17 11/09/17 18:59 06:59 18:59 Intake Total 350 Output Total 775 Balance -425 Weight (lbs) 60.781 kg 60.838 kg 59.874 kg Intake: Intake, IV Amount 100 metroNIDAZOLE 500mg/NS 100 100mL 500 mg In 100 ml @ 100 mls/hr IV Q8HR [facility] Rx #:[id number] Oral 250 Output: Drainage 25 Abdomen 25 Urine 750 Other: # Bowel Movements 0 Weight Source Bedscale Bedscale Bedscale Active Medications: Current Medications Diphenoxylate HCl/Atropine (Lomotil) 1 tab PO TID PRN PRN Reason: Diarrhea Stop: 01/05/18 16:47 Enalaprilat (Vasotec) 2.5 mg IVP Q6H PRN PRN Reason: BP MAINTENANCE (PER PROTOCOL) Stop: 12/30/17 21:17 Enoxaparin Sodium (Lovenox) 40 mg SUBQ DAILY [facility] Stop: 01/07/18 08:59 Last Admin: 11/09/17 09:18 Dose: 40 mg Haloperidol Lactate (Haldol) 5 mg IM Q6HR PRN PRN Reason: Agitation Stop: 12/31/17 22:10 Last Admin: 11/02/17 00:37 Dose: 5 mg Ceftriaxone Sodium 1 gm/ (Dextrose) 50 mls @ 100 mls/hr IV Q24H [facility] Stop: 01/06/18 16:44 Last Admin: 11/08/17 17:38 Dose: 100 mls/hr Metronidazole (Flagyl) 500 mg in 100 mls @ 100 mls/hr IV Q8HR [facility] Stop: 01/06/18 20:59 Last Admin: 11/09/17 05:55 Dose: 100 mls/hr Levothyroxine Sodium (Synthroid) 0.05 mg IVP DAILY [facility] Stop: 01/02/18 08:59 Last Admin: 11/09/17 09:17 Dose: 0.05 mg Magnesium Oxide (Mag-Oxide) 400 mg PO BID [facility] Stop: 11/09/17 16:59 Last Admin: 11/09/17 09:17 Dose: 400 mg Miscellaneous (Vte Chemical Prophylaxis Screen/ Admission) 1 ea MC PRN PRN PRN Reason: PROTOCOL Stop: 12/31/17 16:23 Morphine Sulfate (Morphine) 2 mg IVP Q4HR PRN PRN Reason: Abdominal Pain Stop: 01/01/18 14:39 Last Admin: 11/04/17 15:17 Dose: 2 mg Nitroglycerin (Nitro-Bid) 1 inch TP Q6HR [facility] Stop: 01/01/18 17:59 Last Admin: 11/09/17 16:05 Dose: Not Given Ondansetron HCl (Zofran) 4 mg IV Q6HR PRN PRN Reason: Nausea / Vomiting Stop: 12/30/17 19:27 Pantoprazole Sodium (Protonix) 40 mg IVP DAILY [facility] Stop: 01/02/18 08:59 Last Admin: 11/09/17 09:18 Dose: 40 mg Zolpidem Tartrate (Ambien) 5 mg PO HS PRN PRN Reason: Insomnia Stop: 01/06/18 07:57 General: Alert, No acute distress Cardiovascular: Regular rate Lungs: Clear to auscultation Abdomen: Soft, no Tender, no Distended Skin: Rash - Procedures Procedures: Procedures Procedure Code Date MOBILIZATION OF COLON 31407 10/31/17 PARTIAL REMOVAL OF COLON 23917 10/31/17 RESECTION OF SIGMOID COLON, OPEN APPROACH [id number] 10/31/17 Assessment/Plan - Problem List Patient Problems: All Active Problems ABDOMINAL PAIN WITH N/V/D (Acute) - Assessment Assessment: Bowel obstruction s/p exp lap Poor oral intake Weakness HTN Hypokalemia Mental health disorder Dementia - Plan Plan: Rocephine and flagyl Encouraged to eat more Diet as tolerated DVT prophylaxis Plan of care discussed with nursing staff ALEJA CARUSO planing Nutritional Asmnt/Malnutr-PDOC - Dietary Evaluation Malnutrition Findings (Please click <Entered> for more info): Nutritional Asmnt/Malnutrition Start: 11/05/17 16: 29 Text: Status: Complete Freq: Document 11/05/17 16:29 LCHENG (Rec: 11/05/17 16:41 LCHENG [email or web address]) Nutritional Asmnt/Malnutrition Patient General Information Nutritional Screening Moderate Risk Diagnosis acute bowel obstruction Pertinent Medical Hx/Surgical Hx HTN, hypothyroidism, GERD, hyperlipidemia, mental health disorder Subjective Information Pt seen lying in bed at time of visit, awake and alert. Pt had subtotaol colectomy on noted, s/p surgery day 3. Pt stated she tolerated clear liquid and feel hungry at this time and she had BM x 3 today . No food preference given. K level continue low noted. Per EMR, PO intake 75-100% on clear liquid. Current Diet Order/ Nutrition Support clear liquid Pertinent Medications synthroid, protonix, piperacillin, kcl Pertinent Labs 11/05 Na 141, K 2.8, Cl 113, BUN 5, Cr 0.5, glucose 111, Ca 7.8 Nutritional Hx/Data Height 1.55 m Height (Calculated Centimeters) 154.9 Current Weight (lbs) 54.431 kg Weight (Calculated Kilograms) 54.4 Weight (Calculated Grams) 29627.1 [place] Body Weight 105 Body Mass Index (BMI) 22.6 Weight Status Approriate GI Symptoms GI Symptoms None Last BM 11/05 Difficult in: None Skin Integrity/Comment: abdominal incision bruise to left arm pressure area to sacrum Estimated Nutritional Goals BEE in Kcals: Using Current wt Calories/Kcals/Kg 25-30 Kcals Calculated 1981-3294 Protein: Using Current wt Protein g/k-1.2 Protein Calculated 55-66 Fluid: ml 1375-1650ml (1ml/kcal) Nutritional Problem 1. Problem Problem altered GI function Etiology acute small bowel obstruction Signs/Symptoms: s/p colectomy and pt now on clear liquid Intervention/Recommendation Comments 1. Continue with clear liquid diet as ordered. Recommend Boost Breeze TID to supplement nutrition intake for clear liquid diet. 2. Monitor PO intake, GI function, wt, labs and skin integrity 3. F/U as moderate risk in 3-5 days, 11/08-11/10 Expected Outcomes/Goals Expected Outcomes/Goals 1. PO intake to meet at least 75% of nutritional needs. 2. Wt stability, skin to remain intact, labs to approach WNL.
--- NOTE | 2017-11-09 22:56 | Infectious Disease Prog Note ---
Infectious Disease Subjective - Review of Systems Service Date: 11/09/17 Subjective: No new change, no fever. Infectious Disease Objective - Results Result Diagrams: 11/08/17 05:30 11/08/17 05:30 Recent Labs: Laboratory Last Values WBC 6.7 Th/cmm (4.8-10.8) 11/08/17 05:30 RBC 2.83 Mil/cmm (3.80-5.20) L 11/08/17 05:30 Hgb 8.7 gm/dL (12-16) L 11/08/17 05:30 Hct 26.4 % (41.0-60) L 11/08/17 05:30 MCV 93.2 fl (81-100) 11/08/17 05:30 MCH 30.7 pg (27.0-31.0) 11/08/17 05:30 MCHC Differential 32.9 pg (28.0-36.0) 11/08/17 05:30 RDW 13.7 % (11.5-20.0) 11/08/17 05:30 Plt Count 238 Th/cmm (150-400) 11/08/17 05:30 MPV 9.0 fl 11/08/17 05:30 Neutrophils % 78.2 % (40.0-80.0) 11/08/17 05:30 Lymphocytes % 10.8 % (20.0-50.0) L 11/08/17 05:30 Monocytes % 7.6 % (2.0-10.0) 11/08/17 05:30 Eosinophils % 3.3 % (0.0-5.0) 11/08/17 05:30 Basophils % 0.1 % (0.0-2.0) 11/08/17 05:30 PT 11.0 SECONDS (9.5-11.5) 11/02/17 11:03 INR 1.06 (0.5-1.4) 11/02/17 11:03 Sodium 138 mEq/L (136-145) 11/08/17 05:30 Potassium 3.0 mEq/L (3.5-5.1) L 11/08/17 05:30 Chloride 107 mEq/L (98-107) 11/08/17 05:30 Carbon Dioxide 24.7 mEq/L (21.0-31.0) 11/08/17 05:30 Anion Gap 9.3 (7.0-16.0) 11/08/17 05:30 BUN 4 mg/dL (7-25) L 11/08/17 05:30 Creatinine 0.4 mg/dL (0.6-1.2) L 11/08/17 05:30 Est GFR ( Amer) TNP 11/08/17 05:30 Est GFR (Non-Af Amer) TNP 11/08/17 05:30 BUN/Creatinine Ratio 10.0 11/08/17 05:30 Glucose 93 mg/dL (70-105) 11/08/17 05:30 Calcium 7.6 mg/dL (8.6-10.3) L 11/08/17 05:30 Magnesium 2.4 mg/dL (1.9-2.7) 11/08/17 05:30 Total Bilirubin 0.4 mg/dL (0.3-1.0) 11/05/17 04:55 Direct Bilirubin 0.21 mg/dL (0.0-0.2) H 10/31/17 17:52 AST 11 U/L (13-39) L 11/05/17 04:55 ALT 6 U/L (7-52) L 11/05/17 04:55 Alkaline Phosphatase 45 U/L (34-104) 11/05/17 04:55 Total Protein 4.8 gm/dL (6.0-8.3) L 11/05/17 04:55 Albumin 2.3 gm/dL (3.7-5.3) L 11/05/17 04:55 Globulin 2.5 gm/dL 11/05/17 04:55 Albumin/Globulin Ratio 0.9 (1.0-1.8) L 11/05/17 04:55 Lipase 26 U/L (11-82) 10/31/17 17:52 Urine Source MIDSTREAM 10/31/17 10:10 Urine Color YELLOW 10/31/17 10:10 Urine Clarity HAZY (CLEAR) 10/31/17 10:10 Urine pH 5.5 (4.6 - 8.0) 10/31/17 10:10 Ur Specific [place] 1.025 (1.005-1.030) 10/31/17 10:10 Urine Protein TRACE mg/dL (NEGATIVE) 10/31/17 10:10 Urine Glucose (UA) NEGATIVE mg/dL (NEGATIVE) 10/31/17 10:10 Urine Ketones NEGATIVE mg/dL (NEGATIVE) 10/31/17 10:10 Urine Blood TRACE (NEGATIVE) 10/31/17 10:10 Urine Nitrate NEGATIVE (NEGATIVE) 10/31/17 10:10 Urine Bilirubin NEGATIVE (NEGATIVE) 10/31/17 10:10 Urine Urobilinogen 0.2 E.U./dL (0.2 - 1.0) 10/31/17 10:10 Ur Leukocyte Esterase NEGATIVE (NEGATIVE) 10/31/17 10:10 Urine RBC 5-10 /hpf (0-5) H 10/31/17 10:10 Urine WBC 2-5 /hpf (0-5) 10/31/17 10:10 Ur Epithelial Cells MODERATE /lpf (FEW) 10/31/17 10:10 Urine Bacteria 1+ /hpf (NONE SEEN) H 10/31/17 10:10 Coarse Granular Casts 0-2 /lpf (NONE SEEN) H 10/31/17 10:10 Urine Mucus FEW /lpf (FEW) 10/31/17 10:10 Blood Type O POSITIVE 11/02/17 12:36 Antibody Screen NEGATIVE 11/02/17 12:36 Crossmatch See Detail 11/02/17 12:36 - Physical Exam Vitals and I&O: Vital Signs Temp 97.7 F 11/09/17 12:04 Pulse 97 11/09/17 20:08 Resp 20 11/09/17 20:08 BP 123/59 11/09/17 17:48 Pulse Ox 95 11/09/17 20:08 Intake & Output 11/09/17 11/09/17 11/10/17 06:59 18:59 06:59 Intake Total 450 100 Output Total 775 Balance -325 100 Weight (lbs) 60.838 kg 59.874 kg Intake: Intake, IV Amount 200 100 metroNIDAZOLE 500mg/NS 200 100 100mL 500 mg In 100 ml @ 100 mls/hr IV Q8HR [facility] Rx #:[id number] Oral 250 Output: Drainage 25 Abdomen 25 Urine 750 Other: # Bowel Movements 0 Weight Source Bedscale Bedscale Active Medications: Current Medications Diphenoxylate HCl/Atropine (Lomotil) 1 tab PO TID PRN PRN Reason: Diarrhea Stop: 01/05/18 16:47 Enalaprilat (Vasotec) 2.5 mg IVP Q6H PRN PRN Reason: BP MAINTENANCE (PER PROTOCOL) Stop: 12/30/17 21:17 Enoxaparin Sodium (Lovenox) 40 mg SUBQ DAILY [facility] Stop: 01/07/18 08:59 Last Admin: 11/09/17 09:18 Dose: 40 mg Haloperidol Lactate (Haldol) 5 mg IM Q6HR PRN PRN Reason: Agitation Stop: 12/31/17 22:10 Last Admin: 11/02/17 00:37 Dose: 5 mg Ceftriaxone Sodium 1 gm/ (Dextrose) 50 mls @ 100 mls/hr IV Q24H [facility] Stop: 01/06/18 16:44 Last Admin: 11/09/17 17:49 Dose: 100 mls/hr Metronidazole (Flagyl) 500 mg in 100 mls @ 100 mls/hr IV Q8HR [facility] Stop: 01/06/18 20:59 Last Admin: 11/09/17 22:22 Dose: 100 mls/hr Levothyroxine Sodium (Synthroid) 0.05 mg IVP DAILY [facility] Stop: 01/02/18 08:59 Last Admin: 11/09/17 09:17 Dose: 0.05 mg Miscellaneous (Vte Chemical Prophylaxis Screen/ Admission) 1 ea [facility] PRN PRN PRN Reason: PROTOCOL Stop: 12/31/17 16:23 Morphine Sulfate (Morphine) 2 mg IVP Q4HR PRN PRN Reason: Abdominal Pain Stop: 01/01/18 14:39 Last Admin: 11/04/17 15:17 Dose: 2 mg Nitroglycerin (Nitro-Bid) 1 inch TP Q6HR [facility] Stop: 01/01/18 17:59 Last Admin: 11/09/17 17:48 Dose: 1 inch Ondansetron HCl (Zofran) 4 mg IV Q6HR PRN PRN Reason: Nausea / Vomiting Stop: 12/30/17 19:27 Pantoprazole Sodium (Protonix) 40 mg IVP DAILY [facility] Stop: 01/02/18 08:59 Last Admin: 11/09/17 09:18 Dose: 40 mg Zolpidem Tartrate (Ambien) 5 mg PO HS PRN PRN Reason: Insomnia Stop: 01/06/18 07:57 General: no acute distress, well developed, well nourished HEENT: atraumatic, normocephalic, PERRLA, EOMI Neck: supple, no thyromegaly Cardiovascular: S1S2, regular Lungs: clear to auscultation bilaterally, clear to percussion Abdomen: soft, no tender, no distended, no rebound Extremities: no cyanosis, no clubbing Neurological: awake, alert, oriented - Procedures Procedures: Procedures Procedure Code Date MOBILIZATION OF COLON 24633 10/31/17 PARTIAL REMOVAL OF COLON 18816 10/31/17 RESECTION OF SIGMOID COLON, OPEN APPROACH [id number] 10/31/17 Infectious Disease Assmt/Plan - Problem List Patient Problems: All Active Problems ABDOMINAL PAIN WITH N/V/D (Acute) - Assessment Assessment: 1. Leukocytosis. Improved. Reactive. peritonitis. 2. Ileus and the bowel obstruction. Improving. 3. peritonitis. 4. Hypothyroidism. 5. History of CVA with the right-sided infarct. 6. GERD. 7. S/p bowel resection on 11/02/2017. 8. Hypertension. 9. Hypokalemia. 10. Hypomagnesemia, improved. - Plan Plan: dc antibiotic soon. Supplement potassium. Nutritional Asmnt/Malnutr-PDOC - Dietary Evaluation Malnutrition Findings (Please click <Entered> for more info): Nutritional Asmnt/Malnutrition Start: 11/05/17 16: 29 Text: Status: Complete Freq: Document 11/05/17 16:29 [facility] (Rec: 11/05/17 16:41 [facility] [email or web address]) Nutritional Asmnt/Malnutrition Patient General Information Nutritional Screening Moderate Risk Diagnosis acute bowel obstruction Pertinent Medical Hx/Surgical Hx HTN, hypothyroidism, GERD, hyperlipidemia, mental health disorder Subjective Information Pt seen lying in bed at time of visit, awake and alert. Pt had subtotaol colectomy on noted, s/p surgery day 3. Pt stated she tolerated clear liquid and feel hungry at this time and she had BM x 3 today . No food preference given. K level continue low noted. Per EMR, PO intake 75-100% on clear liquid. Current Diet Order/ Nutrition Support clear liquid Pertinent Medications synthroid, protonix, piperacillin, kcl Pertinent Labs 11/05 Na 141, K 2.8, Cl 113, BUN 5, Cr 0.5, glucose 111, Ca 7.8 Nutritional Hx/Data Height 1.55 m Height (Calculated Centimeters) 154.9 Current Weight (lbs) 54.431 kg Weight (Calculated Kilograms) 54.4 Weight (Calculated Grams) 31489.1 [place] Body Weight 105 Body Mass Index (BMI) 22.6 Weight Status Approriate GI Symptoms GI Symptoms None Last BM 11/05 Difficult in: None Skin Integrity/Comment: abdominal incision bruise to left arm pressure area to sacrum Estimated Nutritional Goals BEE in Kcals: Using Current wt Calories/Kcals/Kg 25-30 Kcals Calculated 4412-0103 Protein: Using Current wt Protein g/k-1.2 Protein Calculated 55-66 Fluid: ml 1375-1650ml (1ml/kcal) Nutritional Problem 1. Problem Problem altered GI function Etiology acute small bowel obstruction Signs/Symptoms: s/p colectomy and pt now on clear liquid Intervention/Recommendation Comments 1. Continue with clear liquid diet as ordered. Recommend Boost Breeze TID to supplement nutrition intake for clear liquid diet. 2. Monitor PO intake, GI function, wt, labs and skin integrity 3. F/U as moderate risk in 3-5 days, 11/08-11/10 Expected Outcomes/Goals Expected Outcomes/Goals 1. PO intake to meet at least 75% of nutritional needs. 2. Wt stability, skin to remain intact, labs to approach WNL.
[2017-11-10] MEDS: NITROGLYCERIN OINT 2% 1 INCH PACKET TP SCH ×4 (00:30→18:07)
[2017-11-10] MEDS: metroNIDAZOLE 500mg/NS 100mL 500 MG/100 ML BAG IV SCH ×2 (06:01→12:55)
--- NOTE | 2017-11-10 09:47 | General Progress Note ---
Subjective - Review of Systems Service Date: 11/10/17 Events since last encounter: eating, having more formed stools incision healing, GERMAINE in place Objective - Results Result Diagrams: 11/08/17 05:30 11/08/17 05:30 Recent Labs: Laboratory Last Values WBC 6.7 Th/cmm (4.8-10.8) 11/08/17 05:30 RBC 2.83 Mil/cmm (3.80-5.20) L 11/08/17 05:30 Hgb 8.7 gm/dL (12-16) L 11/08/17 05:30 Hct 26.4 % (41.0-60) L 11/08/17 05:30 MCV 93.2 fl (81-100) 11/08/17 05:30 MCH 30.7 pg (27.0-31.0) 11/08/17 05:30 MCHC Differential 32.9 pg (28.0-36.0) 11/08/17 05:30 RDW 13.7 % (11.5-20.0) 11/08/17 05:30 Plt Count 238 Th/cmm (150-400) 11/08/17 05:30 MPV 9.0 fl 11/08/17 05:30 Neutrophils % 78.2 % (40.0-80.0) 11/08/17 05:30 Lymphocytes % 10.8 % (20.0-50.0) L 11/08/17 05:30 Monocytes % 7.6 % (2.0-10.0) 11/08/17 05:30 Eosinophils % 3.3 % (0.0-5.0) 11/08/17 05:30 Basophils % 0.1 % (0.0-2.0) 11/08/17 05:30 PT 11.0 SECONDS (9.5-11.5) 11/02/17 11:03 INR 1.06 (0.5-1.4) 11/02/17 11:03 Sodium 138 mEq/L (136-145) 11/08/17 05:30 Potassium 3.0 mEq/L (3.5-5.1) L 11/08/17 05:30 Chloride 107 mEq/L (98-107) 11/08/17 05:30 Carbon Dioxide 24.7 mEq/L (21.0-31.0) 11/08/17 05:30 Anion Gap 9.3 (7.0-16.0) 11/08/17 05:30 BUN 4 mg/dL (7-25) L 11/08/17 05:30 Creatinine 0.4 mg/dL (0.6-1.2) L 11/08/17 05:30 Est GFR ( Amer) TNP 11/08/17 05:30 Est GFR (Non-Af Amer) TNP 11/08/17 05:30 BUN/Creatinine Ratio 10.0 11/08/17 05:30 Glucose 93 mg/dL (70-105) 11/08/17 05:30 Calcium 7.6 mg/dL (8.6-10.3) L 11/08/17 05:30 Magnesium 2.4 mg/dL (1.9-2.7) 11/08/17 05:30 Total Bilirubin 0.4 mg/dL (0.3-1.0) 11/05/17 04:55 Direct Bilirubin 0.21 mg/dL (0.0-0.2) H 10/31/17 17:52 AST 11 U/L (13-39) L 11/05/17 04:55 ALT 6 U/L (7-52) L 11/05/17 04:55 Alkaline Phosphatase 45 U/L (34-104) 11/05/17 04:55 Total Protein 4.8 gm/dL (6.0-8.3) L 11/05/17 04:55 Albumin 2.3 gm/dL (3.7-5.3) L 11/05/17 04:55 Globulin 2.5 gm/dL 11/05/17 04:55 Albumin/Globulin Ratio 0.9 (1.0-1.8) L 11/05/17 04:55 Lipase 26 U/L (11-82) 10/31/17 17:52 Urine Source MIDSTREAM 10/31/17 10:10 Urine Color YELLOW 10/31/17 10:10 Urine Clarity HAZY (CLEAR) 10/31/17 10:10 Urine pH 5.5 (4.6 - 8.0) 10/31/17 10:10 Ur Specific [place] 1.025 (1.005-1.030) 10/31/17 10:10 Urine Protein TRACE mg/dL (NEGATIVE) 10/31/17 10:10 Urine Glucose (UA) NEGATIVE mg/dL (NEGATIVE) 10/31/17 10:10 Urine Ketones NEGATIVE mg/dL (NEGATIVE) 10/31/17 10:10 Urine Blood TRACE (NEGATIVE) 10/31/17 10:10 Urine Nitrate NEGATIVE (NEGATIVE) 10/31/17 10:10 Urine Bilirubin NEGATIVE (NEGATIVE) 10/31/17 10:10 Urine Urobilinogen 0.2 E.U./dL (0.2 - 1.0) 10/31/17 10:10 Ur Leukocyte Esterase NEGATIVE (NEGATIVE) 10/31/17 10:10 Urine RBC 5-10 /hpf (0-5) H 10/31/17 10:10 Urine WBC 2-5 /hpf (0-5) 10/31/17 10:10 Ur Epithelial Cells MODERATE /lpf (FEW) 10/31/17 10:10 Urine Bacteria 1+ /hpf (NONE SEEN) H 10/31/17 10:10 Coarse Granular Casts 0-2 /lpf (NONE SEEN) H 10/31/17 10:10 Urine Mucus FEW /lpf (FEW) 10/31/17 10:10 Blood Type O POSITIVE 11/02/17 12:36 Antibody Screen NEGATIVE 11/02/17 12:36 Crossmatch See Detail 11/02/17 12:36 - Physical Exam Vitals and I&O: Vital Signs Temp 97.4 F 11/10/17 08:00 Pulse 86 11/10/17 08:00 Resp 18 11/10/17 08:00 BP 119/72 11/10/17 08:00 Pulse Ox 98 11/10/17 08:00 Intake & Output 11/09/17 11/10/17 11/10/17 18:59 06:59 18:59 Intake Total 100 252 Output Total 510 Balance 100 -258 Weight (lbs) 59.874 kg 59.874 kg Intake: Intake, IV Amount 100 100 metroNIDAZOLE 500mg/NS 100 100 100mL 500 mg In 100 ml @ 100 mls/hr IV Q8HR [facility] Rx #:[id number] Oral 152 Output: Drainage 60 Abdomen 60 Urine 450 Other: # Bowel Movements 1 Weight Source Bedscale Bedscale Active Medications: Current Medications Diphenoxylate HCl/Atropine (Lomotil) 1 tab PO TID PRN PRN Reason: Diarrhea Stop: 01/05/18 16:47 Enalaprilat (Vasotec) 2.5 mg IVP Q6H PRN PRN Reason: BP MAINTENANCE (PER PROTOCOL) Stop: 12/30/17 21:17 Enoxaparin Sodium (Lovenox) 40 mg SUBQ DAILY [facility] Stop: 01/07/18 08:59 Last Admin: 11/09/17 09:18 Dose: 40 mg Haloperidol Lactate (Haldol) 5 mg IM Q6HR PRN PRN Reason: Agitation Stop: 12/31/17 22:10 Last Admin: 11/02/17 00:37 Dose: 5 mg Ceftriaxone Sodium 1 gm/ (Dextrose) 50 mls @ 100 mls/hr IV Q24H [facility] Stop: 01/06/18 16:44 Last Admin: 11/09/17 17:49 Dose: 100 mls/hr Metronidazole (Flagyl) 500 mg in 100 mls @ 100 mls/hr IV Q8HR [facility] Stop: 01/06/18 20:59 Last Admin: 11/10/17 06:01 Dose: 100 mls/hr Levothyroxine Sodium (Synthroid) 0.05 mg IVP DAILY [facility] Stop: 01/02/18 08:59 Last Admin: 11/09/17 09:17 Dose: 0.05 mg Miscellaneous (Vte Chemical Prophylaxis Screen/ Admission) 1 ea [facility] PRN PRN PRN Reason: PROTOCOL Stop: 12/31/17 16:23 Morphine Sulfate (Morphine) 2 mg IVP Q4HR PRN PRN Reason: Abdominal Pain Stop: 01/01/18 14:39 Last Admin: 11/04/17 15:17 Dose: 2 mg Nitroglycerin (Nitro-Bid) 1 inch TP Q6HR [facility] Stop: 01/01/18 17:59 Last Admin: 11/10/17 06:02 Dose: 1 inch Ondansetron HCl (Zofran) 4 mg IV Q6HR PRN PRN Reason: Nausea / Vomiting Stop: 12/30/17 19:27 Pantoprazole Sodium (Protonix) 40 mg IVP DAILY [facility] Stop: 01/02/18 08:59 Last Admin: 11/09/17 09:18 Dose: 40 mg Zolpidem Tartrate (Ambien) 5 mg PO HS PRN PRN Reason: Insomnia Stop: 01/06/18 07:57 General: Alert, No acute distress HEENT: Atraumatic Neck: Supple Cardiovascular: Regular rate Lungs: Clear to auscultation Abdomen: Soft, no Tender, no Distended Skin: Rash - Procedures Procedures: Procedures Procedure Code Date MOBILIZATION OF COLON 03138 10/31/17 PARTIAL REMOVAL OF COLON 43704 10/31/17 RESECTION OF SIGMOID COLON, OPEN APPROACH [id number] 10/31/17 Assessment/Plan - Problem List Patient Problems: All Active Problems ABDOMINAL PAIN WITH N/V/D (Acute) Nutritional Asmnt/Malnutr-PDOC - Dietary Evaluation Malnutrition Findings (Please click <Entered> for more info): Nutritional Asmnt/Malnutrition Start: 11/05/17 16: 29 Text: Status: Complete Freq: Document 11/05/17 16:29 [facility] (Rec: 11/05/17 16:41 [facility] [email or web address]) Nutritional Asmnt/Malnutrition Patient General Information Nutritional Screening Moderate Risk Diagnosis acute bowel obstruction Pertinent Medical Hx/Surgical Hx HTN, hypothyroidism, GERD, hyperlipidemia, mental health disorder Subjective Information Pt seen lying in bed at time of visit, awake and alert. Pt had subtotaol colectomy on noted, s/p surgery day 3. Pt stated she tolerated clear liquid and feel hungry at this time and she had BM x 3 today . No food preference given. K level continue low noted. Per EMR, PO intake 75-100% on clear liquid. Current Diet Order/ Nutrition Support clear liquid Pertinent Medications synthroid, protonix, piperacillin, kcl Pertinent Labs 11/05 Na 141, K 2.8, Cl 113, BUN 5, Cr 0.5, glucose 111, Ca 7.8 Nutritional Hx/Data Height 1.55 m Height (Calculated Centimeters) 154.9 Current Weight (lbs) 54.431 kg Weight (Calculated Kilograms) 54.4 Weight (Calculated Grams) 22208.1 [place] Body Weight 105 Body Mass Index (BMI) 22.6 Weight Status Approriate GI Symptoms GI Symptoms None Last BM 11/05 Difficult in: None Skin Integrity/Comment: abdominal incision bruise to left arm pressure area to sacrum Estimated Nutritional Goals BEE in Kcals: Using Current wt Calories/Kcals/Kg 25-30 Kcals Calculated 1049-8616 Protein: Using Current wt Protein g/k-1.2 Protein Calculated 55-66 Fluid: ml 1375-1650ml (1ml/kcal) Nutritional Problem 1. Problem Problem altered GI function Etiology acute small bowel obstruction Signs/Symptoms: s/p colectomy and pt now on clear liquid Intervention/Recommendation Comments 1. Continue with clear liquid diet as ordered. Recommend Boost Breeze TID to supplement nutrition intake for clear liquid diet. 2. Monitor PO intake, GI function, wt, labs and skin integrity 3. F/U as moderate risk in 3-5 days, 11/08-11/10 Expected Outcomes/Goals Expected Outcomes/Goals 1. PO intake to meet at least 75% of nutritional needs. 2. Wt stability, skin to remain intact, labs to approach WNL.
[2017-11-10] MEDS: Enoxaparin 40 mg/0.4 mL 0.4mL Syr SUBQ SCH (17:05)
--- NOTE | 2017-11-10 18:58 | Infectious Disease Prog Note ---
Infectious Disease Subjective - Review of Systems Service Date: 11/10/17 Subjective: No new change, no fever. Infectious Disease Objective - Results Result Diagrams: 11/08/17 05:30 11/08/17 05:30 Recent Labs: Laboratory Last Values WBC 6.7 Th/cmm (4.8-10.8) 11/08/17 05:30 RBC 2.83 Mil/cmm (3.80-5.20) L 11/08/17 05:30 Hgb 8.7 gm/dL (12-16) L 11/08/17 05:30 Hct 26.4 % (41.0-60) L 11/08/17 05:30 MCV 93.2 fl (81-100) 11/08/17 05:30 MCH 30.7 pg (27.0-31.0) 11/08/17 05:30 MCHC Differential 32.9 pg (28.0-36.0) 11/08/17 05:30 RDW 13.7 % (11.5-20.0) 11/08/17 05:30 Plt Count 238 Th/cmm (150-400) 11/08/17 05:30 MPV 9.0 fl 11/08/17 05:30 Neutrophils % 78.2 % (40.0-80.0) 11/08/17 05:30 Lymphocytes % 10.8 % (20.0-50.0) L 11/08/17 05:30 Monocytes % 7.6 % (2.0-10.0) 11/08/17 05:30 Eosinophils % 3.3 % (0.0-5.0) 11/08/17 05:30 Basophils % 0.1 % (0.0-2.0) 11/08/17 05:30 PT 11.0 SECONDS (9.5-11.5) 11/02/17 11:03 INR 1.06 (0.5-1.4) 11/02/17 11:03 Sodium 138 mEq/L (136-145) 11/08/17 05:30 Potassium 3.0 mEq/L (3.5-5.1) L 11/08/17 05:30 Chloride 107 mEq/L (98-107) 11/08/17 05:30 Carbon Dioxide 24.7 mEq/L (21.0-31.0) 11/08/17 05:30 Anion Gap 9.3 (7.0-16.0) 11/08/17 05:30 BUN 4 mg/dL (7-25) L 11/08/17 05:30 Creatinine 0.4 mg/dL (0.6-1.2) L 11/08/17 05:30 Est GFR ( Amer) TNP 11/08/17 05:30 Est GFR (Non-Af Amer) TNP 11/08/17 05:30 BUN/Creatinine Ratio 10.0 11/08/17 05:30 Glucose 93 mg/dL (70-105) 11/08/17 05:30 Calcium 7.6 mg/dL (8.6-10.3) L 11/08/17 05:30 Magnesium 2.4 mg/dL (1.9-2.7) 11/08/17 05:30 Total Bilirubin 0.4 mg/dL (0.3-1.0) 11/05/17 04:55 Direct Bilirubin 0.21 mg/dL (0.0-0.2) H 10/31/17 17:52 AST 11 U/L (13-39) L 11/05/17 04:55 ALT 6 U/L (7-52) L 11/05/17 04:55 Alkaline Phosphatase 45 U/L (34-104) 11/05/17 04:55 Total Protein 4.8 gm/dL (6.0-8.3) L 11/05/17 04:55 Albumin 2.3 gm/dL (3.7-5.3) L 11/05/17 04:55 Globulin 2.5 gm/dL 11/05/17 04:55 Albumin/Globulin Ratio 0.9 (1.0-1.8) L 11/05/17 04:55 Lipase 26 U/L (11-82) 10/31/17 17:52 Urine Source MIDSTREAM 10/31/17 10:10 Urine Color YELLOW 10/31/17 10:10 Urine Clarity HAZY (CLEAR) 10/31/17 10:10 Urine pH 5.5 (4.6 - 8.0) 10/31/17 10:10 Ur Specific [place] 1.025 (1.005-1.030) 10/31/17 10:10 Urine Protein TRACE mg/dL (NEGATIVE) 10/31/17 10:10 Urine Glucose (UA) NEGATIVE mg/dL (NEGATIVE) 10/31/17 10:10 Urine Ketones NEGATIVE mg/dL (NEGATIVE) 10/31/17 10:10 Urine Blood TRACE (NEGATIVE) 10/31/17 10:10 Urine Nitrate NEGATIVE (NEGATIVE) 10/31/17 10:10 Urine Bilirubin NEGATIVE (NEGATIVE) 10/31/17 10:10 Urine Urobilinogen 0.2 E.U./dL (0.2 - 1.0) 10/31/17 10:10 Ur Leukocyte Esterase NEGATIVE (NEGATIVE) 10/31/17 10:10 Urine RBC 5-10 /hpf (0-5) H 10/31/17 10:10 Urine WBC 2-5 /hpf (0-5) 10/31/17 10:10 Ur Epithelial Cells MODERATE /lpf (FEW) 10/31/17 10:10 Urine Bacteria 1+ /hpf (NONE SEEN) H 10/31/17 10:10 Coarse Granular Casts 0-2 /lpf (NONE SEEN) H 10/31/17 10:10 Urine Mucus FEW /lpf (FEW) 10/31/17 10:10 Blood Type O POSITIVE 11/02/17 12:36 Antibody Screen NEGATIVE 11/02/17 12:36 Crossmatch See Detail 11/02/17 12:36 - Physical Exam Vitals and I&O: Vital Signs Temp 97.4 F 11/10/17 16:00 Pulse 91 11/10/17 18:07 Resp 18 11/10/17 16:00 BP 128/81 11/10/17 18:07 Pulse Ox 97 11/10/17 16:00 Intake & Output 11/09/17 11/10/17 11/10/17 18:59 06:59 18:59 Intake Total 150 252 100 Output Total 510 Balance 150 -258 100 Weight (lbs) 59.874 kg 59.874 kg 58.06 kg Intake: Intake, IV Amount 150 100 100 cefTRIAXone 1 gm In 50 Dextrose 5% 50 ml @ 100 mls/hr IV Q24H [facility] Rx#: [id number] metroNIDAZOLE 500mg/NS 100 100 100 100mL 500 mg In 100 ml @ 100 mls/hr IV Q8HR [facility] Rx #:[id number] Oral 152 Output: Drainage 60 Abdomen 60 Urine 450 Other: # Bowel Movements 1 Weight Source Bedscale Bedscale Bedscale Active Medications: Current Medications Diphenoxylate HCl/Atropine (Lomotil) 1 tab PO TID PRN PRN Reason: Diarrhea Stop: 01/05/18 16:47 Enalaprilat (Vasotec) 2.5 mg IVP Q6H PRN PRN Reason: BP MAINTENANCE (PER PROTOCOL) Stop: 12/30/17 21:17 Enoxaparin Sodium (Lovenox) 40 mg SUBQ DAILY [facility] Stop: 01/07/18 08:59 Last Admin: 11/10/17 17:05 Dose: Not Given Haloperidol Lactate (Haldol) 5 mg IM Q6HR PRN PRN Reason: Agitation Stop: 12/31/17 22:10 Last Admin: 11/02/17 00:37 Dose: 5 mg Ceftriaxone Sodium 1 gm/ (Dextrose) 50 mls @ 100 mls/hr IV Q24H [facility] Stop: 01/06/18 16:44 Last Admin: 11/10/17 16:57 Dose: 100 mls/hr Metronidazole (Flagyl) 500 mg in 100 mls @ 100 mls/hr IV Q8HR [facility] Stop: 01/06/18 20:59 Last Admin: 11/10/17 12:55 Dose: 100 mls/hr Levothyroxine Sodium (Synthroid) 0.05 mg IVP DAILY [facility] Stop: 01/02/18 08:59 Last Admin: 11/10/17 16:58 Dose: 0.05 mg Miscellaneous (Vte Chemical Prophylaxis Screen/ Admission) 1 ea [facility] PRN PRN PRN Reason: PROTOCOL Stop: 12/31/17 16:23 Morphine Sulfate (Morphine) 2 mg IVP Q4HR PRN PRN Reason: Abdominal Pain Stop: 01/01/18 14:39 Last Admin: 11/04/17 15:17 Dose: 2 mg Nitroglycerin (Nitro-Bid) 1 inch TP Q6HR [facility] Stop: 01/01/18 17:59 Last Admin: 11/10/17 18:07 Dose: 1 inch Ondansetron HCl (Zofran) 4 mg IV Q6HR PRN PRN Reason: Nausea / Vomiting Stop: 12/30/17 19:27 Pantoprazole Sodium (Protonix) 40 mg IVP DAILY [facility] Stop: 01/02/18 08:59 Last Admin: 11/10/17 17:03 Dose: 40 mg Zolpidem Tartrate (Ambien) 5 mg PO HS PRN PRN Reason: Insomnia Stop: 01/06/18 07:57 General: no acute distress, well developed, well nourished HEENT: atraumatic, normocephalic, PERRLA, EOMI, moist mucous membrane Neck: supple, no thyromegaly Cardiovascular: S1S2, regular Lungs: clear to auscultation bilaterally, clear to percussion Abdomen: soft, no tender, no distended Extremities: no cyanosis, no clubbing, no edema Neurological: awake, alert, oriented Skin: intact - Procedures Procedures: Procedures Procedure Code Date MOBILIZATION OF COLON 92533 10/31/17 PARTIAL REMOVAL OF COLON 10028 10/31/17 RESECTION OF SIGMOID COLON, OPEN APPROACH [id number] 10/31/17 Infectious Disease Assmt/Plan - Problem List Patient Problems: All Active Problems ABDOMINAL PAIN WITH N/V/D (Acute) - Assessment Assessment: 1. Leukocytosis. Improved. Reactive. peritonitis. 2. Ileus and the bowel obstruction. Improving. 3. peritonitis. 4. Hypothyroidism. 5. History of CVA with the right-sided infarct. 6. GERD. 7. S/p bowel resection on 11/02/2017. 8. Hypertension. 9. Hypokalemia. 10. Hypomagnesemia, improved. - Plan Plan: dc antibiotic. Supplement potassium. Nutritional Asmnt/Malnutr-PDOC - Dietary Evaluation Malnutrition Findings (Please click <Entered> for more info): Nutritional Asmnt/Malnutrition Start: 11/05/17 16: 29 Text: Status: Complete Freq: Document 11/05/17 16:29 LCHENG (Rec: 11/05/17 16:41 LCHENG [email or web address]) Nutritional Asmnt/Malnutrition Patient General Information Nutritional Screening Moderate Risk Diagnosis acute bowel obstruction Pertinent Medical Hx/Surgical Hx HTN, hypothyroidism, GERD, hyperlipidemia, mental health disorder Subjective Information Pt seen lying in bed at time of visit, awake and alert. Pt had subtotaol colectomy on noted, s/p surgery day 3. Pt stated she tolerated clear liquid and feel hungry at this time and she had BM x 3 today . No food preference given. K level continue low noted. Per EMR, PO intake 75-100% on clear liquid. Current Diet Order/ Nutrition Support clear liquid Pertinent Medications synthroid, protonix, piperacillin, kcl Pertinent Labs 11/05 Na 141, K 2.8, Cl 113, BUN 5, Cr 0.5, glucose 111, Ca 7.8 Nutritional Hx/Data Height 1.55 m Height (Calculated Centimeters) 154.9 Current Weight (lbs) 54.431 kg Weight (Calculated Kilograms) 54.4 Weight (Calculated Grams) 05868.1 [place] Body Weight 105 Body Mass Index (BMI) 22.6 Weight Status Approriate GI Symptoms GI Symptoms None Last BM 11/05 Difficult in: None Skin Integrity/Comment: abdominal incision bruise to left arm pressure area to sacrum Estimated Nutritional Goals BEE in Kcals: Using Current wt Calories/Kcals/Kg 25-30 Kcals Calculated 3496-0782 Protein: Using Current wt Protein g/k-1.2 Protein Calculated 55-66 Fluid: ml 1375-1650ml (1ml/kcal) Nutritional Problem 1. Problem Problem altered GI function Etiology acute small bowel obstruction Signs/Symptoms: s/p colectomy and pt now on clear liquid Intervention/Recommendation Comments 1. Continue with clear liquid diet as ordered. Recommend Boost Breeze TID to supplement nutrition intake for clear liquid diet. 2. Monitor PO intake, GI function, wt, labs and skin integrity 3. F/U as moderate risk in 3-5 days, 11/08-11/10 Expected Outcomes/Goals Expected Outcomes/Goals 1. PO intake to meet at least 75% of nutritional needs. 2. Wt stability, skin to remain intact, labs to approach WNL.
--- NOTE | 2017-11-10 20:32 | General Progress Note ---
Subjective - Review of Systems Service Date: 11/10/17 Subjective: Patient seen and examined patient more awake alert no reported concern Objective - Results Result Diagrams: 11/08/17 05:30 11/08/17 05:30 Recent Labs: Laboratory Last Values WBC 6.7 Th/cmm (4.8-10.8) 11/08/17 05:30 RBC 2.83 Mil/cmm (3.80-5.20) L 11/08/17 05:30 Hgb 8.7 gm/dL (12-16) L 11/08/17 05:30 Hct 26.4 % (41.0-60) L 11/08/17 05:30 MCV 93.2 fl (81-100) 11/08/17 05:30 MCH 30.7 pg (27.0-31.0) 11/08/17 05:30 MCHC Differential 32.9 pg (28.0-36.0) 11/08/17 05:30 RDW 13.7 % (11.5-20.0) 11/08/17 05:30 Plt Count 238 Th/cmm (150-400) 11/08/17 05:30 MPV 9.0 fl 11/08/17 05:30 Neutrophils % 78.2 % (40.0-80.0) 11/08/17 05:30 Lymphocytes % 10.8 % (20.0-50.0) L 11/08/17 05:30 Monocytes % 7.6 % (2.0-10.0) 11/08/17 05:30 Eosinophils % 3.3 % (0.0-5.0) 11/08/17 05:30 Basophils % 0.1 % (0.0-2.0) 11/08/17 05:30 PT 11.0 SECONDS (9.5-11.5) 11/02/17 11:03 INR 1.06 (0.5-1.4) 11/02/17 11:03 Sodium 138 mEq/L (136-145) 11/08/17 05:30 Potassium 3.0 mEq/L (3.5-5.1) L 11/08/17 05:30 Chloride 107 mEq/L (98-107) 11/08/17 05:30 Carbon Dioxide 24.7 mEq/L (21.0-31.0) 11/08/17 05:30 Anion Gap 9.3 (7.0-16.0) 11/08/17 05:30 BUN 4 mg/dL (7-25) L 11/08/17 05:30 Creatinine 0.4 mg/dL (0.6-1.2) L 11/08/17 05:30 Est GFR ( Amer) TNP 11/08/17 05:30 Est GFR (Non-Af Amer) TNP 11/08/17 05:30 BUN/Creatinine Ratio 10.0 11/08/17 05:30 Glucose 93 mg/dL (70-105) 11/08/17 05:30 Calcium 7.6 mg/dL (8.6-10.3) L 11/08/17 05:30 Magnesium 2.4 mg/dL (1.9-2.7) 11/08/17 05:30 Total Bilirubin 0.4 mg/dL (0.3-1.0) 11/05/17 04:55 Direct Bilirubin 0.21 mg/dL (0.0-0.2) H 10/31/17 17:52 AST 11 U/L (13-39) L 11/05/17 04:55 ALT 6 U/L (7-52) L 11/05/17 04:55 Alkaline Phosphatase 45 U/L (34-104) 11/05/17 04:55 Total Protein 4.8 gm/dL (6.0-8.3) L 11/05/17 04:55 Albumin 2.3 gm/dL (3.7-5.3) L 11/05/17 04:55 Globulin 2.5 gm/dL 11/05/17 04:55 Albumin/Globulin Ratio 0.9 (1.0-1.8) L 11/05/17 04:55 Lipase 26 U/L (11-82) 10/31/17 17:52 Urine Source MIDSTREAM 10/31/17 10:10 Urine Color YELLOW 10/31/17 10:10 Urine Clarity HAZY (CLEAR) 10/31/17 10:10 Urine pH 5.5 (4.6 - 8.0) 10/31/17 10:10 Ur Specific [place] 1.025 (1.005-1.030) 10/31/17 10:10 Urine Protein TRACE mg/dL (NEGATIVE) 10/31/17 10:10 Urine Glucose (UA) NEGATIVE mg/dL (NEGATIVE) 10/31/17 10:10 Urine Ketones NEGATIVE mg/dL (NEGATIVE) 10/31/17 10:10 Urine Blood TRACE (NEGATIVE) 10/31/17 10:10 Urine Nitrate NEGATIVE (NEGATIVE) 10/31/17 10:10 Urine Bilirubin NEGATIVE (NEGATIVE) 10/31/17 10:10 Urine Urobilinogen 0.2 E.U./dL (0.2 - 1.0) 10/31/17 10:10 Ur Leukocyte Esterase NEGATIVE (NEGATIVE) 10/31/17 10:10 Urine RBC 5-10 /hpf (0-5) H 10/31/17 10:10 Urine WBC 2-5 /hpf (0-5) 10/31/17 10:10 Ur Epithelial Cells MODERATE /lpf (FEW) 10/31/17 10:10 Urine Bacteria 1+ /hpf (NONE SEEN) H 10/31/17 10:10 Coarse Granular Casts 0-2 /lpf (NONE SEEN) H 10/31/17 10:10 Urine Mucus FEW /lpf (FEW) 10/31/17 10:10 Blood Type O POSITIVE 11/02/17 12:36 Antibody Screen NEGATIVE 11/02/17 12:36 Crossmatch See Detail 11/02/17 12:36 - Physical Exam Vitals and I&O: Vital Signs Temp 97.4 F 11/10/17 16:00 Pulse 94 11/10/17 19:50 Resp 20 11/10/17 19:50 BP 128/81 11/10/17 18:07 Pulse Ox 95 11/10/17 19:50 Intake & Output 11/10/17 11/10/17 11/11/17 06:59 18:59 06:59 Intake Total 252 100 Output Total 510 Balance -258 100 Weight (lbs) 59.874 kg 58.06 kg Intake: Intake, IV Amount 100 100 metroNIDAZOLE 500mg/NS 100 100 100mL 500 mg In 100 ml @ 100 mls/hr IV Q8HR [facility] Rx #:[id number] Oral 152 Output: Drainage 60 Abdomen 60 Urine 450 Other: # Bowel Movements 1 Weight Source Bedscale Bedscale Active Medications: Current Medications Diphenoxylate HCl/Atropine (Lomotil) 1 tab PO TID PRN PRN Reason: Diarrhea Stop: 01/05/18 16:47 Enalaprilat (Vasotec) 2.5 mg IVP Q6H PRN PRN Reason: BP MAINTENANCE (PER PROTOCOL) Stop: 12/30/17 21:17 Enoxaparin Sodium (Lovenox) 40 mg SUBQ DAILY [facility] Stop: 01/07/18 08:59 Last Admin: 11/10/17 17:05 Dose: Not Given Haloperidol Lactate (Haldol) 5 mg IM Q6HR PRN PRN Reason: Agitation Stop: 12/31/17 22:10 Last Admin: 11/02/17 00:37 Dose: 5 mg Metronidazole (Flagyl) 500 mg in 100 mls @ 100 mls/hr IV Q8HR [facility] Stop: 01/06/18 20:59 Last Admin: 11/10/17 12:55 Dose: 100 mls/hr Levothyroxine Sodium (Synthroid) 0.05 mg IVP DAILY [facility] Stop: 01/02/18 08:59 Last Admin: 11/10/17 16:58 Dose: 0.05 mg Miscellaneous (Vte Chemical Prophylaxis Screen/ Admission) 1 ea MC PRN PRN PRN Reason: PROTOCOL Stop: 12/31/17 16:23 Morphine Sulfate (Morphine) 2 mg IVP Q4HR PRN PRN Reason: Abdominal Pain Stop: 01/01/18 14:39 Last Admin: 11/04/17 15:17 Dose: 2 mg Nitroglycerin (Nitro-Bid) 1 inch TP Q6HR [facility] Stop: 01/01/18 17:59 Last Admin: 11/10/17 18:07 Dose: 1 inch Ondansetron HCl (Zofran) 4 mg IV Q6HR PRN PRN Reason: Nausea / Vomiting Stop: 12/30/17 19:27 Pantoprazole Sodium (Protonix) 40 mg IVP DAILY [facility] Stop: 01/02/18 08:59 Last Admin: 11/10/17 17:03 Dose: 40 mg Zolpidem Tartrate (Ambien) 5 mg PO HS PRN PRN Reason: Insomnia Stop: 01/06/18 07:57 General: Alert, No acute distress Cardiovascular: Regular rate Lungs: Clear to auscultation Abdomen: Soft, no Tender, no Distended - Procedures Procedures: Procedures Procedure Code Date MOBILIZATION OF COLON 25362 10/31/17 PARTIAL REMOVAL OF COLON 75512 10/31/17 RESECTION OF SIGMOID COLON, OPEN APPROACH [id number] 10/31/17 Assessment/Plan - Problem List Patient Problems: All Active Problems ABDOMINAL PAIN WITH N/V/D (Acute) - Assessment Assessment: Bowel obstruction s/p exp lap Weakness HTN Mental health disorder Dementia - Plan Plan: Rocephine and flagyl Encouraged to eat more Diet as tolerated DVT prophylaxis Plan of care discussed with nursing staff ALEJA CARUSO planing Nutritional Asmnt/Malnutr-PDOC - Dietary Evaluation Malnutrition Findings (Please click <Entered> for more info): Nutritional Asmnt/Malnutrition Start: 11/05/17 16: 29 Text: Status: Complete Freq: Document 11/05/17 16:29 LCHENG (Rec: 11/05/17 16:41 LCHENG [email or web address]) Nutritional Asmnt/Malnutrition Patient General Information Nutritional Screening Moderate Risk Diagnosis acute bowel obstruction Pertinent Medical Hx/Surgical Hx HTN, hypothyroidism, GERD, hyperlipidemia, mental health disorder Subjective Information Pt seen lying in bed at time of visit, awake and alert. Pt had subtotaol colectomy on noted, s/p surgery day 3. Pt stated she tolerated clear liquid and feel hungry at this time and she had BM x 3 today . No food preference given. K level continue low noted. Per EMR, PO intake 75-100% on clear liquid. Current Diet Order/ Nutrition Support clear liquid Pertinent Medications synthroid, protonix, piperacillin, kcl Pertinent Labs 11/05 Na 141, K 2.8, Cl 113, BUN 5, Cr 0.5, glucose 111, Ca 7.8 Nutritional Hx/Data Height 1.55 m Height (Calculated Centimeters) 154.9 Current Weight (lbs) 54.431 kg Weight (Calculated Kilograms) 54.4 Weight (Calculated Grams) 74829.1 [place] Body Weight 105 Body Mass Index (BMI) 22.6 Weight Status Approriate GI Symptoms GI Symptoms None Last BM 11/05 Difficult in: None Skin Integrity/Comment: abdominal incision bruise to left arm pressure area to sacrum Estimated Nutritional Goals BEE in Kcals: Using Current wt Calories/Kcals/Kg 25-30 Kcals Calculated 0749-7490 Protein: Using Current wt Protein g/k-1.2 Protein Calculated 55-66 Fluid: ml 1375-1650ml (1ml/kcal) Nutritional Problem 1. Problem Problem altered GI function Etiology acute small bowel obstruction Signs/Symptoms: s/p colectomy and pt now on clear liquid Intervention/Recommendation Comments 1. Continue with clear liquid diet as ordered. Recommend Boost Breeze TID to supplement nutrition intake for clear liquid diet. 2. Monitor PO intake, GI function, wt, labs and skin integrity 3. F/U as moderate risk in 3-5 days, 11/08-11/10 Expected Outcomes/Goals Expected Outcomes/Goals 1. PO intake to meet at least 75% of nutritional needs. 2. Wt stability, skin to remain intact, labs to approach WNL.
[2017-11-11] MEDS: NITROGLYCERIN OINT 2% 1 INCH PACKET TP SCH ×3 (01:32→12:47)
[2017-11-11] MEDS: metroNIDAZOLE 500mg/NS 100mL 500 MG/100 ML BAG IV SCH ×3 (04:30→20:28)
--- NOTE | 2017-11-11 07:48 | General Progress Note ---
Subjective - Review of Systems Service Date: 11/11/17 Events since last encounter: GERMAINE drain out incision healed eating, having better formed stools Objective - Results Result Diagrams: 11/08/17 05:30 11/08/17 05:30 Recent Labs: Laboratory Last Values WBC 6.7 Th/cmm (4.8-10.8) 11/08/17 05:30 RBC 2.83 Mil/cmm (3.80-5.20) L 11/08/17 05:30 Hgb 8.7 gm/dL (12-16) L 11/08/17 05:30 Hct 26.4 % (41.0-60) L 11/08/17 05:30 MCV 93.2 fl (81-100) 11/08/17 05:30 MCH 30.7 pg (27.0-31.0) 11/08/17 05:30 MCHC Differential 32.9 pg (28.0-36.0) 11/08/17 05:30 RDW 13.7 % (11.5-20.0) 11/08/17 05:30 Plt Count 238 Th/cmm (150-400) 11/08/17 05:30 MPV 9.0 fl 11/08/17 05:30 Neutrophils % 78.2 % (40.0-80.0) 11/08/17 05:30 Lymphocytes % 10.8 % (20.0-50.0) L 11/08/17 05:30 Monocytes % 7.6 % (2.0-10.0) 11/08/17 05:30 Eosinophils % 3.3 % (0.0-5.0) 11/08/17 05:30 Basophils % 0.1 % (0.0-2.0) 11/08/17 05:30 PT 11.0 SECONDS (9.5-11.5) 11/02/17 11:03 INR 1.06 (0.5-1.4) 11/02/17 11:03 Sodium 138 mEq/L (136-145) 11/08/17 05:30 Potassium 3.0 mEq/L (3.5-5.1) L 11/08/17 05:30 Chloride 107 mEq/L (98-107) 11/08/17 05:30 Carbon Dioxide 24.7 mEq/L (21.0-31.0) 11/08/17 05:30 Anion Gap 9.3 (7.0-16.0) 11/08/17 05:30 BUN 4 mg/dL (7-25) L 11/08/17 05:30 Creatinine 0.4 mg/dL (0.6-1.2) L 11/08/17 05:30 Est GFR ( Amer) TNP 11/08/17 05:30 Est GFR (Non-Af Amer) TNP 11/08/17 05:30 BUN/Creatinine Ratio 10.0 11/08/17 05:30 Glucose 93 mg/dL (70-105) 11/08/17 05:30 Calcium 7.6 mg/dL (8.6-10.3) L 11/08/17 05:30 Magnesium 2.4 mg/dL (1.9-2.7) 11/08/17 05:30 Total Bilirubin 0.4 mg/dL (0.3-1.0) 11/05/17 04:55 Direct Bilirubin 0.21 mg/dL (0.0-0.2) H 10/31/17 17:52 AST 11 U/L (13-39) L 11/05/17 04:55 ALT 6 U/L (7-52) L 11/05/17 04:55 Alkaline Phosphatase 45 U/L (34-104) 11/05/17 04:55 Total Protein 4.8 gm/dL (6.0-8.3) L 11/05/17 04:55 Albumin 2.3 gm/dL (3.7-5.3) L 11/05/17 04:55 Globulin 2.5 gm/dL 11/05/17 04:55 Albumin/Globulin Ratio 0.9 (1.0-1.8) L 11/05/17 04:55 Lipase 26 U/L (11-82) 10/31/17 17:52 Urine Source MIDSTREAM 10/31/17 10:10 Urine Color YELLOW 10/31/17 10:10 Urine Clarity HAZY (CLEAR) 10/31/17 10:10 Urine pH 5.5 (4.6 - 8.0) 10/31/17 10:10 Ur Specific [place] 1.025 (1.005-1.030) 10/31/17 10:10 Urine Protein TRACE mg/dL (NEGATIVE) 10/31/17 10:10 Urine Glucose (UA) NEGATIVE mg/dL (NEGATIVE) 10/31/17 10:10 Urine Ketones NEGATIVE mg/dL (NEGATIVE) 10/31/17 10:10 Urine Blood TRACE (NEGATIVE) 10/31/17 10:10 Urine Nitrate NEGATIVE (NEGATIVE) 10/31/17 10:10 Urine Bilirubin NEGATIVE (NEGATIVE) 10/31/17 10:10 Urine Urobilinogen 0.2 E.U./dL (0.2 - 1.0) 10/31/17 10:10 Ur Leukocyte Esterase NEGATIVE (NEGATIVE) 10/31/17 10:10 Urine RBC 5-10 /hpf (0-5) H 10/31/17 10:10 Urine WBC 2-5 /hpf (0-5) 10/31/17 10:10 Ur Epithelial Cells MODERATE /lpf (FEW) 10/31/17 10:10 Urine Bacteria 1+ /hpf (NONE SEEN) H 10/31/17 10:10 Coarse Granular Casts 0-2 /lpf (NONE SEEN) H 10/31/17 10:10 Urine Mucus FEW /lpf (FEW) 10/31/17 10:10 Blood Type O POSITIVE 11/02/17 12:36 Antibody Screen NEGATIVE 11/02/17 12:36 Crossmatch See Detail 11/02/17 12:36 - Physical Exam Vitals and I&O: Vital Signs Temp 98.1 F 11/11/17 04:00 Pulse 82 11/11/17 05:05 Resp 18 11/11/17 04:00 BP 104/56 11/11/17 05:05 Pulse Ox 96 11/11/17 04:00 Intake & Output 11/10/17 11/11/17 11/11/17 18:59 06:59 18:59 Intake Total 100 100 Output Total 1000 Balance 100 -900 Weight (lbs) 58.06 kg 55.384 kg Intake: Intake, IV Amount 100 100 metroNIDAZOLE 500mg/NS 100 100 100mL 500 mg In 100 ml @ 100 mls/hr IV Q8HR [facility] Rx #:[id number] Output: Urine 1000 Other: # Bowel Movements 1 Stool Characteristics Soft Weight Source Bedscale Bedscale Active Medications: Current Medications Diphenoxylate HCl/Atropine (Lomotil) 1 tab PO TID PRN PRN Reason: Diarrhea Stop: 01/05/18 16:47 Enalaprilat (Vasotec) 2.5 mg IVP Q6H PRN PRN Reason: BP MAINTENANCE (PER PROTOCOL) Stop: 12/30/17 21:17 Enoxaparin Sodium (Lovenox) 40 mg SUBQ DAILY [facility] Stop: 01/07/18 08:59 Last Admin: 11/10/17 17:05 Dose: Not Given Haloperidol Lactate (Haldol) 5 mg IM Q6HR PRN PRN Reason: Agitation Stop: 12/31/17 22:10 Last Admin: 11/02/17 00:37 Dose: 5 mg Metronidazole (Flagyl) 500 mg in 100 mls @ 100 mls/hr IV Q8HR [facility] Stop: 01/06/18 20:59 Last Admin: 11/11/17 04:30 Dose: 100 mls/hr Levothyroxine Sodium (Synthroid) 0.05 mg IVP DAILY [facility] Stop: 01/02/18 08:59 Last Admin: 11/10/17 16:58 Dose: 0.05 mg Miscellaneous (Vte Chemical Prophylaxis Screen/ Admission) 1 ea [facility] PRN PRN PRN Reason: PROTOCOL Stop: 12/31/17 16:23 Morphine Sulfate (Morphine) 2 mg IVP Q4HR PRN PRN Reason: Abdominal Pain Stop: 01/01/18 14:39 Last Admin: 11/04/17 15:17 Dose: 2 mg Nitroglycerin (Nitro-Bid) 1 inch TP Q6HR [facility] Stop: 01/01/18 17:59 Last Admin: 11/11/17 05:05 Dose: 1 inch Ondansetron HCl (Zofran) 4 mg IV Q6HR PRN PRN Reason: Nausea / Vomiting Stop: 12/30/17 19:27 Pantoprazole Sodium (Protonix) 40 mg IVP DAILY [facility] Stop: 01/02/18 08:59 Last Admin: 11/10/17 17:03 Dose: 40 mg Zolpidem Tartrate (Ambien) 5 mg PO HS PRN PRN Reason: Insomnia Stop: 01/06/18 07:57 General: Alert, No acute distress HEENT: Atraumatic Neck: Supple Cardiovascular: Regular rate Lungs: Clear to auscultation Abdomen: Soft, no Tender, no Distended Skin: Rash - Procedures Procedures: Procedures Procedure Code Date MOBILIZATION OF COLON 88429 10/31/17 PARTIAL REMOVAL OF COLON 29911 10/31/17 RESECTION OF SIGMOID COLON, OPEN APPROACH [id number] 10/31/17 Assessment/Plan - Problem List Patient Problems: All Active Problems ABDOMINAL PAIN WITH N/V/D (Acute) Nutritional Asmnt/Malnutr-PDOC - Dietary Evaluation Malnutrition Findings (Please click <Entered> for more info): Nutritional Asmnt/Malnutrition Start: 11/05/17 16: 29 Text: Status: Complete Freq: Document 11/05/17 16:29 HENG (Rec: 11/05/17 16:41 HEN [email or web address]) Nutritional Asmnt/Malnutrition Patient General Information Nutritional Screening Moderate Risk Diagnosis acute bowel obstruction Pertinent Medical Hx/Surgical Hx HTN, hypothyroidism, GERD, hyperlipidemia, mental health disorder Subjective Information Pt seen lying in bed at time of visit, awake and alert. Pt had subtotaol colectomy on noted, s/p surgery day 3. Pt stated she tolerated clear liquid and feel hungry at this time and she had BM x 3 today . No food preference given. K level continue low noted. Per EMR, PO intake 75-100% on clear liquid. Current Diet Order/ Nutrition Support clear liquid Pertinent Medications synthroid, protonix, piperacillin, kcl Pertinent Labs 11/05 Na 141, K 2.8, Cl 113, BUN 5, Cr 0.5, glucose 111, Ca 7.8 Nutritional Hx/Data Height 1.55 m Height (Calculated Centimeters) 154.9 Current Weight (lbs) 54.431 kg Weight (Calculated Kilograms) 54.4 Weight (Calculated Grams) 94051.1 [place] Body Weight 105 Body Mass Index (BMI) 22.6 Weight Status Approriate GI Symptoms GI Symptoms None Last BM 11/05 Difficult in: None Skin Integrity/Comment: abdominal incision bruise to left arm pressure area to sacrum Estimated Nutritional Goals BEE in Kcals: Using Current wt Calories/Kcals/Kg 25-30 Kcals Calculated 3429-0821 Protein: Using Current wt Protein g/k-1.2 Protein Calculated 55-66 Fluid: ml 1375-1650ml (1ml/kcal) Nutritional Problem 1. Problem Problem altered GI function Etiology acute small bowel obstruction Signs/Symptoms: s/p colectomy and pt now on clear liquid Intervention/Recommendation Comments 1. Continue with clear liquid diet as ordered. Recommend Boost Breeze TID to supplement nutrition intake for clear liquid diet. 2. Monitor PO intake, GI function, wt, labs and skin integrity 3. F/U as moderate risk in 3-5 days, 11/08-11/10 Expected Outcomes/Goals Expected Outcomes/Goals 1. PO intake to meet at least 75% of nutritional needs. 2. Wt stability, skin to remain intact, labs to approach WNL.
[2017-11-11] MEDS: Enoxaparin 40 mg/0.4 mL 0.4mL Syr SUBQ SCH (08:08)
[2017-11-11 08:46] LABS: ALB/GLOB RATIO 0.9 (1.0-1.8); ALBUMIN 2.6 gm/dL (3.7-5.3); ALKALINE PHOSPHATASE 60 U/L (34-104); ANION GAP 8.4 (7.0-16.0); BILIRUBIN,TOTAL 0.3 mg/dL (0.3-1.0); BUN - UREA NITROGEN 7 mg/dL (7-25); CALCIUM SERUM 8.1 mg/dL (8.6-10.3); CARBON DIOXIDE 26.1 mEq/L (21.0-31.0); CHLORIDE 105 mEq/L (98-107); CREATININE - SERUM 0.4 mg/dL (0.6-1.2); GLUCOSE 95 mg/dL (70-105); POTASSIUM SERUM 3.5 mEq/L (3.5-5.1); SGOT 10 U/L (13-39); SGPT/ALT 8 U/L (7-52); SODIUM SERUM 136 mEq/L (136-145); TOTAL PROTEIN,SERUM 5.5 gm/dL (6.0-8.3)
[2017-11-11 08:59] LABS: % BASOPHILS 0.1 % (0.0-2.0); % EOSINOPHILS 1.7 % (0.0-5.0); % LYMPHOCYTES 11.2 % (20.0-50.0); % MONOCYTES 4.9 % (2.0-10.0); % NEUTROPHILS 82.1 % (40.0-80.0); EOSINOPHILE ABSOLUTE 0.1 Th/cmm (0.1-0.4); HEMATOCRIT 31.7 % (41.0-60); HEMOGLOBIN 10.4 gm/dL (12-16); LYMPHOCYTE ABSOLUTE 0.9 Th/cmm (1.5-3.0); MEAN CELL VOLUME 94.2 fl (81-100); MEAN CORPUSCULAR HEMOGLOBIN 30.8 pg (27.0-31.0); MEAN CORPUSCULAR HGB CONC 32.7 pg (28.0-36.0); MEAN PLATELET VOLUME 8.6 fl; MONOCYTE ABSOLUTE 0.4 Th/cmm (0.3-1.0); NEUTROPHILE ABSOLUTE 6.4 Th/cmm (1.8-8.0); PLATELET COUNT 346 Th/cmm (150-400); RED BLOOD COUNT 3.37 Mil/cmm (3.80-5.20); RED CELL DISTRIBUTION WIDTH 15.2 % (11.5-20.0); WHITE BLOOD COUNT 7.8 Th/cmm (4.8-10.8)
[2017-11-11] MEDS: Morphine Sulfate 4 mg/mL 1mL Syr IVP PRN (10:25)
--- NOTE | 2017-11-11 14:22 | Infectious Disease Prog Note ---
Infectious Disease Subjective - Review of Systems Service Date: 11/11/17 Subjective: No new change, no fever. Infectious Disease Objective - Results Result Diagrams: 11/11/17 08:20 11/11/17 08:20 Recent Labs: Laboratory Last Values WBC 7.8 Th/cmm (4.8-10.8) 11/11/17 08:20 RBC 3.37 Mil/cmm (3.80-5.20) L 11/11/17 08:20 Hgb 10.4 gm/dL (12-16) L 11/11/17 08:20 Hct 31.7 % (41.0-60) L 11/11/17 08:20 MCV 94.2 fl (81-100) 11/11/17 08:20 MCH 30.8 pg (27.0-31.0) 11/11/17 08:20 MCHC Differential 32.7 pg (28.0-36.0) 11/11/17 08:20 RDW 15.2 % (11.5-20.0) 11/11/17 08:20 Plt Count 346 Th/cmm (150-400) 11/11/17 08:20 MPV 8.6 fl 11/11/17 08:20 Neutrophils % 82.1 % (40.0-80.0) H 11/11/17 08:20 Lymphocytes % 11.2 % (20.0-50.0) L 11/11/17 08:20 Monocytes % 4.9 % (2.0-10.0) 11/11/17 08:20 Eosinophils % 1.7 % (0.0-5.0) 11/11/17 08:20 Basophils % 0.1 % (0.0-2.0) 11/11/17 08:20 PT 11.0 SECONDS (9.5-11.5) 11/02/17 11:03 INR 1.06 (0.5-1.4) 11/02/17 11:03 Sodium 136 mEq/L (136-145) 11/11/17 08:20 Potassium 3.5 mEq/L (3.5-5.1) 11/11/17 08:20 Chloride 105 mEq/L (98-107) 11/11/17 08:20 Carbon Dioxide 26.1 mEq/L (21.0-31.0) 11/11/17 08:20 Anion Gap 8.4 (7.0-16.0) 11/11/17 08:20 BUN 7 mg/dL (7-25) 11/11/17 08:20 Creatinine 0.4 mg/dL (0.6-1.2) L 11/11/17 08:20 Est GFR ( Amer) TNP 11/11/17 08:20 Est GFR (Non-Af Amer) TNP 11/11/17 08:20 BUN/Creatinine Ratio 17.5 11/11/17 08:20 Glucose 95 mg/dL (70-105) 11/11/17 08:20 Calcium 8.1 mg/dL (8.6-10.3) L 11/11/17 08:20 Magnesium 2.4 mg/dL (1.9-2.7) 11/08/17 05:30 Total Bilirubin 0.3 mg/dL (0.3-1.0) 11/11/17 08:20 Direct Bilirubin 0.21 mg/dL (0.0-0.2) H 10/31/17 17:52 AST 10 U/L (13-39) L 11/11/17 08:20 ALT 8 U/L (7-52) 11/11/17 08:20 Alkaline Phosphatase 60 U/L (34-104) 11/11/17 08:20 Total Protein 5.5 gm/dL (6.0-8.3) L 11/11/17 08:20 Albumin 2.6 gm/dL (3.7-5.3) L 11/11/17 08:20 Globulin 2.9 gm/dL 11/11/17 08:20 Albumin/Globulin Ratio 0.9 (1.0-1.8) L 11/11/17 08:20 Lipase 26 U/L (11-82) 10/31/17 17:52 Urine Source MIDSTREAM 10/31/17 10:10 Urine Color YELLOW 10/31/17 10:10 Urine Clarity HAZY (CLEAR) 10/31/17 10:10 Urine pH 5.5 (4.6 - 8.0) 10/31/17 10:10 Ur Specific Krebs 1.025 (1.005-1.030) 10/31/17 10:10 Urine Protein TRACE mg/dL (NEGATIVE) 10/31/17 10:10 Urine Glucose (UA) NEGATIVE mg/dL (NEGATIVE) 10/31/17 10:10 Urine Ketones NEGATIVE mg/dL (NEGATIVE) 10/31/17 10:10 Urine Blood TRACE (NEGATIVE) 10/31/17 10:10 Urine Nitrate NEGATIVE (NEGATIVE) 10/31/17 10:10 Urine Bilirubin NEGATIVE (NEGATIVE) 10/31/17 10:10 Urine Urobilinogen 0.2 E.U./dL (0.2 - 1.0) 10/31/17 10:10 Ur Leukocyte Esterase NEGATIVE (NEGATIVE) 10/31/17 10:10 Urine RBC 5-10 /hpf (0-5) H 10/31/17 10:10 Urine WBC 2-5 /hpf (0-5) 10/31/17 10:10 Ur Epithelial Cells MODERATE /lpf (FEW) 10/31/17 10:10 Urine Bacteria 1+ /hpf (NONE SEEN) H 10/31/17 10:10 Coarse Granular Casts 0-2 /lpf (NONE SEEN) H 10/31/17 10:10 Urine Mucus FEW /lpf (FEW) 10/31/17 10:10 Blood Type O POSITIVE 11/02/17 12:36 Antibody Screen NEGATIVE 11/02/17 12:36 Crossmatch See Detail 11/02/17 12:36 - Physical Exam Vitals and I&O: Vital Signs Temp 97.8 F 11/11/17 12:06 Pulse 84 11/11/17 12:06 Resp 18 11/11/17 12:06 BP 99/50 11/11/17 12:06 Pulse Ox 98 11/11/17 12:06 Intake & Output 11/10/17 11/11/17 11/11/17 18:59 06:59 18:59 Intake Total 100 100 Output Total 1000 Balance 100 -900 Weight (lbs) 58.06 kg 55.384 kg Intake: Intake, IV Amount 100 100 metroNIDAZOLE 500mg/NS 100 100 100mL 500 mg In 100 ml @ 100 mls/hr IV Q8HR [facility] Rx #:[id number] Output: Urine 1000 Other: # Bowel Movements 1 Stool Characteristics Soft Weight Source Bedscale Bedscale Active Medications: Current Medications Diphenoxylate HCl/Atropine (Lomotil) 1 tab PO TID PRN PRN Reason: Diarrhea Stop: 01/05/18 16:47 Enalaprilat (Vasotec) 2.5 mg IVP Q6H PRN PRN Reason: BP MAINTENANCE (PER PROTOCOL) Stop: 12/30/17 21:17 Enoxaparin Sodium (Lovenox) 40 mg SUBQ DAILY [facility] Stop: 01/07/18 08:59 Last Admin: 11/11/17 08:08 Dose: 40 mg Haloperidol Lactate (Haldol) 5 mg IM Q6HR PRN PRN Reason: Agitation Stop: 12/31/17 22:10 Last Admin: 11/02/17 00:37 Dose: 5 mg Metronidazole (Flagyl) 500 mg in 100 mls @ 100 mls/hr IV Q8HR [facility] Stop: 01/10/18 12:59 Levothyroxine Sodium (Synthroid) 0.05 mg IVP DAILY [facility] Stop: 01/02/18 08:59 Last Admin: 11/11/17 08:09 Dose: Not Given Miscellaneous (Vte Chemical Prophylaxis Screen/ Admission) 1 ea MC PRN PRN PRN Reason: PROTOCOL Stop: 12/31/17 16:23 Morphine Sulfate (Morphine) 2 mg IVP Q4HR PRN PRN Reason: Abdominal Pain Stop: 01/01/18 14:39 Last Admin: 11/11/17 10:25 Dose: 2 mg Nitroglycerin (Nitro-Bid) 1 inch TP Q6HR [facility] Stop: 01/01/18 17:59 Last Admin: 11/11/17 12:47 Dose: Not Given Ondansetron HCl (Zofran) 4 mg IV Q6HR PRN PRN Reason: Nausea / Vomiting Stop: 12/30/17 19:27 Pantoprazole Sodium (Protonix) 40 mg IVP DAILY [facility] Stop: 01/02/18 08:59 Last Admin: 11/11/17 10:25 Dose: 40 mg Zolpidem Tartrate (Ambien) 5 mg PO HS PRN PRN Reason: Insomnia Stop: 01/06/18 07:57 General: no acute distress, well developed HEENT: atraumatic, normocephalic, PERRLA Neck: supple, no thyromegaly Cardiovascular: S1S2, regular Lungs: clear to auscultation bilaterally, clear to percussion Abdomen: soft, no tender, no distended Extremities: no cyanosis, no clubbing, no edema Neurological: awake, alert, oriented Skin: intact - Procedures Procedures: Procedures Procedure Code Date MOBILIZATION OF COLON 26335 10/31/17 PARTIAL REMOVAL OF COLON 32440 10/31/17 RESECTION OF SIGMOID COLON, OPEN APPROACH [id number] 10/31/17 Infectious Disease Assmt/Plan - Problem List Patient Problems: All Active Problems ABDOMINAL PAIN WITH N/V/D (Acute) - Assessment Assessment: 1. Leukocytosis. Improved. Reactive. peritonitis. 2. Ileus and the bowel obstruction. Improving. 3. peritonitis. 4. Hypothyroidism. 5. History of CVA with the right-sided infarct. 6. GERD. 7. S/p bowel resection on 11/02/2017. 8. Hypertension. 9. Hypokalemia. 10. Hypomagnesemia, improved. - Plan Plan: off antibiotics. Nutritional Asmnt/Malnutr-PDOC - Dietary Evaluation Malnutrition Findings (Please click <Entered> for more info): Nutritional Asmnt/Malnutrition Start: 11/05/17 16: 29 Text: Status: Complete Freq: Document 11/05/17 16:29 LCHENG (Rec: 11/05/17 16:41 LCHENG [email or web address]) Nutritional Asmnt/Malnutrition Patient General Information Nutritional Screening Moderate Risk Diagnosis acute bowel obstruction Pertinent Medical Hx/Surgical Hx HTN, hypothyroidism, GERD, hyperlipidemia, mental health disorder Subjective Information Pt seen lying in bed at time of visit, awake and alert. Pt had subtotaol colectomy on noted, s/p surgery day 3. Pt stated she tolerated clear liquid and feel hungry at this time and she had BM x 3 today . No food preference given. K level continue low noted. Per EMR, PO intake 75-100% on clear liquid. Current Diet Order/ Nutrition Support clear liquid Pertinent Medications synthroid, protonix, piperacillin, kcl Pertinent Labs 11/05 Na 141, K 2.8, Cl 113, BUN 5, Cr 0.5, glucose 111, Ca 7.8 Nutritional Hx/Data Height 1.55 m Height (Calculated Centimeters) 154.9 Current Weight (lbs) 54.431 kg Weight (Calculated Kilograms) 54.4 Weight (Calculated Grams) 03436.1 [place] Body Weight 105 Body Mass Index (BMI) 22.6 Weight Status Approriate GI Symptoms GI Symptoms None Last BM 11/05 Difficult in: None Skin Integrity/Comment: abdominal incision bruise to left arm pressure area to sacrum Estimated Nutritional Goals BEE in Kcals: Using Current wt Calories/Kcals/Kg 25-30 Kcals Calculated 3215-9400 Protein: Using Current wt Protein g/k-1.2 Protein Calculated 55-66 Fluid: ml 1375-1650ml (1ml/kcal) Nutritional Problem 1. Problem Problem altered GI function Etiology acute small bowel obstruction Signs/Symptoms: s/p colectomy and pt now on clear liquid Intervention/Recommendation Comments 1. Continue with clear liquid diet as ordered. Recommend Boost Breeze TID to supplement nutrition intake for clear liquid diet. 2. Monitor PO intake, GI function, wt, labs and skin integrity 3. F/U as moderate risk in 3-5 days, 11/08-11/10 Expected Outcomes/Goals Expected Outcomes/Goals 1. PO intake to meet at least 75% of nutritional needs. 2. Wt stability, skin to remain intact, labs to approach WNL.
--- NOTE | 2017-11-11 21:56 | General Progress Note ---
Subjective - Review of Systems Service Date: 11/11/17 Subjective: Patient seen and examined doing fine no reported concern Objective - Results Result Diagrams: 11/11/17 08:20 11/11/17 08:20 Recent Labs: Laboratory Last Values WBC 7.8 Th/cmm (4.8-10.8) 11/11/17 08:20 RBC 3.37 Mil/cmm (3.80-5.20) L 11/11/17 08:20 Hgb 10.4 gm/dL (12-16) L 11/11/17 08:20 Hct 31.7 % (41.0-60) L 11/11/17 08:20 MCV 94.2 fl (81-100) 11/11/17 08:20 MCH 30.8 pg (27.0-31.0) 11/11/17 08:20 MCHC Differential 32.7 pg (28.0-36.0) 11/11/17 08:20 RDW 15.2 % (11.5-20.0) 11/11/17 08:20 Plt Count 346 Th/cmm (150-400) 11/11/17 08:20 MPV 8.6 fl 11/11/17 08:20 Neutrophils % 82.1 % (40.0-80.0) H 11/11/17 08:20 Lymphocytes % 11.2 % (20.0-50.0) L 11/11/17 08:20 Monocytes % 4.9 % (2.0-10.0) 11/11/17 08:20 Eosinophils % 1.7 % (0.0-5.0) 11/11/17 08:20 Basophils % 0.1 % (0.0-2.0) 11/11/17 08:20 PT 11.0 SECONDS (9.5-11.5) 11/02/17 11:03 INR 1.06 (0.5-1.4) 11/02/17 11:03 Sodium 136 mEq/L (136-145) 11/11/17 08:20 Potassium 3.5 mEq/L (3.5-5.1) 11/11/17 08:20 Chloride 105 mEq/L (98-107) 11/11/17 08:20 Carbon Dioxide 26.1 mEq/L (21.0-31.0) 11/11/17 08:20 Anion Gap 8.4 (7.0-16.0) 11/11/17 08:20 BUN 7 mg/dL (7-25) 11/11/17 08:20 Creatinine 0.4 mg/dL (0.6-1.2) L 11/11/17 08:20 Est GFR ( Amer) TNP 11/11/17 08:20 Est GFR (Non-Af Amer) TNP 11/11/17 08:20 BUN/Creatinine Ratio 17.5 11/11/17 08:20 Glucose 95 mg/dL (70-105) 11/11/17 08:20 Calcium 8.1 mg/dL (8.6-10.3) L 11/11/17 08:20 Magnesium 2.4 mg/dL (1.9-2.7) 11/08/17 05:30 Total Bilirubin 0.3 mg/dL (0.3-1.0) 11/11/17 08:20 Direct Bilirubin 0.21 mg/dL (0.0-0.2) H 10/31/17 17:52 AST 10 U/L (13-39) L 11/11/17 08:20 ALT 8 U/L (7-52) 11/11/17 08:20 Alkaline Phosphatase 60 U/L (34-104) 11/11/17 08:20 Total Protein 5.5 gm/dL (6.0-8.3) L 11/11/17 08:20 Albumin 2.6 gm/dL (3.7-5.3) L 11/11/17 08:20 Globulin 2.9 gm/dL 11/11/17 08:20 Albumin/Globulin Ratio 0.9 (1.0-1.8) L 11/11/17 08:20 Lipase 26 U/L (11-82) 10/31/17 17:52 Urine Source MIDSTREAM 10/31/17 10:10 Urine Color YELLOW 10/31/17 10:10 Urine Clarity HAZY (CLEAR) 10/31/17 10:10 Urine pH 5.5 (4.6 - 8.0) 10/31/17 10:10 Ur Specific Farrell 1.025 (1.005-1.030) 10/31/17 10:10 Urine Protein TRACE mg/dL (NEGATIVE) 10/31/17 10:10 Urine Glucose (UA) NEGATIVE mg/dL (NEGATIVE) 10/31/17 10:10 Urine Ketones NEGATIVE mg/dL (NEGATIVE) 10/31/17 10:10 Urine Blood TRACE (NEGATIVE) 10/31/17 10:10 Urine Nitrate NEGATIVE (NEGATIVE) 10/31/17 10:10 Urine Bilirubin NEGATIVE (NEGATIVE) 10/31/17 10:10 Urine Urobilinogen 0.2 E.U./dL (0.2 - 1.0) 10/31/17 10:10 Ur Leukocyte Esterase NEGATIVE (NEGATIVE) 10/31/17 10:10 Urine RBC 5-10 /hpf (0-5) H 10/31/17 10:10 Urine WBC 2-5 /hpf (0-5) 10/31/17 10:10 Ur Epithelial Cells MODERATE /lpf (FEW) 10/31/17 10:10 Urine Bacteria 1+ /hpf (NONE SEEN) H 10/31/17 10:10 Coarse Granular Casts 0-2 /lpf (NONE SEEN) H 10/31/17 10:10 Urine Mucus FEW /lpf (FEW) 10/31/17 10:10 Blood Type O POSITIVE 11/02/17 12:36 Antibody Screen NEGATIVE 11/02/17 12:36 Crossmatch See Detail 11/02/17 12:36 - Physical Exam Vitals and I&O: Vital Signs Temp 97.4 F 11/11/17 20:00 Pulse 86 11/11/17 20:33 Resp 20 11/11/17 20:33 BP 107/63 11/11/17 20:00 Pulse Ox 95 11/11/17 20:33 Intake & Output 11/11/17 11/11/17 11/12/17 06:59 18:59 06:59 Intake Total 100 100 Output Total 1000 Balance -900 100 Weight (lbs) 55.384 kg Intake: Intake, IV Amount 100 100 metroNIDAZOLE 500mg/NS 100 100mL 500 mg In 100 ml @ 100 mls/hr IV Q8HR [facility] Rx #:[id number] metroNIDAZOLE 500mg/NS 100 100mL 500 mg In 100 ml @ 100 mls/hr IV Q8HR [facility] Rx #:[id number] Output: Urine 1000 Other: # Bowel Movements 1 Stool Characteristics Soft Weight Source Bedscale Active Medications: Current Medications Diphenoxylate HCl/Atropine (Lomotil) 1 tab PO TID PRN PRN Reason: Diarrhea Stop: 01/05/18 16:47 Enalaprilat (Vasotec) 2.5 mg IVP Q6H PRN PRN Reason: BP MAINTENANCE (PER PROTOCOL) Stop: 12/30/17 21:17 Enoxaparin Sodium (Lovenox) 40 mg SUBQ DAILY [facility] Stop: 01/07/18 08:59 Last Admin: 11/11/17 08:08 Dose: 40 mg Haloperidol Lactate (Haldol) 5 mg IM Q6HR PRN PRN Reason: Agitation Stop: 12/31/17 22:10 Last Admin: 11/02/17 00:37 Dose: 5 mg Levothyroxine Sodium (Synthroid) 0.05 mg IVP DAILY [facility] Stop: 01/02/18 08:59 Last Admin: 11/11/17 08:09 Dose: Not Given Miscellaneous (Vte Chemical Prophylaxis Screen/ Admission) 1 ea MC PRN PRN PRN Reason: PROTOCOL Stop: 12/31/17 16:23 Morphine Sulfate (Morphine) 2 mg IVP Q4HR PRN PRN Reason: Abdominal Pain Stop: 01/01/18 14:39 Last Admin: 11/11/17 10:25 Dose: 2 mg Ondansetron HCl (Zofran) 4 mg IV Q6HR PRN PRN Reason: Nausea / Vomiting Stop: 12/30/17 19:27 Pantoprazole Sodium (Protonix) 40 mg IVP DAILY [facility] Stop: 01/02/18 08:59 Last Admin: 11/11/17 10:25 Dose: 40 mg Zolpidem Tartrate (Ambien) 5 mg PO HS PRN PRN Reason: Insomnia Stop: 01/06/18 07:57 General: Alert, No acute distress Cardiovascular: Regular rate Lungs: Clear to auscultation Abdomen: Soft, no Tender, no Distended - Procedures Procedures: Procedures Procedure Code Date MOBILIZATION OF COLON 41916 10/31/17 PARTIAL REMOVAL OF COLON 33229 10/31/17 RESECTION OF SIGMOID COLON, OPEN APPROACH [id number] 10/31/17 Assessment/Plan - Problem List Patient Problems: All Active Problems ABDOMINAL PAIN WITH N/V/D (Acute) - Assessment Assessment: Bowel obstruction s/p exp lap Weakness HTN Mental health disorder Dementia - Plan Plan: Rocephine and flagyl Encouraged to eat more Diet as tolerated DVT prophylaxis Plan of care discussed with nursing staff ALEJA CARUSO planing Nutritional Asmnt/Malnutr-PDOC - Dietary Evaluation Malnutrition Findings (Please click <Entered> for more info): Nutritional Asmnt/Malnutrition Start: 11/05/17 16: 29 Text: Status: Complete Freq: Document 11/05/17 16:29 MARJAN (Rec: 11/05/17 16:41 [id number] Nutritional Asmnt/Malnutrition Patient General Information Nutritional Screening Moderate Risk Diagnosis acute bowel obstruction Pertinent Medical Hx/Surgical Hx HTN, hypothyroidism, GERD, hyperlipidemia, mental health disorder Subjective Information Pt seen lying in bed at time of visit, awake and alert. Pt had subtotaol colectomy on noted, s/p surgery day 3. Pt stated she tolerated clear liquid and feel hungry at this time and she had BM x 3 today . No food preference given. K level continue low noted. Per EMR, PO intake 75-100% on clear liquid. Current Diet Order/ Nutrition Support clear liquid Pertinent Medications synthroid, protonix, piperacillin, kcl Pertinent Labs 11/05 Na 141, K 2.8, Cl 113, BUN 5, Cr 0.5, glucose 111, Ca 7.8 Nutritional Hx/Data Height 1.55 m Height (Calculated Centimeters) 154.9 Current Weight (lbs) 54.431 kg Weight (Calculated Kilograms) 54.4 Weight (Calculated Grams) 98732.1 [place] Body Weight 105 Body Mass Index (BMI) 22.6 Weight Status Approriate GI Symptoms GI Symptoms None Last BM 11/05 Difficult in: None Skin Integrity/Comment: abdominal incision bruise to left arm pressure area to sacrum Estimated Nutritional Goals BEE in Kcals: Using Current wt Calories/Kcals/Kg 25-30 Kcals Calculated 6143-4500 Protein: Using Current wt Protein g/k-1.2 Protein Calculated 55-66 Fluid: ml 1375-1650ml (1ml/kcal) Nutritional Problem 1. Problem Problem altered GI function Etiology acute small bowel obstruction Signs/Symptoms: s/p colectomy and pt now on clear liquid Intervention/Recommendation Comments 1. Continue with clear liquid diet as ordered. Recommend Boost Breeze TID to supplement nutrition intake for clear liquid diet. 2. Monitor PO intake, GI function, wt, labs and skin integrity 3. F/U as moderate risk in 3-5 days, 11/08-11/10 Expected Outcomes/Goals Expected Outcomes/Goals 1. PO intake to meet at least 75% of nutritional needs. 2. Wt stability, skin to remain intact, labs to approach WNL.
== END 2017-11-11 23:50 | DRG 853 ==
LOC: ER 16:47 → MSI 19:50 → TELE 11-01 23:00 → ICU 11-02 19:35 → TELE 11-03 12:45 → MSI 11-11 19:14
PROVIDERS: ADMIT Family Medicine; ATTEND Family Medicine
PROC: 0DTE0ZZ Resection of Large Intestine, Open Approach (ICD-10-PCS; principal; 2017-11-02)
PROC: 30233N1 Transfusion of Nonautologous Red Blood Cells into Peripheral Vein, Percutaneous Approach (ICD-10-PCS; 2017-11-02)
DX: A41.9 Sepsis, unspecified organism (principal); K56.2 Volvulus; K65.9 Peritonitis, unspecified; I69.351 Hemiplegia and hemiparesis following cerebral infarction affecting right dominant side; K59.39 Other megacolon; K56.699 Other intestinal obstruction unspecified as to partial versus complete obstruction; F03.90 Unspecified dementia, unspecified severity, without behavioral disturbance, psychotic disturbance, mood disturbance, and anxiety; I95.9 Hypotension, unspecified; E03.9 Hypothyroidism, unspecified; I10 Essential (primary) hypertension; E78.5 Hyperlipidemia, unspecified; K21.9 Gastro-esophageal reflux disease without esophagitis; M19.90 Unspecified osteoarthritis, unspecified site; K59.09 Other constipation; K80.80 Other cholelithiasis without obstruction; E87.6 Hypokalemia; E83.42 Hypomagnesemia; F29 Unspecified psychosis not due to a substance or known physiological condition; Z90.710 Acquired absence of both cervix and uterus
CPT/HCPCS: 36415-UA; 74000-TC; 74250-TC; 80048-TC; 80053-TC; 80076-TC; 81001-TC; 83690-TC; 83735-TC; 85007-TC; 85014-TC; 85018-TC; 85025-TC; 85027-TC; 85610-TC; 86850-TC; 86900-TC; 86901-TC; 86922-TC; 87070-90; 87075-90; 87205-90; 87230-TC; 90799; 94640; 94760; 96372; 97530; C9113; J0696; J1170; J1630; J1644; J1650; J1885; J2001; J2060; J2405; J2543; J2704; J2710; J3475; J3480; J7042; P9016; X3904; X5716; X6258; X6452; Z7610